=== PATIENT | female | born 1950 | race Caucasian/White ===

== ENCOUNTER → 2016-11-25 | Outpatient (CLI) | payer OTHER, MEDICAID ==
[~2016-11-25] MED LIST: ENAL2.5T PO; IBUP600T39; INSUPOW; METF-371 PO; PRAVASTATIN PO; TRAM50TA2 PO
== END | disposition home or self-care (01) ==
LOC: XY 11:07
PROVIDERS: ATTEND Internal Medicine
DX: L98.8 Other specified disorders of the skin and subcutaneous tissue (principal); M79.605 Pain in left leg; M79.604 Pain in right leg; R53.1 Weakness
CPT/HCPCS: 93923; 93925

== ENCOUNTER → 2017-01-26 | Outpatient (CLI) | payer OTHER, MEDICAID ==
[2017-01-26 09:39] LABS: Albumin 3.3 g/dL (3.4-5.0); BUN/Creatinine Ratio 22.4; Basophils # (auto) 0 uL; Basophils % (auto) 0.4 % (0.0-2.0); Bilirubin, Total 0.4 mg/dL (0.2-1.0); CONDITION Y; Calcium 8.8 mg/dL (8.5-10.1); Eosinophils # (auto) 0.1 uL; Eosinophils % (auto) 1.2 % (0.0-7.0); Hematocrit 42.7 % (36.0-46.0); Hemoglobin 14.1 g/dL (12.2-16.2); Lymphocytes # (auto) 2.9 uL; Lymphocytes % (auto) 34.6 % (10.0-50.0); Mean Corpuscular Hemoglobin 29.2 pg (28.0-32.0); Mean Corpuscular Hgb Conc. 33.1 g/dL (32.0-36.0); Mean Corpuscular Volume 88.2 fL (80.0-100.0); Mean Platelet Volume 9.9 fL (7.4-10.4); Monocytes # (auto) 0.6 uL; Monocytes % (auto) 7.4 % (0.0-12.0); Neutrophils # (auto) 4.8 uL; Neutrophils % (auto) 56.4 % (37.0-80.0); Platelet Count (auto) 232 10^3/uL (140-450); Potassium 4.2 mmol/L (3.5-5.1); Total Protein 7.4 g/dL (6.4-8.2); White Blood Cell 8.5 10^3/uL (4.4-10.8)
== END | disposition home or self-care (01) ==
LOC: LAB 09:00
PROVIDERS: ATTEND Internal Medicine
DX: I10 Essential (primary) hypertension (principal); E11.40 Type 2 diabetes mellitus with diabetic neuropathy, unspecified; I48.91 Unspecified atrial fibrillation
CPT/HCPCS: 36415; 80053; 80061; 82043; 82607; 83036; 84439; 84443; 85025; 85652

== ENCOUNTER → 2017-02-15 | Outpatient (CLI) | payer OTHER, MEDICAID ==
[2017-02-15 16:56] LABS: Urine Bilirubin Negative (Negative); Urine Blood 1+ /uL (Negative); Urine Color Yellow (Yellow); Urine Glucose 4+ mg/dL (Normal); Urine Ketone Negative (Negative); Urine Mucus MODERATE (None Seen); Urine Nitrite Negative (Negative); Urine RBC 5 /hpf (0 - 4); Urine Squamous Epithelial Cell FEW /hpf (<5); Urine Urobilinogen Normal (Negative); Urine WBC Clumps PRESENT /hpf (None Seen); Urine pH 5.5 (5.0-8.0)
== END | disposition home or self-care (01) ==
LOC: LAB 15:41
PROVIDERS: ATTEND Internal Medicine
DX: E11.40 Type 2 diabetes mellitus with diabetic neuropathy, unspecified (principal); I10 Essential (primary) hypertension
CPT/HCPCS: 81001; 82043; 82270

== ENCOUNTER 2017-02-25 09:40 | Emergency (ER) | payer OTHER, MEDICAID ==
[~2017-02-25] VITALS: Ht 154.9 cm; Wt 64.4 kg
[2017-02-25] MEDS ORDERED: PROMETHAZINE HCL 6.25 MG/5 ML ORAL SYRUP PO ONE (10:15)
[2017-02-25 10:37] LABS: Basophils # (auto) 0 uL; Basophils % (auto) 0.4 % (0.0-2.0); Eosinophils # (auto) 0.1 uL; Eosinophils % (auto) 1.5 % (0.0-7.0); Hematocrit 45.1 % (36.0-46.0); Hemoglobin 14.6 g/dL (12.2-16.2); Lymphocytes # (auto) 2.1 uL; Lymphocytes % (auto) 24.1 % (10.0-50.0); Mean Corpuscular Hemoglobin 30.1 pg (28.0-32.0); Mean Corpuscular Hgb Conc. 32.4 g/dL (32.0-36.0); Mean Corpuscular Volume 92.8 fL (80.0-100.0); Mean Platelet Volume 9.3 fL (6.9-10.8); Monocytes # (auto) 0.7 uL; Monocytes % (auto) 8.5 % (0.0-12.0); Neutrophils # (auto) 5.7 uL; Neutrophils % (auto) 65.5 % (37.0-80.0); Platelet Count (auto) 187 10^3/uL (140-450); Red Cell Distribution Width 12.8 % (11.8-14.3); White Blood Cell 8.8 10^3/uL (4.4-10.8)
[2017-02-25 10:49] LABS: INR 0.94 (0.9-1.15); Partial Thromboplastin Time 25.4 sec (22.64-33.71); Prothrombin Time 10.2 sec (9.37-12.3)
[2017-02-25 10:59] LABS: Albumin 3.4 g/dL (3.4-5.0); Alkaline Phosphatase 83 U/L (45-117); Anion Gap 6 (5-15); Aspartate Aminotransferase 10 U/L (15-37); BUN/Creatinine Ratio 18.2; Bilirubin, Total 0.3 mg/dL (0.2-1.0); Blood Urea Nitrogen 12 mg/dL (7-18); Calcium 8.7 mg/dL (8.5-10.1); Carbon Dioxide 25 mmol/L (21-32); Chloride 103 mmol/L (98-107); GFR African American 115 mL/min; GFR Non-African American 95 mL/min; Glucose 273 mg/dL (74-106); Potassium 4.2 mmol/L (3.5-5.1); Sodium 134 mmol/L (136-145); Total Protein 7.9 g/dL (6.4-8.2)
[2017-02-25] MEDS ORDERED: InsuLIN REG 1unit/0.01ml Soln (100units/ml) SC ONE (11:45)
[2017-02-25 12:33] VITALS: BP 120/70
== END 2017-02-25 12:43 | disposition home or self-care (01) ==
LOC: ER 09:40
DX: E11.65 Type 2 diabetes mellitus with hyperglycemia (principal); R05 Cough; I10 Essential (primary) hypertension; I48.91 Unspecified atrial fibrillation; M19.90 Unspecified osteoarthritis, unspecified site; E78.5 Hyperlipidemia, unspecified
CPT/HCPCS: 36415; 71010; 80053; 84484; 85025; 85610; 85730; 93005; 96372; 99285; J1815

== ENCOUNTER → 2017-06-23 | Outpatient (CLI) | payer OTHER, MEDICAID ==
[~2017-06-23] MED LIST changes: +ASPI81TA27 PO; +GABA300C10 PO; +GLIM2TAB33 PO; +INSDRIP SC; +INSUINJ48 SC; +LISI2.5T47 PO; +SIMV-8 PO
== END | disposition home or self-care (01) ==
LOC: LAB 15:26
PROVIDERS: ATTEND Internal Medicine
DX: N39.0 Urinary tract infection, site not specified (principal); R35.1 Nocturia; R30.0 Dysuria; R32 Unspecified urinary incontinence
CPT/HCPCS: 36415; 83036; 87086; 87088; 87186

== ENCOUNTER → 2017-09-06 | Day surgery (SDC) | payer OTHER, MEDICAID ==
[2017-09-02 14:08] LABS: Basophils # (auto) 0.1 uL; Basophils % (auto) 0.6 % (0.0-2.0); Eosinophils # (auto) 0.1 uL; Eosinophils % (auto) 1.5 % (0.0-7.0); Hematocrit 44.2 % (36.0-46.0); Hemoglobin 14.7 g/dL (12.2-16.2); Lymphocytes # (auto) 3.3 uL; Lymphocytes % (auto) 37.9 % (10.0-50.0); Mean Corpuscular Hemoglobin 29.1 pg (28.0-32.0); Mean Corpuscular Hgb Conc. 33.2 g/dL (32.0-36.0); Mean Corpuscular Volume 87.5 fL (80.0-100.0); Monocytes # (auto) 0.7 uL; Monocytes % (auto) 7.7 % (0.0-12.0); Neutrophils # (auto) 4.5 uL; Neutrophils % (auto) 52.3 % (37.0-80.0); Nucleated Red Blood Cells % 0.1 %; Platelet Count (auto) 206 10^3/uL (140-450); Red Blood Cells 5.05 10^6/uL (4.0-5.20); Red Cell Distribution Width 12.7 % (11.8-14.3); White Blood Cell 8.6 10^3/uL (4.4-10.8)
[2017-09-02 14:17] LABS: Urine Bacteria NONE SEEN /hpf (None Seen); Urine Blood TRACE /uL (Negative); Urine Budding Yeast MANY /hpf (None Seen); Urine Mucus FEW (None Seen); Urine Specific Gravity 1.022 (1.001-1.035); Urine WBC 285 /hpf (0 - 5); Urine WBC Clumps PRESENT /hpf (None Seen)
[2017-09-02 14:20] LABS: INR 0.93 (0.9-1.15); Partial Thromboplastin Time 23.1 sec (22.64-33.71); Prothrombin Time 10.1 sec (9.37-12.3)
[2017-09-02 14:43] LABS: Albumin 3.7 g/dL (3.4-5.0); BUN/Creatinine Ratio 22.9; Bilirubin, Total 0.3 mg/dL (0.2-1.0); Potassium 4.1 mmol/L (3.5-5.1); Total Protein 8.4 g/dL (6.4-8.2)
[~2017-09-06] VITALS: Ht 152.4 cm; Wt 63.0 kg
[~2017-09-06] MED LIST changes: +ATOR40TA52 PO; -ENAL2.5T PO; -IBUP600T39; -INSUPOW; -METF-371 PO; -PRAVASTATIN PO; -TRAM50TA2 PO
== END | disposition home or self-care (01) ==
LOC: SUR 08:47
PROVIDERS: ATTEND Urology
DX: N81.10 Cystocele, unspecified (principal); Z53.8 Procedure and treatment not carried out for other reasons; E66.9 Obesity, unspecified
CPT/HCPCS: 36415; 80053; 81001; 85025; 85610; 85730

== ENCOUNTER 2017-10-11 07:07 | Day surgery (SDC) | payer OTHER, MEDICAID ==
[2017-10-07 09:18] LABS: Basophils # (auto) 0 uL; Basophils % (auto) 0.5 % (0.0-2.0); Eosinophils # (auto) 0.2 uL; Hematocrit 42.9 % (36.0-46.0); Hemoglobin 14.6 g/dL (12.2-16.2); Lymphocytes # (auto) 2.7 uL; Lymphocytes % (auto) 35.4 % (10.0-50.0); Mean Corpuscular Hemoglobin 29.6 pg (28.0-32.0); Mean Corpuscular Hgb Conc. 34.1 g/dL (32.0-36.0); Mean Corpuscular Volume 86.7 fL (80.0-100.0); Monocytes # (auto) 0.6 uL; Neutrophils # (auto) 4.1 uL; Neutrophils % (auto) 54.1 % (37.0-80.0); Nucleated Red Blood Cells % 0.1 %; Platelet Count (auto) 182 10^3/uL (140-450); Red Blood Cells 4.94 10^6/uL (4.0-5.20); Red Cell Distribution Width 12.7 % (11.8-14.3); White Blood Cell 7.6 10^3/uL (4.4-10.8)
[2017-10-07 09:31] LABS: Urine Bacteria NONE SEEN /hpf (None Seen); Urine Blood Negative /uL (Negative); Urine Budding Yeast MODERATE /hpf (None Seen); Urine Specific Gravity 1.013 (1.001-1.035); Urine WBC 56 /hpf (0 - 5); Urine WBC Clumps PRESENT /hpf (None Seen)
[2017-10-07 09:40] LABS: Albumin 3.5 g/dL (3.4-5.0); BUN/Creatinine Ratio 21.9; Calcium 8.9 mg/dL (8.5-10.1); Potassium 4.2 mmol/L (3.5-5.1)
[2017-10-07 09:41] LABS: INR 0.95 (0.9-1.15); Partial Thromboplastin Time 23.6 sec (22.64-33.71); Prothrombin Time 10.3 sec (9.37-12.3)
[2017-10-07 09:42] LABS: Bilirubin, Total 0.4 mg/dL (0.2-1.0)
[~2017-10-11] VITALS: Ht 152.4 cm; Wt 63.0 kg
[~2017-10-11 07:07] MED LIST changes: -SIMV-8 PO
[2017-10-11] MEDS ORDERED: ceFAZolin 1GM/100ML 50 ML IV ONE (07:25)
[2017-10-11] MEDS ORDERED: fentaNYL CITRATE 100 MCG/2 ML VL ONE (08:01)
[2017-10-11] MEDS ORDERED: ROCURONIUM 10MG/ML 10ML VIAL IV ONE (08:01)
[2017-10-11] MEDS ORDERED: MIDAZOLAM HCL 1MG/1ML-2 ML VIAL ONE (08:01)
[2017-10-11] MEDS ORDERED: PROPOFOL 10 MG/ML 20 ML IV ONE (08:02)
[2017-10-11] MEDS ORDERED: ONDANSETRON HCL 4 MG/2 ML VIAL ONE (08:02)
[2017-10-11] MEDS ORDERED: GLYCOPYRROLATE 0.2 MG/ML 1ML VIAL ONE (08:06)
[2017-10-11] MEDS ORDERED: NEOSTIGMINE 1 MG/ML INJ (10mg/10ML VIAL) ONE (08:06)
[2017-10-11] MEDS ORDERED: CONJ ESTROGENS 0.625MG/GM VAG CRM 30GM PV ONE (08:52)
[2017-10-11] MEDS ORDERED: NEOMYCIN-BACITRACIN-POLYM 15GM TOP OINT TOP ONE (09:11)
[2017-10-11] MEDS ORDERED: BUPIVACAINE W/ EPINEPH 0.25% INJ 50ML MDV ONE (09:11)
[2017-10-11] MEDS ORDERED: ceFAZolin 1GM VL ONE (09:13)
[2017-10-11] MEDS ORDERED: MORPHINE SULFATE 4 MG/ML SYR/VIAL IV PRN (10:00)
[2017-10-11] MEDS ORDERED: ACCU-CHEK COMFORT CURVE STRIP VI ONE (10:00)
[2017-10-11] MEDS ORDERED: METOCLOPRAMIDE HCL 5MG/ml INJ 2ml VIAL IV ONE (10:00)
[2017-10-11 11:05] VITALS: BP 148/79
== END 2017-10-11 11:18 | disposition home or self-care (01) ==
LOC: SUR 07:07
PROVIDERS: ATTEND Urology
DX: N81.10 Cystocele, unspecified (principal); Z88.5 Allergy status to narcotic agent; E66.9 Obesity, unspecified; E11.9 Type 2 diabetes mellitus without complications; M19.90 Unspecified osteoarthritis, unspecified site; Z98.51 Tubal ligation status; E11.40 Type 2 diabetes mellitus with diabetic neuropathy, unspecified; Z79.01 Long term (current) use of anticoagulants; Z79.891 Long term (current) use of opiate analgesic; Z79.899 Other long term (current) drug therapy; I10 Essential (primary) hypertension; I25.10 Atherosclerotic heart disease of native coronary artery without angina pectoris; E11.42 Type 2 diabetes mellitus with diabetic polyneuropathy
CPT/HCPCS: 36415; 57106; 57240; 57267; 80053; 81001; 82962; 85025; 85610; 85730; 87086; 87088; 87186; C1781; J0690; J2250; J2405; J2704; J3010; 88302

== ENCOUNTER 2018-07-11 09:37 | Emergency (ER) | payer MEDICAID, OTHER ==
[~2018-07-11] VITALS: Ht 154.9 cm; Wt 64.4 kg
[2018-07-11] MEDS ORDERED: methylPREDNISolone SOD SUCC 125 MG/2 ML VL IV ONE (10:15)
[2018-07-11] MEDS ORDERED: IPRATROPIUM BROM 0.5 MG/2.5ML INH SOL HHN ONE (10:15)
[2018-07-11] MEDS ORDERED: ALBUTEROL SULF 2.5 MG/0.5ML(0.5%) NEB SOLN HHN ONE (10:15)
[2018-07-11 11:01] LABS: Basophils # (auto) 0 uL; Basophils % (auto) 0.6 % (0.0-2.0); Eosinophils # (auto) 0.1 uL; Eosinophils % (auto) 1.6 % (0.0-7.0); Hematocrit 42.3 % (36.0-46.0); Hemoglobin 14.7 g/dL (12.2-16.2); Lymphocytes # (auto) 2.6 uL; Lymphocytes % (auto) 36.4 % (10.0-50.0); Mean Corpuscular Hemoglobin 30.7 pg (28.0-32.0); Mean Corpuscular Hgb Conc. 34.8 g/dL (32.0-36.0); Mean Corpuscular Volume 88.2 fL (80.0-100.0); Monocytes # (auto) 0.6 uL; Monocytes % (auto) 8.3 % (0.0-12.0); Neutrophils # (auto) 3.7 uL; Neutrophils % (auto) 53.1 % (37.0-80.0); Nucleated Red Blood Cells % 0.1 %; Platelet Count (auto) 160 10^3/uL (140-450); Red Cell Distribution Width 12.4 % (11.8-14.3)
[2018-07-11 11:15] LABS: Chloride 102 mmol/L (98-107); Potassium 3.8 mmol/L (3.5-5.1); Sodium 134 mmol/L (136-145)
[2018-07-11 11:27] LABS: Alanine Aminotransferase 18 U/L (13-56); Albumin 3.6 g/dL (3.4-5.0); Alkaline Phosphatase 82 U/L (45-117); Anion Gap 7 (5-15); Aspartate Aminotransferase 13 U/L (15-37); Bilirubin, Total 0.4 mg/dL (0.2-1.0); Blood Urea Nitrogen 14 mg/dL (7-18); Calcium 8.8 mg/dL (8.5-10.1); Carbon Dioxide 25 mmol/L (21-32); GFR African American 107 mL/min; GFR Non-African American 88 mL/min; Glucose 240 mg/dL (74-106); Magnesium 2.4 mg/dL (1.6-2.6); Total Protein 7.8 g/dL (6.4-8.2)
[2018-07-11 11:31] VITALS: BP 161/71
== END 2018-07-11 12:06 | disposition home or self-care (01) ==
LOC: ER 09:37
DX: J20.9 Acute bronchitis, unspecified (principal); E11.9 Type 2 diabetes mellitus without complications; I10 Essential (primary) hypertension; I48.91 Unspecified atrial fibrillation; M19.90 Unspecified osteoarthritis, unspecified site; E78.5 Hyperlipidemia, unspecified; Z98.51 Tubal ligation status
CPT/HCPCS: 36415; 71046; 80053; 83735; 83880; 84484; 85025; 93005; 94640; 94761; 96374; 99284; J2930; J7611; J7644

== ENCOUNTER 2018-11-05 10:49 | Emergency (ER) | payer MEDICARE, OTHER ==
[~2018-11-05] VITALS: Ht 154.9 cm; Wt 63.5 kg
[~2018-11-05 10:49] MED LIST changes: +ASPI-404 PO; -ASPI81TA27 PO
[2018-11-05 10:54] VITALS: BP 132/58
[2018-11-05] MEDS ORDERED: KETOROLAC TROMETH 60MG/2ML VIAL IM ONE (12:15)
== END 2018-11-05 12:24 | disposition home or self-care (01) ==
LOC: ER 10:58
DX: M17.11 Unilateral primary osteoarthritis, right knee (principal); M94.0 Chondrocostal junction syndrome [Tietze]; M19.90 Unspecified osteoarthritis, unspecified site; E11.9 Type 2 diabetes mellitus without complications; E78.5 Hyperlipidemia, unspecified; Z79.4 Long term (current) use of insulin; Z88.6 Allergy status to analgesic agent; Z98.51 Tubal ligation status
CPT/HCPCS: 73562; 96372; 99283; J1885

== ENCOUNTER → 2018-11-18 | Outpatient (CLI) | payer OTHER ==
[~2018-11-18] MED LIST changes: -ASPI-404 PO; +ASPI81TA27 PO
[2018-11-18 12:55] LABS: Basophils # (auto) 0 uL; Basophils % (auto) 0.5 % (0.0-2.0); Eosinophils # (auto) 0.2 uL; Eosinophils % (auto) 2.2 % (0.0-7.0); Hematocrit 43.1 % (36.0-46.0); Hemoglobin 14.6 g/dL (12.2-16.2); Lymphocytes # (auto) 2.1 uL; Lymphocytes % (auto) 28.9 % (10.0-50.0); Mean Corpuscular Hemoglobin 30.1 pg (28.0-32.0); Mean Corpuscular Hgb Conc. 33.7 g/dL (32.0-36.0); Mean Corpuscular Volume 89.3 fL (80.0-100.0); Monocytes # (auto) 0.7 uL; Monocytes % (auto) 9.9 % (0.0-12.0); Neutrophils # (auto) 4.2 uL; Neutrophils % (auto) 58.5 % (37.0-80.0); Platelet Count (auto) 174 10^3/uL (140-450); Red Blood Cells 4.83 10^6/uL (4.0-5.20); Red Cell Distribution Width 12.1 % (11.8-14.3); White Blood Cell 7.1 10^3/uL (4.4-10.8)
[2018-11-18 13:13] LABS: Urine Bacteria MANY /hpf (None Seen); Urine Blood 2+ /uL (Negative); Urine Sperm PRESENT /hpf (None Seen); Urine WBC 602 /hpf (0 - 5); Urine WBC Clumps PRESENT /hpf (None Seen)
[2018-11-18 13:50] LABS: Free T4 (Free Thyroxine) 0.98 ng/dL (0.89-1.76)
[2018-11-18 13:53] LABS: Potassium 3.8 mmol/L (3.5-5.1)
[2018-11-18 14:12] LABS: Albumin 3.4 g/dL (3.4-5.0); BUN/Creatinine Ratio 20.2; Bilirubin, Total 0.4 mg/dL (0.2-1.0); Calcium 9.3 mg/dL (8.5-10.1); Uric Acid 5.7 mg/dL (2.6-6.0)
== END | disposition home or self-care (01) ==
LOC: LAB 11:25
PROVIDERS: ATTEND Internal Medicine
DX: E11.40 Type 2 diabetes mellitus with diabetic neuropathy, unspecified (principal); I10 Essential (primary) hypertension
CPT/HCPCS: 36415; 80053; 80061; 81001; 82043; 82607; 83036; 84439; 84443; 84550; 85025; 85652

== ENCOUNTER 2019-01-09 09:34 | Emergency (ER) | payer OTHER, MEDICAID ==
[~2019-01-09] VITALS: Ht 154.9 cm; Wt 64.4 kg
[~2019-01-09 09:34] MED LIST changes: +ASPI-404 PO; -ASPI81TA27 PO
[2019-01-09 09:51] VITALS: BP 12/67
[2019-01-09] MEDS ORDERED: cefTRIAXone SOD 1,000 MG VL IM ONE (10:00)
[2019-01-09] MEDS ORDERED: cefTRIAXone SOD 1,000 MG VL ONE (10:03)
[2019-01-09] MEDS ORDERED: LIDOCAINE 1% HCL (LOCAL ANESTH.) INJ 20ML MDV IJ ONE (10:15)
== END 2019-01-09 10:46 | disposition home or self-care (01) ==
LOC: ER 09:34
DX: L02.01 Cutaneous abscess of face (principal); E11.9 Type 2 diabetes mellitus without complications; M19.90 Unspecified osteoarthritis, unspecified site; I10 Essential (primary) hypertension; Z88.6 Allergy status to analgesic agent
CPT/HCPCS: 10060; 96372; 99283; J0696

== ENCOUNTER 2019-01-11 10:04 | Emergency (ER) | payer OTHER, MEDICAID ==
[~2019-01-11] VITALS: Ht 154.9 cm; Wt 64.4 kg
[2019-01-11 10:52] VITALS: BP 149/71
[2019-01-11] MEDS ORDERED: LIDOCAINE 1% HCL (LOCAL ANESTH.) INJ 20ML MDV IJ ONE (11:45)
[2019-01-11] MEDS ORDERED: cefTRIAXone SOD 1,000 MG VL IM ONE (11:45)
== END 2019-01-11 12:34 | disposition home or self-care (01) ==
LOC: ER 10:07
DX: L02.01 Cutaneous abscess of face (principal); M19.90 Unspecified osteoarthritis, unspecified site; E11.9 Type 2 diabetes mellitus without complications; E78.5 Hyperlipidemia, unspecified; I10 Essential (primary) hypertension; E07.9 Disorder of thyroid, unspecified; Z48.01 Encounter for change or removal of surgical wound dressing; Z98.51 Tubal ligation status; Z88.5 Allergy status to narcotic agent; Z79.4 Long term (current) use of insulin; Z79.82 Long term (current) use of aspirin; Z79.899 Other long term (current) drug therapy
CPT/HCPCS: 10060; 96372; 99283; J0696; J2001

== ENCOUNTER 2019-01-13 10:09 | Emergency (ER) | payer OTHER, MEDICAID ==
[~2019-01-13] VITALS: Ht 154.9 cm; Wt 64.4 kg
[2019-01-13 10:23] VITALS: BP 130/61
== END 2019-01-13 10:59 | disposition home or self-care (01) ==
LOC: ER 10:09
DX: L02.01 Cutaneous abscess of face (principal); M19.90 Unspecified osteoarthritis, unspecified site; E11.9 Type 2 diabetes mellitus without complications; E78.5 Hyperlipidemia, unspecified; I10 Essential (primary) hypertension; E07.9 Disorder of thyroid, unspecified; Z48.01 Encounter for change or removal of surgical wound dressing; Z98.51 Tubal ligation status; Z88.5 Allergy status to narcotic agent; Z79.4 Long term (current) use of insulin; Z79.82 Long term (current) use of aspirin; Z79.899 Other long term (current) drug therapy

== ENCOUNTER 2019-01-15 11:26 | Emergency (ER) | payer OTHER, MEDICAID ==
[~2019-01-15] VITALS: Ht 154.9 cm; Wt 64.4 kg
[2019-01-15 11:33] VITALS: BP 136/70
== END 2019-01-15 13:44 | disposition home or self-care (01) ==
LOC: ER 11:26
DX: L02.01 Cutaneous abscess of face (principal); E11.9 Type 2 diabetes mellitus without complications; E78.5 Hyperlipidemia, unspecified; I10 Essential (primary) hypertension; Z98.51 Tubal ligation status; Z79.4 Long term (current) use of insulin; Z88.6 Allergy status to analgesic agent
CPT/HCPCS: 82962

== ENCOUNTER 2019-01-18 10:59 | Emergency (ER) | payer OTHER, MEDICAID ==
[~2019-01-18] VITALS: Ht 154.9 cm; Wt 64.4 kg
[2019-01-18 13:46] VITALS: BP 144/61
== END 2019-01-18 14:18 | disposition home or self-care (01) ==
LOC: ER 11:03
DX: L02.01 Cutaneous abscess of face (principal); E11.9 Type 2 diabetes mellitus without complications; I10 Essential (primary) hypertension; E78.5 Hyperlipidemia, unspecified; M19.90 Unspecified osteoarthritis, unspecified site; Z88.6 Allergy status to analgesic agent; Z98.51 Tubal ligation status

== ENCOUNTER → 2019-01-23 | Outpatient (CLI) | payer OTHER, MEDICAID | END | disposition home or self-care (01) | LOC: LAB 12:37 | PROVIDERS: ATTEND Internal Medicine | DX: E11.9 Type 2 diabetes mellitus without complications (principal); R30.0 Dysuria | CPT/HCPCS: 87086 ==

== ENCOUNTER 2019-04-30 12:33 | Emergency (ER) | payer OTHER, MEDICAID ==
[~2019-04-30] VITALS: Ht 152.4 cm; Wt 63.5 kg
[2019-04-30 14:56] VITALS: BP 148/70
[2019-04-30] MEDS ORDERED: TETRACAINE HCL 0.5% OPTH(EYE) SOLN 4ML ONE (15:31)
[2019-04-30] MEDS ORDERED: FLUORESCEIN SOD 1 MG TEST STRIP ONE (15:31)
[2019-04-30] MEDS ORDERED: FLUORESCEIN SOD 1 MG TEST STRIP LEFTEYE ONE (15:45)
[2019-04-30] MEDS ORDERED: TETRACAINE HCL 0.5% OPTH(EYE) SOLN 4ML LEFTEYE ONE (15:45)
[2019-04-30] MEDS ORDERED: NEOMYCIN-POLYMY-DEXAMETH 0.1% OPTH(EYE) SUSP 5ML LEFTEYE ONE (16:15)
[2019-04-30] MEDS ORDERED: NEOMYCIN-POLYM-GRAM OPTH(EYE) SOL 10ML RIGHTEYE ONE (16:45)
== END 2019-04-30 16:57 | disposition home or self-care (01) ==
LOC: ER 12:33
DX: S05.02XA Injury of conjunctiva and corneal abrasion without foreign body, left eye, initial encounter (principal); H20.9 Unspecified iridocyclitis; M19.90 Unspecified osteoarthritis, unspecified site; E11.9 Type 2 diabetes mellitus without complications; E78.5 Hyperlipidemia, unspecified; I10 Essential (primary) hypertension; E07.9 Disorder of thyroid, unspecified; Z88.5 Allergy status to narcotic agent; Z79.899 Other long term (current) drug therapy; X58.XXXA Exposure to other specified factors, initial encounter; Y93.89 Activity, other specified; Y92.89 Other specified places as the place of occurrence of the external cause; Y99.8 Other external cause status

== ENCOUNTER → 2019-05-16 | Outpatient (CLI) | payer OTHER, MEDICAID | END | disposition home or self-care (01) | LOC: LAB 15:20 | PROVIDERS: ATTEND Internal Medicine | DX: N39.0 Urinary tract infection, site not specified (principal) | CPT/HCPCS: 87086; 87088; 87186 ==

== ENCOUNTER 2019-06-14 13:27 | Emergency (ER) | payer OTHER, MEDICAID ==
[~2019-06-14] VITALS: Ht 154.9 cm; Wt 63.5 kg
[2019-06-14] MEDS ORDERED: cefTRIAXone SOD 1,000 MG VL IM ONE (16:45)
[2019-06-14 17:00] VITALS: BP 120/70
== END 2019-06-14 17:16 | disposition home or self-care (01) ==
LOC: ER 13:33
DX: L02.02 Furuncle of face (principal); E11.9 Type 2 diabetes mellitus without complications; E78.5 Hyperlipidemia, unspecified; I10 Essential (primary) hypertension; Z98.51 Tubal ligation status; Z87.440 Personal history of urinary (tract) infections; Z88.6 Allergy status to analgesic agent; Z79.82 Long term (current) use of aspirin; Z79.4 Long term (current) use of insulin; Z79.899 Other long term (current) drug therapy
CPT/HCPCS: 96372; 99283; J0696

== ENCOUNTER → 2019-06-23 | Outpatient (CLI) | payer OTHER, MEDICAID ==
[2019-06-23 10:00] LABS: Albumin 3.1 g/dL (3.4-5.0); Potassium 4.5 mmol/L (3.5-5.1)
[2019-06-23 10:05] LABS: BUN/Creatinine Ratio 23.9; Bilirubin, Total 0.4 mg/dL (0.2-1.0); Total Protein 7.7 g/dL (6.4-8.2)
== END | disposition home or self-care (01) ==
LOC: LAB 09:31
PROVIDERS: ATTEND Internal Medicine
DX: E11.40 Type 2 diabetes mellitus with diabetic neuropathy, unspecified (principal)
CPT/HCPCS: 36415; 80053; 80061; 83036

== ENCOUNTER → 2019-12-20 | Outpatient (CLI) | payer OTHER, MEDICAID | END | disposition home or self-care (01) | LOC: LAB 17:13 | PROVIDERS: ATTEND Physician Assistant | DX: Z20.828 Contact with and (suspected) exposure to other viral communicable diseases (principal) | CPT/HCPCS: 87635 ==

== ENCOUNTER 2020-02-06 11:32 | Inpatient (IN) | payer OTHER, MEDICAID ==
[~2020-02-06] VITALS: Ht 154.9 cm; Wt 65.4 kg
[~2020-02-06 11:32] MED LIST changes: +ACET-1156 PO; -ASPI-404 PO; +ASPI-543 PO; +ATOR20TA50 PO; +CAR3125T PO; +GLIP10TA9 PO; +INSUINJ2 SC; +LANS30CA57 PO; +LOSA-69 PO; +SIMV-8 PO; +SUCR1SUS10 PO
[2020-02-06 13:46] LABS: Basophils # (auto) 0 10 ^3/uL (0-0.2); Basophils % (auto) 0.2 % (0.0-2.0); Eosinophils # (auto) 0.2 10 ^3/uL (0-0.8); Eosinophils % (auto) 1.1 % (0.0-7.0); Hemoglobin 10.6 g/dL (12.2-16.2); Lymphocytes % (auto) 13.1 % (10.0-50.0); Mean Corpuscular Hemoglobin 27.7 pg (28.0-32.0); Mean Corpuscular Volume 86.6 fL (80.0-100.0); Monocytes # (auto) 1.1 10 ^3/uL (0-1.3); Monocytes % (auto) 7.1 % (0.0-12.0); Neutrophils # (auto) 11.7 10 ^3/uL (1.6-8.6); Neutrophils % (auto) 78.5 % (37.0-80.0); Platelet Count (auto) 364 10^3/uL (140-450); Red Blood Cells 3.81 10^6/uL (4.0-5.20); Red Cell Distribution Width 13.4 % (11.8-14.3); White Blood Cell 14.9 10^3/uL (4.4-10.8)
[2020-02-06 14:06] LABS: Albumin 2.4 g/dL (3.4-5.0); Calcium 8.6 mg/dL (8.5-10.1); Magnesium 2.2 mg/dL (1.6-2.6); Potassium 4.6 mmol/L (3.5-5.1)
[2020-02-06 14:11] LABS: BUN/Creatinine Ratio 15.8; Bilirubin, Total 0.2 mg/dL (0.2-1.0); Total Protein 7.1 g/dL (6.4-8.2)
[2020-02-06] MEDS ORDERED: HYDROmorphone HCL 2 MG/ML VL IV PRN (16:30)
[2020-02-06] MEDS ORDERED: ONDANSETRON HCL 4 MG/2 ML VIAL ONE (16:55)
[2020-02-06] MEDS ORDERED: levoFLOXacin 500MG 100 ML IV ONE (17:00)
[2020-02-06] MEDS ORDERED: ONDANSETRON HCL 4 MG/2 ML VIAL IV PRN ×2 (17:00→17:15)
[2020-02-06] MEDS ORDERED: LORazepam 0.5 MG TAB PO PRN (17:15)
[2020-02-06] MEDS ORDERED: DEXTROSE (50%) 50ML SYRG IV PRN (17:15)
[2020-02-06] MEDS ORDERED: ACETAMINOPHEN 325 MG TAB PO PRN (17:15)
[2020-02-06] MEDS ORDERED: MORPHINE SULF INJ 2 MG/ML SYRINGE 1ML IV PRN ×2 (17:15)
[2020-02-06] MEDS ORDERED: DOCUSATE SOD 100 MG CAP PO PRN (17:15)
[2020-02-06] MEDS ORDERED: metroNIDAZOLE 500MG/100ML 100 ML IV ONE (17:15)
[2020-02-06] MEDS ORDERED: ALUM & MAG HYDROX-SIMETH LIQ(MAALOX) 30 ML PO PRN (17:15)
[2020-02-06] MEDS ORDERED: NITROGLYCERIN 0.4 MG SL TAB SL PRN (17:15)
[2020-02-06 17:47] LABS: Cholesterol 104 mg/dL (< 200); HDL Cholesterol 32 mg/dL (40-59); LDL Cholesterol 51 mg/dL (< 100); Triglycerides 218 mg/dL (< 150)
[2020-02-06] MEDS: SODIUM CHLORIDE 0.9% 1,000 ML IV SCH ×2 (18:01→22:22)
[2020-02-06] MEDS: SUCRALFATE 1 GM/10 ML ORAL SUSP PO SCH ×2 (18:08→23:34)
[2020-02-06] MEDS ORDERED: ATOR20TA50 PO (19:43)
[2020-02-06] MEDS ORDERED: ACET-1304 PO (19:43)
[2020-02-06] MEDS ORDERED: CAR3125T PO (19:43)
[2020-02-06] MEDS ORDERED: LANS-34 PO (19:44)
[2020-02-06] MEDS ORDERED: INSREG3 SC (19:46)
[2020-02-06] MEDS ORDERED: ASPI-498 PO (19:50)
--- NOTE | 2020-02-06 23:20 | NUR ---
Telemetry admit from ER GANGA SHORT admitted to Telemetry unit after SBAR received. Patient oriented to Laly Solis, primary RN, unit, room, bed, and unit policies regarding patient care and visiting hours. Patient now on continuous telemetry monitoring, tele box # [84] and telemetry reading on arrival to unit is [SR 89]. Patient placed on bedside oxygen, weighed by bedscale and encouraged to call if they need something. All questions and concerns addressed, patient verbalized understanding. Note: PATIENT' S BP LOW, 75/50, 86/45, 80/46, AND 87/40. WILL PAGE HOSPITALIST FOR FURTHER TREATMENT. CONTINUE TO MONITOR.
[2020-02-06] MEDS: CARVEDILOL 3.125 MG TAB PO SCH (23:25)
[2020-02-06 23:30] VITALS: BP 87/40
[2020-02-06] MEDS ORDERED: INFLUENZA QUAD 2020-2021 0.5 ML SYRG IM ONE (23:30)
--- NOTE | 2020-02-06 23:30 | NUR ---
HOSPITALIST Called/paged FE SNOW called re:PATIENT'S LOW BP BY CHARGE NURSE CHIP. Waiting for call back. Continue care.
[2020-02-06] MEDS: metroNIDAZOLE 500MG/100ML 100 ML IV SCH (23:34)
[2020-02-06] MEDS: GABAPENTIN 300 MG CAP PO SCH (23:35)
[2020-02-06] MEDS: ATORVASTATIN 20 MG TAB PO SCH (23:35)
[2020-02-06] MEDS: ACCU-CHEK COMFORT CURVE STRIP VI SCH (23:35)
[2020-02-06] MEDS: InsuLIN REG 1unit/0.01ml Soln (100units/ml) SC SCH (23:36)
[2020-02-06 23:45] VITALS: BP 75/50
[2020-02-07] VITALS (8 sets, daily range): BP systolic 86–138; BP diastolic 45–66
--- NOTE | 2020-02-07 00:06 | NUR ---
HOSPITALIST Called/paged AGAIN FE [facility] called re:LOW BP. Waiting for call back. Continue care.
--- NOTE | 2020-02-07 00:55 | NUR ---
HOSPITALIST FE SNOW CAME TO THE FLOOR FOR ROUNDS, UPDATED ON PATIENT'S CURRENT SITUATION AND THE REASON TO CALL, ORDER RECEIVED. CONTINUE CARE.
[2020-02-07] MEDS ORDERED: ALBUMIN 5% 250 ML IV ONE (01:00)
--- NOTE | 2020-02-07 01:19 | NUR ---
MRSA SWAB COLLECTED AND SENT. CONTINUE TO MONITOR.
--- NOTE | 2020-02-07 02:10 | NUR ---
REASSESSED PATIENT AFTER ALBUMIN, BP 111/56, HR 87. CONTINUE TO MONITOR.
[2020-02-07] MEDS ORDERED: THIAMINE 100mg/ml INJ (200mg/2ml VIAL) IM ONE (02:15)
[2020-02-07] MEDS ORDERED: SODIUM CHLORIDE 0.9% 1,000 ML IV ONE (02:15)
[2020-02-07] MEDS: SODIUM CHLORIDE 0.9% 1,000 ML IV SCH ×2 (02:58→12:37)
[2020-02-07] MEDS: metroNIDAZOLE 500MG/100ML 100 ML IV SCH (05:26)
[2020-02-07] MEDS: SUCRALFATE 1 GM/10 ML ORAL SUSP PO SCH ×4 (05:46→21:58)
[2020-02-07] MEDS: GABAPENTIN 300 MG CAP PO SCH ×3 (05:46→21:59)
[2020-02-07] MEDS ORDERED: HYDROCORTISONE SOD SUCC 100 MG/2ML INJ VIAL IV SCH (06:00)
--- NOTE | 2020-02-07 06:00 | NUR ---
REASSESSED AFTER NS BOLUS, BP 136/66, HR 108. CONTINUE TO MONITOR.
--- NOTE | 2020-02-07 06:38 | NUR ---
ACCU-CHECK, BS 198. NO COVERAGE SINCE PATIENT NPO FOR MRCP LATER TODAY. CONTINUE TO MONITOR,.
[2020-02-07] MEDS: ACCU-CHEK COMFORT CURVE STRIP VI SCH ×4 (07:00→22:06)
[2020-02-07] MEDS: InsuLIN REG 1unit/0.01ml Soln (100units/ml) SC SCH ×4 (07:00→22:08)
[2020-02-07 07:13] LABS: Basophils # (auto) 0 10 ^3/uL (0-0.2); Basophils % (auto) 0.1 % (0.0-2.0); Eosinophils # (auto) 0 10 ^3/uL (0-0.8); Eosinophils % (auto) 0.2 % (0.0-7.0); Hematocrit 27.9 % (36.0-46.0); Hemoglobin 9.1 g/dL (12.2-16.2); Lymphocytes # (auto) 1.6 10 ^3/uL (0.4-5.4); Lymphocytes % (auto) 10.6 % (10.0-50.0); Mean Corpuscular Hemoglobin 28.3 pg (28.0-32.0); Mean Corpuscular Hgb Conc. 32.8 g/dL (32.0-36.0); Mean Corpuscular Volume 86.3 fL (80.0-100.0); Monocytes # (auto) 1.5 10 ^3/uL (0-1.3); Monocytes % (auto) 10.1 % (0.0-12.0); Neutrophils # (auto) 11.7 10 ^3/uL (1.6-8.6); Platelet Count (auto) 309 10^3/uL (140-450); Red Blood Cells 3.23 10^6/uL (4.0-5.20); Red Cell Distribution Width 13.7 % (11.8-14.3); White Blood Cell 14.8 10^3/uL (4.4-10.8)
[2020-02-07 07:27] LABS: INR 1.14 (0.9-1.15)
[2020-02-07 07:34] LABS: Albumin 2.2 g/dL (3.4-5.0); BUN/Creatinine Ratio 16.2; Calcium 7.6 mg/dL (8.5-10.1); Magnesium 1.6 mg/dL (1.6-2.6); Potassium 4.5 mmol/L (3.5-5.1)
[2020-02-07 07:37] LABS: Bilirubin, Total 0.4 mg/dL (0.2-1.0); Phosphorus 2.6 mg/dL (2.5-4.90); Total Protein 6.3 g/dL (6.4-8.2)
--- NOTE | 2020-02-07 07:40 | NUR ---
ROUNDS PT RESTING IN BED AWAKE A&O. C/O 11/14 PAIN TO HER ABD. PT HAS MEAL TRAY AT BEDSIDE, AND VERBALIZES UNDERSTANDING TO NOT EAT DUE TO NPO STATUS FOR MRCP TODAY. PT STATES IF SHE SITS UP TO QUICKLY SHE FEELS IF SHE MAY THROW UP, EMESIS BAG WITH PT JUST INCASE. WILL CONTINUE TO MONITOR
--- NOTE | 2020-02-07 09:01 | NUR ---
TAKEN TO MRI VIA WHEELCHAIR
--- NOTE | 2020-02-07 09:29 | NUR ---
PT DAUGHTER CALLED TO CHECK PT STATUS PASSWORD PROVIDED AND UPDATE GIVEN
--- NOTE | 2020-02-07 09:39 | NUR ---
RETURNED FROM MRI
[2020-02-07] MEDS ORDERED: levoFLOXacin 500MG 100 ML IV SCH (10:00)
[2020-02-07] MEDS: THIAMINE 100mg/ml INJ (200mg/2ml VIAL) IV SCH (10:00)
[2020-02-07] MEDS ORDERED: CHOLECALCIFEROL (VITD3) 2,000 UNIT CAP PO SCH (10:00)
[2020-02-07] MEDS: CARVEDILOL 3.125 MG TAB PO SCH ×2 (10:00→21:58)
[2020-02-07] MEDS ORDERED: PANTOPRAZOLE 40 MG TAB PO SCH (10:00)
[2020-02-07] MEDS: LOSARTAN POTASSIUM 50 MG TAB PO SCH (10:00)
[2020-02-07] MEDS ORDERED: LISINOPRIL 5 MG TAB PO SCH (10:00)
[2020-02-07] MEDS ORDERED: PANTOPRAZOLE 40 MG/10 ML VIAL INJ IV ONE (10:15)
--- NOTE | 2020-02-07 10:42 | NUR ---
ss consult Per consult information on advanced directive. Nurse provided patient with advanced directive. Addendum: 02/07/20 at 1043 by Pina DENNY Amended: Links added.
--- NOTE | 2020-02-07 11:00 | NUR ---
DR SCHMIDT AT BEDSIDE
--- NOTE | 2020-02-07 11:41 | NUR ---
PATIENT OFF THE FLOOR FOR PROCEDURE
[2020-02-07] MEDS ORDERED: PIPERACILLIN-TAZOB 3.375GM 100 ML IV SCH (12:00)
[2020-02-07] MEDS: ASCORBIC ACID 500 MG TAB PO SCH ×2 (12:08→21:59)
[2020-02-07] MEDS: HYDROcodone-ACET 5/325MG TAB PO PRN (12:08)
--- NOTE | 2020-02-07 12:11 | NUR ---
DR EVANS AT BEDSIDE DISCUSSING PT STUDY RESULTS
[2020-02-07] MEDS: CHOLECALCIFEROL (VITD3) 1,000UNIT=25mCg TAB PO SCH (14:18)
--- NOTE | 2020-02-07 14:19 | NUR ---
MEDICATION HELD BLOOD PRESSURE MEDICATION HELD DUE TO REPEAT ISSUE WITH HYPOTENSION THROUGH THE NIGHT.
--- NOTE | 2020-02-07 14:20 | NUR ---
Nutrition Consult/assessment Note please see attached link for complete assessment [employer] needs BW 62 [id number] kcals (23-25 kcal/kgBW), Est Protein needs: 62-80 gms/day (1.0-1.3 gm/kgBW r/t wounds hypoalb). Will continue to monitor and reassess prn. Addendum: 02/07/20 at [address] Amended: Links added.
--- NOTE | 2020-02-07 16:35 | NUR ---
PT DAUGHTER CALLED TO CHECK STATUS PASSWORD VERIFIED, UPDATE GIVEN
--- NOTE | 2020-02-07 18:00 | NUR ---
URINE SENT TO LAB
[2020-02-07 18:49] LABS: Urine Bacteria MANY /hpf (None Seen); Urine Blood 1+ /uL (Negative); Urine Hyaline Cast FEW /lpf (0 - 2); Urine Mucus FEW (None Seen); Urine Specific Gravity 1.011 (1.001-1.035); Urine WBC 387 /hpf (0 - 5); Urine WBC Clumps PRESENT /hpf (None Seen)
[2020-02-07 19:11] LABS: Alcohol, Urine < 3.0 mg/dL (0-10); Amphetamine Screen, Urine NEGATIVE (NEGATIVE); Barbiturate Scree,Urine NEGATIVE (NEGATIVE); Benzodiazephine Screen, Urine NEGATIVE (NEGATIVE); Cannabinoid Screen, Urine NEGATIVE (NEGATIVE); Cocaine Screen, Urine NEGATIVE (NEGATIVE); Opiate Scree,Urine NEGATIVE (NEGATIVE); Phencyclidine Screen, Urine NEGATIVE (NEGATIVE)
--- NOTE | 2020-02-07 19:55 | NUR ---
RECEIVED PATIENT FROM DAY SHIFT RN. PATIENT RESTING IN BED. NO S/S OF DISTRESS NOTED. C/O SHAKING AND CHILL, ACCU-CHECK, BS 192, TEMP 99.3, BP 108/56, RR 19, DENIED PAIN AT THIS TIME. BROTH OFFERED, PATIENT FEELING BETTER AFTER THAT. POC INSTRUCTED AND ENCOURAGED PATIENT TO CALL FOR ELECTRIC TRAIN DRIVER IF NEEDED. BED IN LOWEST POSITION WITH SIDE RAILS UP X 2. CALL PANDYA WITHIN REACH. ALARM ON. CONTINUE TO MONITOR FOR CHANGES Q1H AND PRN.
[2020-02-07] MEDS: PIPERACILLIN-TAZOB 3.375GM 100 ML IV SCH (20:48)
--- NOTE | 2020-02-07 20:50 | NUR ---
PATIENT STARTED FEVER @ 103, MEDICATED PATIENT ORDERED. CONTINUE TO MONITOR.
--- NOTE | 2020-02-07 21:45 | NUR ---
REASSESSED TEMP 102.5. ICE PACKS AND COOLING MEASURE CONTINUED. ASSISTED PATIENT TO BATHROOM AND BACK TO BED. PATIENT C/O A LITTER DIZZINESS. BP 136/54, HR 99. WILL HOLD BLOOD PRESSURE MEDICATION DUE TO DIZZINESS AND REPEAT ISSUE WITH HYPOTENSION THROUGH LAST NIGHT. CONTINUE TO MONITOR.
[2020-02-07] MEDS: PANTOPRAZOLE 40 MG/10 ML VIAL INJ IV SCH (21:58)
[2020-02-07] MEDS: ATORVASTATIN 20 MG TAB PO SCH (21:58)
--- NOTE | 2020-02-07 22:10 | NUR ---
ACCU-CHECK, BS 200. INSULIN GIVEN ORDERED. CONTINUE TO MONITOR.
--- NOTE | 2020-02-07 22:30 | NUR ---
REASSESSED TEMP 98.5. PATIENT FEELING BETTER. ICE PACK AND COOLING MEASURE REMOVED. CONTINUE TO MONITOR.
--- NOTE | 2020-02-08 01:15 | NUR ---
PATIENT SLEEPING. NO S/S OF DISTRESS NOTED. CONTINUE CARE
[2020-02-08] MEDS: PIPERACILLIN-TAZOB 3.375GM 100 ML IV SCH ×4 (02:51→20:22)
[2020-02-08] MEDS: SODIUM CHLORIDE 0.9% 1,000 ML IV SCH ×4 (04:05→18:37)
[2020-02-08] MEDS: HYDROcodone-ACET 5/325MG TAB PO PRN ×2 (04:12→18:37)
--- NOTE | 2020-02-08 04:12 | NUR ---
PATIENT C/O PAIN @ 11/14, MEDICATED PATIENT ORDERED. CONTINUE TO MONITOR.
[2020-02-08 05:01] VITALS: BP 146/53
--- NOTE | 2020-02-08 05:50 | NUR ---
IV insertion IV access obtained, via clean sterile technique by inserting [22] gauge catheter at [LFA] after [1] attempt(s). IV secured properly. No trauma to site. Patient tolerated well. IV INFILTRATED AND REMOVED FROM RW IV DC'd with clean sterile technique, catheter fully intact. Pressure dressing applied to site. Patient tolerated well. NOTE:
[2020-02-08] MEDS: GABAPENTIN 300 MG CAP PO SCH ×3 (06:39→21:58)
[2020-02-08] MEDS: SUCRALFATE 1 GM/10 ML ORAL SUSP PO SCH ×4 (06:39→21:58)
[2020-02-08] MEDS: ACCU-CHEK COMFORT CURVE STRIP VI SCH ×4 (06:39→21:45)
[2020-02-08] MEDS: InsuLIN REG 1unit/0.01ml Soln (100units/ml) SC SCH ×4 (06:40→22:16)
--- NOTE | 2020-02-08 06:41 | NUR ---
ACCU-CHECK, BS 194, INSULIN GIVEN ORDERED. CONTINUE TO MONITOR.
--- NOTE | 2020-02-08 06:56 | NUR ---
returned call Dr. HOBBS ANSWERED call, updated on patient status and reason for call, orders received. POTASSIUM 40MEG IV AND 40 MEQ PO. ORDER READ BACK. Continue care. Addendum: 02/08/20 at 0658 by Laly Solis RN WRONG NOTES
[2020-02-08 08:00] VITALS: BP 112/54
[2020-02-08 09:00] VITALS: BP 112/54
[2020-02-08] MEDS: CARVEDILOL 3.125 MG TAB PO SCH (10:00)
[2020-02-08] MEDS: LOSARTAN POTASSIUM 50 MG TAB PO SCH (10:00)
[2020-02-08] MEDS: PANTOPRAZOLE 40 MG/10 ML VIAL INJ IV SCH ×2 (10:22→21:58)
[2020-02-08] MEDS: ASCORBIC ACID 500 MG TAB PO SCH ×2 (10:23→21:59)
[2020-02-08] MEDS: THIAMINE 100mg/ml INJ (200mg/2ml VIAL) IV SCH (10:23)
[2020-02-08] MEDS: CHOLECALCIFEROL (VITD3) 1,000UNIT=25mCg TAB PO SCH (10:23)
--- NOTE | 2020-02-08 11:10 | NUR ---
Opening Shift Note Assumed care of patient, awake and alert. No S/S of distress/SOB or pain. Instructed on POC and to call for assist PRN, will continue to monitor for changes Q1hr and PRN. Bed is locked and in lowest position. Call light within reach. Addendum: 02/08/20 at 1111 by AL ECHOLS RN RN Correct time for note is 0730 not 1111
[2020-02-08 17:00] VITALS: BP 143/66
[2020-02-08] MEDS: ATORVASTATIN 20 MG TAB PO SCH (21:58)
[2020-02-08 22:00] VITALS: BP 119/75
[2020-02-09] MEDS: PIPERACILLIN-TAZOB 3.375GM 100 ML IV SCH ×2 (01:49→08:47)
[2020-02-09] MEDS: SODIUM CHLORIDE 0.9% 1,000 ML IV SCH (04:30)
[2020-02-09 05:00] VITALS: BP 136/61
[2020-02-09 05:59] LABS: Basophils # (auto) 0 10 ^3/uL (0-0.2); Basophils % (auto) 0.3 % (0.0-2.0); Eosinophils # (auto) 0.4 10 ^3/uL (0-0.8); Eosinophils % (auto) 3.4 % (0.0-7.0); Hematocrit 28.8 % (36.0-46.0); Hemoglobin 9.4 g/dL (12.2-16.2); Lymphocytes # (auto) 2.3 10 ^3/uL (0.4-5.4); Lymphocytes % (auto) 20.2 % (10.0-50.0); Mean Corpuscular Hgb Conc. 32.7 g/dL (32.0-36.0); Mean Corpuscular Volume 85.7 fL (80.0-100.0); Monocytes # (auto) 1.2 10 ^3/uL (0-1.3); Neutrophils # (auto) 7.4 10 ^3/uL (1.6-8.6); Neutrophils % (auto) 65.1 % (37.0-80.0); Platelet Count (auto) 332 10^3/uL (140-450); Red Blood Cells 3.37 10^6/uL (4.0-5.20); White Blood Cell 11.4 10^3/uL (4.4-10.8)
[2020-02-09] MEDS: GABAPENTIN 300 MG CAP PO SCH (06:05)
[2020-02-09] MEDS: ACCU-CHEK COMFORT CURVE STRIP VI SCH ×2 (06:10→11:37)
[2020-02-09] MEDS: InsuLIN REG 1unit/0.01ml Soln (100units/ml) SC SCH ×2 (06:10→11:44)
[2020-02-09 06:16] LABS: Potassium 3.6 mmol/L (3.5-5.1)
[2020-02-09 06:25] LABS: Albumin 2.2 g/dL (3.4-5.0); BUN/Creatinine Ratio 8.8; Bilirubin, Total 0.3 mg/dL (0.2-1.0); Calcium 8.3 mg/dL (8.5-10.1); Total Protein 6.7 g/dL (6.4-8.2)
[2020-02-09] MEDS: SUCRALFATE 1 GM/10 ML ORAL SUSP PO SCH ×2 (06:28→11:24)
[2020-02-09 09:00] VITALS: BP 133/58
[2020-02-09] MEDS: PANTOPRAZOLE 40 MG/10 ML VIAL INJ IV SCH (09:46)
[2020-02-09] MEDS: THIAMINE 100mg/ml INJ (200mg/2ml VIAL) IV SCH (09:46)
[2020-02-09] MEDS: HYDROcodone-ACET 5/325MG TAB PO PRN (09:47)
[2020-02-09] MEDS: CHOLECALCIFEROL (VITD3) 1,000UNIT=25mCg TAB PO SCH (09:47)
[2020-02-09] MEDS: LOSARTAN POTASSIUM 50 MG TAB PO SCH (09:47)
[2020-02-09] MEDS: ASCORBIC ACID 500 MG TAB PO SCH (09:56)
[2020-02-09 13:00] VITALS: BP 108/55
[2020-02-09 14:30] VITALS: BP 108/55
--- NOTE | 2020-02-09 15:21 | NUR ---
assessment Patient is a 69 year old female who is alert and oriented. Patients cognitive abilities are intact. Prior to admission patient lived home with her Joce and functioned independently. Patient informed me she is able to care for her own ADLs. Per patient she will return home to her prior living arrangements post discharge and family will transport her home. Patient informed me she was at her PCP and was having diarrhea and low pulse so MD called 911. Patients PCP is Dr Cervantes. Patient feels safe returning home on discharge. I will continue to monitor and follow up as appropriate. I informed patient she has a right to speak to a sr. social media & mobile manager regarding all care. I informed patient she has a right to participate in any and all discharge planning. Patient does not have a POA and advanced directive. I have offered patient information on POA and advanced directives. I informed the patient the advantages and benefits of having an Advanced Directive. Patient verbalized understanding and agreed to discharge plan home. Addendum: 02/09/20 at 1522 by Pina DENNY Amended: Links added.
--- NOTE | 2020-02-09 16:44 | NUR ---
Discharge instructions given as ordered. Encourage to follow up with PMD Dr. Cervantes on 02/16/20 at 9:45am #[phone]. [phone] as instructed. All questions and concerns addressed. Patient verbalized understanding. Medication reconciliation form completed and copy given to patient. IV removed with catheter intact, pressure dressing applied. Telemetry unit returned to ICU. Patient taken to vehicle via wheelchair with all personal belongings, accompanied by staff and family member. No distress noted at time of departure.
--- NOTE | 2020-02-09 16:45 | NUR ---
Patient instructed to hold taking all BP medications at home until next appointment with PCP as per Dr. Padilla.
== END 2020-02-09 16:40 | disposition home or self-care (01) | DRG 391 ==
LOC: EDBD 11:32 → EDUNIT# 11:32 → ER 11:32 → TELE 11:33 → TELE-WESTW 22:30
PROVIDERS: ADMIT Hospitalist; ATTEND Internal Medicine
DX: K20.9 Esophagitis, unspecified (principal); E43 Unspecified severe protein-calorie malnutrition; E87.1 Hypo-osmolality and hyponatremia; Z90.49 Acquired absence of other specified parts of digestive tract; D64.9 Anemia, unspecified; D72.829 Elevated white blood cell count, unspecified; E11.9 Type 2 diabetes mellitus without complications; I10 Essential (primary) hypertension; E78.5 Hyperlipidemia, unspecified; Z88.5 Allergy status to narcotic agent; Z98.51 Tubal ligation status; Z68.27 Body mass index [BMI] 27.0-27.9, adult
CPT/HCPCS: 36415; 74176; 74181; 78226; 80053; 80061; 80307; 81001; 82962; 83036; 83690; 83735; 84100; 84484; 85025; 85610; 87040; 87081; 87086; 93005; C9113; G0378; J1815; J1956; J2405; J2543; J3490

== ENCOUNTER → 2020-03-19 | Outpatient (CLI) | payer OTHER, MEDICAID ==
[~2020-03-19] MED LIST changes: -ACET-1156 PO; +ACET-1304 PO; -ATOR40TA52 PO; -GLIM2TAB33 PO; -GLIP10TA9 PO; -INSDRIP SC; +INSREG3 SC; -INSUINJ2 SC; -INSUINJ48 SC; +LANS-34 PO; -LANS30CA57 PO; -LISI2.5T47 PO; -SIMV-8 PO; -SUCR1SUS10 PO
[2020-03-19 17:04] LABS: Urine Bacteria MOD /hpf (None Seen); Urine Blood 1+ /uL (Negative); Urine Specific Gravity 1.018 (1.001-1.035); Urine WBC 1965 /hpf (0 - 5); Urine WBC Clumps PRESENT /hpf (None Seen)
== END | disposition home or self-care (01) ==
LOC: LAB 16:46
PROVIDERS: ATTEND Internal Medicine
DX: E11.40 Type 2 diabetes mellitus with diabetic neuropathy, unspecified (principal); N39.0 Urinary tract infection, site not specified
CPT/HCPCS: 81001; 82043; 87086

== ENCOUNTER → 2020-12-11 | Outpatient (CLI) | payer OTHER, MEDICAID ==
[2020-12-11 10:47] LABS: Basophils # (auto) 0 10 ^3/uL (0-0.2); Basophils % (auto) 0.6 % (0.0-2.0); Eosinophils # (auto) 0.5 10 ^3/uL (0-0.8); Eosinophils % (auto) 5.4 % (0.0-7.0); Hematocrit 37.9 % (36.0-46.0); Lymphocytes % (auto) 33.1 % (10.0-50.0); Mean Corpuscular Hemoglobin 29.5 pg (28.0-32.0); Mean Corpuscular Hgb Conc. 34.2 g/dL (32.0-36.0); Mean Corpuscular Volume 86.5 fL (80.0-100.0); Monocytes # (auto) 0.7 10 ^3/uL (0-1.3); Monocytes % (auto) 8.1 % (0.0-12.0); Neutrophils # (auto) 4.8 10 ^3/uL (1.6-8.6); Neutrophils % (auto) 52.8 % (37.0-80.0); Nucleated Red Blood Cells % 0.1 %; Platelet Count (auto) 233 10^3/uL (140-450); Red Blood Cells 4.39 10^6/uL (4.0-5.20); Red Cell Distribution Width 12.5 % (11.8-14.3); White Blood Cell 9.1 10^3/uL (4.4-10.8)
[2020-12-11 11:19] LABS: Albumin 3.2 g/dL (3.4-5.0); Calcium 9.1 mg/dL (8.5-10.1); Potassium 4.5 mmol/L (3.5-5.1)
[2020-12-11 11:23] LABS: BUN/Creatinine Ratio 21.6; Bilirubin, Total 0.2 mg/dL (0.2-1.0); Total Protein 7.9 g/dL (6.4-8.2)
[2020-12-11 11:25] LABS: Free T4 (Free Thyroxine) 1.11 ng/dL (0.89-1.76)
== END | disposition home or self-care (01) ==
LOC: LAB 10:13
PROVIDERS: ATTEND Internal Medicine
DX: E11.9 Type 2 diabetes mellitus without complications (principal); I10 Essential (primary) hypertension; I25.10 Atherosclerotic heart disease of native coronary artery without angina pectoris; R49.0 Dysphonia
CPT/HCPCS: 36415; 80053; 82607; 83036; 84439; 84443; 85025; 85049; 85652

== ENCOUNTER 2021-03-03 15:57 | Emergency (ER) | payer OTHER, MEDICAID, MEDICARE ==
[~2021-03-03] VITALS: Ht 154.9 cm; Wt 63.5 kg
[2021-03-03] MEDS ORDERED: IBUPROFEN 600 MG TAB PO ONE (20:00)
[2021-03-03 21:00] VITALS: BP 124/47
== END 2021-03-04 02:39 | disposition home or self-care (01) ==
LOC: ER 15:57
DX: S62.635A Displaced fracture of distal phalanx of left ring finger, initial encounter for closed fracture (principal); I10 Essential (primary) hypertension; E11.9 Type 2 diabetes mellitus without complications; E78.5 Hyperlipidemia, unspecified; Z88.5 Allergy status to narcotic agent; Z79.4 Long term (current) use of insulin; Z79.899 Other long term (current) drug therapy; Z79.82 Long term (current) use of aspirin; Z90.49 Acquired absence of other specified parts of digestive tract; Z98.51 Tubal ligation status; Z98.890 Other specified postprocedural states; W01.0XXA Fall on same level from slipping, tripping and stumbling without subsequent striking against object, initial encounter; Y93.89 Activity, other specified; Y92.89 Other specified places as the place of occurrence of the external cause; Y99.8 Other external cause status
CPT/HCPCS: 29130; 73120

== ENCOUNTER → 2021-04-28 | Outpatient (CLI) | payer OTHER, MEDICAID, MEDICARE ==
[~2021-04-28] MED LIST changes: -LANS-34 PO; +LANS30CA58 PO
[2021-04-28 12:16] LABS: Basophils # (auto) 0.1 10 ^3/uL (0-0.2); Basophils % (auto) 0.6 % (0.0-2.0); Eosinophils # (auto) 0.1 10 ^3/uL (0-0.8); Eosinophils % (auto) 1.4 % (0.0-7.0); Hematocrit 37.7 % (36.0-46.0); Hemoglobin 12.5 g/dL (12.2-16.2); Lymphocytes # (auto) 2.1 10 ^3/uL (0.4-5.4); Lymphocytes % (auto) 23.7 % (10.0-50.0); Mean Corpuscular Hemoglobin 28.8 pg (28.0-32.0); Mean Corpuscular Hgb Conc. 33.3 g/dL (32.0-36.0); Mean Corpuscular Volume 86.7 fL (80.0-100.0); Monocytes # (auto) 0.5 10 ^3/uL (0-1.3); Neutrophils % (auto) 68.3 % (37.0-80.0); Red Blood Cells 4.35 10^6/uL (4.0-5.20); Red Cell Distribution Width 13.9 % (11.8-14.3); White Blood Cell 8.8 10^3/uL (4.4-10.8)
[2021-04-28 12:23] LABS: Urine Bacteria MANY /hpf (None Seen); Urine Blood TRACE /uL (Negative); Urine Mucus FEW (None Seen); Urine Specific Gravity 1.015 (1.001-1.035); Urine WBC 992 /hpf (0 - 5); Urine WBC Clumps PRESENT /hpf (None Seen)
[2021-04-28 12:58] LABS: Albumin 3.3 g/dL (3.4-5.0); Potassium 4.8 mmol/L (3.5-5.1)
[2021-04-28 13:02] LABS: BUN/Creatinine Ratio 29.6; Bilirubin, Total 0.4 mg/dL (0.2-1.0); Total Protein 8.2 g/dL (6.4-8.2)
[2021-04-28 13:13] LABS: Free T4 (Free Thyroxine) 0.99 ng/dL (0.89-1.76)
== END | disposition home or self-care (01) ==
LOC: LAB 11:47
PROVIDERS: ATTEND Internal Medicine
DX: E11.9 Type 2 diabetes mellitus without complications (principal)
CPT/HCPCS: 36415; 80053; 80061; 81001; 82043; 82306; 82607; 83036; 84439; 84443; 85025; 85652

== ENCOUNTER → 2021-07-31 | Outpatient (CLI) | payer OTHER, MEDICAID, MEDICARE ==
[~2021-07-31] VITALS: Ht 154.9 cm; Wt 62.6 kg
[~2021-07-31] MED LIST changes: +ADENOSINE 53 MG in GIVE UN-DILUTED 0 ML IV STA
== END | disposition home or self-care (01) ==
LOC: XY 08:12
PROVIDERS: ATTEND Internal Medicine
DX: I48.91 Unspecified atrial fibrillation (principal); E11.22 Type 2 diabetes mellitus with diabetic chronic kidney disease; I73.9 Peripheral vascular disease, unspecified; N18.31 Chronic kidney disease, stage 3a; E78.5 Hyperlipidemia, unspecified; G62.9 Polyneuropathy, unspecified; Z79.4 Long term (current) use of insulin
CPT/HCPCS: 78452; 93017; A9500; J0153

== ENCOUNTER → 2021-08-27 | Outpatient (CLI) | payer OTHER, MEDICAID, MEDICARE ==
[~2021-08-27] MED LIST changes: -ADENOSINE 53 MG in GIVE UN-DILUTED 0 ML IV STA
== END | disposition home or self-care (01) ==
LOC: LAB 10:57
PROVIDERS: ATTEND Internal Medicine
DX: Z12.11 Encounter for screening for malignant neoplasm of colon (principal); E11.9 Type 2 diabetes mellitus without complications
CPT/HCPCS: 82270

== ENCOUNTER → 2021-12-23 | Outpatient (CLI) | payer OTHER, MEDICAID ==
[2021-12-23 13:06] LABS: Basophils # (auto) 0 10 ^3/uL (0-0.2); Basophils % (auto) 0.4 % (0.0-2.0); Eosinophils # (auto) 0.2 10 ^3/uL (0-0.8); Eosinophils % (auto) 1.6 % (0.0-7.0); Hematocrit 36.9 % (36.0-46.0); Hemoglobin 11.9 g/dL (12.2-16.2); Lymphocytes # (auto) 2.8 10 ^3/uL (0.4-5.4); Mean Corpuscular Hemoglobin 28.2 pg (28.0-32.0); Mean Corpuscular Hgb Conc. 32.2 g/dL (32.0-36.0); Mean Corpuscular Volume 87.8 fL (80.0-100.0); Monocytes # (auto) 0.6 10 ^3/uL (0-1.3); Monocytes % (auto) 6.9 % (0.0-12.0); Neutrophils # (auto) 5.7 10 ^3/uL (1.6-8.6); Neutrophils % (auto) 61.1 % (37.0-80.0); Red Blood Cells 4.21 10^6/uL (4.0-5.20); Red Cell Distribution Width 12.8 % (11.8-14.3); White Blood Cell 9.3 10^3/uL (4.4-10.8)
[2021-12-23 13:17] LABS: Urine Bacteria MANY /hpf (None Seen); Urine Blood Negative /uL (Negative); Urine Specific Gravity 1.013 (1.001-1.035); Urine WBC 117 /hpf (0 - 5); Urine WBC Clumps PRESENT /hpf (None Seen)
[2021-12-23 13:58] LABS: Potassium 4.7 mmol/L (3.5-5.1)
[2021-12-23 14:09] LABS: Albumin 3.2 g/dL (3.4-5.0); BUN/Creatinine Ratio 22.8; Bilirubin, Total 0.4 mg/dL (0.2-1.0); Calcium 9.4 mg/dL (8.5-10.1); Total Protein 7.8 g/dL (6.4-8.2); Uric Acid 5.1 mg/dL (2.6-6.0)
== END | disposition home or self-care (01) ==
LOC: LAB 12:13
PROVIDERS: ATTEND Internal Medicine
DX: M25.50 Pain in unspecified joint (principal); E11.9 Type 2 diabetes mellitus without complications; I10 Essential (primary) hypertension
CPT/HCPCS: 36415; 80053; 80061; 81001; 83036; 84550; 85025; 85652; 86038; 86200; 86431

== ENCOUNTER → 2022-02-20 | Outpatient (CLI) | payer MEDICARE, MEDICAID ==
[~2022-02-20] MED LIST changes: +DAPA1TAB4 PO; +METF-370 PO; +METH500T22 PO; +PANT40TA2 PO; +RANO500T2 PO; +SITA100T7 PO; +VALS40TA2 PO
[2022-02-20 11:17] LABS: Basophils # (auto) 0 10 ^3/uL (0-0.2); Basophils % (auto) 0.4 % (0.0-2.0); Eosinophils # (auto) 0.2 10 ^3/uL (0-0.8); Eosinophils % (auto) 2.1 % (0.0-7.0); Hematocrit 36.9 % (36.0-46.0); Hemoglobin 11.8 g/dL (12.2-16.2); Lymphocytes % (auto) 25.3 % (10.0-50.0); Mean Corpuscular Hemoglobin 27.9 pg (28.0-32.0); Mean Corpuscular Hgb Conc. 31.9 g/dL (32.0-36.0); Mean Corpuscular Volume 87.5 fL (80.0-100.0); Monocytes # (auto) 0.5 10 ^3/uL (0-1.3); Monocytes % (auto) 6.8 % (0.0-12.0); Neutrophils # (auto) 5.2 10 ^3/uL (1.6-8.6); Neutrophils % (auto) 65.4 % (37.0-80.0); Red Blood Cells 4.22 10^6/uL (4.0-5.20); Red Cell Distribution Width 13.6 % (11.8-14.3)
[2022-02-20 11:37] LABS: INR 1.01 (0.9-1.15); Partial Thromboplastin Time 26.2 sec (24.6-33.4)
[2022-02-20 12:05] LABS: Potassium 4.1 mmol/L (3.5-5.1)
[2022-02-20 12:14] LABS: Albumin 3.6 g/dL (3.4-5.0); BUN/Creatinine Ratio 21.3; Bilirubin, Total 0.4 mg/dL (0.2-1.0); Calcium 9.2 mg/dL (8.5-10.1); Total Protein 8.2 g/dL (6.4-8.2)
== END | disposition home or self-care (01) ==
LOC: LAB 10:59
PROVIDERS: ATTEND Internal Medicine
DX: Z01.812 Encounter for preprocedural laboratory examination (principal); R07.9 Chest pain, unspecified; I10 Essential (primary) hypertension
CPT/HCPCS: 36415; 80053; 85025; 85610; 85730

== ENCOUNTER 2022-02-23 06:19 | Inpatient (IN) | payer OTHER, MEDICAID ==
[~2022-02-23] VITALS: Ht 154.9 cm; Wt 61.5 kg
[2022-02-23] VITALS (14 sets, daily range): BP systolic 133–172; BP diastolic 51–85
[~2022-02-23 06:19] MED LIST changes: -ACET-1304 PO; -CAR3125T PO; -INSREG3 SC; -LANS30CA58 PO; -LOSA-69 PO; -METH500T22 PO
[2022-02-23] MEDS ORDERED: ANGIOMAX 250 MG VIAL IV ONE (08:07)
[2022-02-23] MEDS ORDERED: HEPARIN SODIUM (PORCINE) 5000 UNITS/ML 1ML VIAL ONE (08:07)
[2022-02-23] MEDS ORDERED: fentaNYL CITRATE 100 MCG/2 ML VL ONE (08:08)
[2022-02-23] MEDS ORDERED: LIDOCAINE 2%HCL (LOCAL ANESTH.) INJ 20ML MDV ONE (08:08)
[2022-02-23] MEDS ORDERED: IODIXANOL 320MG/ML 100ML BTL IV ONE (08:08)
[2022-02-23] MEDS ORDERED: VERAPAMIL 2.5MG/ML INJ 2ML VIAL IV ONE (08:08)
[2022-02-23] MEDS ORDERED: MIDAZOLAM HCL 2MG/2ML 2ml VIAL (1mg/ml) ONE (08:08)
[2022-02-23] MEDS ORDERED: SODIUM CHL 0.9% 0 ML ONE (08:08)
[2022-02-23] MEDS ORDERED: DEXTROSE (50%) 50ML SYRG IV PRN (09:00)
[2022-02-23] MEDS ORDERED: NITROGLYCERIN 0.4 MG SL TAB SL PRN (09:00)
[2022-02-23] MEDS ORDERED: MORPHINE SULFATE INJ 2 MG/ml SYRG IV PRN (09:00)
[2022-02-23] MEDS: ACCU-CHEK COMFORT CURVE STRIP VI SCH ×3 (11:17→22:33)
[2022-02-23] MEDS: InsuLIN REG 1unit/0.01ml Soln (100units/ml) SC SCH ×2 (11:22→16:20)
[2022-02-23] MEDS ORDERED: ASPirin 81 mg TAB PO ONE (13:15)
[2022-02-23] MEDS: GABAPENTIN 300 MG CAP PO SCH ×2 (15:05→22:39)
[2022-02-23] MEDS ORDERED: ATORVASTATIN 20 MG TAB PO SCH (22:00)
[2022-02-23] MEDS ORDERED: InsuLIN REG 1unit/0.01ml Soln (100units/ml) SC SCH (22:00)
[2022-02-23] MEDS: ENOXAPARIN SOD 80 MG/0.8ML SYRINGE SC SCH (22:38)
[2022-02-23] MEDS: METOPROLOL TARTRATE 25 MG TAB PO SCH (22:39)
[2022-02-23 23:20] LABS: Urine Bacteria FEW /hpf (None Seen); Urine Blood Negative /uL (Negative); Urine Budding Yeast MODERATE /hpf (None Seen); Urine Mucus FEW (None Seen); Urine Specific Gravity 1.019 (1.001-1.035); Urine WBC 231 /hpf (0 - 5); Urine WBC Clumps PRESENT /hpf (None Seen)
[2022-02-24 05:00] VITALS: BP 138/70
[2022-02-24 05:12] LABS: Basophils # (auto) 0.1 10 ^3/uL (0-0.2); Eosinophils # (auto) 0.2 10 ^3/uL (0-0.8); Eosinophils % (auto) 2.8 % (0.0-7.0); Hematocrit 32.8 % (36.0-46.0); Lymphocytes # (auto) 3.1 10 ^3/uL (0.4-5.4); Lymphocytes % (auto) 39.7 % (10.0-50.0); Mean Corpuscular Hemoglobin 28.8 pg (28.0-32.0); Mean Corpuscular Hgb Conc. 33.5 g/dL (32.0-36.0); Monocytes # (auto) 0.9 10 ^3/uL (0-1.3); Monocytes % (auto) 11.4 % (0.0-12.0); Neutrophils # (auto) 3.5 10 ^3/uL (1.6-8.6); Neutrophils % (auto) 45.1 % (37.0-80.0); Red Blood Cells 3.81 10^6/uL (4.0-5.20); Red Cell Distribution Width 13.4 % (11.8-14.3); White Blood Cell 7.8 10^3/uL (4.4-10.8)
[2022-02-24 05:27] LABS: Potassium 4.4 mmol/L (3.5-5.1)
[2022-02-24 05:28] LABS: Calcium 8.3 mg/dL (8.5-10.1)
[2022-02-24 05:31] LABS: BUN/Creatinine Ratio 22.2
[2022-02-24] MEDS: GABAPENTIN 300 MG CAP PO SCH ×2 (05:58→14:38)
[2022-02-24] MEDS: InsuLIN REG 1unit/0.01ml Soln (100units/ml) SC SCH ×3 (06:08→18:39)
[2022-02-24] MEDS: ACCU-CHEK COMFORT CURVE STRIP VI SCH ×3 (06:08→18:26)
[2022-02-24 09:00] VITALS: BP 132/60
[2022-02-24] MEDS ORDERED: ASPirin 81 mg TAB PO SCH (10:00)
[2022-02-24] MEDS ORDERED: VALSARTAN 80 MG TAB PO SCH (10:00)
[2022-02-24] MEDS ORDERED: PANTOPRAZOLE 40 MG TAB PO SCH (10:00)
[2022-02-24] MEDS: METOPROLOL TARTRATE 25 MG TAB PO SCH (10:01)
[2022-02-24] MEDS: ENOXAPARIN SOD 80 MG/0.8ML SYRINGE SC SCH (10:02)
[2022-02-24 13:00] VITALS: BP 115/58
[2022-02-24 15:59] VITALS: BP 115/58
[2022-02-24 17:00] VITALS: BP 126/57
== END 2022-02-24 20:51 | disposition short-term general hospital (02) | DRG 287 ==
LOC: CATH 06:19 → TELE 08:52 → TELE-EAST 14:34
PROVIDERS: ADMIT Internal Medicine; ATTEND Internal Medicine
PROC: 4A023N7 Measurement of Cardiac Sampling and Pressure, Left Heart, Percutaneous Approach (ICD-10-PCS; principal; 2022-02-23)
PROC: B211YZZ Fluoroscopy of Multiple Coronary Arteries using Other Contrast (ICD-10-PCS; 2022-02-23)
PROC: B215YZZ Fluoroscopy of Left Heart using Other Contrast (ICD-10-PCS; 2022-02-23)
DX: I25.10 Atherosclerotic heart disease of native coronary artery without angina pectoris (principal); I12.9 Hypertensive chronic kidney disease with stage 1 through stage 4 chronic kidney disease, or unspecified chronic kidney disease; N18.30 Chronic kidney disease, stage 3 unspecified; E11.22 Type 2 diabetes mellitus with diabetic chronic kidney disease; E66.9 Obesity, unspecified; E78.5 Hyperlipidemia, unspecified; Z20.822 Contact with and (suspected) exposure to COVID-19; E11.42 Type 2 diabetes mellitus with diabetic polyneuropathy; Z68.25 Body mass index [BMI] 25.0-25.9, adult; Z88.5 Allergy status to narcotic agent
CPT/HCPCS: 36415; 80048; 80061; 81001; 82962; 84443; 85025; 93306; 99152; G0378; J1815; J2250; Q9967

== ENCOUNTER → 2022-05-05 | Outpatient (CLI) | payer OTHER, MEDICAID ==
[2022-05-05 10:15] LABS: Basophils # (auto) 0.1 10 ^3/uL (0-0.2); Basophils % (auto) 0.9 % (0.0-2.0); Eosinophils # (auto) 0.4 10 ^3/uL (0-0.8); Hematocrit 41.4 % (36.0-46.0); Hemoglobin 13.3 g/dL (12.2-16.2); Lymphocytes # (auto) 2.3 10 ^3/uL (0.4-5.4); Lymphocytes % (auto) 24.1 % (10.0-50.0); Mean Corpuscular Hemoglobin 28.6 pg (28.0-32.0); Mean Corpuscular Hgb Conc. 32.1 g/dL (32.0-36.0); Monocytes # (auto) 0.7 10 ^3/uL (0-1.3); Monocytes % (auto) 7.4 % (0.0-12.0); Neutrophils % (auto) 63.6 % (37.0-80.0); Nucleated Red Blood Cells % 1.9 %; Red Blood Cells 4.65 10^6/uL (4.0-5.20); Red Cell Distribution Width 13.5 % (11.8-14.3); White Blood Cell 9.4 10^3/uL (4.4-10.8)
[2022-05-05 11:30] LABS: % Iron Saturation 18.4 % (15-50)
[2022-05-05 11:32] LABS: Albumin 3.3 g/dL (3.4-5.0); BUN/Creatinine Ratio 21.7; Bilirubin, Total 0.5 mg/dL (0.2-1.0); Calcium 9.3 mg/dL (8.5-10.1); Potassium 4.4 mmol/L (3.5-5.1); Total Protein 7.9 g/dL (6.4-8.2)
[2022-05-05 15:19] LABS: Free T4 (Free Thyroxine) 1.07 ng/dL (0.89-1.76)
[2022-05-05 15:24] LABS: Folate (Folic Acid) 19.45 ng/mL (5.38-24)
== END | disposition home or self-care (01) ==
LOC: LAB 09:35
PROVIDERS: ATTEND Internal Medicine
DX: E11.40 Type 2 diabetes mellitus with diabetic neuropathy, unspecified (principal); D64.9 Anemia, unspecified
CPT/HCPCS: 36415; 80053; 82607; 82746; 83036; 83540; 83550; 84439; 84443; 85025

== ENCOUNTER 2022-05-25 13:42 | Inpatient (IN) | payer OTHER, MEDICAID ==
[~2022-05-25] VITALS: Ht 154.9 cm; Wt 57.1 kg
[2022-05-25] MEDS ORDERED: SODIUM CHLORIDE 0.9% 1,000 ML IV ONE ×2 (14:15→18:30)
[2022-05-25] MEDS ORDERED: cefTRIAXone 1GM/50ML D5W 50 ML IV ONE (14:30)
[2022-05-25 14:58] LABS: Basophils # (auto) 0.1 10 ^3/uL (0-0.2); Basophils % (auto) 0.6 % (0.0-2.0); Eosinophils # (auto) 0.3 10 ^3/uL (0-0.8); Hematocrit 36.1 % (36.0-46.0); Hemoglobin 11.9 g/dL (12.2-16.2); Lymphocytes % (auto) 18.2 % (10.0-50.0); Mean Corpuscular Hgb Conc. 32.9 g/dL (32.0-36.0); Mean Corpuscular Volume 88.2 fL (80.0-100.0); Monocytes # (auto) 1.3 10 ^3/uL (0-1.3); Monocytes % (auto) 11.8 % (0.0-12.0); Neutrophils # (auto) 7.2 10 ^3/uL (1.6-8.6); Neutrophils % (auto) 66.4 % (37.0-80.0); Red Blood Cells 4.09 10^6/uL (4.0-5.20); Red Cell Distribution Width 13.8 % (11.8-14.3); White Blood Cell 10.9 10^3/uL (4.4-10.8)
[2022-05-25 15:11] LABS: Albumin 2.6 g/dL (3.4-5.0); Calcium 8.2 mg/dL (8.5-10.1); Potassium 4.1 mmol/L (3.5-5.1)
[2022-05-25 15:14] LABS: BUN/Creatinine Ratio 28.2; Bilirubin, Total 0.4 mg/dL (0.2-1.0); Total Protein 6.5 g/dL (6.4-8.2)
[2022-05-25 15:41] LABS: Urine Blood 3+ /uL (Negative); Urine Specific Gravity 1.019 (1.001-1.035)
[2022-05-25] MEDS ORDERED: DEXTROSE (50%) 50ML SYRG IV PRN (18:30)
[2022-05-25 19:26] LABS: Cholesterol 96 mg/dL (< 200)
[2022-05-25 19:28] LABS: HDL Cholesterol 23 mg/dL (40-59); LDL Cholesterol 55 mg/dL (< 100); Triglycerides 231 mg/dL (< 150)
[2022-05-25] MEDS: ACCU-CHEK COMFORT CURVE STRIP VI SCH (22:00)
[2022-05-25] MEDS: GABAPENTIN 300 MG CAP PO SCH (23:35)
[2022-05-25] MEDS: ATORVASTATIN 20 MG TAB PO SCH (23:36)
[2022-05-25] MEDS: InsuLIN REG 1unit/0.01ml Soln (100units/ml) SC SCH (23:44)
[2022-05-26 02:49] VITALS: BP 124/51
[2022-05-26 05:00] VITALS: BP 169/74
[2022-05-26] MEDS ORDERED: DAPAGLIFLOZIN 5 MG TAB PO SCH (07:00)
[2022-05-26] MEDS: GABAPENTIN 300 MG CAP PO SCH ×3 (07:29→21:28)
[2022-05-26] MEDS: ACCU-CHEK COMFORT CURVE STRIP VI SCH ×4 (07:29→22:08)
[2022-05-26 07:30] LABS: Basophils # (auto) 0 10 ^3/uL (0-0.2); Basophils % (auto) 0.3 % (0.0-2.0); Eosinophils # (auto) 0.5 10 ^3/uL (0-0.8); Eosinophils % (auto) 3.9 % (0.0-7.0); Hematocrit 34.8 % (36.0-46.0); Hemoglobin 11.7 g/dL (12.2-16.2); Lymphocytes # (auto) 1.9 10 ^3/uL (0.4-5.4); Mean Corpuscular Hemoglobin 29.5 pg (28.0-32.0); Mean Corpuscular Hgb Conc. 33.6 g/dL (32.0-36.0); Mean Corpuscular Volume 87.9 fL (80.0-100.0); Monocytes # (auto) 1.4 10 ^3/uL (0-1.3); Monocytes % (auto) 12.1 % (0.0-12.0); Neutrophils # (auto) 7.9 10 ^3/uL (1.6-8.6); Neutrophils % (auto) 67.7 % (37.0-80.0); Red Blood Cells 3.96 10^6/uL (4.0-5.20); Red Cell Distribution Width 13.6 % (11.8-14.3); White Blood Cell 11.7 10^3/uL (4.4-10.8)
[2022-05-26] MEDS: InsuLIN REG 1unit/0.01ml Soln (100units/ml) SC SCH ×4 (07:33→22:15)
[2022-05-26 08:48] VITALS: BP 151/59
[2022-05-26] MEDS: SITAGLIPTIN 100 MG PO SCH (10:00)
[2022-05-26] MEDS: cefTRIAXone 1GM/50ML D5W 50 ML IV SCH (10:01)
[2022-05-26] MEDS: ASPirin-EC 81 mg tab PO SCH (10:02)
[2022-05-26] MEDS: PANTOPRAZOLE 40 MG TAB PO SCH (10:03)
[2022-05-26] MEDS ORDERED: traMADol HCL 50 MG TAB PO PRN (13:15)
[2022-05-26 13:19] VITALS: BP 161/65
[2022-05-26] MEDS: ONDANSETRON HCL 4 MG/2 ML VIAL IV PRN ×2 (14:11→22:27)
[2022-05-26] MEDS ORDERED: VALSARTAN 80 MG TAB PO ONE (15:30)
[2022-05-26] MEDS ORDERED: ACETAMINOPHEN 325 MG TAB PO PRN (16:15)
[2022-05-26] MEDS ORDERED: RANOLAZINE ER 500 MG TAB PO SCH (17:30)
[2022-05-26 20:00] VITALS: BP 152/50
[2022-05-26] MEDS: ATORVASTATIN 20 MG TAB PO SCH (21:28)
[2022-05-26 22:00] VITALS: BP 152/50
[2022-05-27 05:00] VITALS: BP 148/62
[2022-05-27 06:24] LABS: Basophils # (auto) 0.1 10 ^3/uL (0-0.2); Basophils % (auto) 0.6 % (0.0-2.0); Eosinophils # (auto) 0.5 10 ^3/uL (0-0.8); Hematocrit 33.1 % (36.0-46.0); Hemoglobin 10.7 g/dL (12.2-16.2); Lymphocytes # (auto) 2.2 10 ^3/uL (0.4-5.4); Lymphocytes % (auto) 20.3 % (10.0-50.0); Mean Corpuscular Hemoglobin 28.3 pg (28.0-32.0); Mean Corpuscular Hgb Conc. 32.3 g/dL (32.0-36.0); Mean Corpuscular Volume 87.6 fL (80.0-100.0); Monocytes # (auto) 1.1 10 ^3/uL (0-1.3); Monocytes % (auto) 10.6 % (0.0-12.0); Neutrophils # (auto) 6.8 10 ^3/uL (1.6-8.6); Neutrophils % (auto) 63.5 % (37.0-80.0); Red Blood Cells 3.78 10^6/uL (4.0-5.20); Red Cell Distribution Width 13.4 % (11.8-14.3); White Blood Cell 10.7 10^3/uL (4.4-10.8)
[2022-05-27] MEDS: GABAPENTIN 300 MG CAP PO SCH (06:30)
[2022-05-27 06:36] LABS: Calcium 8.6 mg/dL (8.5-10.1); Potassium 3.5 mmol/L (3.5-5.1)
[2022-05-27] MEDS: ACCU-CHEK COMFORT CURVE STRIP VI SCH (06:37)
[2022-05-27 06:39] LABS: BUN/Creatinine Ratio 15.7
[2022-05-27] MEDS: InsuLIN REG 1unit/0.01ml Soln (100units/ml) SC SCH (06:40)
[2022-05-27] MEDS: cefTRIAXone 1GM/50ML D5W 50 ML IV SCH (08:49)
[2022-05-27] MEDS ORDERED: CEPH-510 PO (09:16)
[2022-05-27] MEDS ORDERED: VALSARTAN 80 MG TAB PO SCH (10:00)
[2022-05-27] MEDS: SITAGLIPTIN 100 MG PO SCH (10:00)
[2022-05-27] MEDS: ASPirin-EC 81 mg tab PO SCH (11:06)
[2022-05-27] MEDS: PANTOPRAZOLE 40 MG TAB PO SCH (11:08)
== END 2022-05-27 11:40 | disposition home or self-care (01) | DRG 690 ==
LOC: ER 13:42 → OVERFLOW 18:09 → EAST 05-26 01:35
PROVIDERS: ADMIT Registered Nurse; ATTEND Internal Medicine
DX: N39.0 Urinary tract infection, site not specified (principal); E11.9 Type 2 diabetes mellitus without complications; E78.5 Hyperlipidemia, unspecified; I10 Essential (primary) hypertension; M19.90 Unspecified osteoarthritis, unspecified site; I95.9 Hypotension, unspecified; Z20.822 Contact with and (suspected) exposure to COVID-19; D72.829 Elevated white blood cell count, unspecified; Z83.3 Family history of diabetes mellitus; Z95.1 Presence of aortocoronary bypass graft; Z90.49 Acquired absence of other specified parts of digestive tract; Z98.51 Tubal ligation status; Z88.5 Allergy status to narcotic agent
CPT/HCPCS: 36415; 71045; 80048; 80053; 80061; 81001; 82962; 84443; 84484; 85025; 87086; 87426; 93005; 96360; G0378; J0696; J1815; J2405

== ENCOUNTER → 2022-06-29 | Outpatient (CLI) | payer OTHER, MEDICAID ==
[~2022-06-29] MED LIST changes: +CEPH-510 PO; -DAPA1TAB4 PO
[2022-06-29 09:25] LABS: Urine Bacteria MANY /hpf (None Seen); Urine Blood 1+ /uL (Negative); Urine Mucus FEW (None Seen); Urine Specific Gravity 1.016 (1.001-1.035); Urine WBC 1080 /hpf (0 - 5); Urine WBC Clumps PRESENT /hpf (None Seen)
== END | disposition home or self-care (01) ==
LOC: LAB 09:05
PROVIDERS: ATTEND Internal Medicine
DX: E11.9 Type 2 diabetes mellitus without complications (principal); N39.0 Urinary tract infection, site not specified
CPT/HCPCS: 81001; 87086

== ENCOUNTER → 2022-09-21 | Outpatient (CLI) | payer MEDICAID, OTHER ==
[~2022-09-21] VITALS: Ht 154.9 cm; Wt 57.2 kg
[~2022-09-21] MED LIST changes: +ADENOSINE 48 MG in GIVE UN-DILUTED 0 ML IV STA
[2022-09-21 11:03] VITALS: BP 148/83
== END | disposition home or self-care (01) ==
LOC: XYW 09:34
PROVIDERS: ATTEND Internal Medicine
DX: Z01.810 Encounter for preprocedural cardiovascular examination (principal); I11.0 Hypertensive heart disease with heart failure; I50.32 Chronic diastolic (congestive) heart failure; I25.810 Atherosclerosis of coronary artery bypass graft(s) without angina pectoris; I70.0 Atherosclerosis of aorta; R06.02 Shortness of breath; E11.3293 Type 2 diabetes mellitus with mild nonproliferative diabetic retinopathy without macular edema, bilateral; E78.5 Hyperlipidemia, unspecified; Z95.5 Presence of coronary angioplasty implant and graft; Z95.1 Presence of aortocoronary bypass graft
CPT/HCPCS: 78452; 93017; A9500; J0153

== ENCOUNTER → 2022-10-23 | Outpatient (CLI) | payer OTHER ==
[~2022-10-23] MED LIST changes: -ADENOSINE 48 MG in GIVE UN-DILUTED 0 ML IV STA
[2022-10-23 09:05] LABS: Basophils # (auto) 0 10 ^3/uL (0-0.2); Basophils % (auto) 0.5 % (0.0-2.0); Eosinophils # (auto) 0.9 10 ^3/uL (0-0.8); Eosinophils % (auto) 13.4 % (0.0-7.0); Hematocrit 37.6 % (36.0-46.0); Hemoglobin 12.5 g/dL (12.2-16.2); Lymphocytes # (auto) 1.9 10 ^3/uL (0.4-5.4); Mean Corpuscular Hgb Conc. 33.2 g/dL (32.0-36.0); Mean Corpuscular Volume 87.5 fL (80.0-100.0); Monocytes # (auto) 0.6 10 ^3/uL (0-1.3); Monocytes % (auto) 8.8 % (0.0-12.0); Neutrophils # (auto) 3.4 10 ^3/uL (1.6-8.6); Neutrophils % (auto) 49.3 % (37.0-80.0); Nucleated Red Blood Cells % 0.1 %; Red Cell Distribution Width 13.7 % (11.8-14.3); White Blood Cell 6.8 10^3/uL (4.4-10.8)
[2022-10-23 09:51] LABS: Potassium 4.7 mmol/L (3.5-5.1)
[2022-10-23 09:57] LABS: Albumin 3.4 g/dL (3.4-5.0); BUN/Creatinine Ratio 31.1 (10.0-20.0); Bilirubin, Total 0.3 mg/dL (0.2-1.0); Total Protein 7.6 g/dL (6.4-8.2)
== END | disposition home or self-care (01) ==
LOC: LAB 08:49
PROVIDERS: ATTEND Internal Medicine
DX: E11.9 Type 2 diabetes mellitus without complications (principal); I25.10 Atherosclerotic heart disease of native coronary artery without angina pectoris
CPT/HCPCS: 36415; 80053; 83036; 85025

== ENCOUNTER → 2023-02-17 | Outpatient (CLI) | payer OTHER ==
[~2023-02-17] MED LIST changes: +GABA-1250 PO; -GABA300C10 PO
[2023-02-17 12:17] LABS: Basophils # (auto) 0 10 ^3/uL (0-0.2); Basophils % (auto) 0.3 % (0.0-2.0); Eosinophils # (auto) 0.1 10 ^3/uL (0-0.8); Eosinophils % (auto) 1.8 % (0.0-7.0); Hemoglobin 11.9 g/dL (12.2-16.2); Lymphocytes # (auto) 2.1 10 ^3/uL (0.4-5.4); Lymphocytes % (auto) 24.8 % (10.0-50.0); Mean Corpuscular Hemoglobin 28.8 pg (28.0-32.0); Mean Corpuscular Hgb Conc. 32.9 g/dL (32.0-36.0); Mean Corpuscular Volume 87.6 fL (80.0-100.0); Monocytes # (auto) 0.8 10 ^3/uL (0-1.3); Monocytes % (auto) 9.5 % (0.0-12.0); Neutrophils # (auto) 5.3 10 ^3/uL (1.6-8.6); Neutrophils % (auto) 63.6 % (37.0-80.0); Red Blood Cells 4.11 10^6/uL (4.0-5.20); Red Cell Distribution Width 13.5 % (11.8-14.3); White Blood Cell 8.3 10^3/uL (4.4-10.8)
[2023-02-17 12:23] LABS: Urine Bacteria MANY /hpf (None Seen); Urine Blood 3+ /uL (Negative); Urine Budding Yeast FEW /hpf (None Seen); Urine Clarity CLOUDY (Clear); Urine Color Yellow (Yellow); Urine Mucus FEW (None Seen); Urine Protein, UAD 2+ (Negative); Urine Specific Gravity 1.018 (1.001-1.035); Urine Urobilinogen Normal (Negative); Urine WBC 2275 /hpf (0 - 5); Urine WBC Clumps PRESENT /hpf (None Seen); Urine pH 5.5 (5.0-8.0)
[2023-02-17 12:34] LABS: Triglycerides 193 mg/dL (< 150)
[2023-02-17 12:35] LABS: LDL Cholesterol 57 mg/dL (< 100)
[2023-02-17 12:36] LABS: Cholesterol 128 mg/dL (< 200); HDL Cholesterol 37 mg/dL (40-59)
[2023-02-17 12:50] LABS: Erythrocyte Sedimentation Rate 75 mm/hr (0-20)
[2023-02-17 13:04] LABS: Free T4 (Free Thyroxine) 0.87 ng/dL (0.89-1.76)
== END | disposition home or self-care (01) ==
LOC: LAB 11:45
PROVIDERS: ATTEND Internal Medicine
DX: E11.22 Type 2 diabetes mellitus with diabetic chronic kidney disease (principal); N18.30 Chronic kidney disease, stage 3 unspecified
CPT/HCPCS: 36415; 80061; 81001; 82043; 82306; 82607; 83036; 83970; 84439; 84443; 85025; 85652

== ENCOUNTER → 2023-03-29 | Outpatient (CLI) | payer OTHER ==
[2023-03-29 13:23] LABS: Urine Bacteria NONE SEEN /hpf (None Seen); Urine Blood TRACE /uL (Negative); Urine Clarity HAZY (Clear); Urine Color Yellow (Yellow); Urine Hyaline Cast FEW /lpf (0 - 2); Urine Protein, UAD 2+ (Negative); Urine Specific Gravity 1.016 (1.001-1.035); Urine WBC 15 /hpf (0 - 5); Urine pH 8.5 (5.0-8.0)
== END | disposition home or self-care (01) ==
LOC: LAB 13:03
PROVIDERS: ATTEND Internal Medicine
DX: N31.2 Flaccid neuropathic bladder, not elsewhere classified (principal); N39.0 Urinary tract infection, site not specified
CPT/HCPCS: 81001; 87086

== ENCOUNTER 2023-04-16 09:21 | Emergency (ER) | payer OTHER, MEDICAID ==
[~2023-04-16] VITALS: Ht 154.9 cm; Wt 59.0 kg
[2023-04-16 09:25] VITALS: BP 170/78; PULSE 91; RESP 18; TEMP 97.8; O2SAT 98
[2023-04-16] MEDS ORDERED: cefTRIAXone SOD 1,000 MG VL IM ONE (10:45)
[2023-04-16 11:53] LABS: Vaginal Bacteria Many; Vaginal Clue Cells Few; Vaginal Epithelial Cells Moderate; Vaginal Trichomonas Not Present
[2023-04-16 12:08] LABS: Urine Bacteria NONE SEEN /hpf (None Seen); Urine Blood 3+ /uL (Negative); Urine Clarity CLOUDY (Clear); Urine Color Yellow (Yellow); Urine Mucus FEW (None Seen); Urine Protein, UAD 1+ (Negative); Urine Specific Gravity 1.019 (1.001-1.035); Urine Urobilinogen Normal (Negative); Urine WBC 534 /hpf (0 - 5); Urine WBC Clumps PRESENT /hpf (None Seen); Urine pH 5.5 (5.0-8.0)
[2023-04-16] MEDS ORDERED: MET500T PO (12:35)
[2023-04-16] MEDS ORDERED: BACDST PO (12:35)
[2023-04-16] MEDS ORDERED: PHEN-922 PO (12:35)
== END 2023-04-16 12:48 | disposition home or self-care (01) ==
LOC: ER 09:21
DX: N39.0 Urinary tract infection, site not specified (principal); N76.0 Acute vaginitis; E11.9 Type 2 diabetes mellitus without complications; E78.5 Hyperlipidemia, unspecified; Z90.49 Acquired absence of other specified parts of digestive tract; Z98.51 Tubal ligation status; Z79.899 Other long term (current) drug therapy; Z88.6 Allergy status to analgesic agent
CPT/HCPCS: 81001; 87210; 96372; 99283; J0696

== ENCOUNTER → 2023-05-03 | Outpatient (CLI) | payer OTHER ==
[~2023-05-03] MED LIST changes: +BACDST PO; +MET500T PO; +PHEN-922 PO
[2023-05-03 16:04] LABS: Basophils # (auto) 0 10 ^3/uL (0-0.2); Basophils % (auto) 0.4 % (0.0-2.0); Eosinophils # (auto) 0.2 10 ^3/uL (0-0.8); Hematocrit 34.7 % (36.0-46.0); Hemoglobin 11.3 g/dL (12.2-16.2); Lymphocytes % (auto) 37.5 % (10.0-50.0); Mean Corpuscular Hemoglobin 29.1 pg (28.0-32.0); Mean Corpuscular Hgb Conc. 32.6 g/dL (32.0-36.0); Mean Corpuscular Volume 89.1 fL (80.0-100.0); Monocytes # (auto) 0.7 10 ^3/uL (0-1.3); Monocytes % (auto) 8.5 % (0.0-12.0); Neutrophils # (auto) 4.1 10 ^3/uL (1.6-8.6); Neutrophils % (auto) 51.6 % (37.0-80.0); Red Blood Cells 3.89 10^6/uL (4.0-5.20); Red Cell Distribution Width 13.5 % (11.8-14.3); White Blood Cell 7.9 10^3/uL (4.4-10.8)
[2023-05-03 16:47] LABS: Alanine Aminotransferase 30 U/L (7-40); Albumin 4.1 g/dL (3.2-4.8); Alkaline Phosphatase 54 U/L (46-116); Anion Gap 8 (5-15); Aspartate Aminotransferase 22 U/L (13-40); BUN/Creatinine Ratio 30.2 (10.0-20.0); Bilirubin, Total 0.4 mg/dL (0.2-1.0); Blood Urea Nitrogen 29 mg/dL (9-23); Calcium 9.4 mg/dL (8.5-10.1); Carbon Dioxide 22 mmol/L (20-30); Chloride 110 mmol/L (98-107); Glucose 99 mg/dL (74-106); Potassium 5.2 mmol/L (3.5-5.1); Sodium 140 mmol/L (136-145)
== END | disposition home or self-care (01) ==
LOC: LAB 15:48
PROVIDERS: ATTEND Internal Medicine
DX: E11.22 Type 2 diabetes mellitus with diabetic chronic kidney disease (principal); N18.30 Chronic kidney disease, stage 3 unspecified
CPT/HCPCS: 36415; 80053; 85025; 87086

== ENCOUNTER → 2023-07-16 | Outpatient (CLI) | payer OTHER ==
[2023-07-16 08:53] LABS: Basophils # (auto) 0 10 ^3/uL (0-0.2); Basophils % (auto) 0.5 % (0.0-2.0); Eosinophils # (auto) 0.2 10 ^3/uL (0-0.8); Eosinophils % (auto) 2.8 % (0.0-7.0); Hematocrit 37.5 % (36.0-46.0); Hemoglobin 12.4 g/dL (12.2-16.2); Lymphocytes # (auto) 2.5 10 ^3/uL (0.4-5.4); Lymphocytes % (auto) 33.6 % (10.0-50.0); Mean Corpuscular Hemoglobin 29.4 pg (28.0-32.0); Monocytes # (auto) 0.5 10 ^3/uL (0-1.3); Monocytes % (auto) 7.3 % (0.0-12.0); Neutrophils # (auto) 4.1 10 ^3/uL (1.6-8.6); Neutrophils % (auto) 55.8 % (37.0-80.0); Red Blood Cells 4.21 10^6/uL (4.0-5.20); Red Cell Distribution Width 13.3 % (11.8-14.3); White Blood Cell 7.4 10^3/uL (4.4-10.8)
[2023-07-16 09:56] LABS: Alanine Aminotransferase 10 U/L (7-40); Albumin 4.3 g/dL (3.2-4.8); Alkaline Phosphatase 60 U/L (46-116); Anion Gap 3 (5-15); Aspartate Aminotransferase 15 U/L (13-40); BUN/Creatinine Ratio 25.8 (10.0-20.0); Bilirubin, Total 0.5 mg/dL (0.2-1.0); Blood Urea Nitrogen 24 mg/dL (9-23); Calcium 9.7 mg/dL (8.5-10.1); Carbon Dioxide 29 mmol/L (20-30); Chloride 106 mmol/L (98-107); Glucose 189 mg/dL (74-106); Potassium 5.5 mmol/L (3.5-5.1); Sodium 138 mmol/L (136-145); Total Protein 7.3 g/dL (5.7-8.2)
== END | disposition home or self-care (01) ==
LOC: LAB 08:36
PROVIDERS: ATTEND Internal Medicine
DX: I10 Essential (primary) hypertension (principal); E11.9 Type 2 diabetes mellitus without complications
CPT/HCPCS: 36415; 80053; 83036; 85025

== ENCOUNTER → 2023-07-21 | Outpatient (CLI) | payer OTHER | END | disposition home or self-care (01) | LOC: LAB 12:25 | PROVIDERS: ATTEND Internal Medicine | DX: I10 Essential (primary) hypertension (principal) | CPT/HCPCS: 36415; 84132 ==

== ENCOUNTER → 2023-10-12 | Outpatient (CLI) | payer OTHER ==
[2023-10-12 11:58] LABS: Basophils # (auto) 0 10 ^3/uL (0-0.2); Basophils % (auto) 0.4 % (0.0-2.0); Eosinophils # (auto) 0.1 10 ^3/uL (0-0.8); Eosinophils % (auto) 1.7 % (0.0-7.0); Hematocrit 36.3 % (36.0-46.0); Hemoglobin 11.7 g/dL (12.2-16.2); Lymphocytes # (auto) 2.3 10 ^3/uL (0.4-5.4); Lymphocytes % (auto) 29.9 % (10.0-50.0); Mean Corpuscular Hemoglobin 28.6 pg (28.0-32.0); Mean Corpuscular Hgb Conc. 32.3 g/dL (32.0-36.0); Mean Corpuscular Volume 88.4 fL (80.0-100.0); Monocytes # (auto) 0.5 10 ^3/uL (0-1.3); Monocytes % (auto) 6.5 % (0.0-12.0); Neutrophils # (auto) 4.8 10 ^3/uL (1.6-8.6); Neutrophils % (auto) 61.5 % (37.0-80.0); Nucleated Red Blood Cells % 0.1 %; Red Blood Cells 4.11 10^6/uL (4.0-5.20); Red Cell Distribution Width 12.7 % (11.8-14.3); White Blood Cell 7.7 10^3/uL (4.4-10.8)
[2023-10-12 12:02] LABS: INR 1.03 (0.9-1.15); Prothrombin Time 10.9 sec (9.3-11.8)
[2023-10-12 12:15] LABS: Alanine Aminotransferase 15 U/L (7-40); Albumin 4.4 g/dL (3.2-4.8); Alkaline Phosphatase 70 U/L (46-116); Anion Gap 6 (5-15); Aspartate Aminotransferase 14 U/L (13-40); BUN/Creatinine Ratio 19.1 (10.0-20.0); Bilirubin, Total 0.4 mg/dL (0.2-1.0); Blood Urea Nitrogen 17 mg/dL (9-23); Calcium 10.1 mg/dL (8.5-10.1); Carbon Dioxide 27 mmol/L (20-30); Chloride 106 mmol/L (98-107); Glucose 138 mg/dL (74-106); Potassium 4.9 mmol/L (3.5-5.1); Sodium 139 mmol/L (136-145); Total Protein 7.5 g/dL (5.7-8.2)
[2023-10-12 12:21] LABS: Urine Bacteria FEW /hpf (None Seen); Urine Blood TRACE /uL (Negative); Urine Clarity Turbid (Clear); Urine Color Colorless (Yellow); Urine Protein, UAD 1+ (Negative); Urine Urobilinogen Normal (Negative); Urine WBC 256 /hpf (0 - 5); Urine WBC Clumps PRESENT /hpf (None Seen); Urine pH 6.5 (5.0-9.0)
== END | disposition home or self-care (01) ==
LOC: LAB 11:10
PROVIDERS: ATTEND Internal Medicine Gastroenterology
DX: R10.11 Right upper quadrant pain (principal)
CPT/HCPCS: 36415; 80053; 81001; 85025; 85610; 87086

== ENCOUNTER 2023-11-05 13:54 | Emergency (ER) | payer OTHER ==
[~2023-11-05] VITALS: Ht 154.9 cm; Wt 56.3 kg
[2023-11-05 14:47] VITALS: BP 95/68; PULSE 74; RESP 18; TEMP 97.8; O2SAT 99
[2023-11-05] MEDS: HYDROcodone-ACET 5/325MG TAB PO ONE (14:57)
[2023-11-05] MEDS ORDERED: HYDR-4902 PO (15:16)
[2023-11-05] MEDS: KETOROLAC TROMETH 60MG/2ML VIAL IM ONE (15:31)
== END 2023-11-05 15:45 | disposition home or self-care (01) ==
LOC: ER 13:56
DX: S42.301A Unspecified fracture of shaft of humerus, right arm, initial encounter for closed fracture (principal); I10 Essential (primary) hypertension; E11.9 Type 2 diabetes mellitus without complications; E78.5 Hyperlipidemia, unspecified; Z90.49 Acquired absence of other specified parts of digestive tract; Z79.82 Long term (current) use of aspirin; Z79.899 Other long term (current) drug therapy; Z88.5 Allergy status to narcotic agent; W01.0XXA Fall on same level from slipping, tripping and stumbling without subsequent striking against object, initial encounter; Y93.89 Activity, other specified; Y92.89 Other specified places as the place of occurrence of the external cause; Y99.8 Other external cause status
CPT/HCPCS: 29105; 73060; 73110

== ENCOUNTER 2023-11-26 16:55 | Emergency (ER) | payer OTHER ==
[~2023-11-26] VITALS: Ht 154.9 cm; Wt 58.1 kg
[~2023-11-26 16:55] MED LIST changes: +HYDR-4902 PO
[2023-11-26] MEDS ORDERED: HYDR-4902 PO (19:03)
[2023-11-26] MEDS: HYDROcodone-ACET 10/325MG TAB PO ONE (19:24)
[2023-11-26 19:26] VITALS: RESP 17; TEMP 97.5; O2SAT 95
[2023-11-26 19:40] VITALS: BP 150/78; PULSE 80
== END 2023-11-26 19:43 | disposition home or self-care (01) ==
LOC: ER 16:55
DX: E11.9 Type 2 diabetes mellitus without complications (principal); E78.5 Hyperlipidemia, unspecified; I10 Essential (primary) hypertension; Z44 Encounter for fitting and adjustment of external prosthetic device; Z90.49 Acquired absence of other specified parts of digestive tract; Z88.5 Allergy status to narcotic agent; Z79.82 Long term (current) use of aspirin; Z79.4 Long term (current) use of insulin; Z79.899 Other long term (current) drug therapy; Z98.51 Tubal ligation status; Z98.890 Other specified postprocedural states

== ENCOUNTER → 2024-03-07 | Outpatient (CLI) | payer OTHER | END | disposition home or self-care (01) | LOC: LAB 13:09 | PROVIDERS: ATTEND Internal Medicine | DX: Z12.11 Encounter for screening for malignant neoplasm of colon (principal) | CPT/HCPCS: 82270 ==

== ENCOUNTER 2024-03-22 09:48 | Emergency (ER) | payer OTHER ==
[~2024-03-22] VITALS: Ht 154.9 cm; Wt 58.2 kg
[2024-03-22 10:18] LABS: Basophils # (auto) 0 10 ^3/uL (0-0.2); Basophils % (auto) 0.4 % (0.0-2.0); Eosinophils # (auto) 0.3 10 ^3/uL (0-0.8); Eosinophils % (auto) 2.9 % (0.0-7.0); Hematocrit 40.6 % (36.0-46.0); Hemoglobin 13.4 g/dL (12.2-16.2); Lymphocytes # (auto) 2.4 10 ^3/uL (0.4-5.4); Lymphocytes % (auto) 20.6 % (10.0-50.0); Mean Corpuscular Hemoglobin 28.9 pg (28.0-32.0); Mean Corpuscular Volume 87.5 fL (80.0-100.0); Monocytes # (auto) 0.9 10 ^3/uL (0-1.3); Neutrophils # (auto) 7.9 10 ^3/uL (1.6-8.6); Neutrophils % (auto) 68.1 % (37.0-80.0); Platelet Count (auto) 205 10^3/uL (140-450); Red Blood Cells 4.64 10^6/uL (4.0-5.20); Red Cell Distribution Width 13.6 % (11.8-14.3); White Blood Cell 11.6 10^3/uL (4.4-10.8)
[2024-03-22 10:28] LABS: Urine Bacteria None Seen /hpf (None Seen)
[2024-03-22 10:38] LABS: Urine Blood 3+ /uL (Negative); Urine Clarity Ex.Turbid (Clear); Urine Color Light-Brown (Yellow); Urine Mucus FEW (None Seen); Urine Protein, UAD 1+ (Negative); Urine Specific Gravity 1.016 (1.001-1.035); Urine Urobilinogen Normal (Negative); Urine WBC 861 /hpf (0 - 5); Urine WBC Clumps PRESENT /hpf (None Seen)
[2024-03-22 10:41] LABS: Alanine Aminotransferase 16 U/L (7-40); Albumin 4.6 g/dL (3.2-4.8); Alkaline Phosphatase 109 U/L (46-116); Anion Gap 5 (5-15); Aspartate Aminotransferase < 8 U/L (13-40); BUN/Creatinine Ratio 20.4 (10.0-20.0); Bilirubin, Total 0.5 mg/dL (0.2-1.0); Blood Urea Nitrogen 21 mg/dL (9-23); Calcium 10.1 mg/dL (8.7-10.4); Carbon Dioxide 29 mmol/L (20-31); Chloride 106 mmol/L (98-107); Glucose 251 mg/dL (74-106); Potassium 4.3 mmol/L (3.5-5.1); Sodium 140 mmol/L (136-145); Total Protein 8.2 g/dL (5.7-8.2)
[2024-03-22] MEDS: SODIUM CHLORIDE 0.9% 500 ML IV ONE (13:24)
[2024-03-22] MEDS: cefTRIAXone 1GM/50ML D5W 50 ML IV ONE (13:24)
[2024-03-22 14:06] VITALS: PULSE 74; RESP 16; O2SAT 99
[2024-03-22] MEDS: SODIUM CHLORIDE 0.9% 1,000 ML IV ONE (15:45)
[2024-03-22 18:20] LABS: Hematocrit 37.5 % (36.0-46.0); Hemoglobin 12.4 g/dL (12.2-16.2)
[2024-03-22 18:34] VITALS: BP 143/72; PULSE 86; RESP 16; TEMP 98.4; O2SAT 97
== END 2024-03-22 19:04 | disposition home or self-care (01) ==
LOC: ER 09:48
DX: N39.0 Urinary tract infection, site not specified (principal); D25.9 Leiomyoma of uterus, unspecified; M19.90 Unspecified osteoarthritis, unspecified site; E11.9 Type 2 diabetes mellitus without complications; E78.5 Hyperlipidemia, unspecified; I10 Essential (primary) hypertension; Z79.82 Long term (current) use of aspirin; Z79.899 Other long term (current) drug therapy; Z79.84 Long term (current) use of oral hypoglycemic drugs; Z90.49 Acquired absence of other specified parts of digestive tract; Z98.51 Tubal ligation status
CPT/HCPCS: 36415; 74176; 76830; 76856; 80053; 81001; 82962; 83605; 84484; 85014; 85018; 85025; 86850; 86900; 86901; 93005; 96361; 96365; 99285; J0696; J7030

== ENCOUNTER → 2024-03-24 | Outpatient (CLI) | payer OTHER | END | disposition home or self-care (01) | LOC: LAB 09:56 | PROVIDERS: ATTEND Internal Medicine | DX: R31.29 Other microscopic hematuria (principal) | CPT/HCPCS: 87086 ==

== ENCOUNTER 2024-05-15 10:18 | Emergency (ER) | payer OTHER ==
[~2024-05-15] VITALS: Ht 154.9 cm; Wt 57.0 kg
--- NOTE | 2024-05-15 12:22 | DVH ---
Chest x-ray Technique: AP chest CLINICAL INDICATION: Shortness of breath FINDINGS: Sternotomy sutures overlie the midline. Evidence of prior coronary artery surgery Heart siz e is normal. No infiltrates or effusions. No bony thoracic abnormalities. IMPRESSION: 1. No acute cardiopulmonary pathology
[2024-05-15 13:20] VITALS: BP 100/59; PULSE 95; RESP 16; TEMP 97.6; O2SAT 96
--- NOTE | 2024-05-15 13:34 | ED.PDOC ---
SOB-HPI HPI Comments 73-year-old with a history of diabetes hypertension hyper cholesterolemia presents with a chief complaint of URI symptoms x9 days. Complains of productive cough with a green phlegm and fatigue in his able to get minimal relief with dove-kyw-chdyayc cough medicine Denies fevers chills night sweats unintentional weight loss Denies persistent chest pain, shortness of breath, leg swelling Denies history of asthma nor any breathing conditions Denies history of pneumonia Denies recent international travel Chief Complaint: Flu like Time Seen by MD: 12:27 Primary Care Provider: ZI Reviewed notes: Nurses Notes, Medications, Allergies Information Source: Patient Mode of Arrival: Ambulatory Past Medical History PAST MEDICAL HISTORY: Arthritis, DM, High Lipids, HTN, UTI'S Surgical History: BTL, Cholecystectomy, Tubal Ligation RECORDS SPECIALIST History: No Pertinent RECORDS SPECIALIST History Family History Family History: Reviewed,noncontributory to illness Social History Smoker: Non-Smoker Alcohol: Denies ETOH Use Drugs: Denies Drug Use Lives In: Home All Other Systems: Reviewed and Negative (Per HPI) Physical Exam General Appearance: No Apparent Distress, Normal HEENT: Normal ENT Inspection, Pharynx Normal, TMs Normal Neck: Full Range of Motion, Non-Tender, Normal, Normal Inspection Respiratory: Chest Non-Tender, Lungs Clear, No Accessory Muscle Use, No Respiratory Distress, Normal Breath Sounds Cardiovascular: No Edema, No JVD, No Murmur, No Gallop, Normal Peripheral Pulses, Regular Rate/Rhythm Breast Exam: Deferred Gastrointestinal: No Organomegaly, Non Tender, No Pulsatile Mass, Normal Bowel Sounds, Soft Genitalia: Deferred Pelvic: Deferred Rectal: Deferred Extremities: No calf tenderness, Normal capillary refill, Normal inspection, Normal range of motion, Non-tender, No pedal edema Musculoskeletal : Apperance: Normal Neurologic: Alert, basketball player II-XII nml as Tested, No Motor Deficits, Normal Affect, Normal Mood, No Sensory Deficits Cerebellar Function: Normal Reflexes: Normal Skin: Dry, Normal Color, Warm Lymphatic: No Adenopathy Was a procedure done? Was a procedure done?: No Differential Dx Differential Diagnosis: Bronchitis X-Ray, Labs, Meds, VS Vital Signs Date Time Temp Pulse Resp B/P (MAP) Pulse Ox O2 Delivery O2 Flow Rate FiO2 05/15/24 13:20 97.6 95 16 100/59 (73) 96 97.6 05/15/24 13:20 95 16 96 Room Air 05/15/24 10:48 97.6 95 16 100/59 (73) 96 Lab Test 05/15/24 13:30 Range/Units White Blood Count 13.5 H 4.4-10.8 10^3/uL Red Blood Count 4.12 4.0-5.20 10^6/uL Hemoglobin 11.9 L 12.2-16.2 g/dL Hematocrit 36.8 36.0-46.0 % Mean Corpuscular Volume 89.3 80.0-100.0 fL Mean Corpuscular Hemoglobin 29.0 28.0-32.0 pg Mean Corpuscular Hemoglobin Concent 32.4 32.0-36.0 g/dL Red Cell Distribution Width 13.4 11.8-14.3 % Platelet Count 211 140-450 10^3/uL Mean Platelet Volume 10.2 6.9-10.8 fL Neutrophils (%) (Auto) 69.5 37.0-80.0 % Lymphocytes (%) (Auto) 19.7 10.0-50.0 % Monocytes (%) (Auto) 8.8 0.0-12.0 % Eosinophils (%) (Auto) 1.7 0.0-7.0 % Basophils (%) (Auto) 0.3 0.0-2.0 % Neutrophils # (Auto) 9.4 H 1.6-8.6 10 ^3/uL Lymphocytes # (Auto) 2.7 0.4-5.4 10 ^3/uL Monocytes # (Auto) 1.2 0-1.3 10 ^3/uL Eosinophils # (Auto) 0.2 0-0.8 10 ^3/uL Basophils # (Auto) 0 0-0.2 10 ^3/uL Nucleated Red Blood Cells 0.1 % Sodium Level 137 136-145 mmol/L Potassium Level 4.8 3.5-5.1 mmol/L Chloride Level 104 98-107 mmol/L Carbon Dioxide Level 28 20-31 mmol/L Anion Gap 5 5-15 Blood Urea Nitrogen 13 9-23 mg/dL Creatinine 1.18 H 0.550-1.02 mg/dL Glomerular Filtration Rate Calc 48 >90 mL/min BUN/Creatinine Ratio 11.0 10.0-20.0 Serum Glucose 276 H 74-106 mg/dL Calcium Level 9.8 8.7-10.4 mg/dL Total Bilirubin 0.4 0.2-1.0 mg/dL Aspartate Amino Transferase (AST) 11 L 13-40 U/L Alanine Aminotransferase (ALT) < 9 7-40 U/L Alkaline Phosphatase 94 46-116 U/L Total Protein 7.4 5.7-8.2 g/dL Albumin 3.9 3.2-4.8 g/dL PATIENT: GANGA SHORT CACCT: [id number]: [id number] : 1950 LOC: ER ROOM / BED: / AGE / SEX: 73 / F ADM STATUS: REG ER SERVICE 1046 ORDERING PHYSICIAN: HAROON TERESA NP PROCEDURE(s): CXR1 - CHEST XRAY 1 VIEW REASON: COUGH ORDER NUMBER(s): [id number], ACCESSION NUMBER(s): [id number] Chest x-ray Technique: AP chest CLINICAL INDICATION: Shortness of breath FINDINGS: Sternotomy sutures overlie the midline. Evidence of prior coronary artery surgery Heart size is normal. No infiltrates or effusions. No bony t horacic abnormalities. IMPRESSION: 1. No acute cardiopulmonary pathology ATED BY: JAH UMANZOR MD DICTATED DATE/TIME: 05/15/241219 SIGNED BY: JAH UMANZOR MD SIGNED DATE/TIME: 05/15/24 122 CC: X-Ray, Labs, Meds, VS Comment This is a nontoxic non ill-appearing 73-year-old with a history of diabetes hypertension hyper cholesterolemia presents with a chief complaint of URI symptoms x9 days. History was gathered from independent historian After review of systems and physical examination chest x-ray was ordered to rule out serious pathology such as any consolidation of the lungs Other test considered but not ordered were CBC, CMP, UA, lactic however patient was nontoxic non ill-appearing and presented in her usual state of health Observation was considered for this patient however based on history and findings and should decision-making patient will be treated empirically and advised to return if any worsening symptoms History and physical consistent of URI Take medication as prescribed Please the course of antibiotics even if the symptoms resolve Advised aggressive fluid hydration Discussed that cough can linger up to 6 weeks after viral URI ED precautions if cough does not alleviate or if cough worsens Supportive care and return precautions discussed Counseled viral infection and explained that antibiotics would not be helpful in resolving the illness sooner. Recommended vitamin C, rest, handwashing, and symptomatic care. Expect 2-week course with possibly of cough lingering up to 6 weeks. Nonpharmacological remedies for fluids has been recommended as well Patient is stable for discharge at this time. External notes reviewed. Test results and diagnostic imaging interpreted. All diagnostic findings, discharge care, education and instructions provided Follow-up with PCP Patient verbalized understanding and agreed to treatment plan Vital signs stable, afebrile, no acute distress noted Patient ambulatory with strong steady gait Advised to return precautions for any new or worsening symptoms, return to ER immediately for re-evaluation Patient is aware that the purpose of this visit was for an acute medical emergency requiring emergent stabilization. Chronic conditions, including malignancies have not been ruled out. Patient is instructed to follow up with PCP as directed and discharge instructions for continued care and workup. If unable to arrange follow-up, patient is to return to the emergency department for reassessment. Patient (parent or legal guardian if applicable) was given verbal and written discharge instructions and acknowledges understanding. Time of 1ST Reevaluation: 14:45 Reevaluation 1ST: Improved Patient Education/Counseling: Diagnosis, Treatment Family Education/Counseling: Diagnosis, Treatment Departure 1 Departure Time of Disposition: 14:46 Impression: Primary Impression: Viral syndrome Disposition: 01 HOME / SELF CARE / HOMELESS Condition: Stable e-Prescriptions Promethazine-Dm (Promethazine Dm 6.25-15 mg/5Ml) 1 Erin Erin 5 ML PO BIDP PRN for 10 Days, #100 ML 0 Refills Prov: HAROON TERESA EXPERIMENTAL ROCKET SLED MECHANIC 05/15/24 Benzonatate (Benzonatate) 100 Mg Cap 1 CAP PO TID for 10 Days, #30 CAP 0 Refills Prov: HAROON TERESA EXPERIMENTAL ROCKET SLED MECHANIC 05/15/24 Amoxicillin & Pot Clavulanate (AUGMENTIN TABLET) 875 Mg Tb 875 MG PO BID for 7 Days, #14 TAB 0 Refills Prov: HAROON TERESA EXPERIMENTAL ROCKET SLED MECHANIC 05/15/24 Critical Care Note Critical Care Time?: No Stability Stability form required: No Heart Score Heart Score: Heart Score Response (Comments) Value History N/A 0 EKG N/A 0 Age N/A 0 Risk Factors N/A 0 Troponin N/A 0 Total 0 HAROON TERESA NP May 15, 2024 13:34
[2024-05-15 13:52] LABS: Basophils # (auto) 0 10 ^3/uL (0-0.2); Basophils % (auto) 0.3 % (0.0-2.0); Eosinophils # (auto) 0.2 10 ^3/uL (0-0.8); Eosinophils % (auto) 1.7 % (0.0-7.0); Hematocrit 36.8 % (36.0-46.0); Hemoglobin 11.9 g/dL (12.2-16.2); Lymphocytes # (auto) 2.7 10 ^3/uL (0.4-5.4); Lymphocytes % (auto) 19.7 % (10.0-50.0); Mean Corpuscular Hgb Conc. 32.4 g/dL (32.0-36.0); Mean Corpuscular Volume 89.3 fL (80.0-100.0); Monocytes # (auto) 1.2 10 ^3/uL (0-1.3); Monocytes % (auto) 8.8 % (0.0-12.0); Neutrophils # (auto) 9.4 10 ^3/uL (1.6-8.6); Neutrophils % (auto) 69.5 % (37.0-80.0); Nucleated Red Blood Cells % 0.1 %; Platelet Count (auto) 211 10^3/uL (140-450); Red Blood Cells 4.12 10^6/uL (4.0-5.20); Red Cell Distribution Width 13.4 % (11.8-14.3); White Blood Cell 13.5 10^3/uL (4.4-10.8)
[2024-05-15 14:15] LABS: Albumin 3.9 g/dL (3.2-4.8); Alkaline Phosphatase 94 U/L (46-116); Bilirubin, Total 0.4 mg/dL (0.2-1.0); Blood Urea Nitrogen 13 mg/dL (9-23); Calcium 9.8 mg/dL (8.7-10.4); Carbon Dioxide 28 mmol/L (20-31); Total Protein 7.4 g/dL (5.7-8.2)
[2024-05-15 14:16] LABS: Alanine Aminotransferase < 9 U/L (7-40); Aspartate Aminotransferase 11 U/L (13-40); Glucose 276 mg/dL (74-106)
[2024-05-15 14:29] LABS: Anion Gap 5 (5-15); Chloride 104 mmol/L (98-107); Potassium 4.8 mmol/L (3.5-5.1); Sodium 137 mmol/L (136-145)
[2024-05-15] MEDS ORDERED: PROM1SOL4 PO (14:47)
[2024-05-15] MEDS ORDERED: AUG875T PO (14:47)
[2024-05-15] MEDS ORDERED: BENZ100C97 PO (14:47)
== END 2024-05-15 14:47 | disposition home or self-care (01) ==
LOC: ER 10:18
DX: B34.9 Viral infection, unspecified (principal); I10 Essential (primary) hypertension; E11.9 Type 2 diabetes mellitus without complications; E78.00 Pure hypercholesterolemia, unspecified; M19.90 Unspecified osteoarthritis, unspecified site; Z87.440 Personal history of urinary (tract) infections; Z90.49 Acquired absence of other specified parts of digestive tract; Z98.51 Tubal ligation status; Z98.890 Other specified postprocedural states
CPT/HCPCS: 36415; 71045; 80053; 85025

== ENCOUNTER 2024-07-03 15:19 | Inpatient (IN) | payer MEDICAID, OTHER ==
[~2024-07-03] VITALS: Ht 154.9 cm; Wt 57.4 kg
[~2024-07-03 15:19] MED LIST changes: +AUG875T PO; +BENZ100C97 PO; +PROM1SOL4 PO
[2024-07-03 16:11] LABS: Urine Bacteria MANY /hpf (None Seen); Urine Blood 3+ /uL (Negative); Urine Budding Yeast MODERATE /hpf (None Seen); Urine Clarity Ex.Turbid (Clear); Urine Color Brown (Yellow); Urine Mucus FEW (None Seen); Urine Protein, UAD 2+ (Negative); Urine Specific Gravity 1.005 (1.001-1.035); Urine Squamous Epithelial Cell FEW /hpf (<5); Urine Urobilinogen Normal (Negative); Urine WBC 3137 /HPF (0-5); Urine WBC Clumps PRESENT /hpf (None Seen); Urine pH 5.5 (5.0-9.0)
--- NOTE | 2024-07-03 18:58 | ED.PDOC ---
General HPI Comments 73-year-old female presents to ER with urinary complaint x 9 days. Patient with past medical history significant for diabetes, UTI's and hypertension reports that she has been experiencing burning with urination and chills x 9 days. States that she was sent from her PCP Dr. Aubrey Roy for further evaluation of her UTI and need for IV antibiotics. Reports that she has been using [id number] Azo for her symptoms without improvement and states she was just treated for a UTI last month. Denies fever, nausea/vomiting, abdominal/pelvic pain, back/flank pain, further changes in urination or any further symptoms/complaints Chief Complaint: Urinary Time Seen by MD: 18:05 Primary Care Provider: KANDICE Reviewed notes: Nurses Notes, Medications, Allergies Allergies: Coded Allergies: Codeine (Verified Allergy, Unknown, 09/21/22) Home Meds Active Scripts Promethazine-Dm (Promethazine Dm 6.25-15 mg/5Ml) 1 Erin Erin, 5 ML PO BIDP PRN for 10 Days, #100 ML 0 Refills Prov:HAROON TERESA HOOKER UP 05/15/24 Benzonatate (Benzonatate) 100 Mg Cap, 1 CAP PO TID for 10 Days, #30 CAP 0 Refills Prov:HAROON TERESA HOOKER UP 05/15/24 Amoxicillin & Pot Clavulanate (AUGMENTIN TABLET) 875 Mg Tb, 875 MG PO BID for 7 Days, #14 TAB 0 Refills Prov:HAROON TERESA HOOKER UP 05/15/24 Hydrocodone-Acetaminophen (Hydrocodone Bitartrate/AC 5-325 mg) 1 Tab Tab, 1 TAB PO Q6HP PRN, #15 TAB Prov:KATE ESPINAL PAC 11/26/23 Hydrocodone-Acetaminophen (Hydrocodone Bitartrate/AC 5-325 mg) 1 Tab Tab, 1 TAB PO TID , #14 TAB Prov:EUNICE SOLO 11/05/23 Phenazopyridine HCl (Phenazopyridine Hydrochlo) 200 Mg Tab, 200 MG PO TID, #6 TAB Prov:EUNICE SOLO 04/16/23 Metronidazole (Metronidazole) 500 Mg Tab, 500 MG PO BID, #14 TAB Prov:EUNICE SOLO 04/16/23 Sulfamethoxazole W/Trimethopri (Bactrim Ds Tablet) 1 Tab Tb, 1 TAB PO BID, #20 TAB Prov:EUNICE SOLO 04/16/23 Cephalexin ( Keflex 500) 500 Mg Cap, 1 CAP PO TID for 5 Days, #15 CAP Prov:CLIFTON SCHMIDT MD 05/27/22 Atorvastatin Calcium (ATORVASTATIN CALCIUM) 20 Mg Tab, 20 MG PO HS for 30 Days, #30 TAB Prov:MARY MILLER Pharmacist 02/06/20 Reported Medications Sitagliptin Phosphate (Januvia) 100 Mg Tab, 1 TAB PO DAILY for DIABETES, #30 TAB 5 Refills 02/20/22 Metformin Hydrochloride (Metformin Hcl) 500 Mg Tab, 500 MG PO QAM for DIABETES for 30 Days, MG 02/20/22 Ranolazine (Ranexa) 500 Mg Tab, 500 MG PO DAILY@DINNER for ANGINA PECTORIS, TAB 02/20/22 Pantoprazole Sodium Sesquihydr (Protonix) 40 Mg Tab, 40 MG PO DAILY for GERD, #30 TAB 02/20/22 Valsartan (Diovan) 40 Mg Tab, 1 TAB PO DAILY for HTN, #90 TAB 1 Refill 02/20/22 Aspirin (Aspir-Low) 81 Mg Tab, 81 MG PO DAILY for 30 Days, MG 09/02/17 Gabapentin (Gabapentin) 300 Mg Cap, 300 MG PO TID for NEUROPATHY for 30 Days, MG 09/02/17 Information Source: Patient Mode of Arrival: Ambulatory Past Medical History PAST MEDICAL HISTORY: Arthritis, DM, High Lipids, HTN, UTI'S Past Medical History (Other): Prolapsed bladder Surgical History: BTL, Cholecystectomy, Tubal Ligation CAREER CENTER ADVISOR History: No Pertinent CAREER CENTER ADVISOR History Family History Family History: Unknown Social History Smoker: Non-Smoker Alcohol: Denies ETOH Use Drugs: Denies Drug Use Lives In: Home Constitutional: denies: chills, diaphoresis, fatigue, fever, malaise, sweats, weakness, others EENTM: denies: blurred vision, double vision, ear bleeding, ear discharge, ear drainage, ear pain, ear ringing, eye pain, eye redness, hearing loss, mouth pain, mouth swelling, nasal discharge, nose bleeding, nose congestion, nose pain, photophobia, tearing, throat pain, throat swelling, voice changes, others Respiratory: denies: cough, hemoptysis, orthopnea, SOB at rest, shortness of breath, SOB with excertion, stridor, wheezing, others Cardiovascular: denies: chest pain, dizzy spells, diaphoresis, Dyspnea on exertion, edema, irregular heart beat, left arm pain, lightheadedness, palpitations, PND, syncope, others Gastrointestinal: denies: abdomen distended, abdominal pain, blood streaked bowels, constipated, diarrhea, dysphagia, difficulty swallowing, hematemesis, melena, nausea, poor appetite, poor fluid intake, rectal bleeding, rectal pain, vomiting, others Genitourinary: reports: others (As stated in HPI) Neurological: denies: dizziness, fainting, headache, left sided numbness, left sided weakness, numbness, paresthesia, pre-existing deficit, right sided numbness, right sided weakness, seizure, speech problems, tingling, tremors, we akness, others Musculoskeletal: denies: back pain, gout, joint pain, joint swelling, muscle pain, muscle stiffness, neck pain, others Integumetry: denies: bruises, change in color, change in hair/nails, dryness, laceration, lesions, lumps, rash, wounds, others Allergic/Immunocompromised: denies: Difficulty Healing, Frequent Infections, Hives, Itching, others Hematologic/Lymphatic: denies: anemia, blood clots, easy bleeding, easy bruising, swollen glands, others Endocrine: denies: excessive hunger, excessive sweating, excessive thirst, excessive urination, flushing, intolerance to cold, intolerance to heat, unexplained weight gain, unexplained weight loss, others Psychiatric: denies: anxiety, bipolar disorder, depression, hopeless, panic disorder, schizophrenia, sleepless, suicidal, others Physical Exam General Appearance: No Apparent Distress HEENT: PERRL/EOMI Neck: Full Range of Motion, Non-Tender, Normal Respiratory: Chest Non-Tender, Lungs Clear, No Accessory Muscle Use, No Respiratory Distress, Normal Breath Sounds Cardiovascular: No Murmur, No Gallop, Regular Rate/Rhythm Breast Exam: Deferred Gastrointestinal: No Organomegaly, Non Tender, No Pulsatile Mass, Normal Bowel Sounds, Soft Genitalia: Deferred Pelvic: Deferred Rectal: Deferred Extremities: Normal capillary refill, Normal range of motion Musculoskeletal : Extremity Location: Back (TTP to right lower lumbar region noted. NO TTP to bilateral flanks/CVA tenderness noted bilaterally) Neurologic: Alert, No Motor Deficits, Normal Affect, Normal Mood, No Sensory Deficits Cerebellar Function: Normal Reflexes: Normal Skin: Dry, Normal Color, Warm Peripheral Pulses: 2+ Radial (R), 2+ Radial (L), 2+ Brachial (R), 2+ Brachial (L) Lymphatic: No Adenopathy Was a procedure done? Was a procedure done?: No Sedation Sedation?: No Differential Diagnosis Kidney stone (Female): N/A Urinary Problem (Female): Pyelonephritis, Urinary retention, Urolithiasis, Other (Urosepsis) X-Ray, Labs, Meds, VS Vital Signs Date Time Temp Pulse Resp B/P (MAP) Pulse Ox O2 Delivery O2 Flow Rate FiO2 07/03/24 20:08 95 16 97 Room Air 07/03/24 20:00 99.5 95 16 154/96 (115) 97 99.5 07/03/24 15:42 98.9 114 18 142/59 (86) 98 Lab Test 07/03/24 19:02 07/03/24 15:30 Range/Units White Blood Count 13.5 H 4.4-10.8 10^3/uL Red Blood Count 4.24 4.0-5.20 10^6/uL Hemoglobin 12.1 L 12.2-16.2 g/dL Hematocrit 37.2 36.0-46.0 % Mean Corpuscular Volume 87.7 80.0-100.0 fL Mean Corpuscular Hemoglobin 28.4 28.0-32.0 pg Mean Corpuscular Hemoglobin Concent 32.4 32.0-36.0 g/dL Red Cell Distribution Width 13.3 11.8-14.3 % Platelet Count 235 140-450 10^3/uL Mean Platelet Volume 8.8 6.9-10.8 fL Neutrophils (%) (Auto) 67.4 37.0-80.0 % Lymphocytes (%) (Auto) 22.5 10.0-50.0 % Monocytes (%) (Auto) 8.4 0.0-12.0 % Eosinophils (%) (Auto) 1.5 0.0-7.0 % Basophils (%) (Auto) 0.2 0.0-2.0 % Neutrophils # (Auto) 9.1 H 1.6-8.6 10 ^3/uL Lymphocytes # (Auto) 3.0 0.4-5.4 10 ^3/uL Monocytes # (Auto) 1.1 0-1.3 10 ^3/uL Eosinophils # (Auto) 0.2 0-0.8 10 ^3/uL Basophils # (Auto) 0 0-0.2 10 ^3/uL Nucleated Red Blood Cells 0.0 % Sodium Level 132 L 136-145 mmol/L Potassium Level 4.3 3.5-5.1 mmol/L Chloride Level 101 98-107 mmol/L Carbon Dioxide Level 24 20-31 mmol/L Anion Gap 7 5-15 Blood Urea Nitrogen 22 9-23 mg/dL Creatinine 1.17 H 0.550-1.02 mg/dL Glomerular Filtration Rate Calc 49 >90 mL/min BUN/Creatinine Ratio 18.8 10.0-20.0 Serum Glucose 168 H 74-106 mg/dL Lactic Acid Level 1.3 0.4-2.0 mmol/L Calcium Level 9.9 8.7-10.4 mg/dL Total Bilirubin 0.4 0.2-1.0 mg/dL Direct Bilirubin < 0.1 <0.3 mg/dL Aspartate Amino Transferase (AST) 12 L 13-40 U/L Alanine Aminotransferase (ALT) < 9 7-40 U/L Alkaline Phosphatase 95 46-116 U/L Total Protein 8.1 5.7-8.2 g/dL Albumin 4.7 3.2-4.8 g/dL Urine Color Brown H Yellow Urine Clarity Ex.turbid Clear Urine pH 5.5 5.0-9.0 Urine Specific [place] 1.005 1.001-1.035 Urine Protein 2+ H Negative Urine Ketones Negative Negative Urine Blood 3+ H Negative /uL Urine Nitrite Negative Negative Urine Bilirubin Negative Negative Urine Urobilinogen Normal Negative mg/dL Urine Leukocyte Esterase 3+ Negative /uL Urine RBC 25 0 - 4 /hpf Urine WBC Clumps Present None Seen /hpf Urine Microscopic WBC 3137 H 0-5 /HPF Urine Squamous Epithelial Cells Few <5 /hpf Urine Bacteria Many H None Seen /hpf Urine Mucus Few None Seen Urine Yeast (Budding) Moderate None Seen /hpf Urine Glucose 2+ H Normal mg/dL Current Medications Medications (Trade) Dose Ordered Sig/Raciel Route Start Time Stop Time Status Last Admin Ceftriaxone Sodium 50 ml @ 100 mls/hr ONCE ONCE IV 07/03/24 18:45 07/03/24 19:14 DC 07/03/24 20:07 Sodium Chloride 1,000 ml @ 1,000 mls/hr Q1H ONCE IV 07/03/24 19:00 07/03/24 19:59 DC 07/03/24 19:28 Ciprofloxacin 200 ml @ 200 mls/hr ONCE ONCE IV 07/03/24 19:30 07/03/24 20:29 DC 07/03/24 21:29 CBC reviewed-WBC 13.5 BMP reviewed-sodium 132, serum glucose 168, GFR 49, creatinine 1.17 Lactic acid reviewed- normal Urinalysis reviewed-urine leukocyte esterase 3+, urine blood 3+, urine glucose 2+ Urine culture ordered Hep-Lock IV ordered Rocephin 1 g IV ordered Cipro 400 mg IV ordered NS 1 L IV ordered Patient is diabetic, elderly, reports symptoms lasting > 7 days and was just treated for a UTI last month Patient admitted to hospitalist for complicated UTI and need for IV antibiotics Time of 1ST Reevaluation: 18:52 Reevaluation 1ST: N/A Patient Education/Counseling: Diagnosis, Treatment, Prognosis, Need For Follow Up Family Education/Counseling: No Family Present Departure 1 Departure Time of Disposition: 19:42 Impression: Primary Impression: Complicated UTI (urinary tract infection) Disposition: 09 ADMITTED INPATIENT Condition: Stable Critical Care Note Critical Care Time?: No Stability Stability form required: No Heart Score Heart Score: Heart Score Response (Comments) Value History N/A 0 EKG N/A 0 Age N/A 0 Risk Factors N/A 0 Troponin N/A 0 Total 0 KERLINE CERVANTES Jul 03, 2024 18:58
[2024-07-03 19:18] LABS: Basophils # (auto) 0 10 ^3/uL (0-0.2); Basophils % (auto) 0.2 % (0.0-2.0); Eosinophils # (auto) 0.2 10 ^3/uL (0-0.8); Eosinophils % (auto) 1.5 % (0.0-7.0); Hematocrit 37.2 % (36.0-46.0); Hemoglobin 12.1 g/dL (12.2-16.2); Lymphocytes % (auto) 22.5 % (10.0-50.0); Mean Corpuscular Hemoglobin 28.4 pg (28.0-32.0); Mean Corpuscular Hgb Conc. 32.4 g/dL (32.0-36.0); Mean Corpuscular Volume 87.7 fL (80.0-100.0); Monocytes # (auto) 1.1 10 ^3/uL (0-1.3); Monocytes % (auto) 8.4 % (0.0-12.0); Neutrophils # (auto) 9.1 10 ^3/uL (1.6-8.6); Neutrophils % (auto) 67.4 % (37.0-80.0); Platelet Count (auto) 235 10^3/uL (140-450); Red Blood Cells 4.24 10^6/uL (4.0-5.20); Red Cell Distribution Width 13.3 % (11.8-14.3); White Blood Cell 13.5 10^3/uL (4.4-10.8)
[2024-07-03] MEDS: SODIUM CHLORIDE 0.9% 1,000 ML IV ONE (19:28)
[2024-07-03 19:32] LABS: Chloride 101 mmol/L (98-107); Potassium 4.3 mmol/L (3.5-5.1)
[2024-07-03 19:33] LABS: Anion Gap 7 (5-15); Carbon Dioxide 24 mmol/L (20-31)
[2024-07-03 19:34] LABS: Calcium 9.9 mg/dL (8.7-10.4)
[2024-07-03 19:38] LABS: BUN/Creatinine Ratio 18.8 (10.0-20.0); Blood Urea Nitrogen 22 mg/dL (9-23)
[2024-07-03 19:39] LABS: Glucose 168 mg/dL (74-106); Sodium 132 mmol/L (136-145)
[2024-07-03] MEDS: cefTRIAXone 1GM/50ML D5W 50 ML IV ONE (20:07)
[2024-07-03] MEDS: CIPROFLOXACIN 400MG/200ML 200 ML IV ONE (21:29)
[2024-07-03] MEDS: SODIUM CHLORIDE 0.9% 500 ML IV ONE (22:15)
[2024-07-03 23:02] LABS: Rapid Influenza A Negative (Negative); Rapid Influenza B Negative (Negative)
[2024-07-03 23:03] LABS: COVID19 ANTIGEN SOFIA FIA NEGATIVE (NEGATIVE)
--- NOTE | 2024-07-03 23:08 | DVH ---
CHEST RADIOGRAPH Indication: cough Technique: Single frontal view of the chest was obtained COMPARISON: XY CHEST XRAY 1 VIEW on DOS: 05/15/24, CHEST PORTABLE on DOS: 05/25/22, CXRP on DOS: 05/25 FINDINGS: Sternal wires in place. Lines and Tubes: None Lungs: Clear Pleura: No effusion. No pneumothorax. Cardiomediastinal contours: Unremarkable Bones: Unremarkable IMPRESSION: 1. No acute disease.
[2024-07-03 23:26] LABS: Alkaline Phosphatase 95 U/L (46-116)
[2024-07-03 23:27] LABS: Albumin 4.7 g/dL (3.2-4.8); Bilirubin, Total 0.4 mg/dL (0.2-1.0); Total Protein 8.1 g/dL (5.7-8.2)
[2024-07-03 23:35] VITALS: PULSE 99; RESP 25; O2SAT 95
--- NOTE | 2024-07-03 23:35 | DVHHPRES ---
History of Present Illness Resident Creating Document: MARAL LERMA RESIDENT History of Present Illness Patient is a 73-year-old female with past medical history of type 2 diabetes, recurrent UTIs, coronary artery disease s/p CABG, hypertension, who came in due to urinary symptoms. According to the patient, for the past 9 days she has been experiencing urinary tract infection like symptoms including dysuria and burning. She tried taking [id number] AZO but that did not relieve her symptoms, and notes her dysuria worsened over the last 3 days. Patient attended an appointment with her PCP earlier today on 07/03/2024 where a urine sample was collected from her which according to the patient was pinkish red in color. Subsequently, patient was sent to the ER at the recommendation of her PCP. Patient is incontinent at baseline and uses diapers/pads. On review of systems, patient is complaining of fatigue, fever, chills, dry cough, shortness of breath on exertion, urinary frequency, dysuria and burning. UA showed 3+ leukocyte esterase, 3137 WBCs and many bacteria, WBC count was 13.5 and renal ultrasound showed Avascular solid heterogeneous mass is seen in the urinary bladder. Mild bilateral hydronephrosis. Consider CT urogram for further evaluation. Past Medical History type 2 diabetes, recurrent UTIs, coronary artery disease s/p CABG, hypertension Past Surgical History Cholecystectomy, CABG, tubal ligation Smoke: No ALCOHOL: none Drugs: None Lives: with Family Review of Systems Constitutional: Yes: Fever, Chills; No: Sweats, Weakness, Malaise, Other Eyes: No: Pain, Vision change, Conjunctivae inflammation, Eyelid inflammation, Other, Redness ENT: No: Ear pain, Ear discharge, Nose pain, Nose discharge, Nose congestion, Mouth pain, Mouth swelling, Throat pain, Throat swelling, Other Respiratory: Cough, Dry, SOB with excertion; No: Shortness of breath, Wheezing, Hemoptysis, Pleuritic Pain, Sputum, Wheezing, Other Cardiovascular: No: Chest Pain, Palpitations, Orthopnea, Paroxysmal Noc. Dyspnea, Edema, Lt Headedness, Other Gastrointestinal: No: Nausea, Vomiting, Abdominal Pain, Diarrhea, Constipation, Melena, Hematochezia, Other Genitourinary: Dysuria, Frequency, Incontinence, Hematuria; No Retention, No Other Musculoskeletal: No: other, neck pain, shoulder pain, arm pain, back pain, hand pain, leg pain, foot pain Skin: No: Rash, Lesions, Jaundice, Bruising, Other Neurological: No: Weakness, Numbness, Incoordination, Change in speech, Confusion, Seizures, Other Allergies: Coded Allergies: Codeine (Verified Allergy, Unknown, 09/21/22) Medications Current Medications Medications Dose Ordered Sig/Raciel Route Start Time Stop Time Status Last Admin Dose Admin Acetaminophen 650 mg Q6HP PRN PO 07/03/24 22:15 Cefepime HCl 50 ml @ 12.5 mls/hr Q12HR IV 07/04/24 10:00 Aspirin 81 mg DAILY PO 07/04/24 10:00 Atorvastatin Calcium 20 mg HS PO 07/04/24 22:00 Gabapentin 300 mg TID PO 07/03/24 22:30 Metoprolol Tartrate 25 mg BID PO 07/04/24 10:00 Famotidine 20 mg DAILY PO 07/04/24 10:00 Exam Vital Signs Vital Signs Date Time Temp Pulse Resp B/P (MAP) Pulse Ox O2 Delivery O2 Flow Rate FiO2 07/03/24 20:08 95 16 97 Room Air 07/03/24 20:00 99.5 154/96 (115) 99.5 General Appearance: Alert, Oriented X3, Cooperative, No acute distress HEENT: Atraumatic, PERRLA, EOMI, Mucous membr. moist/pink Respiratory: Clear to auscultation, Normal air movement Cardiovascular: Regular rate, Normal S1, Normal S2 Abdominal: Normal bowel sounds, Other (Suprapubic and right flank tenderness to palpation) Extremities: No edema, Normal pulses Skin: No significant lesion Neuro: Normal speech, Sensation intact Psych/Mental Status: Mental status NL, Mood NL Labs/Xrays Labs Test 07/03/24 22:43 07/03/24 22:20 07/03/24 19:02 07/03/24 15:30 Range/Units Influenza Type A Antigen Negative Negative Influenza Type B Antigen Negative Negative SARS-CoV-2 Antigen (Rapid) Negative NEGATIVE White Blood Count 13.5 H 4.4-10.8 10^3/uL Red Blood Count 4.24 4.0-5.20 10^6/uL Hemoglobin 12.1 L 12.2-16.2 g/dL Hematocrit 37.2 36.0-46.0 % Mean Corpuscular Volume 87.7 80.0-100.0 fL Mean Corpuscular Hemoglobin 28.4 28.0-32.0 pg Mean Corpuscular Hemoglobin Concent 32.4 32.0-36.0 g/dL Red Cell Distribution Width 13.3 11.8-14.3 % Platelet Count 235 140-450 10^3/uL Mean Platelet Volume 8.8 6.9-10.8 fL Neutrophils (%) (Auto) 67.4 37.0-80.0 % Lymphocytes (%) (Auto) 22.5 10.0-50.0 % Monocytes (%) (Auto) 8.4 0.0-12.0 % Eosinophils (%) (Auto) 1.5 0.0-7.0 % Basophils (%) (Auto) 0.2 0.0-2.0 % Neutrophils # (Auto) 9.1 H 1.6-8.6 10 ^3/uL Lymphocytes # (Auto) 3.0 0.4-5.4 10 ^3/uL Monocytes # (Auto) 1.1 0-1.3 10 ^3/uL Eosinophils # (Auto) 0.2 0-0.8 10 ^3/uL Basophils # (Auto) 0 0-0.2 10 ^3/uL Nucleated Red Blood Cells 0.0 % Sodium Level 132 L 136-145 mmol/L Potassium Level 4.3 3.5-5.1 mmol/L Chloride Level 101 98-107 mmol/L Carbon Dioxide Level 24 20-31 mmol/L Anion Gap 7 5-15 Blood Urea Nitrogen 22 9-23 mg/dL Creatinine 1.17 H 0.550-1.02 mg/dL Glomerular Filtration Rate Calc 49 >90 mL/min BUN/Creatinine Ratio 18.8 10.0-20.0 Serum Glucose 168 H 74-106 mg/dL Calcium Level 9.9 8.7-10.4 mg/dL Urine Color Brown H Yellow Urine Clarity Ex.turbid Clear Urine pH 5.5 5.0-9.0 Urine Specific [place] 1.005 1.001-1.035 Urine Protein 2+ H Negative Urine Ketones Negative Negative Urine Blood 3+ H Negative /uL Urine Nitrite Negative Negative Urine Bilirubin Negative Negative Urine Urobilinogen Normal Negative mg/dL Urine Leukocyte Esterase 3+ Negative /uL Urine RBC 25 0 - 4 /hpf Urine WBC Clumps Present None Seen /hpf Urine Microscopic WBC 3137 H 0-5 /HPF Urine Squamous Epithelial Cells Few <5 /hpf Urine Bacteria Many H None Seen /hpf Urine Mucus Few None Seen Urine Yeast (Budding) Moderate None Seen /hpf Urine Glucose 2+ H Normal mg/dL Assessment/Plan Assessment/Plan Acute complicated UTI Bilateral hydronephrosis Likely sepsis due to above Bladder mass? - renal USG: Avascular solid heterogeneous mass is seen in the urinary bladder. Mild bilateral hydronephrosis. Consider CT urogram for further evaluation. 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 - IV NS 500 cc bolus - monitor PUD prophylaxis: Pepcid 20 mg b.i.d. Goals of care: Full code, discussed for >16 minutes on 07/03/2024 Plan discussed with patient Plan discussed with Dr. Burnette Plan discussed with: Patient, Other (RN) My Orders Orders - MARAL LERMA RESIDENT Procedure Category Date Status Time Admit ADMIT 07/03/24 Transmitted 22:08 Code Status CODE 07/03/24 Transmitted 22:08 Vital Signs SHIRIN 07/03/24 In Process 22:08 Review Orders With SHIRIN 07/03/24 In Process Adm. 22:08 Consistent DIET 07/04/24 Transmitted Carb(Ccho)Diabetes Breakfast Acetaminophen Tablet PHA 07/03/24 In Process (Tylenol Tablet) 22:15 Notify Of Changes SHIRIN 07/03/24 In Process From Base 22:08 Advance Directive SHIRIN 07/03/24 In Process 22:08 Patient Condition ORDERS 07/03/24 Transmitted 22:08 Allergies SHIRIN 07/03/24 In Process 22:08 Notify Of Changes SHIRIN 07/03/24 In Process From Base 22:08 Hemoglobin A1c LAB 07/03/24 In Process 22:08 Blood Culture LARRY 07/03/24 Logged 22:08 Lactic Acid W/ Reflex LAB 07/03/24 In Process Order 22:08 Hepatic Panel LAB 07/03/24 In Process 22:08 Chest Portable XY 07/03/24 Resulted 22:08 Kidney US 07/03/24 Taken 22:08 Cefepime 1gm/ 50ml PHA 07/04/24 In Process (Maxipime 1gm/50ml) 10:00 Aspirin Enteric PHA 07/04/24 In Process Coated Tablet 10:00 Atorvastatin (Lipitor) PHA 07/04/24 In Process 22:00 Gabapentin Capsule PHA 07/03/24 In Process (Neurontin Capsule) 22:30 Metoprolol Tartrate PHA 07/04/24 In Process Tablet (Lopressor Ta 10:00 Famotidine Tablet PHA 07/04/24 In Process (Pepcid Tablet) 10:00 Date of Service: Jul 03, 2024 Billing Provider: RASHID BURNHAM MD Common Visit Codes: [id number] INP/OBS CARE (HIGH) MARAL LERMA RESIDENT Jul 03, 2024 23:35 RASHID BURNHAM MD Jul 04, 2024 09:40
[2024-07-03] MEDS: GABAPENTIN 300 MG CAP PO SCH (23:43)
[2024-07-03 23:48] LABS: Alanine Aminotransferase < 9 U/L (7-40); Aspartate Aminotransferase 12 U/L (13-40); Bilirubin, Direct < 0.1 mg/dL (<0.3)
--- NOTE | 2024-07-03 23:58 | DVH ---
INDICATION: recurrent UTIs TECHNIQUE: Multiple real-time sonographic images of the kidneys and bladder were obtained. COMPARISON: None FINDINGS: The right kidney measures 7.6 cm in length. The right renal echogenicity, contour and cortical thickn ess are within normal limits. Mild hydronephrosis or large masses/calculi are seen. The left kidney measures 10.1 cm in length. The left renal echogenicity, contour, and cortical thickn ess are within normal limits. Mild hydronephrosis or large masses/calculi are seen. Thickened coarse bladder wall thickening is seen which may be due to malignancy. Avascular solid heterogeneous mass is seen in the urinary bladder base. Prevoid bladder volume measures up to 157 mL. Patient did not void. IMPRESSION: Avascular solid heterogeneous mass is seen in the urinary bladder. Mild bilateral hydronephrosis Consider CT urogram for further evaluation.
[2024-07-04] MEDS: DEXTROSE (50%) 50ML SYRG IV ONE (00:38)
[2024-07-04] MEDS: InsuLIN REG 1unit/0.01ml Soln (100units/ml) SC ONE (00:43)
[2024-07-04] MEDS: ACCU-CHEK COMFORT CURVE STRIP VI ONE (00:43)
[2024-07-04] MEDS: SODIUM CHLORIDE 0.9% 1,000 ML IV SCH (04:00)
[2024-07-04] MEDS: ACETAMINOPHEN 325 MG TAB PO PRN (08:09)
[2024-07-04 09:17] VITALS: PULSE 91; RESP 16; O2SAT 96
[2024-07-04] MEDS: FAMOTIDINE 20 MG TAB PO SCH (09:42)
[2024-07-04] MEDS: ASPirin-EC 81 mg tab PO SCH (09:43)
[2024-07-04] MEDS: CEFEPIME 1GM/ 50ML 50 ML IV SCH (09:43)
[2024-07-04] MEDS ORDERED: METOPROLOL TARTRATE 25 MG TAB PO SCH (10:00)
[2024-07-04 10:57] LABS: Basophils # (auto) 0 10 ^3/uL (0-0.2); Basophils % (auto) 0.4 % (0.0-2.0); Eosinophils # (auto) 0.2 10 ^3/uL (0-0.8); Hematocrit 36.2 % (36.0-46.0); Lymphocytes % (auto) 19.8 % (10.0-50.0); Mean Corpuscular Hemoglobin 28.7 pg (28.0-32.0); Mean Corpuscular Hgb Conc. 33.3 g/dL (32.0-36.0); Mean Corpuscular Volume 86.1 fL (80.0-100.0); Monocytes # (auto) 0.9 10 ^3/uL (0-1.3); Monocytes % (auto) 8.7 % (0.0-12.0); Neutrophils % (auto) 69.1 % (37.0-80.0); Platelet Count (auto) 215 10^3/uL (140-450); Red Cell Distribution Width 13.1 % (11.8-14.3); White Blood Cell 10.1 10^3/uL (4.4-10.8)
[2024-07-04 11:24] LABS: Albumin 4.3 g/dL (3.2-4.8); Alkaline Phosphatase 89 U/L (46-116); Anion Gap 9 (5-15); BUN/Creatinine Ratio 17.7 (10.0-20.0); Bilirubin, Total 0.4 mg/dL (0.2-1.0); Blood Urea Nitrogen 17 mg/dL (9-23); Calcium 9.8 mg/dL (8.7-10.4); Carbon Dioxide 25 mmol/L (20-31); Chloride 103 mmol/L (98-107); Potassium 4.3 mmol/L (3.5-5.1); Sodium 137 mmol/L (136-145); Total Protein 7.4 g/dL (5.7-8.2)
[2024-07-04 11:30] LABS: Alanine Aminotransferase < 9 U/L (7-40); Aspartate Aminotransferase 10 U/L (13-40); Glucose 246 mg/dL (74-106)
[2024-07-04] MEDS: IOHEXOL 300 MG/ML 100ML BOTTLE IJ ONE (11:38)
--- NOTE | 2024-07-04 12:15 | DVH ---
CT ABDOMEN AND PELVIS WITH CONTRAST CLINICAL HISTORY: Possible bladder mass TECHNIQUE: Multidetector CT of the abdomen was performed from lung bases to pubic symphysis. Imaging was performed with and without IV contrast. Axial, coronal and sagittal multiplanar reformats were ob tained from the axial data set by the technologist. 100 cc of Omnipaque 300 contrast was inject ed intravenously. Portal venous and delayed phase postcontrast CT images were obtained. Radiation optimization: All CT scans at this facility use at least one of these dose optimization emerson hniques: automated exposure control mA and/or kV adjustment per patient size (includes targeted exam s where dose is matched to clinical indication) or iterative reconstruction. Radiation Dose Information: CT Dose: CTDI volume is 13 mGy. Dose-length product is 1986 mGy*cm Comparison: CT CT AB PEL WO CON-NO ORAL OR IV on DOS: 03/22/24 FINDINGS: There is irregular nodular enhancing mass along the left lateral bladder wall measuring approximately 5.3 x 1.6 cm. This likely represents primary bladder malignancy. There is bilateral hydroureteronephrosis.. There is no evidence of an obstructing ureteral calculus. There is no evidence of a radiopaque renal calculus. The gallbladder is surgically absent. The liver, pancreas, adrenal glands, and spleen appear withi n normal limits. There is no evidence of abdominal lymphadenopathy. There is no free fluid or free air. The small and large bowel loops demonstrate normal caliber and appear within normal limits.. The abdominal aorta and IVC appear within normal limits. There is a fibroid uterus with calcified leiomyomas. There is no evidence of a pelvic mass. There is a nonspecific prominent left internal iliac chain lymph node measuring 9 mm in the short axis. There is no free fluid in the pelvis. Lung bases are clear. There is no acute osseous abnormality. There are multilevel degenerative changes in the lumbar spine. IMPRESSION: 1. Irregular nodular enhancing mass along the left lateral bladder wall measuring approximately 5.3 x 1.6 cm. This likely represents primary bladder malignancy. 2. There is bilateral hydroureteronephrosis. There is no evidence of an obstructing renal or ureteral calculus. 3. Nonspecific prominent left internal iliac chain lymph node measuring 9 mm. Metastatic lymphadenop athy is not excluded. HS:Y
--- NOTE | 2024-07-04 14:40 | DVHPNRES ---
Progress Note Date Seen: Jul 04, 2024 Resident Creating Document: PALMER ARCEO RESIDENT Medical Necessity Reason Pt with a Central, PICC or Fol: No Subjective Review of Systems Patient is a 73-year-old female with past medical history of type 2 diabetes, recurrent UTIs, coronary artery disease s/p CABG, hypertension, for evaluation of present urinary symptoms. According to the patient, for the past 9 days she has been experiencing urinary tract infection like symptoms including dysuria and burning. She tried taking [id number] AZO but that did not relieve her symptoms, and notes her dysuria worsened over the last 3 days. Patient attended an appointment with her PCP earlier today on 07/03/2024 where a urine sample was collected from her which according to the patient was pinkish red in color. Subsequently, patient was sent to the ER at the recommendation of her PCP. Patient is incontinent at baseline and uses diapers/pads. patient was seen and examined on the bedside. she is alert, oriented x3. complains of dysuria and burning sensation in the urine and no other active complaints Constitutional: No: Fever, Chills, Sweats, Weakness, Malaise, Other Eyes: No: Pain, Vision change, Conjunctivae inflammation, Eyelid inflammation, Other, Redness ENT: No: Ear pain, Ear discharge, Nose pain, Nose discharge, Nose congestion, Mouth pain, Mouth swelling, Throat pain, Throat swelling, Other Respiratory: Shortness of breath, improving No: Cough, Dry,Wheezing, Hemoptysis, Pleuritic Pain, Sputum, Wheezing, Other Cardiovascular: No: Chest Pain, Palpitations, Orthopnea, Paroxysmal Noc. Dyspnea, Edema, Lt Headedness, Other Gastrointestinal: No: Nausea, Vomiting, Abdominal Pain, Diarrhea, Constipation, Melena, Hematochezia, Other Musculoskeletal: No: other, neck pain, shoulder pain, arm pain, back pain, hand pain, leg pain, foot pain Genitourinary: Dysuria, burning sensation in the urine. Neurological:; No: Weakness, Numbness, Incoordination, Change in speech, Confusion, Seizures Objective vital signs Vital Sign Date Time Temp Pulse Resp B/P (MAP) Pulse Ox O2 Delivery O2 Flow Rate FiO2 07/04/24 11:13 84 12 150/77 (101) 95 07/04/24 09:17 Room Air* 0 21 07/04/24 09:14 97.9 97.9 Total Intake and Output 07/03/24 07/03/24 07/04/24 14:59 22:59 06:59 Intake Total 1050 ml Balance 1050 ml medications Current Medications Medications Dose Ordered Sig/Raciel Route Start Time Stop Time Status Last Admin Dose Admin Acetaminophen 650 mg Q6HP PRN PO 07/03/24 22:15 07/04/24 08:09 650 MG Cefepime HCl 50 ml @ 12.5 mls/hr Q12HR IV 07/04/24 10:00 07/04/24 09:43 12.5 MLS/HR Aspirin 81 mg DAILY PO 07/04/24 10:00 07/04/24 09:43 81 MG Atorvastatin Calcium 20 mg HS PO 07/04/24 22:00 Gabapentin 300 mg TID PO 07/03/24 22:30 07/04/24 14:26 300 MG Metoprolol Tartrate 25 mg BID PO 07/04/24 10:00 Hold Famotidine 20 mg DAILY PO 07/04/24 10:00 07/04/24 09:42 20 MG Sodium Chloride 1,000 ml @ 100 mls/hr Q10H IV 07/04/24 04:00 Examination Physical examination: General Appearance: Alert, Oriented X3, Cooperative, No acute distress HEENT: Atraumatic, PERRLA, EOMI, Mucous membrane moist/pink Respiratory: Clear to auscultation, Normal air movement Cardiovascular: Regular rate, Normal S1, Normal S2, No murmurs, no chest wall tenderness Abdominal: Normal bowel sounds, Soft, No tenderness, No hepatospenomegaly, No masses Extremities: No clubbing, No cyanosis, No edema, Normal pulses, No tenderness/swelling Skin: No rashes, No breakdown, No significant lesion Neuro: Normal gait, Normal speech, Strength at 5/5 X4 ext, Normal tone, Sensation intact, grossly intact cranial nerves. Psych/Mental Status: Mental status NL, Mood NL laboratory and microbiology Laboratory Tests 07/04/24 10:38 Test 07/04/24 10:38 Range/Units Serum Glucose 246 H 74-106 mg/dL Microbiology Date/Time Source Procedure Growth Status 07/03/24 15:30 Voided Urine Urine Culture - Preliminary Resulted Labs and/or images reviewed: Labs reviewed by me, Image(s) reviewed by me Problem List/Assessment/Plan Problem List/Assessment/Plan Assessment/Plan Acute complicated UTI Possible Sepsis/SIRS due to above Possible bladder malignancy with bilateral hydrouteronephrosis - Renal USG: Avascular solid heterogeneous mass is seen in the urinary bladder. Mild bilateral hydronephrosis. - CT urogram demonstrated Irregular nodular enhancing mass along the left lateral bladder wall measuring approximately 5.3 X 1.6 cm and likely represents primary bladder malignancy, bilateral hydro ureteral nephrosis without any obstructing renal or ureteral calculus - Urology on board. - IV N/S at 100 ml/hr - IV cefepime 1 gm b.i.d - Pending urine culture, blood culture, Coronary artery disease s/p CABG Hypertensive heart disease - resumed home medication aspirin, statin - resumed home medication Lopressor, lisinopril Type 2 diabetes, insulin dependent and uncontrolled: Hb A1c 10.9 - Lantus 10 unit Q.P.M - Moderate sliding scale insulin PUD prophylaxis: Pepcid 20 mg b.i.d. Goals of care: Full code DVT prophylaxis: Lovenox Plan discussed with Dr. Burnette Plan discussed with: Patient, Other My Orders My Orders Orders - PALMER ARCEO Procedure Category Date Status Time Ct Ab Pelv W Wo CT 07/04/24 Resulted Con-Oral & Iv 10:21 * Urology Consult CONS 07/04/24 Transmitted 10:24 PALMER ARCEO Jul 04, 2024 14:40
--- NOTE | 2024-07-04 14:54 | DVHINCON2 ---
Date of service: Jul 04, 2024 Referring Physician hospitalist Reason for Consultation bladder mass History of Present Illness History Source: Patient, Spouse/Significant Other, RN Notes, MD Notes, Old Records Exam Limitations: No limitations HPI 73 yo female PMH CABG, poorly controlled DMII, c/o recurrent UTIs. pt was seen at her PCPs yesterday and reports she left a urine sample that was pure white. She is c/o dysuria. She has had multiple visits to this ER for hematuria. In March her CT showed abnormal thickening of the bladder wall. CT today shows worsening of left lateral wall bladder and bilateral mild to moderate hydronephrosis worse on the left. Creatinine is at baseline. She has long history of incontinence. Wears diapers 28/12. She is seen in ER bed 17 with at the bedside. She is comfortable. Home Meds Active Scripts Promethazine-Dm (Promethazine Dm 6.25-15 mg/5Ml) 1 Erin Erin, 5 ML PO BIDP PRN for 10 Days, #100 ML 0 Refills Prov:HAROON TERESA [place] 05/15/24 Benzonatate (Benzonatate) 100 Mg Cap, 1 CAP PO TID for 10 Days, #30 CAP 0 Refills Prov:HAROON TERESA [place] 05/15/24 Amoxicillin & Pot Clavulanate (AUGMENTIN TABLET) 875 Mg Tb, 875 MG PO BID for 7 Days, #14 TAB 0 Refills Prov:HAROON TERESA [place] 05/15/24 Hydrocodone-Acetaminophen (Hydrocodone Bitartrate/AC 5-325 mg) 1 Tab Tab, 1 TAB PO Q6HP PRN, #15 TAB Prov:KATE ESPINAL PAC 11/26/23 Hydrocodone-Acetaminophen (Hydrocodone Bitartrate/AC 5-325 mg) 1 Tab Tab, 1 TAB PO TID , #14 TAB Prov:EUNICE SOLO 11/05/23 Phenazopyridine HCl (Phenazopyridine Hydrochlo) 200 Mg Tab, 200 MG PO TID, #6 TAB Prov:EUNICE SOLO 04/16/23 Metronidazole (Metronidazole) 500 Mg Tab, 500 MG PO BID, #14 TAB Prov:EUNICE SOLO 04/16/23 Sulfamethoxazole W/Trimethopri (Bactrim Ds Tablet) 1 Tab Tb, 1 TAB PO BID, #20 TAB Prov:EUNICE SOLO 04/16/23 Cephalexin ( Keflex 500) 500 Mg Cap, 1 CAP PO TID for 5 Days, #15 CAP Prov:CLIFTON SCHMIDT MD 05/27/22 Atorvastatin Calcium (ATORVASTATIN CALCIUM) 20 Mg Tab, 20 MG PO HS for 30 Days, #30 TAB Prov:MARY MILLER Pharmacist 02/06/20 Reported Medications Sitagliptin Phosphate (Januvia) 100 Mg Tab, 1 TAB PO DAILY for DIABETES, #30 TAB 5 Refills 02/20/22 Metformin Hydrochloride (Metformin Hcl) 500 Mg Tab, 500 MG PO QAM for DIABETES for 30 Days, MG 02/20/22 Ranolazine (Ranexa) 500 Mg Tab, 500 MG PO DAILY@DINNER for ANGINA PECTORIS, TAB 02/20/22 Pantoprazole Sodium Sesquihydr (Protonix) 40 Mg Tab, 40 MG PO DAILY for GERD, #30 TAB 02/20/22 Valsartan (Diovan) 40 Mg Tab, 1 TAB PO DAILY for HTN, #90 TAB 1 Refill 02/20/22 Aspirin (Aspir-Low) 81 Mg Tab, 81 MG PO DAILY for 30 Days, MG 09/02/17 Gabapentin (Gabapentin) 300 Mg Cap, 300 MG PO TID for NEUROPATHY for 30 Days, MG 09/02/17 Past Medical History Renal/: UTI, Hematuria, Other Patient Family History: Arthritis G8 MOTHER Cerebrovascular accident (CVA) G8 FATHER Diabetes mellitus Hypertension G8 FATHER Review of Systems Genitourinary: Dysuria H&P Exam Vital Signs Vital Signs Date Time Temp Pulse Resp B/P (MAP) Pulse Ox O2 Delivery O2 Flow Rate FiO2 07/04/24 11:13 84 12 150/77 (101) 95 07/04/24 09:17 Room Air* 0 21 07/04/24 09:14 97.9 97.9 General Appeara: Well developed, Well nourished, Normal Appearance Pulmonary/Respiratory: Normal inspection, Normal breath sounds, Chest non- tender, Lungs clear Cardiovascular/Chest: Tachycardia Abdominal Exam: Normal bowel sounds, Soft, No tenderness, No hepatospenomegaly, No masses Rectal Exam: Deferred Back Exam: Normal inspection Neuro/Mental St: Alert, Oriented Appearance: Appropriate appearance, Appropriate insight Eye contact/ Speech: Cooperative, Good eye contact, Normal speech Skin Exam: Normal inspection, Normal color, Warm/dry Labs/Xrays [place] [address] Ph: [phone] DIAGNOSTIC IMAGING Diagnostic Imaging Report : [id number] Signed PATIENT: GANGA SHORT ACCT: [id number] UNIT: [id number] : 1950 LOC: OVERFLOW ROOM / BED: 1012-ER / A AGE / SEX: 73 / F ADM STATUS: ADM IN SERVICE 1021 ORDERING PHYSICIAN: PALMER ARCEO RESIDENT PROCEDURE(s): ABPELC - CT AB PELV W WO CON-ORAL & IV REASON: Possible bladder mass ORDER NUMBER(s): [id number], ACCESSION NUMBER(s): [id number] CT ABDOMEN AND PELVIS WITH CONTRAST CLINICAL HISTORY: Possible bladder mass TECHNIQUE: Multidetector CT of the abdomen was performed from lung bases to pubic symphysis. Imaging was performed with and without IV contrast. Axial, coronal and sagittal multiplanar reformats were obtained from the axial data set by the technologist. 100 cc of Omnipaque 300 contrast was injected intravenously. Portal venous and delayed phase postcontrast CT images were obtained. Radiation optimization: All CT scans at this facility use at least one of these dose optimization techniques: automated exposure control mA and/or kV adjustment per patient size (includes targeted exams where dose is matched to clinical indication) or iterative reconstruction. Radiation Dose Information: CT Dose: CTDI volume is 13 mGy. Dose-length product is 1986 mGy*cm Comparison: CT CT AB PEL WO CON-NO ORAL OR IV on DOS: 03/22/24 FINDINGS: There is irregular nodular enhancing mass along the left lateral bladder wall measuring approximately 5.3 x 1.6 cm. This likely represents primary bladder malignancy. There is bilateral hydroureteronephrosis.. There is no evidence of an ob structing ureteral calculus. There is no evidence of a radiopaque renal calculus. The gallbladder is surgically absent. The liver, pancreas, adrenal glands, and spleen appear within normal limits. There is no evidence of abdominal lymphadenopathy. There is no free fluid or free air. The small and large bowel loops demonstrate normal caliber and appear within normal limits.. The abdominal aorta and IVC appear within normal limits. There is a fibroid uterus with calcified leiomyomas. There is no evidence of a pelvic mass. There is a nonspecific prominent left internal iliac chain lymph node measuring 9 mm in the short axis. There is no free fluid in the pelvis. Lung bases are clear. There is no acute osseous abnormality. There are multilevel degenerative changes in the lumbar spine. IMPRESSION: 1. Irregular nodular enhancing mass along the left lateral bladder wall anjali suring approximately 5.3 x 1.6 cm. This likely represents primary bladder malignancy. 2. There is bilateral hydroureteronephrosis. There is no evidence of an obstructing renal or ureteral calculus. 3. Nonspecific prominent left internal iliac chain lymph node measuring 9 mm. Metastatic lymphadenopathy is not excluded. HS:Y ATED BY: KOLE RODRÍGUEZ MD DICTATED DATE/TIME: 07/04/24 121 SIGNED BY: KOLE RODRÍGUEZ MD SIGNED DATE/TIME: 07/04/24 121 CC: Labs Test 07/04/24 10:38 07/04/24 00:36 07/03/24 22:43 07/03/24 22:20 Range/Units White Blood Count 10.1 # 4.4-10.8 10^3/uL Red Blood Count 4.20 4.0-5.20 10^6/uL Hemoglobin 12.0 L 12.2-16.2 g/dL Hematocrit 36.2 36.0-46.0 % Mean Corpuscular Volume 86.1 80.0-100.0 fL Mean Corpuscular Hemoglobin 28.7 28.0-32.0 pg Mean Corpuscular Hemoglobin Concent 33.3 32.0-36.0 g/dL Red Cell Distribution Width 13.1 11.8-14.3 % Platelet Count 215 140-450 10^3/uL Mean Platelet Volume 9.1 6.9-10.8 fL Neutrophils (%) (Auto) 69.1 37.0-80.0 % Lymphocytes (%) (Auto) 19.8 10.0-50.0 % Monocytes (%) (Auto) 8.7 0.0-12.0 % Eosinophils (%) (Auto) 2.0 0.0-7.0 % Basophils (%) (Auto) 0.4 0.0-2.0 % Neutrophils # (Auto) 7.0 1.6-8.6 10 ^3/uL Lymphocytes # (Auto) 2.0 0.4-5.4 10 ^3/uL Monocytes # (Auto) 0.9 0-1.3 10 ^3/uL Eosinophils # (Auto) 0.2 0-0.8 10 ^3/uL Basophils # (Auto) 0 0-0.2 10 ^3/uL Nucleated Red Blood Cells 0.0 % Sodium Level 137 # 136-145 mmol/L Potassium Level 4.3 3.5-5.1 mmol/L Chloride Level 103 98-107 mmol/L Carbon Dioxide Level 25 20-31 mmol/L Anion Gap 9 5-15 Blood Urea Nitrogen 17 9-23 mg/dL Creatinine 0.96 0.550-1.02 mg/dL Glomerular Filtration Rate Calc 62 >90 mL/min BUN/Creatinine Ratio 17.7 10.0-20.0 Serum Glucose 246 H 74-106 mg/dL Calcium Level 9.8 8.7-10.4 mg/dL Total Bilirubin 0.4 0.2-1.0 mg/dL Aspartate Amino Transferase (AST) 10 L 13-40 U/L Alanine Aminotransferase (ALT) < 9 7-40 U/L Alkaline Phosphatase 89 46-116 U/L Total Protein 7.4 5.7-8.2 g/dL Albumin 4.3 3.2-4.8 g/dL POC Glucose 189 H 70-106 mg/dl Hemoglobin A1c 10.9 H <5.7 % A1C Lactic Acid Level 1.5 0.4-2.0 mmol/L Influenza Type A Antigen Negative Negative Influenza Type B Antigen Negative Negative SARS-CoV-2 Antigen (Rapid) Negative NEGATIVE Test 07/03/24 19:02 07/03/24 15:30 Range/Units Direct Bilirubin < 0.1 <0.3 mg/dL Urine Color Brown H Yellow Urine Clarity Ex.turbid Clear Urine pH 5.5 5.0-9.0 Urine Specific [place] 1.005 1.001-1.035 Urine Protein 2+ H Negative Urine Ketones Negative Negative Urine Blood 3+ H Negative /uL Urine Nitrite Negative Negative Urine Bilirubin Negative Negative Urine Urobilinogen Normal Negative mg/dL Urine Leukocyte Esterase 3+ Negative /uL Urine RBC 25 0 - 4 /hpf Urine WBC Clumps Present None Seen /hpf Urine Microscopic WBC 3137 H 0-5 /HPF Urine Squamous Epithelial Cells Few <5 /hpf Urine Bacteria Many H None Seen /hpf Urine Mucus Few None Seen Urine Yeast (Budding) Moderate None Seen /hpf Urine Glucose 2+ H Normal mg/dL Microbiology Date/Time Source Procedure Growth Status 07/03/24 15:30 Voided Urine Urine Culture - Preliminary Resulted Assessment/Plan Problem List: (1) Bladder mass (2) Hydronephrosis (3) Acute UTI (urinary tract infection) (4) Uterine fibroid Plan monitor renal function if creatinine rises significantly consider bilateral PNTs will need cystoscopy and TURBT arranged outpatient (tentatively scheduled for 07/13/23) needs cardiac clearance declined phillips POC d/w and patient as well as RN at the bedside. Plan discussed with: Patient MK MONTMEAYOR NP Jul 04, 2024 14:54
[2024-07-04] MEDS ORDERED: DEXTROSE (50%) 50ML SYRG IV PRN ×2 (15:00→18:00)
[2024-07-04] MEDS: LISINOPRIL 5 MG TAB PO ONE (15:11)
[2024-07-04] MEDS: ENOXAPARIN SOD 30 MG/0.3 ML SYRINGE SC ONE (15:54)
[2024-07-04] MEDS: ACCU-CHEK COMFORT CURVE STRIP VI SCH ×2 (17:23→21:57)
[2024-07-04] MEDS: InsuLIN REG 1unit/0.01ml Soln (100units/ml) SC SCH ×2 (17:27→21:57)
[2024-07-04] MEDS: INSULIN LANTUS (GLARGINE) 1 /0.01ml (100units/ml) SC SCH (18:27)
[2024-07-04 19:45] VITALS: PULSE 88; RESP 18; O2SAT 95
[2024-07-04] MEDS ORDERED: METO25TA5 PO (21:26)
[2024-07-04] MEDS ORDERED: FAMO-12 PO (21:26)
[2024-07-04] MEDS: ATORVASTATIN 20 MG TAB PO SCH (21:51)
[2024-07-04 22:27] VITALS: BP 138/109; PULSE 73; RESP 17; TEMP 99.1; O2SAT 90
[2024-07-05 01:00] VITALS: BP 121/67; PULSE 90; RESP 17; TEMP 98.4; O2SAT 96
[2024-07-05 05:00] VITALS: BP 99/56; PULSE 71; RESP 16; TEMP 97.8; O2SAT 96
[2024-07-05] MEDS: InsuLIN REG 1unit/0.01ml Soln (100units/ml) SC SCH (06:06)
[2024-07-05] MEDS ORDERED: INSULIN LANTUS (GLARGINE) 1 /0.01ml (100units/ml) SC SCH (07:00)
[2024-07-05 07:49] LABS: Basophils # (auto) 0.1 10 ^3/uL (0-0.2); Basophils % (auto) 0.6 % (0.0-2.0); Eosinophils # (auto) 0.3 10 ^3/uL (0-0.8); Eosinophils % (auto) 2.8 % (0.0-7.0); Hematocrit 35.5 % (36.0-46.0); Hemoglobin 11.7 g/dL (12.2-16.2); Lymphocytes # (auto) 2.6 10 ^3/uL (0.4-5.4); Lymphocytes % (auto) 27.4 % (10.0-50.0); Mean Corpuscular Hemoglobin 29.2 pg (28.0-32.0); Mean Corpuscular Hgb Conc. 33.1 g/dL (32.0-36.0); Mean Corpuscular Volume 88.2 fL (80.0-100.0); Monocytes % (auto) 9.9 % (0.0-12.0); Neutrophils # (auto) 5.7 10 ^3/uL (1.6-8.6); Neutrophils % (auto) 59.3 % (37.0-80.0); Platelet Count (auto) 231 10^3/uL (140-450); Red Blood Cells 4.03 10^6/uL (4.0-5.20); Red Cell Distribution Width 13.2 % (11.8-14.3); White Blood Cell 9.6 10^3/uL (4.4-10.8)
[2024-07-05 07:50] LABS: Anion Gap 9 (5-15); Carbon Dioxide 24 mmol/L (20-31); Chloride 105 mmol/L (98-107); Potassium 4.3 mmol/L (3.5-5.1); Sodium 138 mmol/L (136-145)
[2024-07-05 07:51] LABS: Calcium 9.4 mg/dL (8.7-10.4)
[2024-07-05 07:56] LABS: BUN/Creatinine Ratio 17.1 (10.0-20.0); Blood Urea Nitrogen 20 mg/dL (9-23); Glucose 149 mg/dL (74-106)
[2024-07-05 08:00] VITALS: PULSE 77
[2024-07-05 08:33] VITALS: BP 128/61; PULSE 83; RESP 16; TEMP 97.7; O2SAT 96
--- NOTE | 2024-07-05 09:38 | DVHINCON2 ---
Date Seen: Jul 05, 2024 Referring Physician MD Sudeep Reason for Consultation Cardiac risk stratification History of Present Illness This is a pleasant 73-year-old female who presented to emergency room with a chief complaint of dysuria for over one week. She has been diagnosed with a co mplicated UTI, bilateral hydronephrosis, and a bladder mass with urology team recommending a cystoscopy and TURBT arranged as an outpatient. Cardiology consulted for cardiac risk stratification. Denies chest pain, palpitations, diaphoresis, dizziness, or syncopal events. Denies dyspnea on exertion or exertional angina. States she is able to ambulate without assistance and able to go up multiple flights of stairs. She underwent a 12 lead electrocardiogram revealing a normal sinus rhythm. Chest x-ray revealed no acute disease. Significant medical history includes coronary artery disease status post triple- vessel CABG on 2021 off ASA given history of vaginal bleed, mzj-fljuybn-lscattwnr diabetes mellitus, hypertension, dyslipidemia, peripheral neuropathy, chronic kidney disease, and osteoarthritis. Past Medical History Past medical history reviewed. No other significant than mentioned above. Past Surgical History Triple-vessel CABG, 2021 Family History: Arthritis G8 MOTHER Cerebrovascular accident (CVA) G8 FATHER Diabetes mellitus Hypertension G8 FATHER Family History Family history reviewed. Social History Denies the use of illicit drugs, alcohol, or tobacco use. Allergies: Coded Allergies: Codeine (Verified Allergy, Unknown, 09/21/22) Home Meds Active Scripts Lisinopril (Lisinopril) 2.5 Mg Tab, 1 TAB PO DAILY for 30 Days, #30 TAB 5 Refills Prov:PALMER ARCEO RESIDENT 07/05/24 Nitrofurantoin (Nitrofurantoin) 100 Mg Cap, 1 CAP PO BID for 5 Days, #10 CAP Prov:PALMER ARCEO RESIDENT 07/05/24 Atorvastatin Calcium (ATORVASTATIN CALCIUM) 20 Mg Tab, 20 MG PO HS for 30 Days, #30 TAB Prov:MARY MILLER Pharmacist 02/06/20 Reported Medications Metoprolol Tartrate (Metoprolol Tartrate) 25 Mg Tab, 1 TAB PO BID, #180 TAB 1 Refill 07/04/24 Famotidine (Famotidine) 20 Mg Tab, 20 MG PO, TAB 07/04/24 Sitagliptin Phosphate (Januvia) 100 Mg Tab, 1 TAB PO DAILY for DIABETES, #30 TAB 5 Refills 02/20/22 Metformin Hydrochloride (Metformin Hcl) 500 Mg Tab, 500 MG PO QAM for DIABETES for 30 Days, MG 02/20/22 Ranolazine (Ranexa) 500 Mg Tab, 500 MG PO DAILY@DINNER for ANGINA PECTORIS, TAB 02/20/22 Pantoprazole Sodium Sesquihydr (Protonix) 40 Mg Tab, 40 MG PO DAILY for GERD, #30 TAB 02/20/22 Valsartan (Diovan) 40 Mg Tab, 1 TAB PO DAILY for HTN, #90 TAB 1 Refill 02/20/22 Aspirin (Aspir-Low) 81 Mg Tab, 81 MG PO DAILY for 30 Days, MG 09/02/17 Gabapentin (Gabapentin) 300 Mg Cap, 300 MG PO TID for NEUROPATHY for 30 Days, MG 09/02/17 Home Meds Home medications reviewed. Current Medications Current Medications Medications (Trade) Dose Ordered Sig/Raciel Route PRN Reason Start Time Stop Time Status Last Admin Cefepime HCl 50 ml @ 12.5 mls/hr Q12HR IV 07/04/24 10:00 07/04/24 21:48 Aspirin (Ecotrin Enteric Coated Tablet) 81 mg DAILY PO 07/04/24 10:00 07/04/24 09:43 Atorvastatin Calcium (Lipitor) 20 mg HS PO 07/04/24 22:00 07/04/24 21:51 Metoprolol Tartrate (Lopressor Tablet) 25 mg BID PO 07/04/24 10:00 Hold Famotidine (Pepcid Tablet) 20 mg DAILY PO 07/04/24 10:00 07/04/24 09:42 Lisinopril (Zestril Tablet) 2.5 mg DAILY PO 07/05/24 10:00 Diagnostic Test (Pha) (Accu-Chek Comfort Curve T) 1 strip ACHS 07/04/24 17:00 07/04/24 17:56 DC 07/04/24 17:23 Insulin Human Regular (InsuLIN R) ACHS SC 07/04/24 17:00 07/04/24 17:56 DC 07/04/24 17:27 Dextrose 50 ml UD PRN IV Blood Sugar LESS THAN 60 07/04/24 15:00 07/04/24 17:56 DC Insulin Glargine (Lantus) 10 units QAM SC 07/05/24 07:00 07/04/24 17:56 DC Enoxaparin Sodium (Lovenox) 30 mg DAILY SC 07/05/24 10:00 Insulin Glargine (Lantus) 10 units QPM SC 07/04/24 18:00 07/04/24 18:27 Diagnostic Test (Pha) (Accu-Chek Comfort Curve T) 1 strip ACHS 07/04/24 22:00 07/05/24 06:04 Insulin Human Regular (InsuLIN R) HS SC 07/04/24 22:00 07/04/24 21:57 Insulin Human Regular (InsuLIN R) AC SC 07/05/24 07:00 07/05/24 06:06 Dextrose 50 ml UD PRN IV Blood Sugar LESS THAN 60 07/04/24 18:00 Review of Systems Constitutional: No symptom reported Ears, Nose, & Throat: No symptom reported Eyes: No symptom reported Neurological: No symptoms reported Pulmonary/Respiratory: No symptom reported Cardiovascular: No symptom reported Gastrointestinal: No symptom reported Genitourinary: No symptom reported Musculoskeletal: No symptom reported Skin: No symptom reported Psychiatric: No symptom reported Endocrine: No symptom reported Hemotologic/Lymphatic: No symptom reported Urinary: Dysuria Vital Signs Vital Signs Date Time Temp Pulse Resp B/P (MAP) Pulse Ox O2 Delivery O2 Flow Rate FiO2 07/05/24 08:33 97.7 83 16 128/61 (83) 96 97.7 07/04/24 21:27 Room Air* 0 21 Physical Exam General Appearance: Cooperative. Well developed. Well nourished. In no acute distress Head Exam: Normal inspection Neck Exam: Normal inspection. Non-tender. Normal alignment Pulmonary/Respiratory: Chest non-tender. Clear bilateral breath sounds Cardiovascular/Chest: Regular rate and rhythm. S1, S2. NSR. No murmurs. No JVD. Peripheral Pulses: 2+ Radial (R). 2+ Radial (L). 2+ Pedal (R). 2+ Pedal (L) Abdominal Exam: Normal bowel sounds. Soft. Nontender. No hepatospenomegaly. No masses Ankle Exam: Negative ankle edema Lower extremities: Negative lower extremity edema Neuro/Mental Status: A&O x4. Coherent Thoughts/Psych: Normal thought pattern. Appropriate mood and affect. Good judgement and insight Appearance: In no acute distress Skin Exam: Normal inspection. Normal color. Warm. Dry Labs/Diagnostic Data Labs Test 07/05/24 07:06 07/05/24 05:59 07/04/24 10:38 07/03/24 22:43 Range/Units White Blood Count 9.6 4.4-10.8 10^3/uL Red Blood Count 4.03 4.0-5.20 10^6/uL Hemoglobin 11.7 L 12.2-16.2 g/dL Hematocrit 35.5 L 36.0-46.0 % Mean Corpuscular Volume 88.2 80.0-100.0 fL Mean Corpuscular Hemoglobin 29.2 28.0-32.0 pg Mean Corpuscular Hemoglobin Concent 33.1 32.0-36.0 g/dL Red Cell Distribution Width 13.2 11.8-14.3 % Platelet Count 231 140-450 10^3/uL Mean Platelet Volume 9.1 6.9-10.8 fL Neutrophils (%) (Auto) 59.3 37.0-80.0 % Lymphocytes (%) (Auto) 27.4 10.0-50.0 % Monocytes (%) (Auto) 9.9 0.0-12.0 % Eosinophils (%) (Auto) 2.8 0.0-7.0 % Basophils (%) (Auto) 0.6 0.0-2.0 % Neutrophils # (Auto) 5.7 1.6-8.6 10 ^3/uL Lymphocytes # (Auto) 2.6 0.4-5.4 10 ^3/uL Monocytes # (Auto) 1.0 0-1.3 10 ^3/uL Eosinophils # (Auto) 0.3 0-0.8 10 ^3/uL Basophils # (Auto) 0.1 0-0.2 10 ^3/uL Nucleated Red Blood Cells 0.0 % Sodium Level 138 136-145 mmol/L Potassium Level 4.3 3.5-5.1 mmol/L Chloride Level 105 98-107 mmol/L Carbon Dioxide Level 24 20-31 mmol/L Anion Gap 9 5-15 Blood Urea Nitrogen 20 9-23 mg/dL Creatinine 1.17 H 0.550-1.02 mg/dL Glomerular Filtration Rate Calc 49 >90 mL/min BUN/Creatinine Ratio 17.1 10.0-20.0 Serum Glucose 149 H 74-106 mg/dL Calcium Level 9.4 8.7-10.4 mg/dL POC Glucose 143 H 70-106 mg/dl Total Bilirubin 0.4 0.2-1.0 mg/dL Aspartate Amino Transferase (AST) 10 L 13-40 U/L Alanine Aminotransferase (ALT) < 9 7-40 U/L Alkaline Phosphatase 89 46-116 U/L Total Protein 7.4 5.7-8.2 g/dL Albumin 4.3 3.2-4.8 g/dL Hemoglobin A1c 10.9 H <5.7 % A1C Lactic Acid Level 1.5 0.4-2.0 mmol/L Test 07/03/24 22:20 07/03/24 19:02 07/03/24 15:30 Range/Units Influenza Type A Antigen Negative Negative Influenza Type B Antigen Negative Negative SARS-CoV-2 Antigen (Rapid) Negative NEGATIVE Direct Bilirubin < 0.1 <0.3 mg/dL Urine Color Brown H Yellow Urine Clarity Ex.turbid Clear Urine pH 5.5 5.0-9.0 Urine Specific [place] 1.005 1.001-1.035 Urine Protein 2+ H Negative Urine Ketones Negative Negative Urine Blood 3+ H Negative /uL Urine Nitrite Negative Negative Urine Bilirubin Negative Negative Urine Urobilinogen Normal Negative mg/dL Urine Leukocyte Esterase 3+ Negative /uL Urine RBC 25 0 - 4 /hpf Urine WBC Clumps Present None Seen /hpf Urine Microscopic WBC 3137 H 0-5 /HPF Urine Squamous Epithelial Cells Few <5 /hpf Urine Bacteria Many H None Seen /hpf Urine Mucus Few None Seen Urine Yeast (Budding) Moderate None Seen /hpf Urine Glucose 2+ H Normal mg/dL Microbiology Date/Time Source Procedure Growth Status 07/03/24 23:37 Blood Blood Culture - Preliminary NO GROWTH AFTER 24 HOURS OF INCUBATION. Resulted 07/03/24 15:30 Voided Urine Urine Culture - Preliminary Resulted Assessment Cardiac risk stratification Bladder mass/hydronephrosis Coronary artery disease status post triple-vessel CABG, 2021, off ASA 2/2 vaginal bleed Lfj-rmfeuxf-fupepeabw diabetes mellitus Hypertension Dyslipidemia Plan/Recommendation (Dr. Carbajal) Echocardiogram revealed EF 65-70%. Revised cardiac risk index (Jaden criteria): 10.1% 30-day risk of , CA or cardiac arrest. Patient has improved LVEF, history of coronary artery disease without active angina, and has a fair functional capacity. Per Cardiology standpoint, the patient is at a moderate- risk for moderate-risk surgery. There is no additional cardiac workup indicated prior to surgery. Follow-up as scheduled with Dr. Maldonado on 10/12/2024 at 1000. Thank you for allowing us to care for this patient. Please call with any questions or concerns. This medical document was created using an electronic medical record system with voice recognition software and computerized dictation system. Although this document has been carefully reviewed, there might still be some phonetic and typographical errors. Occasional wrong-word or ``sound-alike substitutions may have occurred due to the inherent limitations of voice recognition software. These areas are purely typographical due to imperfections of the software programs and do not reflect any compromise in the patient's medical care. Please read the chart carefully and recognize, using context, where these substitutions have occurred. Plan discussed with: Patient, Other NYHA Physical activity limitations: NA Date of Service: Jul 05, 2024 Billing Provider: DERRELL OROZCO Cardiology Common Codes: [id number] INP/OBS CARE (High) DERRELL OROZCO Jul 05, 2024 09:38
[2024-07-05] MEDS: FUROSEMIDE 40 MG/4 ML VIAL IV ONE (09:45)
[2024-07-05] MEDS: LISINOPRIL 5 MG TAB PO SCH (11:34)
[2024-07-05] MEDS: ENOXAPARIN SOD 30 MG/0.3 ML SYRINGE SC SCH (11:35)
[2024-07-05] MEDS: FUROSEMIDE 40 MG/4 ML VIAL ONE (12:10)
[2024-07-05 13:00] VITALS: BP 141/64; PULSE 79; RESP 18; TEMP 97.6; O2SAT 97
--- NOTE | 2024-07-05 13:43 | DVH ---
EXAM: NM NM MAG3 RENAL SCAN DATE OF SERVICE: 07/05/2024 09:53 AM ORDERING PHYSICIAN: PALMER ARCEO REASON FOR EXAM: r/o obstruction TECHNIQUE: During the injection of radiopharmaceutical, posterior flow images of the kidneys were ac quired immediately at one frame per second for one minute, immediately followed by posterior imaging at 30 seconds per frame for 30 minutes. Approximately 20 minutes after the radiopharmaceutical admini stration, the indicated dose of lasix was administered. Regions of interest were drawn around the kid neys and time activity curves were generated. Differential function was calculated. COMPARISON: None FINDINGS: Blood flow images demonstrate prompt and asymmetric flow to kidneys, left greater than right, with n o focal defects. Functional images demonstrate a cortical transit time (sonf-dh-magy) of 7.5 on the right and 8.5 on t he left (normal is < 6 minutes). There is no adequate spontaneous excretion from the kidneys. Differential function (uptake %) is 30.4 % by the right kidney and 69.6 % by the left kidney. After Lasix administration, there was adequate and prompt excretion from both collecting systems. The post-Lasix half-emptying time (diuretic T1/2) was 4.5 minutes on the right and 12.5 minutes on the l eft, which is within normal limits. IMPRESSION: 1. Unremarkable perfusion of the left kidney with no evidence of obstruction. 2. Decreased perfusion of the right kidney without obstruction. 3. Differential renal function (uptake percent) of 30.4 % by the right kidney and 69.6 % by the left.
[2024-07-05] MEDS ORDERED: LISI2.5T47 PO (14:45)
[2024-07-05] MEDS ORDERED: NITR-52 PO (14:45)
--- NOTE | 2024-07-05 14:47 | DVHDSRES ---
Discharge Summary Date of Admission Resident Creating Document: PALMER ARCEO RESIDENT Jul 03, 2024 at 22:08 Date of Discharge: Jul 05, 2024 Admitting Diagnosis Acute complicated UTI Possible Sepsis/SIRS due to above Wounds: No wound was present Labs/Diagnostic Data: Laboratory Results Test 07/05/24 11:49 07/05/24 07:06 07/04/24 10:38 07/03/24 22:43 POC Glucose 261 mg/dl (70-106) White Blood Count 9.6 10^3/uL (4.4-10.8) Red Blood Count 4.03 10^6/uL (4.0-5.20) Hemoglobin 11.7 g/dL (12.2-16.2) Hematocrit 35.5 % (36.0-46.0) Mean Corpuscular Volume 88.2 fL (80.0-100.0) Mean Corpuscular Hemoglobin 29.2 pg (28.0-32.0) Mean Corpuscular Hemoglobin Concent 33.1 g/dL (32.0-36.0) Red Cell Distribution Width 13.2 % (11.8-14.3) Platelet Count 231 10^3/uL (140-450) Mean Platelet Volume 9.1 fL (6.9-10.8) Neutrophils (%) (Auto) 59.3 % (37.0-80.0) Lymphocytes (%) (Auto) 27.4 % (10.0-50.0) Monocytes (%) (Auto) 9.9 % (0.0-12.0) Eosinophils (%) (Auto) 2.8 % (0.0-7.0) Basophils (%) (Auto) 0.6 % (0.0-2.0) Neutrophils # (Auto) 5.7 10 ^3/uL (1.6-8.6) Lymphocytes # (Auto) 2.6 10 ^3/uL (0.4-5.4) Monocytes # (Auto) 1.0 10 ^3/uL (0-1.3) Eosinophils # (Auto) 0.3 10 ^3/uL (0-0.8) Basophils # (Auto) 0.1 10 ^3/uL (0-0.2) Nucleated Red Blood Cells 0.0 % Sodium Level 138 mmol/L (136-145) Potassium Level 4.3 mmol/L (3.5-5.1) Chloride Level 105 mmol/L (98-107) Carbon Dioxide Level 24 mmol/L (20-31) Anion Gap 9 (5-15) Blood Urea Nitrogen 20 mg/dL (9-23) Creatinine 1.17 mg/dL (0.550-1.02) Glomerular Filtration Rate Calc 49 mL/min (>90) BUN/Creatinine Ratio 17.1 (10.0-20.0) Serum Glucose 149 mg/dL (74-106) Calcium Level 9.4 mg/dL (8.7-10.4) Total Bilirubin 0.4 mg/dL (0.2-1.0) Aspartate Amino Transferase (AST) 10 U/L (13-40) Alanine Aminotransferase (ALT) < 9 U/L (7-40) Alkaline Phosphatase 89 U/L (46-116) Total Protein 7.4 g/dL (5.7-8.2) Albumin 4.3 g/dL (3.2-4.8) Hemoglobin A1c 10.9 % A1C (<5.7) Lactic Acid Level 1.5 mmol/L (0.4-2.0) Test 07/03/24 22:20 07/03/24 19:02 07/03/24 15:30 Influenza Type A Antigen Negative (Negative) Influenza Type B Antigen Negative (Negative) SARS-CoV-2 Antigen (Rapid) Negative (NEGATIVE) Direct Bilirubin < 0.1 mg/dL (<0.3) Urine Color Brown (Yellow) Urine Clarity Ex.turbid (Clear) Urine pH 5.5 (5.0-9.0) Urine Specific [place] 1.005 (1.001-1.035) Urine Protein 2+ (Negative) Urine Ketones Negative (Negative) Urine Blood 3+ /uL (Negative) Urine Nitrite Negative (Negative) Urine Bilirubin Negative (Negative) Urine Urobilinogen Normal mg/dL (Negative) Urine Leukocyte Esterase 3+ /uL (Negative) Urine RBC 25 /hpf (0 - 4) Urine WBC Clumps Present /hpf (None Seen) Urine Microscopic WBC 3137 /HPF (0-5) Urine Squamous Epithelial Cells Few /hpf (<5) Urine Bacteria Many /hpf (None Seen) Urine Mucus Few (None Seen) Urine Yeast (Budding) Moderate /hpf (None Seen) Urine Glucose 2+ mg/dL (Normal) Other Laboratory Tests 07/05/24 07:06 Brief Hx & Hospital Course: Patient is a 73-year-old female with past medical history of type 2 diabetes, recurrent UTIs, coronary artery disease s/p CABG, hypertension, for evaluation of present urinary symptoms. According to the patient, for the past 9 days she has been experiencing urinary tract infection like symptoms including dysuria and burning. She tried taking xgld-ujz-dqkpcox AZO but that did not relieve her symptoms, and notes her dysuria worsened over the last 3 days. Patient attended an appointment with her PCP earlier today on 07/03/2024 where a urine sample was collected from her which according to the patient was pinkish red in color. Subsequently, patient was sent to the ER at the recommendation of her PCP. Patient is incontinent at baseline and uses diapers/pads. Hospital course: UA consistent with UTI and renal ultrasound demonstrated avascular solid renal heterogenous mass is seen in the urinary bladder with mild bilateral hydronephrosis. CT urogram revealed irregular nodular enhancing mass along the left lateral bladder wall measuring approximately 5.3 X 1.6 cm and likely represents primary bladder malignancy, bilateral hydroureteronephrosis without any obstructing renal or ureteral calculus. Urology evaluated the patient and recommended outpatient TURBT and scheduled on July 13, 2024 and required cardiac clearance for the procedure. Cardiology was consulted regarding the cardiac clearance. echo revealed ejection fraction 65-70% with normal right ventricular function. Patient was treated with IV cefepime 1 g b.i.d. and continued home medication and blood sugar was controlled with Lantus 10 units q.p.m. and moderate sliding scale of insulin. Discharge plan was discussed with the patient and all questions were answered. Patient is being discharged to home . Discharge diagnosis: Acute complicated UTI Possible Sepsis/SIRS due to above Possible bladder malignancy with bilateral hydrouteronephrosis Coronary artery disease s/p CABG Uncontrolled type 2 diabetes melitus : Hb A1c 10.9 Discharge plan: Disposition: Home Medications: Nitrofurantoin 100 mg p.o. b.i.d. for 5 days, lisinopril 2.5 mg daily for 30 days and continue home medications. Follow up: PCP in 1 week Outpatient urology to schedule for cystoscopy / TURBT on July 13 Consults/Reason for consult Urology and Cardiology were consulted Operations or Procedures CHEST RADIOGRAPH Indication: cough Technique: Single frontal view of the chest was obtained COMPARISON: XY CHEST XRAY 1 VIEW on DOS: 05/15/24, CHEST PORTABLE on DOS: 05/25/22, CXRP on DOS: 05/25/22 FINDINGS: Sternal wires in place. Lines and Tubes: None Lungs: Clear Pleura: No effusion. No pneumothorax. Cardiomediastinal contours: Unremarkable Bones: Unremarkable IMPRESSION: 1. No acute disease. INDICATION: recurrent UTIs TECHNIQUE: Multiple real-time sonographic images of the kidneys and bladder were obtained. COMPARISON: None FINDINGS: The right kidney measures 7.6 cm in length. The right renal echogenicity, contour and cortical thickness are within normal limits. Mild hydronephrosis or large masses/calculi are seen. The left kidney measures 10.1 cm in length. The left renal echogenicity, contour, and cortical thickness are within normal limits. Mild hydronephrosis or large masses/calculi are seen. Thickened coarse bladder wall thickening is seen which may be due to malignancy. Avascular solid heterogeneous mass is seen in the urinary bladder base. Prevoid bladder volume measures up to 157 mL. Patient did not void. IMPRESSION: Avascular solid heterogeneous mass is seen in the urinary bladder. Mild bilateral hydronephrosis Consider CT urogram for further evaluation. CT ABDOMEN AND PELVIS WITH CONTRAST CLINICAL HISTORY: Possible bladder mass TECHNIQUE: Multidetector CT of the abdomen was performed from lung bases to pubic symphysis. Imaging was performed with and without IV contrast. Axial, coronal and sagittal multiplanar reformats were obtained from the axial data set by the technologist. 100 cc of Omnipaque 300 contrast was injected intravenously. Portal venous and delayed phase postcontrast CT images were obtained. Radiation optimization: All CT scans at this facility use at least one of these dose optimization techniques: automated exposure control mA and/or kV adjustment per patient size (includes targeted exams where dose is matched to clinical indication) or iterative reconstruction. Radiation Dose Information: CT Dose: CTDI volume is 13 mGy. Dose-length product is 1986 mGy*cm Comparison: CT CT AB PEL WO CON-NO ORAL OR IV on DOS: 03/22/24 FINDINGS: There is irregular nodular enhancing mass along the left lateral bladder wall measuring approximately 5.3 x 1.6 cm. This likely represents primary bladder malignancy. There is bilateral hydroureteronephrosis.. There is no evidence of an obstructing ureteral calculus. There is no evidence of a radiopaque renal calculus. The gallbladder is surgically absent. The liver, pancreas, adrenal glands, and spleen appear within normal limits. There is no evidence of abdominal lymphadenopathy. There is no free fluid or free air. The small and large bowel loops demonstrate normal caliber and appear within normal limits.. The abdominal aorta and IVC appear within normal limits. There is a fibroid uterus with calcified leiomyomas. There is no evidence of a pelvic mass. There is a nonspecific prominent left internal iliac chain lymph node measuring 9 mm in the short axis. There is no free fluid in the pelvis. Lung bases are clear. There is no acute osseous abnormality. There are multilevel degenerative changes in the lumbar spine. IMPRESSION: 1. Irregular nodular enhancing mass along the left lateral bladder wall measuring approximately 5.3 x 1.6 cm. This likely represents primary bladder malignancy. 2. There is bilateral hydroureteronephrosis. There is no evidence of an obstructing renal or ureteral calculus. 3. Nonspecific prominent left internal iliac chain lymph node measuring 9 mm. Metastatic lymphadenopathy is not excluded. EXAM: SC NM MAG3 RENAL SCAN DATE OF SERVICE: 07/05/2024 09:53 AM ORDERING PHYSICIAN: PALMER ARCEO REASON FOR EXAM: r/o obstruction TECHNIQUE: During the injection of radiopharmaceutical, posterior flow images of the kidneys were acquired immediately at one frame per second for one minute, immediately followed by posterior imaging at 30 seconds per frame for 30 minutes. Approximately 20 minutes after the radiopharmaceutical administration, the indicated dose of lasix was administered. Regions of interest were drawn around the kidneys and time activity curves were generated. Differential function was calculated. COMPARISON: None FINDINGS: Blood flow images demonstrate prompt and asymmetric flow to kidneys, left greater than right, with no focal defects. Functional images demonstrate a cortical transit time (fjvo-kc-rjhm) of 7.5 on the right and 8.5 on the left (normal is < 6 minutes). There is no adequate spontaneous excretion from the kidneys. Differential function (uptake %) is 30.4 % by the right kidney and 69.6 % by the left kidney. After Lasix administration, there was adequate and prompt excretion from both collecting systems. The post-Lasix half-emptying time (diuretic T1/2) was 4.5 minutes on the right and 12.5 minutes on the left, which is within normal limits. IMPRESSION: 1. Unremarkable perfusion of the left kidney with no evidence of obstruction. 2. Decreased perfusion of the right kidney without obstruction. 3. Differential renal function (uptake percent) of 30.4 % by the right kidney and 69.6 % by the left. Condition at Discharge: Guarded Final Diagnosis/Problems List Acute complicated UTI Possible Sepsis/SIRS due to above Possible bladder malignancy with bilateral hydrouteronephrosis Coronary artery disease s/p CABG Uncontrolled type 2 diabetes melitus : Hb A1c 10.9 Discharge Disposition: Home Discharge Instruct/Medications Diet: Consistent carbohydrate, Cardiac 2g Na,low cholest Activity: No Restrictions, As Tolerated Follow Up/Referral: Follow up with PCP in 1 week Follow up with Outpatient Urology for cystoscopy/ TURBT on jul 1311/2024. Medications: As per EMR Discharge Statement: "Patient was advised to return to the ER or call 911 if any headaches, dizziness, shortness of breath, chest pain, abdominal pain, bleeding, fevers, or worsening of medical condition. Patient was counseled about treatment plan, medications, possible side effects, patientverbalized understanding. All questions were answered to the best of my ability. This discharge took greater then 30 minutes in planning, reviewing documentation, counseling the patient, and discussing with other team members." ASSESSMENT ASSESSMENT Assessment Acute complicated UTI Possible Sepsis/SIRS due to above Possible bladder malignancy with bilateral hydrouteronephrosis Coronary artery disease s/p CABG Uncontrolled type 2 diabetes melitus : Hb A1c 10.9 PALMER ARCEO RESIDENT Jul 05, 2024 14:47
--- NOTE | 2024-07-05 15:22 | DVHSR ---
APPROVED REPORT EXAM: Two-dimensional and M-mode echocardiogram with Doppler and color Doppler. Blood Pressure: 99/56 mmHg INDICATION Pre-Op Surgery/Intervention CABG: RISK FACTORS Height: 5'1", Weight: 126 DIMENSIONS LVDd4.3 (3.8-5.7cm)LA (2D)3.1 (1.9-4.0cm)Aortic Root2.9 (2.0-3.7cm) LVDs2.6 (2.5-4.0cm)LA (MM) (1.9-4.0cm)Aortic Cusp Exc1.4 (1.5-2.0cm) EF (%) 70.0 (55-70%)Rt. Atrium3.0 (1.9-4.0cm)Asc. Aorta cm IVSd1.1 (0.7-1.1cm)RV (D) (1.8-2.4cm) Mitral Valve MitralMitral Stenosis E/A ratio0.02D MVAcm2 Aortic Valve Aortic ValveAortic Stenosis V10.94m/Ania Mean GR.4mmHg V21.24m/Ania Peak GR.6mmHg LVOT Diameter2.1 (1.8-2.4cm)Doppler AVA2.62cm2 LEFT VENTRICLE The left ventricle is of normal size. Wall thickness is normal. Ejection fraction is estimated at 6 5-70%. There is no gross wall motion abnormalities. Diastolic function is indeterminate. RIGHT VENTRICLE The right ventricle is of normal size. Systolic function is normal. ATRIA Both atria are of normal size. Intra-atrial septum is not well visualized. MITRAL VALVE There is [id number] mitral annular calcification. No significant regurgitation or stenosis. PULMONIC VALVE Not visualized. TRICUSPID VALVE There is mild tricuspid regurgitation. PA systolic pressure is not adequately estimated. AORTIC VALVE Leaflets are not well visualized. No evidence of significant stenosis or regurgitation. GREAT VESSELS The aortic root and proximal ascending aorta not well visualized. PERICARDIAL EFFUSION No significant pericardial effusion. IVC isn't visualized. Other Information Quality : Technically LimitedRhythm : Technically limited study due to body habitus. Conclusion The study is technically limited. Normal left ventricular size and systolic function. Ejection fraction is estimated at 65-70%. Normal right ventricular size and systolic function. Mild to moderate mitral annular calcification. No evidence of hemodynamically significant valvular disease. PA systolic pressure is not adequately estimated.
[2024-07-05 16:43] VITALS: BP 159/89; PULSE 61; RESP 16; TEMP 98; O2SAT 95
== END 2024-07-05 17:20 | disposition home or self-care (01) | DRG 871 ==
LOC: ER 15:19 → OVERFLOW 22:08 → WEST WING 07-04 21:40
PROVIDERS: ADMIT Student in an Organized Health Care Education/Training Program; ATTEND Internal Medicine
DX: A41.9 Sepsis, unspecified organism (principal); N17.0 Acute kidney failure with tubular necrosis; N13.6 Pyonephrosis; Z20.822 Contact with and (suspected) exposure to COVID-19; D25.9 Leiomyoma of uterus, unspecified; N32.9 Bladder disorder, unspecified; C67.9 Malignant neoplasm of bladder, unspecified; I25.10 Atherosclerotic heart disease of native coronary artery without angina pectoris; E11.9 Type 2 diabetes mellitus without complications; E78.5 Hyperlipidemia, unspecified; I50.9 Heart failure, unspecified; I11.9 Hypertensive heart disease without heart failure; Z95.1 Presence of aortocoronary bypass graft; Z86.73 Personal history of transient ischemic attack (TIA), and cerebral infarction without residual deficits; Z83.3 Family history of diabetes mellitus; Z82.49 Family history of ischemic heart disease and other diseases of the circulatory system; Z82.3 Family history of stroke; Z79.84 Long term (current) use of oral hypoglycemic drugs; Z88.5 Allergy status to narcotic agent; Z90.49 Acquired absence of other specified parts of digestive tract; Z79.899 Other long term (current) drug therapy; Z79.82 Long term (current) use of aspirin
CPT/HCPCS: 36415; 71045; 74178; 76775; 78707; 80048; 80053; 80076; 81001; 82962; 83036; 83605; 85025; 87040; 87086; 87426; 87804; 93306; G0378; J1815

== ENCOUNTER 2024-07-13 09:51 | Inpatient (IN) | payer MEDICAID, OTHER ==
[2024-07-11 09:56] LABS: Urine Bacteria None Seen /hpf (None Seen)
[2024-07-11 10:42] LABS: Partial Thromboplastin Time 25.1 SEC (24.5-34.5); Prothrombin Time 10.6 sec (9.3-11.8)
[2024-07-11 10:50] LABS: Basophils # (auto) 0.1 10 ^3/uL (0-0.2); Basophils % (auto) 0.5 % (0.0-2.0); Eosinophils # (auto) 0.3 10 ^3/uL (0-0.8); Eosinophils % (auto) 2.1 % (0.0-7.0); Hematocrit 37.9 % (36.0-46.0); Hemoglobin 12.5 g/dL (12.2-16.2); Lymphocytes # (auto) 1.7 10 ^3/uL (0.4-5.4); Lymphocytes % (auto) 13.5 % (10.0-50.0); Mean Corpuscular Hemoglobin 28.9 pg (28.0-32.0); Mean Corpuscular Volume 87.4 fL (80.0-100.0); Monocytes # (auto) 0.9 10 ^3/uL (0-1.3); Neutrophils # (auto) 9.8 10 ^3/uL (1.6-8.6); Neutrophils % (auto) 76.9 % (37.0-80.0); Nucleated Red Blood Cells % 0.1 %; Platelet Count (auto) 257 10^3/uL (140-450); Red Blood Cells 4.33 10^6/uL (4.0-5.20); Red Cell Distribution Width 13.2 % (11.8-14.3); White Blood Cell 12.8 10^3/uL (4.4-10.8)
[2024-07-11 10:57] LABS: Albumin 4.3 g/dL (3.2-4.8); Alkaline Phosphatase 87 U/L (46-116); Anion Gap 9 (5-15); BUN/Creatinine Ratio 21.6 (10.0-20.0); Carbon Dioxide 25 mmol/L (20-31); Chloride 103 mmol/L (98-107); Sodium 137 mmol/L (136-145)
[2024-07-11 10:58] LABS: Bilirubin, Total 0.4 mg/dL (0.2-1.0); Total Protein 7.9 g/dL (5.7-8.2)
[2024-07-11 13:18] LABS: Urine Blood 2+ /uL (Negative); Urine Budding Yeast MANY /hpf (None Seen); Urine Clarity Ex.Turbid (Clear); Urine Protein, UAD 2+ (Negative); Urine Specific Gravity 1.012 (1.001-1.035); Urine Squamous Epithelial Cell FEW /hpf (<5); Urine Urobilinogen Normal (Negative); Urine WBC 6016 /HPF (0-5); Urine WBC Clumps PRESENT /hpf (None Seen); Urine pH 5.5 (5.0-9.0)
[2024-07-11 13:20] LABS: Urine Color LIGHT YELLOW (Yellow)
[2024-07-11 13:50] LABS: Alanine Aminotransferase 9 U/L (7-40); Aspartate Aminotransferase 8 U/L (13-40); Blood Urea Nitrogen 24 mg/dL (9-23); Calcium 10.6 mg/dL (8.7-10.4); Glucose 236 mg/dL (74-106)
[2024-07-11 13:52] LABS: Potassium 5.6 mmol/L (3.5-5.1)
[~2024-07-13] VITALS: Ht 154.9 cm; Wt 59.2 kg
[~2024-07-13 09:51] MED LIST changes: -HYDR-4902 PO
[2024-07-13] MEDS ORDERED: fentaNYL CITRATE 100 MCG/2 ML VL ONE (13:10)
[2024-07-13] MEDS ORDERED: MEPERIDINE HCL (25 MG/ML) 1ML VIAL ONE (13:10)
[2024-07-13] MEDS ORDERED: MIDAZOLAM HCL 2MG/2ML 2ml VIAL (1mg/ml) ONE (13:11)
[2024-07-13] MEDS ORDERED: MORPHINE SULFATE 4 MG/ML SYR/VIAL IV PRN (13:30)
[2024-07-13] MEDS ORDERED: ePHEDrine SULFATE 50 MG/ML AMP IV PRN (13:30)
[2024-07-13] MEDS ORDERED: HYDROmorphone HCL 2 MG/ML VL/or syr IV PRN (13:30)
[2024-07-13] MEDS ORDERED: MIDAZOLAM HCL 2MG/2ML 2ml VIAL (1mg/ml) IV PRN (13:30)
[2024-07-13] MEDS ORDERED: hydrALAZINE HCL 20 MG/ML VL IV PRN (13:30)
[2024-07-13] MEDS ORDERED: PROPOFOL 10 MG/ML 20 ML IV ONE (13:56)
[2024-07-13] MEDS ORDERED: DexAMETHasone SOD PHOS 10MG/1ML VIAL INJ ONE (13:56)
[2024-07-13] MEDS ORDERED: ONDANSETRON HCL 4 MG/2 ML VIAL ONE (13:56)
[2024-07-13 14:18] VITALS: PULSE 97; RESP 14; O2SAT 97
[2024-07-13 14:35] VITALS: PULSE 93; RESP 18; O2SAT 97
--- NOTE | 2024-07-13 14:38 | DVHOP2 ---
Operative Report - 2 Report Details Date: 07/13/24 Preop Diagnosis: Large bladder mass Postop Diagnosis: Same Surgeon: Jourdan Carpenter Anesthesiologist: Geremias Anesthesia: General Consent: The patient was informed of the risks and benefits of the procedure. These include but are not limited to complications of anesthesia, postoperative infection, incomplete relief of symptoms, recurrence of symptoms, damage to blood vessels, nerves and tendons, deep venous thrombosis, pulmonary embolism and possible need for repeat surgery in the future. Indications for Surgery: Patient requires a TURBT for large bladder mass noted on recent hospitalization. 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 She was placed in dorsal lithotomy position with the area of the genitalia prepped and draped in usual sterile manner. Twenty-six Egyptian resectoscope sheath with the obturator was introduced into the bladder. Purulent material was seen when bladder was initially catheterized. Resecting element and a bipolar instrument with saline irrigation was used for visualization and resection of the large greater than 5 cm left posterior lateral dome tumor mass. The ureteric orifices were not involved and they were clearly visualized. Tumor resection was carried out as much as possible. Complete resection is not feasible due to the aggressive appearance of this lesion likely to involve muscle layer. Resectoscope was removed in entirety after control of the bleeding. Tumor specimens are sent to pathology. Twenty [address] Coyne catheter was inserted for continuous bladder irrigation. Patient would be a candidate for Trimodal therapy including radiation and chemotherapy. Specimen: Large left posterior lateral wall tumor mass lesion Condition Fair Disposition JOURDAN CARPENTER MD Jul 13, 2024 14:38
[2024-07-13] MEDS ORDERED: MORPHINE SULFATE INJ 2 MG/ml SYRG IV PRN (14:45)
[2024-07-13] MEDS ORDERED: NITROGLYCERIN 0.4 MG SL TAB SL PRN (14:45)
[2024-07-13] MEDS ORDERED: ETOMIDATE (2MG/ML) 20ML VIAL IV ONE (15:34)
[2024-07-13] MEDS ORDERED: DEXTROSE (50%) 50ML SYRG IV PRN (15:45)
[2024-07-13] MEDS: hydrALAZINE HCL 20 MG/ML VL IV ONE (15:53)
--- NOTE | 2024-07-13 16:00 | DVHHP2 ---
History of Present Illness Reason for Visit: Large bladder mass History of Present Illness Karly Stack is a 73-year-old female with past medical history of CAD status post CABG x3 greater than 3 years ago at [facility], recurrent UTIs hypertension, diabetes, cholecystectomy, tubal ligation, and bladder mass who presents to [facility] for a TURBT for large bladder mass noted on recent hospitalization. Patient also has bilateral hydronephrosis. Patient denies any chest pain, shortness of breath, abdominal pain, nausea, vomiting, diarrhea, fever, and chills. Cardiovascular: CAD, HTN Renal/: UTI Endocrine: Diabetes Past Medical History Bladder mass Past Surgical History: Cholecystectomy, CABG, Tubal Ligation Family History: Other (Dad with MD) Smoke: No ALCOHOL: none Drugs: None Lives: with Family Domestic Violence: Neg Review of Systems Constitutional: No: Fever, Chills, Sweats, Weakness, Malaise, Other Eyes: No: Pain, Vision change, Conjunctivae inflammation, Eyelid inflammation, Other, Redness ENT: No: Ear pain, Ear discharge, Nose pain, Nose discharge, Nose congestion, Mouth pain, Mouth swelling, Throat pain, Throat swelling, Other Respiratory: No: Cough, Dry, Shortness of breath, SOB with excertion, Wheezing, Hemoptysis, Pleuritic Pain, Sputum, Wheezing, Other Cardiovascular: No: Chest Pain, Palpitations, Orthopnea, Paroxysmal Noc. Dyspn ea, Edema, Lt Headedness, Other Gastrointestinal: Other (Pelvic pressure); No: Nausea, Vomiting, Abdominal Pain, Diarrhea, Constipation, Melena, Hematochezia Genitourinary: No Dysuria, No Frequency, No Incontinence, No Hematuria, No Retention, No Other Musculoskeletal: No: other, neck pain, shoulder pain, arm pain, back pain, hand pain, leg pain, foot pain Skin: No: Rash, Lesions, Jaundice, Bruising, Other Neurological: No: Weakness, Numbness, Incoordination, Change in speech, Confusion, Seizures, Other Allergies: Coded Allergies: Codeine (Verified Allergy, Unknown, 09/21/22) Medications Current Medications Medications Dose Ordered Sig/Raciel Route Start Time Stop Time Status Last Admin Dose Admin Nitroglycerin 0.4 mg Q5MINP PRN SL 07/13/24 14:45 Morphine Sulfate 2 mg Q30M PRN IV 07/13/24 14:45 Exam Vital Signs Vital Signs Date Time Temp Pulse Resp B/P (MAP) Pulse Ox O2 Delivery O2 Flow Rate FiO2 07/13/24 11:00 97.4 93 16 119/59 (79) 97 97.4 General Appearance: Alert, Oriented X3, Cooperative, No acute distress HEENT: Atraumatic, PERRLA, EOMI, Mucous membr. moist/pink Respiratory: Clear to auscultation, Normal air movement Cardiovascular: Regular rate, Normal S1, Normal S2, No murmurs Abdominal: Soft, No tenderness, No hepatospenomegaly Extremities: No clubbing, No cyanosis, No edema, Normal pulses, No tenderness/swelling Neuro: Normal speech, Normal tone, Sensation intact Psych/Mental Status: Mental status NL, Mood NL Labs/Xrays Labs Test 07/13/24 11:34 07/11/24 12:30 07/11/24 09:50 Range/Units POC Glucose 221 H 70-106 mg/dl Urine Color Light yellow Yellow Urine Clarity Ex.turbid Clear Urine pH 5.5 5.0-9.0 Urine Specific [place] 1.012 1.001-1.035 Urine Protein 2+ H Negative Urine Ketones Negative Negative Urine Blood 2+ H Negative /uL Urine Nitrite Negative Negative Urine Bilirubin Negative Negative Urine Urobilinogen Normal Negative mg/dL Urine Leukocyte Esterase 3+ Negative /uL Urine RBC 114 0 - 4 /hpf Urine WBC Clumps Present None Seen /hpf Urine Microscopic WBC 6016 H 0-5 /HPF Urine Squamous Epithelial Cells Few <5 /hpf Urine Bacteria None seen None Seen /hpf Urine Yeast (Budding) Many None Seen /hpf Urine Glucose 1+ H Normal mg/dL White Blood Count 12.8 #H 4.4-10.8 10^3/uL Red Blood Count 4.33 4.0-5.20 10^6/uL Hemoglobin 12.5 12.2-16.2 g/dL Hematocrit 37.9 36.0-46.0 % Mean Corpuscular Volume 87.4 80.0-100.0 fL Mean Corpuscular Hemoglobin 28.9 28.0-32.0 pg Mean Corpuscular Hemoglobin Concent 33.0 32.0-36.0 g/dL Red Cell Distribution Width 13.2 11.8-14.3 % Platelet Count 257 140-450 10^3/uL Mean Platelet Volume 10.0 6.9-10.8 fL Neutrophils (%) (Auto) 76.9 37.0-80.0 % Lymphocytes (%) (Auto) 13.5 10.0-50.0 % Monocytes (%) (Auto) 7.0 0.0-12.0 % Eosinophils (%) (Auto) 2.1 0.0-7.0 % Basophils (%) (Auto) 0.5 0.0-2.0 % Neutrophils # (Auto) 9.8 H 1.6-8.6 10 ^3/uL Lymphocytes # (Auto) 1.7 0.4-5.4 10 ^3/uL Monocytes # (Auto) 0.9 0-1.3 10 ^3/uL Eosinophils # (Auto) 0.3 0-0.8 10 ^3/uL Basophils # (Auto) 0.1 0-0.2 10 ^3/uL Nucleated Red Blood Cells 0.1 % Prothrombin Time 10.6 9.3-11.8 sec Prothrombin Time INR 1.00 0.9-1.15 Activated Partial Thromboplast Time 25.1 24.5-34.5 SEC Sodium Level 137 136-145 mmol/L Potassium Level 5.6 *H 3.5-5.1 mmol/L Chloride Level 103 98-107 mmol/L Carbon Dioxide Level 25 20-31 mmol/L Anion Gap 9 5-15 Blood Urea Nitrogen 24 H 9-23 mg/dL Creatinine 1.11 H 0.550-1.02 mg/dL Glomerular Filtration Rate Calc 52 >90 mL/min BUN/Creatinine Ratio 21.6 H 10.0-20.0 Serum Glucose 236 H 74-106 mg/dL Calcium Level 10.6 H 8.7-10.4 mg/dL Total Bilirubin 0.4 0.2-1.0 mg/dL Aspartate Amino Transferase (AST) 8 L 13-40 U/L Alanine Aminotransferase (ALT) 9 7-40 U/L Alkaline Phosphatase 87 46-116 U/L Total Protein 7.9 5.7-8.2 g/dL Albumin 4.3 3.2-4.8 g/dL Microbiology Date/Time Source Procedure Growth Status 07/11/24 12:30 Voided Urine Urine Culture - Preliminary Resulted Assessment/Plan Assessment/Plan Assessment/Plan: Large bladder mass TURBT Cystoscopy Leukocytosis likely due to UTI Glucosuria MARITZA Labs IV antibiotics-ceftriaxone Antiemetics Pain management A.m. labs UA noted Continuous bladder irrigation Hyperkalemia [facility] Diabetes type 2 uncontrolled Hemoglobin A1c ISS and Accu-Cheks History of CAD status post CABG x3 greater than 3 years ago at [facility] Follow up outpatient with PCP Hold aspirin per Urology History of hypertension Continue home medications FEN/PPX Diet IV fluids DVT prophylaxis not indicated patient ambulating PUD prophylaxis not indicated no history of GERD or GI bleed Admit to med surg Home medications reconciled Discussed plan of care with patient and nurse Plan discussed with: Patient Date of Service: Jul 13, 2024 Billing Provider: JULIAN PORTER Common Visit Codes: [id number] INP/OBS CARE (HIGH) JULIAN PORTER Jul 13, 2024 16:00
[2024-07-13] MEDS: cefTRIAXone 1GM/50ML D5W 50 ML IV ONE (17:00)
[2024-07-13] MEDS: SODIUM ZIRCONIUM CYCL 10 GM PAK PO ONE (17:02)
[2024-07-13] MEDS: SODIUM CHLORIDE 0.9% 1,000 ML IV SCH (17:02)
[2024-07-13] MEDS: ACCU-CHEK COMFORT CURVE STRIP VI SCH (17:16)
[2024-07-13] MEDS: InsuLIN REG 1unit/0.01ml Soln (100units/ml) SC SCH (17:18)
[2024-07-13 18:08] VITALS: BP 111/36; PULSE 95; RESP 22; TEMP 97.7; O2SAT 96
[2024-07-13] MEDS: ONDANSETRON HCL 4 MG/2 ML VIAL IV ONE (18:20)
[2024-07-13 18:52] VITALS: BP 111/36; PULSE 95; RESP 22; TEMP 97.7; O2SAT 95
[2024-07-13 20:00] VITALS: PULSE 88; RESP 18; O2SAT 95
[2024-07-13 21:00] VITALS: BP 117/55; PULSE 88; RESP 18; TEMP 99.1; O2SAT 95
[2024-07-13] MEDS: ATORVASTATIN 20 MG TAB PO SCH (21:12)
[2024-07-13] MEDS: HYDROcodone-ACET 5/325MG TAB PO PRN (21:12)
[2024-07-13] MEDS: GABAPENTIN 300 MG CAP PO SCH (21:12)
[2024-07-13] MEDS: METOPROLOL TARTRATE 25 MG TAB PO SCH (21:13)
[2024-07-14 01:00] VITALS: BP 107/37; PULSE 72; RESP 18; TEMP 98; O2SAT 95
[2024-07-14 05:00] VITALS: BP 142/64; PULSE 78; RESP 18; TEMP 97.6; O2SAT 95
[2024-07-14] MEDS: cefTRIAXone 1GM/50ML D5W 50 ML IV SCH (08:42)
[2024-07-14] MEDS: VALSARTAN 80 MG TAB PO SCH (08:56)
[2024-07-14] MEDS: PANTOPRAZOLE 40 MG TAB PO SCH (08:58)
[2024-07-14] MEDS: FAMOTIDINE 20 MG TAB PO SCH (08:58)
[2024-07-14 09:00] VITALS: BP 134/70; PULSE 89; RESP 18; TEMP 97.8; O2SAT 96
[2024-07-14] MEDS: LISINOPRIL 5 MG TAB PO SCH (09:01)
--- NOTE | 2024-07-14 09:30 | DVHPN2 ---
Progress Note - Dictate Date Seen: Jul 14, 2024 Medical Necessity Reason Pt with a Central, PICC or Fol: Yes The following are medically ne: Phillips Catheter Medical Necessity Reason CBI Subjective comfortable. wants her phillips out vital signs Vital Sign Date Time Temp Pulse Resp B/P (MAP) Pulse Ox O2 Delivery O2 Flow Rate FiO2 07/14/24 09:01 101/36 07/14/24 08:57 77 07/14/24 07:36 Nasal Cannula* 2 28 07/14/24 05:00 97.6 18 95 97.6 Total Intake and Output 07/13/24 07/13/24 07/14/24 15:00 23:00 07:00 Intake Total 100 ml Balance 100 ml medications Current Medications Medications Dose Ordered Sig/Raciel Route Start Time Stop Time Status Last Admin Dose Admin Nitroglycerin 0.4 mg Q5MINP PRN SL 07/13/24 14:45 Morphine Sulfate 2 mg Q30M PRN IV 07/13/24 14:45 Atorvastatin Calcium 20 mg HS PO 07/13/24 22:00 07/13/24 21:12 20 MG Famotidine 20 mg DAILY PO 07/14/24 10:00 07/14/24 08:58 20 MG Gabapentin 300 mg TID PO 07/13/24 22:00 07/14/24 06:03 300 MG Metoprolol Tartrate 25 mg BID PO 07/13/24 22:00 07/13/24 21:13 25 MG Pantoprazole Sodium 40 mg DAILY PO 07/14/24 10:00 07/14/24 08:58 40 MG Patient Own Medication 1 tab DAILY PO 07/14/24 10:00 UNV Patient Own Medication 1 tab DAILY PO 07/14/24 10:00 UNV Diagnostic Test (Pha) 1 strip ACHS 07/13/24 17:00 07/14/24 06:06 1 STRIP Insulin Human Regular ACHS SC 07/13/24 17:00 07/14/24 06:07 6 UNITS Dextrose 50 ml UD PRN IV 07/13/24 15:45 Sodium Chloride 1,000 ml @ 75 mls/hr [id number] IV 07/13/24 15:45 07/13/24 17:02 75 MLS/HR Ceftriaxone Sodium 50 ml @ 100 mls/hr DAILY@09 IV 07/14/24 09:00 07/14/24 08:42 100 MLS/HR Lisinopril 2.5 mg DAILY PO 07/14/24 10:00 Valsartan 40 mg DAILY PO 07/14/24 10:00 Acetaminophen/ Hydrocodone Bitart 1 tab Q6HPRN PRN PO 07/13/24 19:45 07/14/24 06:28 1 TAB objective NAD. urine is clear. CBI off laboratory and microbiology Laboratory Tests 07/11/24 09:50 Test 07/11/24 09:50 Range/Units Serum Glucose 236 H 74-106 mg/dL Assessment/Plan d/c phillips follow up 2 weeks Problems(with codes): (1) Bladder mass Prognosis fair Plan discussed with: Patient, Other Total Time (mins): MK MONTEMAYOR NP Jul 14, 2024 09:30
[2024-07-14] MEDS ORDERED: PATIENTS OWN MEDICATION (Valsartan (Diovan) 1 TAB) PO SCH (10:00)
[2024-07-14] MEDS ORDERED: PATIENTS OWN MEDICATION (Lisinopril 1 TAB) PO SCH (10:00)
[2024-07-14 11:54] LABS: Chloride 103 mmol/L (98-107); Potassium 4.6 mmol/L (3.5-5.1); Sodium 136 mmol/L (136-145)
[2024-07-14 11:55] LABS: Anion Gap 8 (5-15); Calcium 9.2 mg/dL (8.7-10.4); Carbon Dioxide 25 mmol/L (20-31)
[2024-07-14 11:59] LABS: Basophils # (auto) 0.1 10 ^3/uL (0-0.2); Basophils % (auto) 0.3 % (0.0-2.0); Eosinophils # (auto) 0 10 ^3/uL (0-0.8); Eosinophils % (auto) 0.1 % (0.0-7.0); Hematocrit 32.1 % (36.0-46.0); Hemoglobin 10.6 g/dL (12.2-16.2); Lymphocytes # (auto) 1.6 10 ^3/uL (0.4-5.4); Lymphocytes % (auto) 7.8 % (10.0-50.0); Mean Corpuscular Hemoglobin 28.6 pg (28.0-32.0); Mean Corpuscular Hgb Conc. 33.1 g/dL (32.0-36.0); Mean Corpuscular Volume 86.5 fL (80.0-100.0); Monocytes # (auto) 1.8 10 ^3/uL (0-1.3); Monocytes % (auto) 8.7 % (0.0-12.0); Neutrophils # (auto) 17.6 10 ^3/uL (1.6-8.6); Neutrophils % (auto) 83.1 % (37.0-80.0); Platelet Count (auto) 210 10^3/uL (140-450); Red Blood Cells 3.71 10^6/uL (4.0-5.20); Red Cell Distribution Width 13.3 % (11.8-14.3); White Blood Cell 21.2 10^3/uL (4.4-10.8)
[2024-07-14 12:00] LABS: BUN/Creatinine Ratio 30.1 (10.0-20.0)
[2024-07-14 12:09] LABS: Blood Urea Nitrogen 31 mg/dL (9-23); Glucose 290 mg/dL (74-106)
[2024-07-14 13:00] VITALS: BP 105/94; PULSE 86; RESP 19; TEMP 98.6; O2SAT 93
[2024-07-14] MEDS ORDERED: HYDR-4902 PO (15:34)
[2024-07-14 16:53] VITALS: BP 101/36; PULSE 77; TEMP 37
== END 2024-07-14 18:30 | disposition home or self-care (01) | DRG 669 ==
LOC: SUR 09:51 → OVERFLOW 14:31 → WEST WING 18:01
PROVIDERS: ADMIT Urology; ATTEND Student in an Organized Health Care Education/Training Program
PROC: 0TBB8ZZ Excision of Bladder, Via Natural or Artificial Opening Endoscopic (ICD-10-PCS; principal; 2024-07-13 13:11)
DX: C67.9 Malignant neoplasm of bladder, unspecified (principal); N13.6 Pyonephrosis; N17.9 Acute kidney failure, unspecified; D49.4 Neoplasm of unspecified behavior of bladder; E11.9 Type 2 diabetes mellitus without complications; I10 Essential (primary) hypertension; I25.10 Atherosclerotic heart disease of native coronary artery without angina pectoris; E87.5 Hyperkalemia; Z95.1 Presence of aortocoronary bypass graft; Z90.49 Acquired absence of other specified parts of digestive tract; Z87.440 Personal history of urinary (tract) infections; Z88.5 Allergy status to narcotic agent
CPT/HCPCS: 36415; 80048; 80053; 81001; 82962; 85025; 85610; 85730; 87086; G0378; J1100; J1815; J2250; J2405; J2704

== ENCOUNTER → 2024-07-13 | Outpatient (CLI) | payer MEDICAID ==
[~2024-07-13] MED LIST changes: -AUG875T PO; -BACDST PO; -BENZ100C97 PO; -CEPH-510 PO; +FAMO-12 PO; +LISI2.5T47 PO; -MET500T PO; +METO25TA5 PO; +NITR-52 PO; -PHEN-922 PO; -PROM1SOL4 PO; -RANO500T2 PO; -SITA100T7 PO
== END | disposition home or self-care (01) ==
LOC: LAB 08:06
PROVIDERS: ATTEND Urology
DX: N32.89 Other specified disorders of bladder (principal)
CPT/HCPCS: 36415; 84132

== ENCOUNTER → 2024-10-05 | Outpatient (CLI) | payer MEDICAID ==
[~2024-10-05] MED LIST changes: +HYDR-4902 PO
[2024-10-05 09:10] LABS: Basophils # (auto) 0.1 10 ^3/uL (0-0.2); Basophils % (auto) 0.5 % (0.0-2.0); Eosinophils # (auto) 0.3 10 ^3/uL (0-0.8); Eosinophils % (auto) 2.3 % (0.0-7.0); Hematocrit 33.1 % (36.0-46.0); Lymphocytes # (auto) 1.9 10 ^3/uL (0.4-5.4); Lymphocytes % (auto) 16.6 % (10.0-50.0); Mean Corpuscular Hemoglobin 28.9 pg (28.0-32.0); Mean Corpuscular Hgb Conc. 33.1 g/dL (32.0-36.0); Mean Corpuscular Volume 87.1 fL (80.0-100.0); Monocytes # (auto) 0.8 10 ^3/uL (0-1.3); Monocytes % (auto) 6.9 % (0.0-12.0); Neutrophils # (auto) 8.4 10 ^3/uL (1.6-8.6); Neutrophils % (auto) 73.7 % (37.0-80.0); Platelet Count (auto) 255 10^3/uL (140-450); Red Cell Distribution Width 14.7 % (11.8-14.3); White Blood Cell 11.4 10^3/uL (4.4-10.8)
[2024-10-05 09:32] LABS: Alkaline Phosphatase 76 U/L (46-116)
[2024-10-05 09:33] LABS: Albumin 4.3 g/dL (3.2-4.8); Anion Gap 7 (5-15); BUN/Creatinine Ratio 18.8 (10.0-20.0); Bilirubin, Total 0.3 mg/dL (0.2-1.0); Blood Urea Nitrogen 15 mg/dL (9-23); Calcium 9.8 mg/dL (8.7-10.4); Carbon Dioxide 28 mmol/L (20-31); Chloride 107 mmol/L (98-107); Cholesterol 122 mg/dL (< 200); LDL Cholesterol 54 mg/dL (< 100); Potassium 4.3 mmol/L (3.5-5.1); Sodium 142 mmol/L (136-145); Total Protein 7.6 g/dL (5.7-8.2)
[2024-10-05 09:37] LABS: Alanine Aminotransferase < 9 U/L (7-40); Aspartate Aminotransferase < 8 U/L (13-40); Glucose 177 mg/dL (74-106); HDL Cholesterol 30 mg/dL (40-59); Triglycerides 211 mg/dL (< 150)
[2024-10-05 09:43] LABS: Urine Bacteria FEW /hpf (None Seen); Urine Blood 2+ /uL (Negative); Urine Clarity Ex.Turbid (Clear); Urine Color Light-Brown (Yellow); Urine Protein, UAD 1+ (Negative); Urine Specific Gravity 1.012 (1.001-1.035); Urine Squamous Epithelial Cell FEW /hpf (<5); Urine Urobilinogen Normal (Negative); Urine WBC 453 /HPF (0-5); Urine WBC Clumps PRESENT /hpf (None Seen); Urine pH 7.5 (5.0-9.0)
[2024-10-05 09:47] LABS: Erythrocyte Sedimentation Rate 64 mm/hr (0-20)
== END | disposition home or self-care (01) ==
LOC: LAB 08:49
PROVIDERS: ATTEND Internal Medicine
DX: I10 Essential (primary) hypertension (principal); I25.10 Atherosclerotic heart disease of native coronary artery without angina pectoris
CPT/HCPCS: 36415; 80053; 80061; 81001; 84439; 84443; 85025; 85652

== ENCOUNTER → 2024-10-23 | Outpatient (CLI) | payer MEDICAID ==
[~2024-10-23] VITALS: Ht 154.9 cm; Wt 51.7 kg
[2024-10-23] MEDS: REGADENOSON 0.4 MG/5 ML SYRG IV ONE ×2 (11:50)
--- NOTE | 2024-10-24 12:46 | DVHSR ---
APPROVED REPORT Exam: Nuclear Stress Test Indication: Pre-Operative CV evaluation Stress Tech: Kylie Cui Ht: 5 ft 1 in Wt: 114 lbs BSA: 1.49 m2 BMI: 21.53 Medical History Medical History: CAD s/p CABG, Diabetes, HTN, MALIGNANT NEOPLASM OF BLADDER Allergies: CODEINE Stress Test Details Stress Test: Pharmacologic stress testing performed using 0.4 mg of regadenoson per 5 mL given IV ov er 10 seconds. Reason for pharmacologic stress test: CARDIAC CLEARANCE. HR Resting HR: 85 bpmMax Heart Rate (APMHR): 146.899469 bpm Max HR Achieved: 103 bpmTarget HR (85% APMHR): 124.459442 bpm % of APMHR: 70.55 Recovery HR: 98 bpm BP Resting BP: 117/60 mmHg Recovery BP: 116/54 mmHg ECG Resting ECG: Sinus Rhythm Clinical Reason for Termination: Completed protocol Nurse Comments Received patient from Nuclear Medicine. Patient is A&O x4 and on RA. FOR VS please refer back to st ress test assessment documentation. Patient is connected to lunchroom monitor. See cardio-neuro proce dural notes for addtional details. PIV flushes well. Reviewed POC and patient verbalizes understand ing and consents to test. Lexiscan stress test performed per protocol. pathology lab technician administered the Cardiolite. Pat ient tolerated well and vitals returned to baseline. Transferred to Nuclear Medicine via wheelchair with tech in stable condition. 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 Time of rest injection: 10:30 Date: 10/23/2024 Time of rest imagin:30 Date: 10/23/2024 Administration Route: IV Administration Site: Right AC Pharmacologic Stress Pharmacologic stress test was performed by injecting Regadenoson 0.4 mg IV push followed by the intra venous injection of 31.2 mCi of Tc-99m Sestamibi. Time of stress injection: 11:45 Date: 10/23/2024 Time of stress imagin:45 Date: 10/23/2024 Administration Route: IV Administration Site: Right AC Gated Stress SPECT was performed 60 minutes after stress injection. The images were gated to evaluate regional wall motion and calculate left ventricular ejection fracti on. Stress only was performed in the Supine position. Comments PATIENT RESCANNED 120 MINS AFTER STRESS INJECTION TO IMPROVE IMAGE QUALITY. 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
== END | disposition home or self-care (01) ==
LOC: XYW 09:36
PROVIDERS: ATTEND Internal Medicine
DX: Z01.810 Encounter for preprocedural cardiovascular examination (principal); C67.4 Malignant neoplasm of posterior wall of bladder; I25.10 Atherosclerotic heart disease of native coronary artery without angina pectoris; I10 Essential (primary) hypertension; E11.9 Type 2 diabetes mellitus without complications; Z95.1 Presence of aortocoronary bypass graft; Z88.5 Allergy status to narcotic agent
CPT/HCPCS: 78452; 93017; A9500; J2785

== ENCOUNTER 2024-11-10 09:52 | Inpatient (IN) | payer MEDICAID, OTHER ==
[~2024-11-10] VITALS: Ht 170.2 cm; Wt 58.3 kg
--- NOTE | 2024-11-10 10:14 | ED.PDOC ---
Altered Mental Status HPI Comments This is a 74 year old female [facility] presenting to the ED with chief complaint of ALOC. EMS reports that family had noticed the patient was more altered and fatigued than usual this morning, noting that she was having difficulty taking her medication. EMS relays that the patient was A/O x 3, not knowing what year it was. EMS states patient's O2 saturation was in the high 80s-low 90s, but when on 2L of O2, it went up to 96%. EMS notes a BP of 70/40. Patient reports that she currently has bilateral leg pain and is unable to walk now. Patient was recently diagnosed with bladder cancer. Patient denies any N/V/D, chest pain, SOB, abdominal pain, dizziness, headache, or numbness/weakness/tingling of extremities. Chief Complaint: ALOC Time Seen by MD: 10:11 Primary Care Provider: KANDICE Reviewed Notes: Nurses Notes, Venetian Blind Maker Notes, Medications, Allergies Allergies: Coded Allergies: Codeine (Verified Allergy, Unknown, 09/21/22) Home Meds Active Scripts Hydrocodone-Acetaminophen (Hydrocodone Bitartrate/AC 5-325 mg) 1 Tab Tab, 1 TAB PO Q8HP PRN for 3 Days, #9 TAB Prov:CHAO ARAUJO MD 07/14/24 Lisinopril (Lisinopril) 2.5 Mg Tab, 1 TAB PO DAILY for 30 Days, #30 TAB 5 Re fills Prov:PALMER ARCEO RESIDENT 07/05/24 Nitrofurantoin (Nitrofurantoin) 100 Mg Cap, 1 CAP PO BID for 5 Days, #10 CAP Prov:PALMER ARCEO RESIDENT 07/05/24 Atorvastatin Calcium (ATORVASTATIN CALCIUM) 20 Mg Tab, 20 MG PO HS for 30 Days, #30 TAB Prov:MARY MILLER Pharmacist 02/06/20 Reported Medications Metoprolol Tartrate (Metoprolol Tartrate) 25 Mg Tab, 1 TAB PO BID, #180 TAB 1 Refill 07/04/24 Famotidine (Famotidine) 20 Mg Tab, 20 MG PO, TAB 07/04/24 Metformin Hydrochloride (Metformin Hcl) 500 Mg Tab, 500 MG PO QAM for DIABETES for 30 Days, MG 02/20/22 Pantoprazole Sodium Sesquihydr (Protonix) 40 Mg Tab, 40 MG PO DAILY for GERD, #30 TAB 02/20/22 Valsartan (Diovan) 40 Mg Tab, 1 TAB PO DAILY for HTN, #90 TAB 1 Refill 02/20/22 Aspirin (Aspir-Low) 81 Mg Tab, 81 MG PO DAILY for 30 Days, MG 09/02/17 Gabapentin (Gabapentin) 300 Mg Cap, 300 MG PO TID for NEUROPATHY for 30 Days, MG 09/02/17 Information Source: Patient, Emergency Med Personnel Mode of Arrival: EMS Severity: Moderate Timing: Hours Duration: Since onset Prehospital treatment: None Quality: Decreased Alertness, Change in Behavior, Confusion Recent: None History of: Diabetes Past Medical History PAST MEDICAL HISTORY: Arthritis, Cancer, DM, High Lipids, HTN, UTI'S Surgical History: BTL, CABG, Cholecystectomy, Tubal Ligation SEQUINS SLINGER History: No Pertinent SEQUINS SLINGER History Family History Family History: Unknown Social History Smoker: Non-Smoker Alcohol: Denies ETOH Use Drugs: Denies Drug Use Lives In: Home Constitutional: reports: fatigue; denies: chills, diaphoresis, fever, malaise, sweats, weakness, others EENTM: denies: blurred vision, double vision, ear bleeding, ear discharge, ear drainage, ear pain, ear ringing, eye pain, eye redness, hearing loss, mouth pain, mouth swelling, nasal discharge, nose bleeding, nose congestion, nose pain, photophobia, tearing, throat pain, throat swelling, voice changes, others Respiratory: denies: cough, hemoptysis, orthopnea, SOB at rest, shortness of breath, SOB with excertion, stridor, wheezing, others Cardiovascular: denies: chest pain, dizzy spells, diaphoresis, Dyspnea on exertion, edema, irregular heart beat, left arm pain, lightheadedness, palpitations, PND, syncope, others Gastrointestinal: denies: abdomen distended, abdominal pain, blood streaked bowels, constipated, diarrhea, dysphagia, difficulty swallowing, hematemesis, melena, nausea, poor appetite, poor fluid intake, rectal bleeding, rectal pain, vomiting, others Genitourinary: denies: abnormal vagina bleeding, burning, dyspareunia, dysuria, flank pain, frequency, hematuria, incontinence, pain, , vagina discharge, urgency, others Neurological: denies: dizziness, fainting, headache, left sided numbness, left sided weakness, numbness, paresthesia, pre-existing deficit, right sided numbness, right sided weakness, seizure, speech problems, tingling, tremors, weakness, others Musculoskeletal: reports: others (Leg pin); denies: back pain, gout, joint pain, joint swelling, muscle pain, muscle stiffness, neck pain Integumetry: denies: bruises, change in color, change in hair/nails, dryness, laceration, lesions, lumps, rash, wounds, others Allergic/Immunocompromised: denies: Difficulty Healing, Frequent Infections, Hives, Itching, others Hematologic/Lymphatic: denies: anemia, blood clots, easy bleeding, easy bruising, swollen glands, others Endocrine: denies: excessive hunger, excessive sweating, excessive thirst, excessive urination, flushing, intolerance to cold, intolerance to heat, unexplained weight gain, unexplained weight loss, others Psychiatric: denies: anxiety, bipolar disorder, depression, hopeless, panic disorder, schizophrenia, sleepless, suicidal, others All Other Systems: Reviewed and Negative Physical Exam General Appearance: Moderate Distress HEENT: Normal ENT Inspection, Pharynx Normal, TMs Normal Neck: Full Range of Motion, Non-Tender, Normal, Normal Inspection Respiratory: Chest Non-Tender, Lungs Clear, No Accessory Muscle Use, No Respiratory Distress, Normal Breath Sounds Cardiovascular: No Edema, No JVD, No Murmur, No Gallop, Normal Peripheral Pulses, Regular Rate/Rhythm Breast Exam: Deferred Gastrointestinal: No Organomegaly, Non Tender, No Pulsatile Mass, Normal Bowel Sounds, Soft Genitalia: Deferred Pelvic: Deferred Rectal: Deferred Extremities: No calf tenderness, Normal capillary refill, No pedal edema Musculoskeletal : Apperance: Normal Neurologic: coin purse assembler II-XII nml as Tested, Motor Weakness, Normal Affect, No Sensory Deficits, Other (Altered mental status) Cerebellar Function: Unable to Test Reflexes: Normal Skin: Dry, Pallor, Warm Lymphatic: No Adenopathy EKG EKG : Pulse Rate (adult): 74 [place]: Normal Cardiac Rhythm: NSR ST: Nonsp Was a procedure done? Was a procedure done?: No Differential Diagnosis (ALOC) Differential Diagnosis: Dehydration, DKA, Hypoxemia, Seizure, CVA X-Ray, Labs, Meds, VS Vital Signs Date Time Temp Pulse Resp B/P (MAP) Pulse Ox O2 Delivery O2 Flow Rate FiO2 11/10/24 15:00 77 17 128/44 (72) 100 11/10/24 12:38 98.1 73 16 108/33 (58) 98 98.1 11/10/24 10:49 76 25 95 Nasal Cannula* 2 28 11/10/24 10:09 78 25 112/37 (62) 95 11/10/24 10:03 98.6 86 16 78/45 (56) 96 98.6 11/10/24 09:56 74 Lab Test 11/10/24 13:10 11/10/24 12:07 11/10/24 11:05 Range/Units Troponin I High Sensitivity 3 L < 3 L </=34 ng/L Urine Color Dark-brown Yellow Urine Clarity Ex.turbid Clear Urine pH 6.5 5.0-9.0 Urine Specific [place] 1.010 1.001-1.035 Urine Protein 3+ H Negative Urine Ketones Trace Negative Urine Blood 2+ H Negative /uL Urine Nitrite Negative Negative Urine Bilirubin Negative Negative Urine Urobilinogen 2 H Negative mg/dL Urine Leukocyte Esterase 3+ Negative /uL Urine RBC 39 0 - 4 /hpf Urine WBC Clumps Present None Seen /hpf Urine Microscopic WBC 952 H 0-5 /HPF Urine Squamous Epithelial Cells None seen <5 /hpf Urine Bacteria Mod H None Seen /hpf Urine Mucus Moderate None Seen Urine Glucose Normal Normal mg/dL White Blood Count 21.8 H 4.4-10.8 10^3/uL Red Blood Count 3.39 L 4.0-5.20 10^6/uL Hemoglobin 9.7 L 12.2-16.2 g/dL Hematocrit 30.1 L 36.0-46.0 % Mean Corpuscular Volume 88.8 80.0-100.0 fL Mean Corpuscular Hemoglobin 28.6 28.0-32.0 pg Mean Corpuscular Hemoglobin Concent 32.2 32.0-36.0 g/dL Red Cell Distribution Width 13.6 11.8-14.3 % Platelet Count 268 140-450 10^3/uL Mean Platelet Volume 8.9 6.9-10.8 fL Neutrophils (%) (Auto) 81.8 H 37.0-80.0 % Lymphocytes (%) (Auto) 7.5 L 10.0-50.0 % Monocytes (%) (Auto) 9.9 0.0-12.0 % Eosinophils (%) (Auto) 0.1 0.0-7.0 % Basophils (%) (Auto) 0.7 0.0-2.0 % Neutrophils # (Auto) 17.8 H 1.6-8.6 10 ^3/uL Lymphocytes # (Auto) 1.6 0.4-5.4 10 ^3/uL Monocytes # (Auto) 2.2 H 0-1.3 10 ^3/uL Eosinophils # (Auto) 0 0-0.8 10 ^3/uL Basophils # (Auto) 0.2 0-0.2 10 ^3/uL Nucleated Red Blood Cells 0.0 % Sodium Level 138 136-145 mmol/L Potassium Level 5.2 H 3.5-5.1 mmol/L Chloride Level 111 H 98-107 mmol/L Carbon Dioxide Level 19 L 20-31 mmol/L Anion Gap 8 5-15 Blood Urea Nitrogen 39 H 9-23 mg/dL Creatinine 1.67 H 0.550-1.02 mg/dL Glomerular Filtration Rate Calc 32 >90 mL/min BUN/Creatinine Ratio 23.4 H 10.0-20.0 Serum Glucose 260 H 74-106 mg/dL Hemoglobin A1c 7.3 H <5.7 % A1C Lactic Acid Level 1.5 0.4-2.0 mmol/L Calcium Level 9.6 8.7-10.4 mg/dL Current Medications Medications (Trade) Dose Ordered Sig/Raciel Route Start Time Stop Time Status Last Admin Sodium Chloride 1,000 ml @ 150 mls/hr Q6H40M ONCE IV 11/10/24 10:15 11/10/24 11:40 DC 11/10/24 10:37 Vancomycin HCl 200 ml @ 200 mls/hr ONCE ONCE IV 11/10/24 11:30 11/10/24 12:29 DC 11/10/24 12:38 Ceftriaxone Sodium 50 ml @ 100 mls/hr ONCE ONCE IV 11/10/24 11:30 11/10/24 11:59 DC 11/10/24 11:44 Sodium Chloride 1,850 ml @ 1,850 mls/hr ONCE ONCE IV 11/10/24 11:45 11/10/24 12:44 DC 11/10/24 11:46 Zirconium Oxide (Lokelma) 10 gm ONCE ONCE PO 11/10/24 12:45 11/10/24 12:48 DC 11/10/24 12:55 CT Head indicates: 1. No acute intracranial process. 2. Chronic ischemic changes as described above. Chest XR indicates: 1. No acute cardiopulmonary disease. The CBC shows an elevated white blood cell count of 21.8 The patient is also anemic with a hemoglobin of 9.7 and hematocrit of 30.1 The patient was given normal saline per sepsis protocol The patient was then started on vancomycin and ceftriaxone IV piggyback The patient's white blood cell count is elevated at 21.8 The patient is anemic with a hemoglobin of 9.7 and hematocrit of 30.1 The chemistry panel shows a potassium of 5.1 The BUN and the creatinine are also elevated The lactic acid level is within normal range The urine test is positive for significant infection We feel that this is a UTI induced sepsis Images Reviewed?: Images reviewed and evaluated by me Time of 1ST Reevaluation: 11:31 Reevaluation 1ST: Unchanged Patient Education/Counseling: Diagnosis, Treatment, Prognosis Family Education/Counseling: No Family Present Additional Information Reviewed patient's previous visit(s): 07/13/24 for gross hematuria and bladder cancer The following tests were ordered, and results were reviewed by me: CT Head, Chest XR, EKG, CBC, BMP, UA, Lactic Acid, Blood Culture, Troponin Additional information was gathered from interviewing the following independent historian: EMS I reviewed and agreed with the following test results read by other provider: CT Head, Chest XR I discussed treatments and results with medical personnel and: Patient Comprehensive systems review obtained and negative except for what is stated in the HPI. Sepsis Sepsis Reasesment Focused Exam Orders: Laboratory Tests 11/10/24 11:05: Lactic Acid Level 1.5 Departure 1 Departure Time of Disposition: 11:31 Impression: Primary Impression: Sepsis secondary to UTI Additional Impressions: Generalized weakness Hyperkalemia Disposition: ADMITTED INPATIENT Admit to: Tele Condition: Fair Critical Care Note Critical Care Time?: Yes (45 min-critical care time only) Stability Stability form required: Yes Unstable for transfer: Telemetry monitoring (Telemetry monitoring required), ED Physician Assesment (Clinical assesment) Heart Score Heart Score: Heart Score Response (Comments) Value History N/A 0 EKG N/A 0 Age N/A 0 Risk Factors N/A 0 Troponin N/A 0 Total 0 I personally scribed for PREETI HAGEN MD ([email or web address]) on 11/10/24 at 10:14. Electronically submitted by Omar Rosas ([email or web address]). I personally scribed for PREETI HAGEN MD ([email or web address]) on 11/10/24 at 10:19. Electronically submitted by Omar Rosas ([email or web address]). I personally scribed for PREETI HAGEN MD ([email or web address]) on 11/10/24 at 11:23. Electronically submitted by Omar Rosas ([email or web address]). PREETI HAGEN MD Nov 10, 2024 10:14
[2024-11-10] MEDS: SODIUM CHLORIDE 0.9% 1,000 ML IV ONE (10:37)
--- NOTE | 2024-11-10 10:45 | DVH ---
CHEST RADIOGRAPH Indication: aloc Technique: Single frontal view of the chest was obtained Comparison: XY CHEST PORTABLE on DOS: 07/03/24 FINDINGS: Lines and Tubes: None Lungs: No focal consolidation. Pleura: No effusion. No pneumothorax. Cardiomediastinal contours: Unremarkable Bones: No acute osseous abnormality. Status post CABG IMPRESSION: 1. No acute cardiopulmonary disease.
[2024-11-10 10:49] VITALS: PULSE 76; RESP 25; O2SAT 95
--- NOTE | 2024-11-10 10:54 | DVH ---
EXAM: CT HEAD WITHOUT CONTRAST HISTORY: aloc COMPARISON: None TECHNIQUE: Axial images of the head were obtained and reformatted in coronal and sagittal planes. All CT scans at this medical facility are performed using dose modulation techniques as appropriate t o a performed exam including the following: Automated exposure control was utilized; adjustment of th e MA and/or KV according to patient size; and use of iterative reconstruction technique. CT Dose: CTDI volume is 53 mGy. Dose-length product is 966 mGy*cm FINDINGS: There is no evidence of acute intracranial hemorrhage, mass, mass effect midline shift. There is no h ydrocephalus or extra-axial fluid collection. 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 There is a small chronic infarct in the posterior medial left occip ital lobe. The visualized paranasal sinuses and mastoid air cells are clear. The calvarium is intact. IMPRESSION: 1. No acute intracranial process. 2. Chronic ischemic changes as described above. HS:Y
[2024-11-10 11:22] LABS: Basophils # (auto) 0.2 10 ^3/uL (0-0.2); Basophils % (auto) 0.7 % (0.0-2.0); Eosinophils # (auto) 0 10 ^3/uL (0-0.8); Eosinophils % (auto) 0.1 % (0.0-7.0); Hematocrit 30.1 % (36.0-46.0); Hemoglobin 9.7 g/dL (12.2-16.2); Lymphocytes # (auto) 1.6 10 ^3/uL (0.4-5.4); Lymphocytes % (auto) 7.5 % (10.0-50.0); Mean Corpuscular Hemoglobin 28.6 pg (28.0-32.0); Mean Corpuscular Hgb Conc. 32.2 g/dL (32.0-36.0); Mean Corpuscular Volume 88.8 fL (80.0-100.0); Monocytes # (auto) 2.2 10 ^3/uL (0-1.3); Monocytes % (auto) 9.9 % (0.0-12.0); Neutrophils # (auto) 17.8 10 ^3/uL (1.6-8.6); Neutrophils % (auto) 81.8 % (37.0-80.0); Platelet Count (auto) 268 10^3/uL (140-450); Red Blood Cells 3.39 10^6/uL (4.0-5.20); Red Cell Distribution Width 13.6 % (11.8-14.3); White Blood Cell 21.8 10^3/uL (4.4-10.8)
[2024-11-10 11:31] LABS: Sodium 138 mmol/L (136-145)
[2024-11-10 11:32] LABS: Anion Gap 8 (5-15)
[2024-11-10 11:33] LABS: Calcium 9.6 mg/dL (8.7-10.4)
[2024-11-10 11:37] LABS: BUN/Creatinine Ratio 23.4 (10.0-20.0)
[2024-11-10 11:38] LABS: Blood Urea Nitrogen 39 mg/dL (9-23); Carbon Dioxide 19 mmol/L (20-31); Chloride 111 mmol/L (98-107); Glucose 260 mg/dL (74-106); Potassium 5.2 mmol/L (3.5-5.1)
[2024-11-10] MEDS: cefTRIAXone 1GM/50ML D5W 50 ML IV ONE (11:44)
[2024-11-10] MEDS: SODIUM CHLORIDE 0.9% 1,850 ML IV ONE (11:46)
[2024-11-10 12:29] LABS: Urine Bacteria MOD /hpf (None Seen); Urine Blood 2+ /uL (Negative); Urine Clarity Ex.Turbid (Clear); Urine Color Dark-Brown (Yellow); Urine Mucus MODERATE (None Seen); Urine Protein, UAD 3+ (Negative); Urine Squamous Epithelial Cell None Seen /hpf (<5); Urine Urobilinogen 2 mg/dL (Negative); Urine WBC 952 /HPF (0-5); Urine WBC Clumps PRESENT /hpf (None Seen); Urine pH 6.5 (5.0-9.0)
[2024-11-10] MEDS: VANCOMYCIN 1GM/200ML PM 200 ML IV ONE (12:38)
[2024-11-10] MEDS: SODIUM ZIRCONIUM CYCL 10 GM PAK PO ONE (12:55)
[2024-11-10] MEDS ORDERED: DEXTROSE (50%) 50ML SYRG IV PRN (16:00)
[2024-11-10] MEDS ORDERED: NITROGLYCERIN 0.4 MG SL TAB SL PRN (16:00)
[2024-11-10] MEDS ORDERED: VANCOMYCIN PER PHARMACY 0 MG IV SCH (16:00)
--- NOTE | 2024-11-10 16:00 | DVHHP2 ---
History of Present Illness Reason for Visit: ALOC History of Present Illness Karly Stack is a 74-year-old female with past medical history of CAD, hypertension, hyperlipidemia, diabetes, UTIs, bladder tumor mass, CABG x3 at [facility], cholecystectomy, tubal ligation, and cystoscopy with TURP who presents to the ED with ALOC x1 day. Patient reports that she does not use oxygen at home however upon examination she is on 2 L of oxygen via nasal cannula. Patient states that she was feeling fatigued and confused EMS noted her blood pressure to be 70/40. Patient also states that she was not walking today just became very weak. She states that she typically does walk with a front wheel walker. Patient denies any chest pain, shortness of breath, fever, chills, lightheadedness, dizziness, abdominal pain, nausea, vomiting, diarrhea, recent trauma or injury, recent sick contacts, recent travels, recent ingestion of spoiled food. Patient reports that she lives at home with family. Cardiovascular: CAD, HTN, hyperipidemia Renal/: UTI Endocrine: Diabetes Past Medical History Bladder tumor mass Past Surgical History: Cholecystectomy, Other (CABG x3 at [facility] and cystoscopy with TURP), Tubal Ligation Family History: Other (Dad with [place] now ) Smoke: No ALCOHOL: none Drugs: None Lives: with Family Domestic Violence: Neg Review of Systems Constitutional: Yes: Other (ALOC) Allergies: Coded Allergies: Codeine (Verified Allergy, Unknown, 09/21/22) Medications Current Medications Medications Dose Ordered Sig/Raciel Route Start Time Stop Time Status Last Admin Dose Admin Diagnostic Test (Pha) 1 strip ACHS 11/10/24 17:00 UNV Insulin Human Regular ACHS SC 11/10/24 17:00 UNV Dextrose 50 ml UD PRN IV 11/10/24 16:00 UNV Ondansetron HCl 4 mg Q4HP PRN IV 11/10/24 16:00 UNV Acetaminophen 650 mg Q6HP PRN PO 11/10/24 16:00 UNV Nitroglycerin 0.4 mg Q5MINP PRN SL 11/10/24 16:00 UNV Enoxaparin Sodium 30 mg DAILY SC 11/11/24 10:00 UNV Aspirin 81 mg DAILY PO 11/11/24 10:00 UNV Atorvastatin Calcium 20 mg HS PO 11/10/24 22:00 UNV Famotidine 20 mg DAILY PO 11/11/24 10:00 UNV Gabapentin 300 mg TID PO 11/10/24 22:00 UNV Metoprolol Tartrate 25 mg BID PO 11/10/24 22:00 UNV Pantoprazole Sodium 40 mg DAILY PO 11/11/24 10:00 UNV Patient Own Medication 1 tab DAILY PO 11/11/24 10:00 UNV Patient Own Medication 1 tab DAILY PO 11/11/24 10:00 UNV Exam Vital Signs Vital Signs Date Time Temp Pulse Resp B/P (MAP) Pulse Ox O2 Delivery O2 Flow Rate FiO2 11/10/24 15:00 77 17 128/44 (72) 100 11/10/24 12:38 98.1 98.1 11/10/24 10:49 Nasal Cannula* 2 28 General Appearance: Alert, Oriented X3, Cooperative, No acute distress HEENT: Atraumatic, PERRLA, EOMI, Mucous membr. moist/pink Respiratory: Normal air movement Cardiovascular: Normal S1, Normal S2 Abdominal: Normal bowel sounds, Soft Extremities: Normal pulses Neuro: Normal speech, Normal tone, Sensation intact Psych/Mental Status: Mental status NL, Mood NL Labs/Xrays Labs Test 11/10/24 13:10 11/10/24 12:07 11/10/24 11:05 Range/Units Troponin I High Sensitivity 3 L </=34 ng/L Urine Color Dark-brown Yellow Urine Clarity Ex.turbid Clear Urine pH 6.5 5.0-9.0 Urine Specific [place] 1.010 1.001-1.035 Urine Protein 3+ H Negative Urine Ketones Trace Negative Urine Blood 2+ H Negative /uL Urine Nitrite Negative Negative Urine Bilirubin Negative Negative Urine Urobilinogen 2 H Negative mg/dL Urine Leukocyte Esterase 3+ Negative /uL Urine RBC 39 0 - 4 /hpf Urine WBC Clumps Present None Seen /hpf Urine Microscopic WBC 952 H 0-5 /HPF Urine Squamous Epithelial Cells None seen <5 /hpf Urine Bacteria Mod H None Seen /hpf Urine Mucus Moderate None Seen Urine Glucose Normal Normal mg/dL White Blood Count 21.8 H 4.4-10.8 10^3/uL Red Blood Count 3.39 L 4.0-5.20 10^6/uL Hemoglobin 9.7 L 12.2-16.2 g/dL Hematocrit 30.1 L 36.0-46.0 % Mean Corpuscular Volume 88.8 80.0-100.0 fL Mean Corpuscular Hemoglobin 28.6 28.0-32.0 pg Mean Corpuscular Hemoglobin Concent 32.2 32.0-36.0 g/dL Red Cell Distribution Width 13.6 11.8-14.3 % Platelet Count 268 140-450 10^3/uL Mean Platelet Volume 8.9 6.9-10.8 fL Neutrophils (%) (Auto) 81.8 H 37.0-80.0 % Lymphocytes (%) (Auto) 7.5 L 10.0-50.0 % Monocytes (%) (Auto) 9.9 0.0-12.0 % Eosinophils (%) (Auto) 0.1 0.0-7.0 % Basophils (%) (Auto) 0.7 0.0-2.0 % Neutrophils # (Auto) 17.8 H 1.6-8.6 10 ^3/uL Lymphocytes # (Auto) 1.6 0.4-5.4 10 ^3/uL Monocytes # (Auto) 2.2 H 0-1.3 10 ^3/uL Eosinophils # (Auto) 0 0-0.8 10 ^3/uL Basophils # (Auto) 0.2 0-0.2 10 ^3/uL Nucleated Red Blood Cells 0.0 % Sodium Level 138 136-145 mmol/L Potassium Level 5.2 H 3.5-5.1 mmol/L Chloride Level 111 H 98-107 mmol/L Carbon Dioxide Level 19 L 20-31 mmol/L Anion Gap 8 5-15 Blood Urea Nitrogen 39 H 9-23 mg/dL Creatinine 1.67 H 0.550-1.02 mg/dL Glomerular Filtration Rate Calc 32 >90 mL/min BUN/Creatinine Ratio 23.4 H 10.0-20.0 Serum Glucose 260 H 74-106 mg/dL Lactic Acid Level 1.5 0.4-2.0 mmol/L Calcium Level 9.6 8.7-10.4 mg/dL EXAM: CT HEAD WITHOUT CONTRAST HISTORY: aloc COMPARISON: None TECHNIQUE: Axial images of the head were obtained and reformatted in coronal and sagittal planes. All CT scans at this medical facility are performed using dose modulation techniques as appropriate to a performed exam including the following: Automated exposure control was utilized; adjustment of the MA and/or KV according to patient size; and use of iterative reconstruction technique. CT Dose: CTDI volume is 53 mGy. Dose-length product is 966 mGy*cm FINDINGS: There is no evidence of acute intracranial hemorrhage, mass, mass effect midline shift. There is no hydrocephalus or extra-axial fluid collection. 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 There is a small chronic infarct in the posterior medial left occipital lobe. The visualized paranasal sinuses and mastoid air cells are clear. The calvarium is intact. IMPRESSION: 1. No acute intracranial process. 2. Chronic ischemic changes as described above. CHEST RADIOGRAPH Indication: aloc Technique: Single frontal view of the chest was obtained Comparison: XY CHEST PORTABLE on DOS: 07/03/24 FINDINGS: Lines and Tubes: None Lungs: No focal consolidation. Pleura: No effusion. No pneumothorax. Cardiomediastinal contours: Unremarkable Bones: No acute osseous abnormality. Status post CABG IMPRESSION: 1. No acute cardiopulmonary disease. Assessment/Plan Assessment/Plan Assessment Acute hypoxic respiratory failure Acute encephalopathy likely due to acute cystitis Leukocytosis likely due to acute cystitis Anemia Hyperkalemia MARITZA Diabetes type 2 History of CAD History of hypertension History of hyperlipidemia History of UTIs History of bladder tumor mass History of CABG x3 at [facility] History of cholecystectomy History of tubal ligation History of cystoscopy with TURP Plan Admit to tele UA NS 2.85 L given ED IV antibiotics-ceftriaxone + vancomycin Troponin noted EKG Blood cultures Lactic CT head Chest x-ray Lokelma Hemoglobin A1c ISS and Accu-Cheks Urine culture Diet DVT prophylaxis-Lovenox PUD prophylaxis-PPIs Discussed plan of care with patient and nurse Plan discussed with: Patient 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 Procedure Category Date Status Time Hemoglobin A1c LAB 11/10/24 Logged 15:55 Glucose Blood PHA 11/10/24 Logged (Accu-Chek Comfort 17:00 Insulin R (Human) PHA 11/10/24 Logged (Insulin R) 17:00 Dextrose 50% Syringe PHA 11/10/24 Logged 16:00 Admit ADMIT 11/10/24 Transmitted 15:55 Allergies SHIRIN 11/10/24 In Process 15:55 Ondansetron Hcl PHA 11/10/24 Logged (Zofran) 16:00 Complete Blood Count LAB 11/11/24 Verified 04:00 Comprehensive LAB 11/11/24 Verified Metabolic Panel 04:00 Cardiac DIET 11/10/24 Transmitted Diet-2gna,Lofat,Lochol Dinner Acetaminophen Tablet PHA 11/10/24 Logged (Tylenol Tablet) 16:00 Nitroglycerin PHA 11/10/24 Logged Sublingual (Ntrostat 16:00 Stat Ekg For Chest SHIRIN 11/10/24 In Process Pain 15:55 Notify Md Of Changes [facility] 11/10/24 In Process From Base 15:55 Resident Care Provider For [facility] 11/10/24 In Process 24 Hours 15:55 Emergency Dysrhythmia [facility] 11/10/24 In Process Protocol 15:55 Rhythm Strips Once [facility] 11/10/24 In Process Every Shift 15:55 Oxygen By Nasal RT 11/10/24 Transmitted Cannula 15:55 Enoxaparin Sodium PHA 11/11/24 Logged (Lovenox) 10:00 Urine Bacterial LARRY 11/10/24 Logged Culture 15:55 Aspirin Enteric PHA 11/11/24 Logged Coated Tablet 10:00 Atorvastatin (Lipitor) PHA 11/10/24 Logged 22:00 Famotidine Tablet PHA 11/11/24 Logged (Pepcid Tablet) 10:00 Gabapentin Capsule PHA 11/10/24 Logged (Neurontin Capsule) 22:00 Metoprolol Tartrate PHA 11/10/24 Transmitted Tablet (Lopressor Ta 22:00 Pantoprazole Tablet PHA 11/11/24 Logged (Protonix Tablet) 10:00 (Nf) Lisinopril PHA 11/11/24 Logged 10:00 (Nf) Valsartan PHA 11/11/24 Logged (Diovan) 10:00 Date of Service: Nov 10, 2024 Billing Provider: JULIAN PORTER Common Visit Codes: [id number] INP/OBS CARE (HIGH) JULIAN PORTER Nov 10, 2024 16:00
[2024-11-10] MEDS: ACCU-CHEK COMFORT CURVE STRIP VI SCH (17:13)
[2024-11-10] MEDS: InsuLIN REG 1unit/0.01ml Soln (100units/ml) SC SCH (17:25)
[2024-11-10] MEDS: GABAPENTIN 300 MG CAP PO SCH (19:49)
[2024-11-10] MEDS: ACETAMINOPHEN 325 MG TAB PO PRN (19:49)
[2024-11-10 19:50] VITALS: PULSE 85; RESP 20; O2SAT 96
[2024-11-10] MEDS: SODIUM CHLORIDE 0.9% 500 ML IV ONE ×2 (21:47→23:17)
[2024-11-10] MEDS: METOPROLOL TARTRATE 25 MG TAB PO SCH (22:00)
[2024-11-10] MEDS: ATORVASTATIN 20 MG TAB PO SCH (22:00)
[2024-11-10] MEDS: MIDODRINE HCL 10 MG TAB PO ONE (23:58)
[2024-11-11] VITALS (7 sets, daily range): BP systolic 117–133; BP diastolic 39–62; PULSE 72–87; RESP 18–20; TEMP 97.5–97.8; O2SAT 93–98
[2024-11-11] MEDS: MIDODRINE HCL 10 MG TAB PO SCH (06:17)
[2024-11-11 06:19] LABS: Basophils # (auto) 0.1 10 ^3/uL (0-0.2); Basophils % (auto) 0.3 % (0.0-2.0); Eosinophils # (auto) 0 10 ^3/uL (0-0.8); Eosinophils % (auto) 0.1 % (0.0-7.0); Hemoglobin 8.1 g/dL (12.2-16.2); Lymphocytes # (auto) 0.8 10 ^3/uL (0.4-5.4); Mean Corpuscular Hemoglobin 28.7 pg (28.0-32.0); Mean Corpuscular Hgb Conc. 32.4 g/dL (32.0-36.0); Mean Corpuscular Volume 88.6 fL (80.0-100.0); Monocytes % (auto) 9.8 % (0.0-12.0); Neutrophils # (auto) 17.3 10 ^3/uL (1.6-8.6); Neutrophils % (auto) 85.8 % (37.0-80.0); Platelet Count (auto) 210 10^3/uL (140-450); Red Blood Cells 2.82 10^6/uL (4.0-5.20); Red Cell Distribution Width 13.4 % (11.8-14.3); White Blood Cell 20.1 10^3/uL (4.4-10.8)
[2024-11-11 06:35] LABS: Albumin 3.3 g/dL (3.2-4.8); Alkaline Phosphatase 65 U/L (46-116); Anion Gap 9 (5-15); Calcium 8.7 mg/dL (8.7-10.4); Potassium 4.3 mmol/L (3.5-5.1); Sodium 140 mmol/L (136-145)
[2024-11-11 06:36] LABS: Alanine Aminotransferase < 9 U/L (7-40); Aspartate Aminotransferase < 8 U/L (13-40); Bilirubin, Total 0.4 mg/dL (0.2-1.0); Blood Urea Nitrogen 31 mg/dL (9-23); Carbon Dioxide 16 mmol/L (20-31); Chloride 115 mmol/L (98-107); Glucose 295 mg/dL (74-106)
[2024-11-11] MEDS: LOSARTAN POTASSIUM 25 MG TAB PO SCH (09:44)
[2024-11-11] MEDS: ASPirin-EC 81 mg tab PO SCH (09:45)
[2024-11-11] MEDS: PANTOPRAZOLE 40 MG TAB PO SCH (09:47)
[2024-11-11] MEDS: ENOXAPARIN SOD 30 MG/0.3 ML SYRINGE SC SCH (09:49)
[2024-11-11] MEDS: cefTRIAXone 1GM/50ML D5W 50 ML IV SCH (09:56)
[2024-11-11] MEDS: FAMOTIDINE 20 MG TAB PO SCH (10:00)
[2024-11-11] MEDS ORDERED: PATIENTS OWN MEDICATION (Lisinopril 1 TAB) PO SCH (10:00)
[2024-11-11] MEDS: VANCOMYCIN 1GM/200ML PM 200 ML IV SCH (16:24)
--- NOTE | 2024-11-11 17:02 | DVHPN2 ---
Subjective In bed confused oriented x1 Reviewed: H&P, Labs Changes from previous H/P or p: No Changes Objective Vitals Vital Signs Date Time Temp Pulse Resp B/P (MAP) Pulse Ox O2 Delivery O2 Flow Rate FiO2 11/11/24 14:47 Nasal Cannula* 2 28 11/11/24 13:00 97.8 86 18 131/39 (69) 98 97.8 Intake/Output Intake and Output 11/11/24 07:00 Intake Total 2300 ml Balance 2300 ml Intake IV Total 2300 ml General Appearance: Alert HEENT: Atraumatic Lungs: Clear to auscultation Cardiovascular: Regular rate, Normal S1, Normal S2 Abdomen: Normal bowel sounds Medications Current Medications Medications Dose Ordered Sig/Raciel Route Start Time Stop Time Status Last Admin Dose Admin Diagnostic Test (Pha) 1 strip ACHS 11/10/24 17:00 11/11/24 13:23 1 STRIP Insulin Human Regular ACHS SC 11/10/24 17:00 11/11/24 13:24 4 UNITS Dextrose 50 ml UD PRN IV 11/10/24 16:00 Ondansetron HCl 4 mg Q4HP PRN IV 11/10/24 16:00 Acetaminophen 650 mg Q6HP PRN PO 11/10/24 16:00 11/11/24 16:16 650 MG Nitroglycerin 0.4 mg Q5MINP PRN SL 11/10/24 16:00 Enoxaparin Sodium 30 mg DAILY SC 11/11/24 10:00 11/11/24 09:49 30 MG Aspirin 81 mg DAILY PO 11/11/24 10:00 11/11/24 09:45 81 MG Atorvastatin Calcium 20 mg HS PO 11/10/24 22:00 11/10/24 22:00 20 MG Famotidine 20 mg DAILY PO 11/11/24 10:00 Gabapentin 300 mg TID PO 11/10/24 22:00 11/11/24 13:29 300 MG Metoprolol Tartrate 25 mg BID PO 11/10/24 22:00 11/11/24 09:47 25 MG Pantoprazole Sodium 40 mg DAILY PO 11/11/24 10:00 11/11/24 09:47 40 MG Losartan Potassium 25 mg DAILY PO 11/11/24 10:00 11/11/24 09:44 25 MG Vancomycin HCl 0 ml @ 0 mls/hr UD IV 11/10/24 16:00 Ceftriaxone Sodium 50 ml @ 100 mls/hr DAILY@09 IV 11/11/24 09:00 11/11/24 09:56 100 MLS/HR Midodrine 10 mg TID@0600,1200,1800 PO 11/11/24 06:00 11/11/24 06:17 10 MG Vancomycin HCl 200 ml @ 160 mls/hr Q24H IV 11/11/24 15:00 11/11/24 16:24 160 MLS/HR Laboratory Results Laboratory Tests 11/11/24 05:15 Chemistry Test 11/11/24 05:15 Albumin 3.3 g/dL (3.2-4.8) Calcium Level 8.7 mg/dL (8.7-10.4) Total Protein 6.0 g/dL (5.7-8.2) LFT Test 11/11/24 05:15 Alanine Aminotransferase (ALT) < 9 U/L (7-40) Alkaline Phosphatase 65 U/L (46-116) Aspartate Amino Transferase (AST) < 8 U/L (13-40) L Total Bilirubin 0.4 mg/dL (0.2-1.0) Urinalysis Test 11/10/24 12:07 Urine Color Dark-brown (Yellow) Urine Clarity Ex.turbid (Clear) Urine pH 6.5 (5.0-9.0) Urine Specific [place] 1.010 (1.001-1.035) Urine Protein 3+ (Negative) H Urine Ketones Trace (Negative) Urine Blood 2+ /uL (Negative) H Urine Nitrite Negative (Negative) Urine Bilirubin Negative (Negative) Urine Urobilinogen 2 mg/dL (Negative) H Urine Leukocyte Esterase 3+ /uL (Negative) Urine RBC 39 /hpf (0 - 4) Urine WBC Clumps Present /hpf (None Seen) Urine Microscopic WBC 952 /HPF (0-5) H Urine Squamous Epithelial Cells None seen /hpf (<5) Urine Bacteria Mod /hpf (None Seen) H Urine Mucus Moderate (None Seen) Urine Glucose Normal mg/dL (Normal) Microbiology Microbiology Date/Time Source Procedure Growth Status 11/10/24 12:07 Urine - [place] Urine Culture - Preliminary Resulted 11/10/24 11:05 Blood Blood Culture - Preliminary Resulted Assessment/Plan Assessment/Plan Assessment Acute hypoxic respiratory failure Acute encephalopathy likely due to acute cystitis Sepsis due to UTI Leukocytosis likely due to acute cystitis Anemia Hyperkalemia MARITZA due to ATN from sepsis Diabetes type 2 History of CAD History of hypertension History of hyperlipidemia History of UTIs History of bladder tumor mass History of CABG x3 at [facility] History of cholecystectomy History of tubal ligation History of cystoscopy with TURP Continue IV abx Blood cx and urine cx IVF Monitor bmp daily Plan discussed with: Patient My Orders Orders - FANNY VAZQUEZ MD Procedure Category Date Status Time Pt Request For Service PT 11/11/24 Logged 13:40 Date of Service: Nov 11, 2024 Billing Provider: FANNY VAZQUEZ MD Common Visit Codes: [id number] INP/OBS CARE(HIGH) FANNY VAZQUEZ MD Nov 11, 2024 17:01
[2024-11-12] VITALS (8 sets, daily range): BP systolic 111–170; BP diastolic 58–76; PULSE 69–93; RESP 15–19; TEMP 97.3–98.1; O2SAT 95–98
[2024-11-12] MEDS: HYDROcodone-ACET 5/325MG TAB PO PRN (02:23)
[2024-11-12 05:39] LABS: Basophils # (auto) 0.1 10 ^3/uL (0-0.2); Basophils % (auto) 0.5 % (0.0-2.0); Eosinophils # (auto) 0.2 10 ^3/uL (0-0.8); Eosinophils % (auto) 1.9 % (0.0-7.0); Hematocrit 24.7 % (36.0-46.0); Lymphocytes # (auto) 1.5 10 ^3/uL (0.4-5.4); Lymphocytes % (auto) 11.2 % (10.0-50.0); Mean Corpuscular Hemoglobin 28.7 pg (28.0-32.0); Mean Corpuscular Hgb Conc. 32.2 g/dL (32.0-36.0); Mean Corpuscular Volume 89.1 fL (80.0-100.0); Monocytes # (auto) 1.2 10 ^3/uL (0-1.3); Neutrophils # (auto) 10.1 10 ^3/uL (1.6-8.6); Neutrophils % (auto) 77.4 % (37.0-80.0); Platelet Count (auto) 192 10^3/uL (140-450); Red Blood Cells 2.77 10^6/uL (4.0-5.20); Red Cell Distribution Width 13.7 % (11.8-14.3)
--- NOTE | 2024-11-12 16:15 | MEDREC ---
[facility] Intervention Section I [facility] Intervention: Deescalate AB based on CS (PLEASE CONSIDER DE-ESCALATION ACCORDING TO CULTURE RESULTS) HUNTER MIRANDA PHARMACIST Nov 12, 2024 16:15
--- NOTE | 2024-11-12 18:49 | DVHPN2 ---
Subjective In bed confused oriented x1 Reviewed: H&P, Labs Changes from previous H/P or p: No Changes Objective Vitals Vital Signs Date Time Temp Pulse Resp B/P (MAP) Pulse Ox O2 Delivery O2 Flow Rate FiO2 11/12/24 16:44 98.0 81 19 170/73 (105) 97 98.0 11/12/24 08:00 Nasal Cannula* 2 28 Intake/Output Intake and Output 11/12/24 06:59 Intake Total 1025 ml Output Total 1950 ml Balance -925 ml Intake Oral 825 ml IV Total 200 ml Output Urine Total 1950 ml General Appearance: Alert HEENT: Atraumatic Lungs: Clear to auscultation Cardiovascular: Regular rate, Normal S1, Normal S2 Abdomen: Normal bowel sounds Medications Current Medications Medications Dose Ordered Sig/Raciel Route Start Time Stop Time Status Last Admin Dose Admin Diagnostic Test (Pha) 1 strip ACHS 11/10/24 17:00 11/12/24 17:00 1 STRIP Insulin Human Regular ACHS SC 11/10/24 17:00 11/12/24 17:00 3 UNITS Dextrose 50 ml UD PRN IV 11/10/24 16:00 Ondansetron HCl 4 mg Q4HP PRN IV 11/10/24 16:00 Acetaminophen 650 mg Q6HP PRN PO 11/10/24 16:00 11/12/24 00:08 650 MG Nitroglycerin 0.4 mg Q5MINP PRN SL 11/10/24 16:00 Enoxaparin Sodium 30 mg DAILY SC 11/11/24 10:00 11/12/24 08:26 30 MG Aspirin 81 mg DAILY PO 11/11/24 10:00 11/12/24 08:25 81 MG Atorvastatin Calcium 20 mg HS PO 11/10/24 22:00 11/11/24 21:56 20 MG Famotidine 20 mg DAILY PO 11/11/24 10:00 11/12/24 08:25 20 MG Gabapentin 300 mg TID PO 11/10/24 22:00 11/12/24 14:25 300 MG Metoprolol Tartrate 25 mg BID PO 11/10/24 22:00 11/12/24 08:25 25 MG Pantoprazole Sodium 40 mg DAILY PO 11/11/24 10:00 11/12/24 08:25 40 MG Losartan Potassium 25 mg DAILY PO 11/11/24 10:00 11/12/24 08:24 25 MG Vancomycin HCl 0 ml @ 0 mls/hr UD IV 11/10/24 16:00 Ceftriaxone Sodium 50 ml @ 100 mls/hr DAILY@09 IV 11/11/24 09:00 11/12/24 08:23 100 MLS/HR Midodrine 10 mg TID@0600,1200,1800 PO 11/11/24 06:00 11/12/24 05:52 10 MG Vancomycin HCl 200 ml @ 160 mls/hr Q24H IV 11/11/24 15:00 11/12/24 14:26 160 MLS/HR Acetaminophen/ Hydrocodone Bitart 1 tab Q6HPRN PRN PO 11/12/24 02:15 11/12/24 08:36 1 TAB Laboratory Results Laboratory Tests 11/11/24 05:15 11/12/24 04:56 Urinalysis Test 11/10/24 12:07 Urine Color Dark-brown (Yellow) Urine Clarity Ex.turbid (Clear) Urine pH 6.5 (5.0-9.0) Urine Specific [place] 1.010 (1.001-1.035) Urine Protein 3+ (Negative) H Urine Ketones Trace (Negative) Urine Blood 2+ /uL (Negative) H Urine Nitrite Negative (Negative) Urine Bilirubin Negative (Negative) Urine Urobilinogen 2 mg/dL (Negative) H Urine Leukocyte Esterase 3+ /uL (Negative) Urine RBC 39 /hpf (0 - 4) Urine WBC Clumps Present /hpf (None Seen) Urine Microscopic WBC 952 /HPF (0-5) H Urine Squamous Epithelial Cells None seen /hpf (<5) Urine Bacteria Mod /hpf (None Seen) H Urine Mucus Moderate (None Seen) Urine Glucose Normal mg/dL (Normal) Microbiology Microbiology Date/Time Source Procedure Growth Status 11/10/24 12:07 Urine - [place] Urine Culture - Final Escherichia coli - ESBL Complete 11/10/24 11:05 Blood Blood Culture - Final Escherichia coli Complete Assessment/Plan Assessment/Plan Assessment Acute hypoxic respiratory failure Acute encephalopathy likely due to acute cystitis Sepsis due to UTI Leukocytosis likely due to acute cystitis Anemia Hyperkalemia MARITZA due to ATN from sepsis Diabetes type 2 History of CAD History of hypertension History of hyperlipidemia History of UTIs History of bladder tumor mass History of CABG x3 at [facility] History of cholecystectomy History of tubal ligation History of cystoscopy with TURP E coli bacteremia ESBL UTI Will repeat Blood cx in 2 days Continue IV abx and change to meropenem today IVF Monitor bmp daily Plan discussed with: Patient Date of Service: Nov 12, 2024 Billing Provider: FANNY VAZQUEZ MD Common Visit Codes: [id number] INP/OBS CARE(HIGH) FANNY VAZQUEZ MD Nov 12, 2024 18:49
[2024-11-12] MEDS: MEROPENEM 1GM IVPB 50 ML IV SCH (21:46)
[2024-11-13] VITALS (8 sets, daily range): BP systolic 108–159; BP diastolic 56–102; PULSE 68–100; RESP 15–20; TEMP 97.2–98.4; O2SAT 94–99
[2024-11-13 11:37] LABS: Basophils # (auto) 0 10 ^3/uL (0-0.2); Basophils % (auto) 0.5 % (0.0-2.0); Eosinophils # (auto) 0.2 10 ^3/uL (0-0.8); Eosinophils % (auto) 2.4 % (0.0-7.0); Hematocrit 26.8 % (36.0-46.0); Hemoglobin 8.7 g/dL (12.2-16.2); Lymphocytes # (auto) 1.6 10 ^3/uL (0.4-5.4); Lymphocytes % (auto) 16.7 % (10.0-50.0); Mean Corpuscular Hgb Conc. 32.6 g/dL (32.0-36.0); Mean Corpuscular Volume 88.7 fL (80.0-100.0); Monocytes # (auto) 1.2 10 ^3/uL (0-1.3); Monocytes % (auto) 13.1 % (0.0-12.0); Neutrophils # (auto) 6.4 10 ^3/uL (1.6-8.6); Neutrophils % (auto) 67.3 % (37.0-80.0); Nucleated Red Blood Cells % 0.1 %; Platelet Count (auto) 189 10^3/uL (140-450); Red Blood Cells 3.02 10^6/uL (4.0-5.20); Red Cell Distribution Width 13.5 % (11.8-14.3); White Blood Cell 9.5 10^3/uL (4.4-10.8)
--- NOTE | 2024-11-13 12:13 | ECG ---
[facility] Test Date: 2024-11-10 Test Time: 09:56:39 Pat Name: GANGA SHORT Department: ED Room: 0208T A Gender: F [employer]: STEPHEN : 1950 Requested By: PREETI HAGEN Order Number: [id number] Reading MD: Chito Maldonado Measurements Intervals [place] Rate: 74 P: 42 OH: 153 QRS: -8 QRSD: 101 T: -2 QT: 357 QTc: 396 Interpretive Statements Sinus rhythm Anterior infarct, old Electronically Signed On 11-15-2024 20:29:20 PDT by Chito Maldonado Please click the below link to view image of tracing.
--- NOTE | 2024-11-13 17:32 | DVHPN2 ---
Subjective In bed doing well not confused anymore Reviewed: H&P, Labs Changes from previous H/P or p: No Changes Objective Vitals Vital Signs Date Time Temp Pulse Resp B/P (MAP) Pulse Ox O2 Delivery O2 Flow Rate FiO2 11/13/24 13:00 97.7 72 16 113/60 (77) 95 97.7 11/13/24 08:00 Room Air* 0 21 Intake/Output Intake and Output 11/13/24 07:00 Intake Total 1455 ml Output Total 2350 ml Balance -895 ml Intake Oral 1155 ml IV Total 300 ml Output Urine Total 2350 ml General Appearance: Alert HEENT: Atraumatic Lungs: Clear to auscultation Cardiovascular: Regular rate, Normal S1, Normal S2 Abdomen: Normal bowel sounds Medications Current Medications Medications Dose Ordered Sig/Raciel Route Start Time Stop Time Status Last Admin Dose Admin Diagnostic Test (Pha) 1 strip ACHS 11/10/24 17:00 11/13/24 17:06 1 STRIP Insulin Human Regular ACHS SC 11/10/24 17:00 11/13/24 17:06 6 UNITS Dextrose 50 ml UD PRN IV 11/10/24 16:00 Ondansetron HCl 4 mg Q4HP PRN IV 11/10/24 16:00 Acetaminophen 650 mg Q6HP PRN PO 11/10/24 16:00 11/13/24 10:41 650 MG Nitroglycerin 0.4 mg Q5MINP PRN SL 11/10/24 16:00 Enoxaparin Sodium 30 mg DAILY SC 11/11/24 10:00 11/13/24 08:48 30 MG Aspirin 81 mg DAILY PO 11/11/24 10:00 11/13/24 08:49 81 MG Atorvastatin Calcium 20 mg HS PO 11/10/24 22:00 11/12/24 21:46 20 MG Famotidine 20 mg DAILY PO 11/11/24 10:00 11/13/24 08:49 20 MG Gabapentin 300 mg TID PO 11/10/24 22:00 11/13/24 13:59 300 MG Metoprolol Tartrate 25 mg BID PO 11/10/24 22:00 11/13/24 08:49 25 MG Pantoprazole Sodium 40 mg DAILY PO 11/11/24 10:00 11/13/24 08:48 40 MG Losartan Potassium 25 mg DAILY PO 11/11/24 10:00 11/13/24 08:49 25 MG Midodrine 10 mg TID@0600,1200,1800 PO 11/11/24 06:00 11/12/24 05:52 10 MG Acetaminophen/ Hydrocodone Bitart 1 tab Q6HPRN PRN PO 11/12/24 02:15 11/13/24 13:59 1 TAB Meropenem 50 ml @ 17 mls/hr Q8HR IV 11/12/24 22:00 11/13/24 13:59 17 MLS/HR Laboratory Results Laboratory Tests 11/11/24 05:15 11/13/24 04:53 11/13/24 11:00 Urinalysis Test 11/10/24 12:07 Urine Color Dark-brown (Yellow) Urine Clarity Ex.turbid (Clear) Urine pH 6.5 (5.0-9.0) Urine Specific [place] 1.010 (1.001-1.035) Urine Protein 3+ (Negative) H Urine Ketones Trace (Negative) Urine Blood 2+ /uL (Negative) H Urine Nitrite Negative (Negative) Urine Bilirubin Negative (Negative) Urine Urobilinogen 2 mg/dL (Negative) H Urine Leukocyte Esterase 3+ /uL (Negative) Urine RBC 39 /hpf (0 - 4) Urine WBC Clumps Present /hpf (None Seen) Urine Microscopic WBC 952 /HPF (0-5) H Urine Squamous Epithelial Cells None seen /hpf (<5) Urine Bacteria Mod /hpf (None Seen) H Urine Mucus Moderate (None Seen) Urine Glucose Normal mg/dL (Normal) Microbiology Microbiology Date/Time Source Procedure Growth Status 11/10/24 12:07 Urine - [place] Urine Culture - Final Escherichia coli - ESBL Complete 11/10/24 11:05 Blood Blood Culture - Final Escherichia coli Complete Assessment/Plan Assessment/Plan Assessment Acute hypoxic respiratory failure Acute encephalopathy likely due to acute cystitis Sepsis due to UTI Leukocytosis likely due to acute cystitis Anemia Hyperkalemia MARITZA due to ATN from sepsis Diabetes type 2 History of CAD History of hypertension History of hyperlipidemia History of UTIs History of bladder tumor mass History of CABG x3 at [facility] History of cholecystectomy History of tubal ligation History of cystoscopy with TURP E coli bacteremia ESBL UTI Will repeat Blood cx in 2 days Continue IV abx and change to meropenem today IVF Monitor bmp daily Plan discussed with: Patient My Orders Orders - FANNY VAZQUEZ MD Procedure Category Date Status Time Meropenem 1gm Ivpb PHA 11/12/24 In Process (Merrem 1gm/ Ns) 22:00 Date of Service: Nov 13, 2024 Billing Provider: FANNY VAZQUEZ MD Common Visit Codes: [id number] INP/OBS CARE(HIGH) FANNY VAZQUEZ MD Nov 13, 2024 17:32
[2024-11-14] VITALS (7 sets, daily range): BP systolic 114–202; BP diastolic 56–103; PULSE 63–94; RESP 14–17; TEMP 97.2–97.9; O2SAT 92–96
[2024-11-14] MEDS: DOCUSATE SOD 100 MG CAP PO ONE (14:23)
[2024-11-14] MEDS: HYDROcodone-ACET 5/325MG TAB PO PRN (14:24)
--- NOTE | 2024-11-14 16:36 | DVHPN2 ---
Subjective In bed doing well not confused anymore Reviewed: H&P, Labs Changes from previous H/P or p: No Changes Objective Vitals Vital Signs Date Time Temp Pulse Resp B/P (MAP) Pulse Ox O2 Delivery O2 Flow Rate FiO2 11/14/24 09:51 75 111/64 11/14/24 08:30 97.4 16 93 97.4 11/14/24 07:30 Nasal Cannula* 2 28 Intake/Output Intake and Output 11/14/24 07:00 Intake Total 1480 ml Output Total 2050 ml Balance -570 ml Intake Oral 1330 ml IV Total 150 ml Output Urine Total 2050 ml General Appearance: Alert HEENT: Atraumatic Lungs: Clear to auscultation Cardiovascular: Regular rate, Normal S1, Normal S2 Abdomen: Normal bowel sounds Medications Current Medications Medications Dose Ordered Sig/Raciel Route Start Time Stop Time Status Last Admin Dose Admin Diagnostic Test (Pha) 1 strip ACHS 11/10/24 17:00 11/14/24 11:34 1 STRIP Insulin Human Regular ACHS SC 11/10/24 17:00 11/14/24 11:34 3 UNITS Dextrose 50 ml UD PRN IV 11/10/24 16:00 Ondansetron HCl 4 mg Q4HP PRN IV 11/10/24 16:00 Acetaminophen 650 mg Q6HP PRN PO 11/10/24 16:00 11/14/24 06:20 650 MG Nitroglycerin 0.4 mg Q5MINP PRN SL 11/10/24 16:00 Enoxaparin Sodium 30 mg DAILY SC 11/11/24 10:00 11/14/24 08:52 30 MG Aspirin 81 mg DAILY PO 11/11/24 10:00 11/14/24 08:49 81 MG Atorvastatin Calcium 20 mg HS PO 11/10/24 22:00 11/13/24 21:40 20 MG Famotidine 20 mg DAILY PO 11/11/24 10:00 11/14/24 08:49 20 MG Gabapentin 300 mg TID PO 11/10/24 22:00 11/14/24 14:23 300 MG Metoprolol Tartrate 25 mg BID PO 11/10/24 22:00 11/14/24 08:51 25 MG Pantoprazole Sodium 40 mg DAILY PO 11/11/24 10:00 11/14/24 08:49 40 MG Losartan Potassium 25 mg DAILY PO 11/11/24 10:00 11/14/24 08:51 25 MG Midodrine 10 mg TID@0600,1200,1800 PO 11/11/24 06:00 11/14/24 11:33 10 MG Meropenem 50 ml @ 17 mls/hr Q8HR IV 11/12/24 22:00 11/14/24 14:24 17 MLS/HR Acetaminophen/ Hydrocodone Bitart 1 tab Q4HPRN PRN PO 11/14/24 13:30 11/14/24 14:24 1 TAB Docusate Sodium 100 mg BID PO 11/14/24 22:00 Laboratory Results Laboratory Tests 11/11/24 05:15 11/13/24 04:53 11/13/24 11:00 Urinalysis Test 11/10/24 12:07 Urine Color Dark-brown (Yellow) Urine Clarity Ex.turbid (Clear) Urine pH 6.5 (5.0-9.0) Urine Specific [place] 1.010 (1.001-1.035) Urine Protein 3+ (Negative) H Urine Ketones Trace (Negative) Urine Blood 2+ /uL (Negative) H Urine Nitrite Negative (Negative) Urine Bilirubin Negative (Negative) Urine Urobilinogen 2 mg/dL (Negative) H Urine Leukocyte Esterase 3+ /uL (Negative) Urine RBC 39 /hpf (0 - 4) Urine WBC Clumps Present /hpf (None Seen) Urine Microscopic WBC 952 /HPF (0-5) H Urine Squamous Epithelial Cells None seen /hpf (<5) Urine Bacteria Mod /hpf (None Seen) H Urine Mucus Moderate (None Seen) Urine Glucose Normal mg/dL (Normal) Microbiology Microbiology Date/Time Source Procedure Growth Status 11/10/24 12:07 Urine - [place] Urine Culture - Final Escherichia coli - ESBL Complete 11/10/24 11:05 Blood Blood Culture - Final Escherichia coli Complete Assessment/Plan Assessment/Plan Assessment Acute hypoxic respiratory failure Acute encephalopathy likely due to acute cystitis Sepsis due to UTI Leukocytosis likely due to acute cystitis Anemia Hyperkalemia MARITZA due to ATN from sepsis Diabetes type 2 History of CAD History of hypertension History of hyperlipidemia History of UTIs History of bladder tumor mass History of CABG x3 at [facility] History of cholecystectomy History of tubal ligation History of cystoscopy with TURP E coli bacteremia ESBL UTI Will repeat Blood cx tomorrow Continue IV meropenem IVF Monitor bmp daily Plan discussed with: Patient My Orders Orders - FANNY VAZQUEZ MD Procedure Category Date Status Time Hydrocodone-Acet PHA 11/14/24 In Process 5/325mg Tab ([place] 13:30 Docusate Sodium PHA 11/14/24 In Process Capsule ([place] 22:00 Date of Service: Nov 14, 2024 Billing Provider: FANNY VAZQUEZ MD Common Visit Codes: [id number] INP/OBS CARE(HIGH) FANNY VAZQUEZ MD Nov 14, 2024 16:36
[2024-11-14] MEDS ORDERED: hydrALAZINE HCL 20 MG/ML VL IV PRN (16:45)
[2024-11-14] MEDS: hydrALAZINE HCL 20 MG/ML VL IV ONE (17:17)
[2024-11-14] MEDS: DOCUSATE SOD 100 MG CAP PO SCH (22:09)
[2024-11-14] MEDS: ONDANSETRON HCL 4 MG/2 ML VIAL IV PRN (22:17)
[2024-11-15] VITALS (8 sets, daily range): BP systolic 102–141; BP diastolic 52–78; PULSE 64–83; RESP 15–18; TEMP 85.2–98.4; O2SAT 91–96
--- NOTE | 2024-11-15 12:32 | DVHPN2 ---
Subjective In bed doing well not confused anymore Reviewed: H&P, Labs Changes from previous H/P or p: No Changes Objective Vitals Vital Signs Date Time Temp Pulse Resp B/P (MAP) Pulse Ox O2 Delivery O2 Flow Rate FiO2 11/15/24 09:15 97.6 74 16 141/71 (94) 96 97.6 11/15/24 07:30 Nasal Cannula* 2 28 Intake/Output Intake and Output 11/15/24 07:00 Intake Total 690 ml Output Total 1800 ml Balance -1110 ml Intake Oral 540 ml IV Total 150 ml Output Urine Total 1800 ml General Appearance: Alert HEENT: Atraumatic Lungs: Clear to auscultation Cardiovascular: Regular rate, Normal S1, Normal S2 Abdomen: Normal bowel sounds Medications Current Medications Medications Dose Ordered Sig/Raciel Route Start Time Stop Time Status Last Admin Dose Admin Diagnostic Test (Pha) 1 strip ACHS 11/10/24 17:00 11/15/24 11:22 1 STRIP Insulin Human Regular ACHS SC 11/10/24 17:00 11/15/24 11:22 3 UNITS Dextrose 50 ml UD PRN IV 11/10/24 16:00 Ondansetron HCl 4 mg Q4HP PRN IV 11/10/24 16:00 11/14/24 22:17 4 MG Acetaminophen 650 mg Q6HP PRN PO 11/10/24 16:00 11/14/24 06:20 650 MG Nitroglycerin 0.4 mg Q5MINP PRN SL 11/10/24 16:00 Enoxaparin Sodium 30 mg DAILY SC 11/11/24 10:00 11/15/24 08:53 30 MG Aspirin 81 mg DAILY PO 11/11/24 10:00 11/15/24 08:53 81 MG Atorvastatin Calcium 20 mg HS PO 11/10/24 22:00 11/14/24 22:09 20 MG Famotidine 20 mg DAILY PO 11/11/24 10:00 11/15/24 08:51 20 MG Gabapentin 300 mg TID PO 11/10/24 22:00 11/15/24 06:12 300 MG Metoprolol Tartrate 25 mg BID PO 11/10/24 22:00 11/15/24 08:51 25 MG Pantoprazole Sodium 40 mg DAILY PO 11/11/24 10:00 11/15/24 08:53 40 MG Losartan Potassium 25 mg DAILY PO 11/11/24 10:00 11/15/24 08:52 25 MG Meropenem 50 ml @ 17 mls/hr Q8HR IV 11/12/24 22:00 11/15/24 06:16 17 MLS/HR Acetaminophen/ Hydrocodone Bitart 1 tab Q4HPRN PRN PO 11/14/24 13:30 11/15/24 08:53 1 TAB Docusate Sodium 100 mg BID PO 11/14/24 22:00 11/15/24 08:52 100 MG Hydralazine HCl 10 mg Q6HP PRN IV 11/14/24 16:45 Laboratory Results Laboratory Tests 11/11/24 05:15 11/13/24 04:53 11/13/24 11:00 Urinalysis Test 11/10/24 12:07 Urine Color Dark-brown (Yellow) Urine Clarity Ex.turbid (Clear) Urine pH 6.5 (5.0-9.0) Urine Specific [place] 1.010 (1.001-1.035) Urine Protein 3+ (Negative) H Urine Ketones Trace (Negative) Urine Blood 2+ /uL (Negative) H Urine Nitrite Negative (Negative) Urine Bilirubin Negative (Negative) Urine Urobilinogen 2 mg/dL (Negative) H Urine Leukocyte Esterase 3+ /uL (Negative) Urine RBC 39 /hpf (0 - 4) Urine WBC Clumps Present /hpf (None Seen) Urine Microscopic WBC 952 /HPF (0-5) H Urine Squamous Epithelial Cells None seen /hpf (<5) Urine Bacteria Mod /hpf (None Seen) H Urine Mucus Moderate (None Seen) Urine Glucose Normal mg/dL (Normal) Microbiology Microbiology Date/Time Source Procedure Growth Status 11/10/24 12:07 Urine - [place] Urine Culture - Final Escherichia coli - ESBL Complete 11/10/24 11:05 Blood Blood Culture - Final Escherichia coli Complete Assessment/Plan Assessment/Plan Assessment Acute hypoxic respiratory failure Acute encephalopathy likely due to acute cystitis Sepsis due to UTI Leukocytosis likely due to acute cystitis Anemia Hyperkalemia MARITZA due to ATN from sepsis Diabetes type 2 History of CAD History of hypertension History of hyperlipidemia History of UTIs History of bladder tumor mass History of CABG x3 at [facility] History of cholecystectomy History of tubal ligation History of cystoscopy with TURP E coli bacteremia ESBL UTI Will repeat Blood cx today Continue IV meropenem IVF Monitor bmp daily Plan discussed with: Patient My Orders Orders - FANNY VAZQUEZ MD Procedure Category Date Status Time Hydrocodone-Acet PHA 11/14/24 In Process 5/325mg Tab ([place] 13:30 Docusate Sodium PHA 11/14/24 In Process Capsule (Colace 22:00 Hydralazine Injection PHA 11/14/24 In Process (Apresoline Inject 16:45 Date of Service: Nov 15, 2024 Billing Provider: FANNY VAZQUEZ MD Common Visit Codes: [id number] INP/OBS CARE(HIGH) FANNY VAZQUEZ MD Nov 15, 2024 12:32
[2024-11-16] VITALS (8 sets, daily range): BP systolic 113–149; BP diastolic 55–71; PULSE 77–86; RESP 15–18; TEMP 97.5–98.7; O2SAT 90–96
[2024-11-16 11:46] LABS: Chloride 103 mmol/L (98-107); Potassium 4.7 mmol/L (3.5-5.1); Sodium 137 mmol/L (136-145)
[2024-11-16 11:47] LABS: Anion Gap 8 (5-15); Carbon Dioxide 26 mmol/L (20-31)
[2024-11-16 11:48] LABS: Calcium 8.8 mg/dL (8.7-10.4)
[2024-11-16 11:52] LABS: BUN/Creatinine Ratio 18.3 (10.0-20.0); Blood Urea Nitrogen 23 mg/dL (9-23)
[2024-11-16 11:53] LABS: Glucose 196 mg/dL (74-106)
--- NOTE | 2024-11-16 17:53 | DVHPN2 ---
Subjective In bed doing well not confused anymore Reviewed: H&P, Labs Changes from previous H/P or p: No Changes Objective Vitals Vital Signs Date Time Temp Pulse Resp B/P (MAP) Pulse Ox O2 Delivery O2 Flow Rate FiO2 11/16/24 17:00 98.6 77 16 116/55 (75) 95 98.6 11/16/24 08:00 Nasal Cannula* 2 28 Intake/Output Intake and Output 11/16/24 07:00 Intake Total 1490 ml Output Total 1450 ml Balance 40 ml Intake Oral 1340 ml IV Total 150 ml Output Urine Total 1450 ml General Appearance: Alert HEENT: Atraumatic Lungs: Clear to auscultation Cardiovascular: Regular rate, Normal S1, Normal S2 Abdomen: Normal bowel sounds Medications Current Medications Medications Dose Ordered Sig/Raciel Route Start Time Stop Time Status Last Admin Dose Admin Diagnostic Test (Pha) 1 strip ACHS 11/10/24 17:00 11/16/24 16:49 1 STRIP Insulin Human Regular ACHS SC 11/10/24 17:00 11/16/24 16:48 2 UNITS Dextrose 50 ml UD PRN IV 11/10/24 16:00 Ondansetron HCl 4 mg Q4HP PRN IV 11/10/24 16:00 11/14/24 22:17 4 MG Acetaminophen 650 mg Q6HP PRN PO 11/10/24 16:00 11/16/24 07:06 650 MG Nitroglycerin 0.4 mg Q5MINP PRN SL 11/10/24 16:00 Enoxaparin Sodium 30 mg DAILY SC 11/11/24 10:00 11/16/24 10:33 30 MG Aspirin 81 mg DAILY PO 11/11/24 10:00 11/16/24 10:33 81 MG Atorvastatin Calcium 20 mg HS PO 11/10/24 22:00 11/15/24 21:13 20 MG Famotidine 20 mg DAILY PO 11/11/24 10:00 11/16/24 10:33 20 MG Gabapentin 300 mg TID PO 11/10/24 22:00 11/16/24 13:19 300 MG Metoprolol Tartrate 25 mg BID PO 11/10/24 22:00 11/16/24 10:40 25 MG Pantoprazole Sodium 40 mg DAILY PO 11/11/24 10:00 11/16/24 10:33 40 MG Losartan Potassium 25 mg DAILY PO 11/11/24 10:00 11/15/24 08:52 25 MG Acetaminophen/ Hydrocodone Bitart 1 tab Q4HPRN PRN PO 11/14/24 13:30 11/16/24 03:17 1 TAB Docusate Sodium 100 mg BID PO 11/14/24 22:00 11/16/24 10:33 100 MG Hydralazine HCl 10 mg Q6HP PRN IV 11/14/24 16:45 Meropenem 50 ml @ 17 mls/hr Q12H IV 11/17/24 02:00 Laboratory Results Laboratory Tests 11/13/24 11:00 11/16/24 11:20 Chemistry Test 11/16/24 11:20 Calcium Level 8.8 mg/dL (8.7-10.4) Urinalysis Test 11/10/24 12:07 Urine Color Dark-brown (Yellow) Urine Clarity Ex.turbid (Clear) Urine pH 6.5 (5.0-9.0) Urine Specific [place] 1.010 (1.001-1.035) Urine Protein 3+ (Negative) H Urine Ketones Trace (Negative) Urine Blood 2+ /uL (Negative) H Urine Nitrite Negative (Negative) Urine Bilirubin Negative (Negative) Urine Urobilinogen 2 mg/dL (Negative) H Urine Leukocyte Esterase 3+ /uL (Negative) Urine RBC 39 /hpf (0 - 4) Urine WBC Clumps Present /hpf (None Seen) Urine Microscopic WBC 952 /HPF (0-5) H Urine Squamous Epithelial Cells None seen /hpf (<5) Urine Bacteria Mod /hpf (None Seen) H Urine Mucus Moderate (None Seen) Urine Glucose Normal mg/dL (Normal) Microbiology Microbiology Date/Time Source Procedure Growth Status 11/15/24 14:25 Blood Blood Culture - Preliminary NO GROWTH AFTER 24 HOURS OF INCUBATION. Resulted 11/10/24 12:07 Urine - [place] Urine Culture - Final Escherichia coli - ESBL Complete Assessment/Plan Assessment/Plan Assessment Acute hypoxic respiratory failure Acute encephalopathy likely due to acute cystitis Sepsis due to UTI Leukocytosis likely due to acute cystitis Anemia Hyperkalemia MARITZA due to ATN from sepsis Diabetes type 2 History of CAD History of hypertension History of hyperlipidemia History of UTIs History of bladder tumor mass History of CABG x3 at [facility] History of cholecystectomy History of tubal ligation History of cystoscopy with TURP E coli bacteremia ESBL UTI follow up blood cx Continue IV meropenem IVF Monitor bmp daily Plan discussed with: Patient My Orders Orders - FANNY VAZQUEZ MD Procedure Category Date Status Time Basic Metabolic Panel LAB 11/17/24 Verified 05:00 Basic Metabolic Panel LAB 11/18/24 Verified 05:00 Basic Metabolic Panel LAB 11/19/24 Verified 05:00 Basic Metabolic Panel LAB 11/20/24 Verified 05:00 Basic Metabolic Panel LAB 11/21/24 Verified 05:00 Basic Metabolic Panel LAB 11/22/24 Verified 05:00 Basic Metabolic Panel LAB 11/23/24 Verified 05:00 Meropenem 1gm Ivpb PHA 11/17/24 In Process (Merrem 1gm/ Ns) 02:00 Date of Service: Nov 16, 2024 Billing Provider: FANNY VAZQUEZ MD Common Visit Codes: [id number] INP/OBS CARE(HIGH) FANNY VAZQUEZ MD Nov 16, 2024 17:53
[2024-11-17 01:00] VITALS: BP 145/75; PULSE 80; RESP 18; TEMP 98; O2SAT 94
[2024-11-17] MEDS: MEROPENEM 1GM IVPB 50 ML IV SCH (01:38)
[2024-11-17 05:00] VITALS: BP 151/81; PULSE 81; RESP 17; TEMP 97.8; O2SAT 94
[2024-11-17 07:11] LABS: Calcium 8.7 mg/dL (8.7-10.4); Chloride 103 mmol/L (98-107); Potassium 4.8 mmol/L (3.5-5.1); Sodium 139 mmol/L (136-145)
[2024-11-17 07:12] LABS: Anion Gap 9 (5-15); Carbon Dioxide 27 mmol/L (20-31)
[2024-11-17 07:17] LABS: BUN/Creatinine Ratio 19.4 (10.0-20.0)
[2024-11-17 07:26] LABS: Blood Urea Nitrogen 24 mg/dL (9-23); Glucose 162 mg/dL (74-106)
[2024-11-17 08:00] VITALS: PULSE 16
[2024-11-17 08:30] VITALS: BP 122/70; PULSE 74; RESP 17; TEMP 97; O2SAT 95
[2024-11-17 12:40] VITALS: BP 132/73; PULSE 87; RESP 19; TEMP 97.1; O2SAT 95
[2024-11-17] MEDS ORDERED: CIPR500T4 PO (15:19)
[2024-11-17 16:45] VITALS: BP 114/65; PULSE 65; RESP 17; TEMP 97.1; O2SAT 97
--- NOTE | 2024-11-22 05:54 | DVHDS2 ---
Discharge Summary Date of Admission Nov 10, 2024 at 15:55 Date of Discharge: Nov 17, 2024 Labs/Diagnostic Data: Laboratory Results Test 11/17/24 16:23 11/17/24 06:25 11/13/24 11:00 11/11/24 05:15 POC Glucose 192 mg/dl (70-106) Sodium Level 139 mmol/L (136-145) Potassium Level 4.8 mmol/L (3.5-5.1) Chloride Level 103 mmol/L (98-107) Carbon Dioxide Level 27 mmol/L (20-31) Anion Gap 9 (5-15) Blood Urea Nitrogen 24 mg/dL (9-23) Creatinine 1.24 mg/dL (0.550-1.02) Glomerular Filtration Rate Calc 45 mL/min (>90) BUN/Creatinine Ratio 19.4 (10.0-20.0) Serum Glucose 162 mg/dL (74-106) Calcium Level 8.7 mg/dL (8.7-10.4) White Blood Count 9.5 10^3/uL (4.4-10.8) Red Blood Count 3.02 10^6/uL (4.0-5.20) Hemoglobin 8.7 g/dL (12.2-16.2) Hematocrit 26.8 % (36.0-46.0) Mean Corpuscular Volume 88.7 fL (80.0-100.0) Mean Corpuscular Hemoglobin 29.0 pg (28.0-32.0) Mean Corpuscular Hemoglobin Concent 32.6 g/dL (32.0-36.0) Red Cell Distribution Width 13.5 % (11.8-14.3) Platelet Count 189 10^3/uL (140-450) Mean Platelet Volume 9.1 fL (6.9-10.8) Neutrophils (%) (Auto) 67.3 % (37.0-80.0) Lymphocytes (%) (Auto) 16.7 % (10.0-50.0) Monocytes (%) (Auto) 13.1 % (0.0-12.0) Eosinophils (%) (Auto) 2.4 % (0.0-7.0) Basophils (%) (Auto) 0.5 % (0.0-2.0) Neutrophils # (Auto) 6.4 10 ^3/uL (1.6-8.6) Lymphocytes # (Auto) 1.6 10 ^3/uL (0.4-5.4) Monocytes # (Auto) 1.2 10 ^3/uL (0-1.3) Eosinophils # (Auto) 0.2 10 ^3/uL (0-0.8) Basophils # (Auto) 0 10 ^3/uL (0-0.2) Nucleated Red Blood Cells 0.1 % Total Bilirubin 0.4 mg/dL (0.2-1.0) Aspartate Amino Transferase (AST) < 8 U/L (13-40) Alanine Aminotransferase (ALT) < 9 U/L (7-40) Alkaline Phosphatase 65 U/L (46-116) Total Protein 6.0 g/dL (5.7-8.2) Albumin 3.3 g/dL (3.2-4.8) Random Vancomycin Level 9.3 ug/mL (5-10) Test 11/10/24 13:10 11/10/24 12:07 11/10/24 11:05 Troponin I High Sensitivity 3 ng/L (</=34) Urine Color Dark-brown (Yellow) Urine Clarity Ex.turbid (Clear) Urine pH 6.5 (5.0-9.0) Urine Specific [place] 1.010 (1.001-1.035) Urine Protein 3+ (Negative) Urine Ketones Trace (Negative) Urine Blood 2+ /uL (Negative) Urine Nitrite Negative (Negative) Urine Bilirubin Negative (Negative) Urine Urobilinogen 2 mg/dL (Negative) Urine Leukocyte Esterase 3+ /uL (Negative) Urine RBC 39 /hpf (0 - 4) Urine WBC Clumps Present /hpf (None Seen) Urine Microscopic WBC 952 /HPF (0-5) Urine Squamous Epithelial Cells None seen /hpf (<5) Urine Bacteria Mod /hpf (None Seen) Urine Mucus Moderate (None Seen) Urine Glucose Normal mg/dL (Normal) Hemoglobin A1c 7.3 % A1C (<5.7) Lactic Acid Level 1.5 mmol/L (0.4-2.0) Other Laboratory Tests 11/17/24 06:25 11/13/24 11:00 Brief Hx & Hospital Course: 74-year-old female with past medical history of CAD, hypertension, hyperlipidemia, diabetes, UTIs, bladder tumor mass, CABG x3 at [facility], cholecystectomy, tubal ligation, and cystoscopy with TURP who presents to the ED with ALOC x1 day. Patient reports that she does not use oxygen at home however upon examination she is on 2 L of oxygen via nasal cannula. Patient states that she was feeling fatigued and confused EMS noted her blood pressure to be 70/40. Patient also states that she was not walking today just became very weak. She states that she typically does walk with a front wheel walker. She had bacteremia with ecoli and also UTI with e coli ESBL, she was on IV meropenem for 5 days e coli in blood was sensitive to ciprofloxacin and sent home on oral for 10 days Condition at Discharge: Good Final Diagnosis/Problems List e coli bacteremia ESBL UTI sepsis due to UTI acute metabolic encephalopathy due to sepsis and bacteremia Discharge Disposition: Home Discharge Instruct/Medications Diet: Regular Activity: No Restrictions, As Tolerated Follow Up/Referral: PCP in 7 days Medications: ciprofloxacin Discharge Statement: "Patient was advised to return to the ER or call 911 if any headaches, dizziness, shortness of breath, chest pain, abdominal pain, bleeding, fevers, or worsening of medical condition. Patient was counseled about treatment plan, medications, possible side effects, patientverbalized understanding. All questions were answered to the best of my ability. This discharge took greater then 30 minutes in planning, reviewing documentation, counseling the patient, and discussing with other team members." ASSESSMENT ASSESSMENT Assessment e coli bacteremia ESBL UTI sepsis due to UTI Date of Service: Nov 17, 2024 Billing Provider: FANNY VAZQUEZ MD Common Visit Codes: [id number]/OBS DISCH DAY >30min FANNY VAZQUEZ MD Nov 22, 2024 05:54
== END 2024-11-17 17:11 | disposition home or self-care (01) | DRG 871 ==
LOC: EDBD 09:52 → ER 09:52 → EDUNIT# 09:52 → OVERFLOW 15:55 → TELE-CENTR 11-11 14:55
PROVIDERS: ADMIT Hospitalist; ATTEND Hospitalist
DX: A41.89 Other specified sepsis (principal); J96.01 Acute respiratory failure with hypoxia; N17.0 Acute kidney failure with tubular necrosis; N30.00 Acute cystitis without hematuria; G93.40 Encephalopathy, unspecified; Z16.12 Extended spectrum beta lactamase (ESBL) resistance; Z16.29 Resistance to other single specified antibiotic; B96.20 Unspecified Escherichia coli [E. coli] as the cause of diseases classified elsewhere; D64.9 Anemia, unspecified; E11.9 Type 2 diabetes mellitus without complications; E87.5 Hyperkalemia; I25.10 Atherosclerotic heart disease of native coronary artery without angina pectoris; E78.5 Hyperlipidemia, unspecified; I10 Essential (primary) hypertension; R65.20 Severe sepsis without septic shock; Z88.6 Allergy status to analgesic agent; Z79.84 Long term (current) use of oral hypoglycemic drugs; Z79.82 Long term (current) use of aspirin; Z79.899 Other long term (current) drug therapy; Z90.49 Acquired absence of other specified parts of digestive tract; Z98.51 Tubal ligation status; Z95.1 Presence of aortocoronary bypass graft; Z88.5 Allergy status to narcotic agent; Z87.440 Personal history of urinary (tract) infections
CPT/HCPCS: 36415; 70450; 71045; 80048; 80053; 80202; 81001; 82565; 82962; 83036; 83605; 84484; 85025; 87040; 87077; 87086; 87088; 87186; 93005; 96365; 97116; 97163; 97530; 99291; G0378; J1815; J2185; J2405

== ENCOUNTER → 2024-12-04 | Outpatient (CLI) | payer MEDICAID, OTHER ==
[~2024-12-04] MED LIST changes: +CIPR500T4 PO
[2024-12-04 09:48] LABS: Basophils # (auto) 0.1 10 ^3/uL (0-0.2); Basophils % (auto) 0.5 % (0.0-2.0); Eosinophils # (auto) 0.3 10 ^3/uL (0-0.8); Eosinophils % (auto) 2.6 % (0.0-7.0); Hematocrit 27.9 % (36.0-46.0); Hemoglobin 8.9 g/dL (12.2-16.2); Lymphocytes # (auto) 1.9 10 ^3/uL (0.4-5.4); Lymphocytes % (auto) 15.4 % (10.0-50.0); Mean Corpuscular Hemoglobin 27.9 pg (28.0-32.0); Mean Corpuscular Hgb Conc. 31.9 g/dL (32.0-36.0); Mean Corpuscular Volume 87.7 fL (80.0-100.0); Monocytes # (auto) 0.9 10 ^3/uL (0-1.3); Monocytes % (auto) 7.5 % (0.0-12.0); Neutrophils # (auto) 8.9 10 ^3/uL (1.6-8.6); Platelet Count (auto) 313 10^3/uL (140-450); Red Blood Cells 3.18 10^6/uL (4.0-5.20); Red Cell Distribution Width 13.6 % (11.8-14.3); White Blood Cell 12.1 10^3/uL (4.4-10.8)
[2024-12-04 10:00] LABS: INR 1.03 (0.9-1.15); Partial Thromboplastin Time 28.2 SEC (24.5-34.5); Prothrombin Time 10.9 sec (9.3-11.8)
[2024-12-04 10:17] LABS: % Iron Saturation 12.3 % (15-50)
[2024-12-04 10:33] LABS: Ferritin 229.6 ng/mL (10-291)
== END | disposition home or self-care (01) ==
LOC: LAB 09:11
PROVIDERS: ATTEND Student in an Organized Health Care Education/Training Program
DX: C67.2 Malignant neoplasm of lateral wall of bladder (principal); D63.1 Anemia in chronic kidney disease; Z51.81 Encounter for therapeutic drug level monitoring
CPT/HCPCS: 36415; 82607; 82728; 83540; 83550; 85025; 85610; 85730

== ENCOUNTER → 2024-12-07 | Outpatient (CLI) | payer MEDICAID, OTHER ==
[2024-12-07 12:30] LABS: Hematocrit 29.0 % (36.0-46.0); Hemoglobin 9.3 g/dL (12.2-16.2); Mean Corpuscular Hemoglobin 28.4 pg (28.0-32.0); Mean Corpuscular Volume 89.1 fL (80.0-100.0); Nucleated Red Blood Cells % 0.0 %
[2024-12-07 12:40] LABS: Potassium 5.1 mmol/L (3.5-5.1); Sodium 140 mmol/L (136-145)
[2024-12-07 12:41] LABS: Anion Gap 12 (5-15)
[2024-12-07 12:42] LABS: Calcium 9.7 mg/dL (8.7-10.4)
[2024-12-07 12:47] LABS: BUN/Creatinine Ratio 24.5 (10.0-20.0)
[2024-12-07 12:48] LABS: Blood Urea Nitrogen 46 mg/dL (9-23); Carbon Dioxide 17 mmol/L (20-31); Chloride 111 mmol/L (98-107); Glucose 122 mg/dL (74-106)
== END | disposition home or self-care (01) ==
LOC: LAB 12:03
PROVIDERS: ATTEND Internal Medicine
DX: C67.4 Malignant neoplasm of posterior wall of bladder (principal); N39.0 Urinary tract infection, site not specified
CPT/HCPCS: 36415; 80048; 85025; 87086

== ENCOUNTER 2024-12-13 07:07 | Outpatient (CLI) | payer MEDICAID, OTHER ==
[~2024-12-13] VITALS: Ht 154.9 cm; Wt 47.6 kg
[~2024-12-13 07:07] MED LIST changes: -ASPI-543 PO; +ATOR20TA PO; -ATOR20TA50 PO; -GABA-1250 PO; +GABA300T4 PO; -HYDR-4902 PO; +INSU1INJ19 SC; -METO25TA5 PO; -NITR-52 PO; -PANT40TA2 PO; -VALS40TA2 PO
[2024-12-13] MEDS ORDERED: fentaNYL CITRATE 100 MCG/2 ML VL ONE (12:24)
[2024-12-13] MEDS ORDERED: HEPARIN SODIUM (PORCINE) 5000 UNITS/ML 1ML VIAL ONE (12:24)
[2024-12-13] MEDS ORDERED: MIDAZOLAM HCL 2MG/2ML 2ml VIAL (1mg/ml) ONE (12:24)
[2024-12-13] MEDS ORDERED: LIDOCAINE 2%HCL (LOCAL ANESTH.) INJ 20ML MDV ONE (12:24)
[2024-12-13] MEDS ORDERED: ceFAZolin 1GM/50ML 50 ML IV ONE (12:45)
[2024-12-13 13:38] VITALS: BP 150/66; PULSE 90; RESP 15; TEMP 97.9; O2SAT 99
[2024-12-13 13:52] VITALS: BP 133/62; PULSE 79; RESP 16; O2SAT 100
[2024-12-13 14:05] VITALS: BP 118/70; PULSE 74; RESP 15; O2SAT 97
--- NOTE | 2024-12-13 14:07 | DVH ---
XY Insertion of Venous Cath, HISTORY: PORT A CATH INSERTION PROCEDURE: Informed consent was obtained. The patient was placed supine on the interventional table. 1 gram of Ancef was given IV. A limited localization ultrasound of the right neck base was obtained. The right upper chest and neck base were prepped with chlorhexidine which was allowed to dry and leesa ped in the usual sterile fashion. Time out was performed. With real-time ultrasound guidance, the int ernal jugular vein was accessed with a micropuncture kit, and an image documenting patency sent to [facility]. The planned skin tract and the port placement site were were infiltrated with lidocaine with epinephr ine. The subcutaneous pocket was created with sharp and blunt dissection. The catheter was tunneled t hrough the skin tract to the neck site. The [address] [place] [address] port was attached to the tubing flushed. The catheter was trimmed to desired length of 19 cm. The internal jugular vein entrance site was seriall y dilated and the catheter was placed through a peel-a-way sheath. The port was flushed with heparini zed saline and demonstrated satisfactory flow. The skin openings were sutured closed in 1 layers with Vicryl, as well as Dermabond and steristrips and then sterile dressings applied. A post procedure image was obtained. No immediate complication was identified. DAP 16.08 FLUOROSCOPY TIME: 0.8 minutes. SEDATION: Dr. Jesus Lizama was personally responsible for the administration of moderate sedation during the procedure performed, including the use of an independent trained observer who had no other duties during the procedure. The drugs utilized were IV fentanyl and versed (see nursing log for details). The total time of supervision by the attending physician was approximately 45 minutes. FINDINGS: Widely patent right internal jugular vein. Post procedure image demonstrates [id number] in the right upper chest with the tip right atrium. IMPRESSION: Successful placement of 8 macanese right chest [id number].
[2024-12-13 14:23] VITALS: BP 101/52; PULSE 89; RESP 17; O2SAT 98
[2024-12-13 14:51] VITALS: BP 131/65; PULSE 87; RESP 16; O2SAT 96
== END 2024-12-13 15:20 | disposition home or self-care (01) ==
LOC: CATH 07:07
PROVIDERS: ATTEND Student in an Organized Health Care Education/Training Program
DX: C67.2 Malignant neoplasm of lateral wall of bladder (principal); I25.10 Atherosclerotic heart disease of native coronary artery without angina pectoris; I12.9 Hypertensive chronic kidney disease with stage 1 through stage 4 chronic kidney disease, or unspecified chronic kidney disease; E11.22 Type 2 diabetes mellitus with diabetic chronic kidney disease; N18.9 Chronic kidney disease, unspecified; G89.29 Other chronic pain; Z87.440 Personal history of urinary (tract) infections; Z79.84 Long term (current) use of oral hypoglycemic drugs; Z88.5 Allergy status to narcotic agent; Z98.51 Tubal ligation status; Z83.3 Family history of diabetes mellitus; Z82.49 Family history of ischemic heart disease and other diseases of the circulatory system; Z95.1 Presence of aortocoronary bypass graft; Z79.4 Long term (current) use of insulin
CPT/HCPCS: 36561; 77001; C1769; C1788; J0690; J1644; J2250; J3010; J7040; 99152; 99153

== ENCOUNTER 2025-01-17 15:16 | Outpatient (CLI) | payer MEDICAID, OTHER ==
[2025-01-17 15:45] LABS: Nucleated Red Blood Cells % 0.0 %
[2025-01-17 15:47] LABS: Hematocrit 22.5 % (36.0-46.0); Hemoglobin 7.2 g/dL (12.2-16.2); Mean Corpuscular Hemoglobin 28.6 pg (28.0-32.0); Mean Corpuscular Volume 90.1 fL (80.0-100.0)
[2025-01-17 16:17] LABS: Albumin 3.5 g/dL (3.2-4.8); Alkaline Phosphatase 49 U/L (46-116); Anion Gap 10 (5-15); BUN/Creatinine Ratio 20.9 (10.0-20.0); Potassium 4.8 mmol/L (3.5-5.1); Sodium 140 mmol/L (136-145); Total Protein 6.6 g/dL (5.7-8.2)
[2025-01-17 16:22] LABS: Alanine Aminotransferase < 9 U/L (7-40); Bilirubin, Total < 0.2 mg/dL (0.2-1.0); Blood Urea Nitrogen 45 mg/dL (9-23); Calcium 8.5 mg/dL (8.7-10.4); Carbon Dioxide 17 mmol/L (20-31); Chloride 113 mmol/L (98-107); Glucose 249 mg/dL (74-106)
[2025-01-17 21:39] LABS: Urine Protein, UAD 2+ (Negative); Urine WBC Clumps PRESENT /hpf (None Seen)
== END 2025-01-17 17:00 | disposition home or self-care (01) ==
LOC: LAB 15:16
PROVIDERS: ATTEND Internal Medicine
DX: C67.2 Malignant neoplasm of lateral wall of bladder (principal); R31.9 Hematuria, unspecified
CPT/HCPCS: 36415; 80053; 81001; 85025; 87086

== ENCOUNTER 2025-02-02 15:03 | Inpatient (IN) | payer MEDICAID, OTHER ==
[~2025-02-02] VITALS: Ht 170.2 cm; Wt 60.0 kg
--- NOTE | 2025-02-02 15:16 | ED.PDOC ---
Altered Mental Status HPI Comments HPI: Past Medical history: Arthritis, bladder Cancer, DM, High Lipids, HTN, UTI'S Past Surgical history: BTL, CABG, Cholecystectomy, Tubal Ligation Medications: Social History: Denies smoking, ETOH, and drug use. Allergies: HPI: Poor Historian. Last seen normal yesterday. 74-year-old female brought in by ambulance from home for evaluation of altered level of consciousness. Patient has history of bladder cancer with metastasis. Has missed her most recent chemotherapy session yesterday. Patient takes [place] for pain control at home. Patient tried THC not prescribed according to EMS for pain control for the 1st time and then these symptoms developed. Pre-hospital course vital signs were tachycardia stable blood pressure stable pulse ox afebrile blood sugar was in the 300s. No family present on initial evaluation. REVIEW OF SYSTEMS: CONSTITUTIONAL: Denies acute: fever, diaphoresis, chills, HEAD: Denies acute: headache, photophobia Eyes: Denies acute: Double vision, vision loss, eye pain, eye discharge. EARS: Denies acute: tinnitus, hearing loss, ear discharge, ear pain, THROAT: Denies acute: sore throat, swelling, difficulty swallowing , pain with swallowing, change in voice. NECK: Denies acute: neck pain, neck swelling, stiff neck. HEART: Denies acute : chest pain, palpitations, LUNGS: Denies acute: SOB, wheezing, cough, hemoptysis ABDOMEN: Denies acute: abdominal pain, Nausea, Vomiting, diarrhea, melena , hematemesis, hematochezia SKIN: Denies acute: rash, redness, lesions, itchiness. EXTREMITIES: Denies acute: calf pain, numbness, tingling, weakness, denies pain in extremity. Denies acute: Low back pain. Neuro: Denies acute: focal neurological deficit, motor or sensory focal neurological deficit, tremors, seizure like activity, , loss of bowel or bladder function, cauda equina like symptoms. : Denies acute: dysuria, hematuria, flank pain, increase in urinary frequency. PSYCH: Denies acute: hallucination, suicidal ideation, homicidal ideation. FEMALE: Denies acute: abnormal vaginal bleeding, foul odor, unusual discharge. PHYSICAL EXAM: General: -----no---acute distress, awake and alert. Head: normocephalic, atraumatic. Neck: supple, trachea is midline, no swelling. Eyes:, no erythema, no purulent discharge, no proptosis, no icterus. Heart: regular tachycardia, no significant murmur appreciated. Lungs: no apparent respiratory distress, No wheezing, no rhonchi, no crackles. No stridors Clear to auscultation bilaterally. Abdomen: non tender to palpation, non distended, soft, no guarding, no rebound, + bowel sounds. Wearing a diaper Neuro: Awake, obtunded Skin: no petechia, no purpura, no cyanosis, non-pale, not jaundice. Lower extremities: --no - Pitting edema no deformity, no focal swelling, no calf TTP. Makes occasional eye contact. Able to reach with the right arm and grabbed my hand when I do a sternal rub. Face: no apparent facial droop. Pupils are nondilated. Non pinpoint. Reactive to light. Makes eye contact occasionally. No nuchal rigidity, Kernig's sign, Brudzinski's sign, no meningeal signs. ED COURSE: DISCLAIMER: This medical document was created using an electronic medical record system with voice recognition software and computerized dictation system. Although this document has been carefully reviewed, there might still be some phonetic and typographical errors. Occasional wrong-word or "sound-alike" substitutions may have occurred due to the inherent limitations of voice recognition software. These areas are purely typographical due to imperfections of the software programs and do not reflect any compromise in the patient's medical care. Please read the chart carefully and recognize, using context, where these substitutions have occurred. Chief Complaint: ALOC Time Seen by MD: 15:15 Primary Care Provider: KANDICE Reviewed Notes: Nurses Notes, Medications, Allergies Allergies: Coded Allergies: Codeine (Verified Allergy, Intermediate, HALLUCINATIONS, 12/11/24) Home Meds Reported Medications Insulin Glargine (Basaglar Kwikpen) 100 Unit/Ml Inj, 8 UNIT SC HS for DIABETES 12/11/24 Metformin Hydrochloride (Metformin Hcl) 500 Mg Tab, 1 TAB PO QAM for DIABETES 12/11/24 Lisinopril (Lisinopril) 2.5 Mg Tab, 1 MG PO DAILY for HYPERTENSION 12/11/24 Gabapentin (Once-Daily) (Gabapentin) 300 Mg Tab, 2 TAB PO BID for NERVE PAIN 12/11/24 Famotidine (Famotidine) 20 Mg Tab, 1 TAB PO QAM for GERD 12/11/24 Ciprofloxacin Hcl (Ciprofloxacin Hcl) 500 Mg Tab, 1 TAB PO Q12HR for UTI for 10 Days 12/11/24 Atorvastatin Calcium (Lipitor) 20 Mg Tab, 1 TAB PO QPM for HIGH CHOLESTEROL 12/11/24 Information Source: Emergency Med Personnel Past Medical History PAST MEDICAL HISTORY: Arthritis, Cancer, DM, High Lipids, HTN, UTI'S Surgical History: BTL, CABG, Cholecystectomy, Tubal Ligation CREDIT RISK MANAGER History: No Pertinent CREDIT RISK MANAGER History Family History Family History: Reviewed,noncontributory to illness, Unknown Social History Smoker: Non-Smoker Alcohol: Denies ETOH Use Drugs: Denies Drug Use Lives In: Home Was a procedure done? Was a procedure done?: No Differential Diagnosis (ALOC) Differential Diagnosis: Other (DDX include CVA, TGA, cerebellar ischemia/infarct, carotid stenosis, Intracranial mass/infection/bleed, encephalopathy, electrolyte abnormality, thyroid disease, hydrocephalus, hypoglycemia, drug toxicity, cardiac arrhythmia, seizure, infection in the elderly, Hyperammonemia., kidney failure., sepsis.) Other Differential Diagnosis Includes but not limited to thyroid disease, encephalopathy, electrolyte abnormality, sepsis, infection, intracranial pathology, drug adverse effects, arrhythmia, kidney insufficiency, ACS, CVA, malignancy, anemia X-Ray, Labs, Meds, VS Vital Signs Date Time Temp Pulse Resp B/P (MAP) Pulse Ox O2 Delivery O2 Flow Rate FiO2 02/02/25 18:00 127 14 148/62 (90) 99 02/02/25 16:35 Nasal Cannula* 2 28 02/02/25 16:00 126 02/02/25 15:45 97.3 120 14 106/55 (72) 98 97.3 02/02/25 15:06 98.6 103 18 118/52 94 98.6 02/02/25 15:03 113 Lab Test 02/02/25 16:58 02/02/25 16:00 02/02/25 03:48 Range/Units Troponin I High Sensitivity 7 8 </=34 ng/L White Blood Count 24.3 H 4.4-10.8 10^3/uL Red Blood Count 2.91 L 4.0-5.20 10^6/uL Hemoglobin 8.4 L 12.2-16.2 g/dL Hematocrit 26.9 L 36.0-46.0 % Mean Corpuscular Volume 92.5 80.0-100.0 fL Mean Corpuscular Hemoglobin 28.7 28.0-32.0 pg Mean Corpuscular Hemoglobin Concent 31.1 L 32.0-36.0 g/dL Red Cell Distribution Width 18.0 H 11.8-14.3 % Platelet Count 468 H 140-450 10^3/uL Mean Platelet Volume 8.6 6.9-10.8 fL Neutrophils (%) (Auto) 82.7 H 37.0-80.0 % Lymphocytes (%) (Auto) 9.3 L 10.0-50.0 % Monocytes (%) (Auto) 7.5 0.0-12.0 % Eosinophils (%) (Auto) 0.2 0.0-7.0 % Basophils (%) (Auto) 0.3 0.0-2.0 % Neutrophils # (Auto) 20.1 H 1.6-8.6 10 ^3/uL Lymphocytes # (Auto) 2.3 0.4-5.4 10 ^3/uL Monocytes # (Auto) 1.8 H 0-1.3 10 ^3/uL Eosinophils # (Auto) 0 0-0.8 10 ^3/uL Basophils # (Auto) 0.1 0-0.2 10 ^3/uL Nucleated Red Blood Cells 0.0 % Prothrombin Time 12.5 H 9.3-11.8 sec Prothrombin Time INR 1.20 H 0.9-1.15 Activated Partial Thromboplast Time 27.1 24.5-34.5 SEC Sodium Level 138 136-145 mmol/L Potassium Level 5.2 H 3.5-5.1 mmol/L Chloride Level 109 H 98-107 mmol/L Carbon Dioxide Level 15 L 20-31 mmol/L Anion Gap 14 5-15 Blood Urea Nitrogen 70 H 9-23 mg/dL Creatinine 2.86 H 0.550-1.02 mg/dL Glomerular Filtration Rate Calc 17 >90 mL/min BUN/Creatinine Ratio 24.5 H 10.0-20.0 Serum Glucose 265 H 74-106 mg/dL Lactic Acid Level 2.1 *H 0.4-2.0 mmol/L Calcium Level 9.5 8.7-10.4 mg/dL Magnesium Level 2.1 1.6-2.6 mg/dL Total Bilirubin 0.3 0.2-1.0 mg/dL Aspartate Amino Transferase (AST) 17 13-40 U/L Alanine Aminotransferase (ALT) < 9 7-40 U/L Alkaline Phosphatase 63 46-116 U/L B-Type Natriuretic Peptide 69.63 0-100 pg/mL Total Protein 7.5 5.7-8.2 g/dL Albumin 3.6 3.2-4.8 g/dL Plasma/Serum Blood Alcohol < 3.0 <10 mg/dL Urine Color Brown H Yellow Urine Clarity Ex.turbid Clear Urine pH 5.0 5.0-9.0 Urine Specific [place] 1.011 1.001-1.035 Urine Protein 2+ H Negative Urine Ketones Negative Negative Urine Blood 3+ H Negative /uL Urine Nitrite Negative Negative Urine Bilirubin Negative Negative Urine Urobilinogen Normal Negative mg/dL Urine Leukocyte Esterase 3+ Negative /uL Urine RBC 38 0 - 4 /hpf Urine WBC Clumps Present None Seen /hpf Urine Microscopic WBC 1263 H 0-5 /HPF Urine Squamous Epithelial Cells None seen <5 /hpf Urine Bacteria Many H None Seen /hpf Urine Glucose 1+ H Normal mg/dL Urine Opiates Screen Neg NEGATIVE Urine Fentanyl Screen Neg NEGATIVE Urine Barbiturates Screen Neg NEGATIVE Urine Phencyclidine Screen Neg NEGATIVE Urine Amphetamines Screen Neg NEGATIVE Urine Benzodiazepines Screen Neg NEGATIVE Urine Cocaine Screen Neg NEGATIVE Urine Cannabinoids Screen Pos NEGATIVE [place] [address] Ph: [phone] DIAGNOSTIC IMAGING Diagnostic Imaging Report : [id number] Signed PATIENT: GANGA SHORT ACCT: [id number] UNIT: [id number] : 1950 LOC: ER ROOM / BED: / AGE / SEX: 74 / F ADM STATUS: REG ER SERVICE 1511 ORDERING PHYSICIAN: JOSHUA CARDENAS DO PROCEDURE(s): HWOCT - HEAD WITHOUT CONTRAST REASON: ALOC ORDER NUMBER(s): [id number], ACCESSION NUMBER(s): [id number] EXAM: CT HEAD WITHOUT CONTRAST HISTORY: ALOC COMPARISON: CT HEAD WITHOUT CONTRAST on DOS: 11/10/24 TECHNIQUE: Noncontrast axial CT images of the head were performed. Sagittal and coronal reformatted images were obtained. This CT exam was performed using 1 or more of the following dose reduction techniques: Automated exposure control, adjustment of the mA and/or kv according to patient size, or the use of iterative reconstruction techniques. Radiation Dose: CTDI volume is 52.19 mGy. Dose-length product is 961.71 mGy*cm FINDINGS: There is edema within the right frontal, temporal, and parietal lobes, with decreased attenuation and partial sulcal effacement. There is an old infarct of the right posterior parietal lobe. There is an old infarct of the left occipital lobe. There is an old lacunar infarct of the right cerebellum. There are old lacunar infarcts and/or prominent perivascular spaces along the caudal margins of the bilateral basal ganglia. Positive right dense MCA sign (image 29, series 2). No intracranial hemorrhage, mass, midline shift, or hydrocephalus. The sella is likely partially empty. There is mild mucosal thickening of the right maxillary sinus. The bilateral mastoid air cells and middle ear spaces are clear. No cranial fracture or scalp edema. 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 IMPRESSION: 1. Acute to subacute appearing large right MCA distribution infarct. 2. Old infarcts of the right posterior parietal lobe, left occipital lobe, and right cerebellum. There are also old lacunar infarcts and/or prominent per ivascular spaces along the caudal margins of the bilateral basal ganglia. Critical findings Critical Result: Stroke Alert - acute to subacute right MCA distribution infarct. Findings called to nurse Zohaib Stanley at 02/02/2025 05:42 PM CDT, and acknowledged receipt and understanding of the findings. ATED BY: ABIODUN HUITRON MD DICTATED DATE/TIME: 02/02/25 155 SIGNED BY: ABIODUN HUITRON MD SIGNED DATE/TIME: 02/02/25 155 [place] [address] Ph: [phone] DIAGNOSTIC IMAGING Diagnostic Imaging Report : [id number] Signed PATIENT: GANGA SHORT ACCT: [id number] UNIT: [id number] : 1950 LOC: ER ROOM / BED: / AGE / SEX: 74 / F ADM STATUS: REG ER SERVICE 1511 ORDERING PHYSICIAN: JOSHUA CARDENAS DO PROCEDURE(s): CXRP - CHEST PORTABLE REASON: ALOC ORDER NUMBER(s): [id number], ACCESSION NUMBER(s): [id number] EXAM: XY CHEST PORTABLE HISTORY: ALOC TECHNIQUE: 1 view of the chest COMPARISON: XY CHEST PORTABLE on DOS: 11/10/24 FINDINGS/IMPRESSION: LUNGS: No pleural effusion, consolidation, or pneumothorax. Along MEDIASTINUM: Unremarkable BONES: No acute osseous abnormality OTHER: Right anterior chest Port-A-Cath ATED BY: VIRY GONZALEZ MD DICTATED DATE/TIME: 02/02/251617 SIGNED BY: VIRY GONZALEZ MD SIGNED DATE/TIME: 02/02/251617 Time of 1ST Reevaluation: 15:45 Reevaluation 1ST: Unchanged Time of 2ND Reevaluation: 16:23 (DISCUSSED WITH OUR NEUROLOGIST IN HOUSE DR. MARTINI. NO RECOMMENDATIONS AT THIS TIME. PATIENT IS OUTSIDE THE WINDOW. WE WILL FOLLOW IN CONSULT.I ALSO SPOKE WITH TELE NEURO ON THE PHONE. THEY RECOMMEND CTA ANGIO HEAD AND NECK AND THEY WILL PLACE A CONSULT. However patient's creatinine is greater than 2.) Time of 3RD Reevaluation: 17:13 (Family is at bedside at this time. They said that the patient has been septic in November and said she left the hospital in November she has been nonambulatory. She is awaiting to get a procedure done in her kidney because she is not passing urine through her bladder because of the tumor. She is not on blood thinners. Last seen normal is confirmed to be yesterday. We placed a [place] catheter here which looks to have some thick white secretions. I updated the tele neuro doctor and they are okay with not obtaining the CT angio head and neck ) Patient Education/Counseling: Other Family Education/Counseling: Other Comments MDM: patient presented with the above HPI.--altered mental status----workup was initiated. patient was found with the above mentioned diagnosis. the following medications were ordered: please refer to order lists of meds and tests obtained by myself Dr. Cardenas. Patient ED course and VS have been stabilized. Patient has been reassessed in the ED and remained in a stable condition. Pertinent incidental findings were discussed with the patient and/or family. Patient/family voices understanding and is agreeable with plan. Patient has been observed in the ED adequate length of time to insure improvement/stability. Escalation of care considered: Consideration of escalation to observation or admission Neurology was consulted. Patient is outside the window for any anticoagulation. Antibiotics initiated by the medicine team. Patient was ADMITTED to the medicine team for further evaluation and treatment of their presentation. All the reports of any imaging studies that were ordered by myself were reviewed by myself. SEPSIS Sepsis Screen Physician Orders Associate Chemist (02/02/25 ) Chest Portable (02/02/25 15:11) Electrocardigram (02/02/25 15:11) Head Without Contrast (02/02/25 15:11) Stroke Assessment (02/02/25 16:03) Vital Signs .PER UNIT PROTOCOL (02/02/25 16:03) Associate Chemist (02/02/25 16:03) Accurate Weight In Kg (02/02/25 16:03) Accucheck (02/02/25 16:03) * Neurology Consult (02/02/25 16:03) 2 Large Bore Ivs (20mg Or Larg (02/02/25 16:03) Nursing Dysphagia Screen (02/02/25 16:03) Neuro Checks Per Unit Protocol (02/02/25 16:03) Carotid Duplx W Color Dop (02/02/25 17:01) Brain Head Wo Contrast (02/03/25 16:59) Mra Angio Head Brain (02/03/25 16:59) Vital Signs Date Time Temp Pulse Resp B/P (MAP) Pulse Ox O2 Delivery O2 Flow Rate FiO2 02/02/25 18:00 127 14 148/62 (90) 99 02/02/25 16:35 Nasal Cannula* 2 28 02/02/25 16:00 126 02/02/25 15:45 97.3 120 14 106/55 (72) 98 97.3 02/02/25 15:06 98.6 103 18 118/52 94 98.6 02/02/25 15:03 113 Laboratory Tests Test 02/02/25 16:00 Lactic Acid Level 2.1 mmol/L (0.4-2.0) *H White Blood Count 24.3 10^3/uL (4.4-10.8) H Departure 1 Departure Time of Disposition: 15:32 Impression: Primary Impression: Altered mental status Additional Impressions: Acute stroke due to ischemia UTI (urinary tract infection) Acute renal failure Disposition: ADMITTED INPATIENT Admit to: Tele Condition: Guarded Discharged With: Self Critical Care Note Critical Care Time?: Yes (1 hr-critical care time only) Heart Score Heart Score: Heart Score Response (Comments) Value History N/A 0 EKG N/A 0 Age N/A 0 Risk Factors N/A 0 Troponin N/A 0 Total 0 I personally scribed for JOSHUA CARDENAS DO ([email or web address]) on 02/02/25 at 15:16. Electronically submitted by Shaun Roe ([email or web address]). I personally scribed for JOSHUA CARDENAS DO ([email or web address]) on 02/02/25 at 16:51. Electronically submitted by Shaun Roe ([email or web address]). JOSHUA CARDENAS DO Feb 02, 2025 15:16
--- NOTE | 2025-02-02 15:59 | DVH ---
EXAM: CT HEAD WITHOUT CONTRAST HISTORY: ALOC COMPARISON: CT HEAD WITHOUT CONTRAST on DOS: 11/10/24 TECHNIQUE: Noncontrast axial CT images of the head were performed. Sagittal and coronal reformatted i mages were obtained. This CT exam was performed using 1 or more of the following dose reduction techn iques: Automated exposure control, adjustment of the mA and/or kv according to patient size, or the u se of iterative reconstruction techniques. Radiation Dose: CTDI volume is 52.19 mGy. Dose-length product is 961.71 mGy*cm FINDINGS: There is edema within the right frontal, temporal, and parietal lobes, with decreased attenuation and partial sulcal effacement. There is an old infarct of the right posterior parietal lobe. There is a n old infarct of the left occipital lobe. There is an old lacunar infarct of the right cerebellum. Th ere are old lacunar infarcts and/or prominent perivascular spaces along the caudal margins of the jose ateral basal ganglia. Positive right dense MCA sign (image 29, series 2). No intracranial hemorrhage, mass, midline shift, or hydrocephalus. The sella is likely partially empty. There is mild mucosal th ickening of the right maxillary sinus. The bilateral mastoid air cells and middle ear spaces are brock r. No cranial fracture or scalp edema. 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 All o f the maxillary teeth are absent. IMPRESSION: 1. Acute to subacute appearing large right MCA distribution infarct. 2. Old infarcts of the right posterior parietal lobe, left occipital lobe, and right cerebellum. The re are also old lacunar infarcts and/or prominent perivascular spaces along the caudal margins of the bilateral basal ganglia. Critical findings Critical Result: Stroke Alert - acute to subacute right MCA distribution infarct. Findings called to nurse Zohaib Stanley at 02/02/2025 05:42 PM CDT, and acknowledged receipt and understa nding of the findings.
--- NOTE | 2025-02-02 16:20 | DVH ---
EXAM: XY CHEST PORTABLE HISTORY: ALOC TECHNIQUE: 1 view of the chest COMPARISON: XY CHEST PORTABLE on DOS: 11/10/24 FINDINGS/IMPRESSION: LUNGS: No pleural effusion, consolidation, or pneumothorax. Along MEDIASTINUM: Unremarkable BONES: No acute osseous abnormality OTHER: Right anterior chest Port-A-Cath
[2025-02-02 16:27] LABS: Hemoglobin 8.4 g/dL (12.2-16.2); Nucleated Red Blood Cells % 0.0 %
[2025-02-02 16:28] LABS: Hematocrit 26.9 % (36.0-46.0); Mean Corpuscular Hemoglobin 28.7 pg (28.0-32.0); Mean Corpuscular Volume 92.5 fL (80.0-100.0)
[2025-02-02] MEDS: SODIUM CHLORIDE 0.9% 1,000 ML IV ONE ×2 (16:30→18:34)
[2025-02-02 16:37] LABS: Albumin 3.6 g/dL (3.2-4.8); Alkaline Phosphatase 63 U/L (46-116); Anion Gap 14 (5-15); BUN/Creatinine Ratio 24.5 (10.0-20.0); Bilirubin, Total 0.3 mg/dL (0.2-1.0); Calcium 9.5 mg/dL (8.7-10.4); Magnesium 2.1 mg/dL (1.6-2.6); Sodium 138 mmol/L (136-145); Total Protein 7.5 g/dL (5.7-8.2)
[2025-02-02 16:38] LABS: Alanine Aminotransferase < 9 U/L (7-40); Blood Urea Nitrogen 70 mg/dL (9-23); Carbon Dioxide 15 mmol/L (20-31); Chloride 109 mmol/L (98-107); Glucose 265 mg/dL (74-106); Potassium 5.2 mmol/L (3.5-5.1)
[2025-02-02 16:52] LABS: Urine Protein, UAD 2+ (Negative); Urine WBC Clumps PRESENT /hpf (None Seen)
[2025-02-02 16:53] LABS: Cannabinoid Screen, Urine Pos (NEGATIVE); Opiate Scree,Urine Neg (NEGATIVE)
[2025-02-02 16:56] LABS: Amphetamine Screen, Urine Neg (NEGATIVE); Barbiturate Scree,Urine Neg (NEGATIVE); Benzodiazephine Screen, Urine Neg (NEGATIVE); Cocaine Screen, Urine Neg (NEGATIVE); Phencyclidine Screen, Urine Neg (NEGATIVE)
--- NOTE | 2025-02-02 16:57 | BSKYNEURO ---
[facility] Note # Demographics Consult Type: Acute Stroke Level 2 (4.5-24 hrs) Patient Location: Emergency Room First Name: Karly Last Name: Seda Date of : 1950 Age: 74 Gender: Female Facility: [facility] Time of Initial Page (): 02/02/2025 16:08 First Contact with Site (): 02/02/2025 16:09 # HPI History: 74 y/o F with Hx of metastatic bladder cancer presents with AMS with LNK yesterday. She is taking THC for pain control. Labs show MARITZA and leukocytosis. # Scores Time of exam and NIHSS (): 02/02/2025 16:26 Level of Consciousness 1a: [1] = Not alert; but arousable by minor stim LOC Questions 1b: [2] = Answers neither correctly LOC Commands 1c: [2] = Performs neither correctly Best Gaze 2: [2] = Forced deviation Visual 3: [2] = Complete hemianopia Facial Palsy 4: [1] = Minor paralysis Motor Arm Left 5a: [4] = No movement Motor Arm Right 5b: [0] = No drift Motor Leg Left 6a: [4] = No movement Motor Leg Right 6b: [0] = No drift Limb Ataxia 7: [0] = Absent Sensory 8: [2] = Severe to total sensory loss Best Language 9: [3] = Mute Dysarthria 10: [0] = Normal Extinction and Inattention 11: [1] = Visual, tactile, auditory, spatial, or personal inattention NIHSS Total: 24 # Data Creatinine: - elevated 2.8 Other Labs: WBC 24K Time Head CT personally read by me (): 02/02/2025 16:[address]: - subacute ischemic stroke Rt [id number] # Assessment Impression: - Ischemic Stroke (Subacute) # Plan Thrombolytic/Intervention: NOT IV Thrombolysis or IA Intervention candidate Thrombolytic Exclusion: > 4.5 hours Intraarterial Exclusion: - unfavorable imaging/hypodensity Target Blood Pressure: - SBP < 220 - DBP < 120 Labs: - lipid panel Imaging: (urgency: routine): - MRI Brain without contrast - MR Angiogram Head without contrast - US carotid Diagnostic Test: - echo without bubble study Therapy/Evaluation: - PT/OT evaluation - speech/swallow consultation Medication: - aspirin 81 mg daily consider therapeutic anticoagulation with eliquis after 7 days DVT Prophylaxis: - enoxaprin (Lovenox) 40 mg subcutaneously daily Other: - If patient has any neurological deterioration please call me back immediately - LDL < 70 - telemetry monitoring permissive HTN 48hrs Additional Recommendations: palliative care # Logistics Attestation of consult completion: The patient is located at: [facility]. Facility staff participated in the visit. I performed this telemedicine visit from my offsite office utilizing interactive 2 way audio and visual telecommunication technology at the request of the onsite emergency room provider. Total time spent in telemedicine encounter: I spent 35 minutes reviewing clinical data and/or imaging, obtaining history, examining the patient, communicating with the onsite care team, and in preparation of this report. # Demographics First Name: Karly Last Name: Seda Facility: [facility] Electronically signed at 02/02/2025 16:56 ([place] Time) by DO Evi Riley ELIZABETH A DO Feb 02, 2025 16:57
[2025-02-02 17:03] LABS: Lactic Acid w/Reflex 2.1 mmol/L (0.4-2.0)
[2025-02-02 17:13] LABS: INR 1.2 (0.9-1.15); Partial Thromboplastin Time 27.1 SEC (24.5-34.5); Prothrombin Time 12.5 sec (9.3-11.8)
--- NOTE | 2025-02-02 17:53 | DVH ---
Indication: acute mca stroke r/o stenosis Technique: Real-time ultrasound images of the neck vessels with leon-scale, color and wave Doppler we re obtained. Comparison: CT head from today Findings: Mild atherosclerotic plaque. The following peak systolic velocities were recorded in cm/sec: Right internal carotid: 109 Right common carotid: 65 Right external carotid: 143 Right internal/common carotid ratio: 1.7 Left internal carotid: 97 Left common carotid: 85 Left external carotid: 99 Left internal/common carotid ratio: 1.1 Right vertebral artery: Patent with normal antegrade direction of flow. Left vertebral artery: Patent with normal antegrade direction of flow. Impression: No hemodynamically significant stenosis by velocity criteria of the internal carotid arteries. Elevated right ECA velocity may represent hemodynamically significant stenosis
[2025-02-02] MEDS ORDERED: HYDROmorphone HCL 2 MG/ML VL/or syr IV PRN (18:15)
[2025-02-02] MEDS ORDERED: ACETAMINOPHEN 325 MG TAB PO PRN (18:15)
[2025-02-02] MEDS ORDERED: HYDROcodone-ACET 5/325MG TAB PO PRN (18:15)
[2025-02-02] MEDS ORDERED: ONDANSETRON HCL 4 MG/2 ML VIAL IV PRN (18:15)
[2025-02-02] MEDS ORDERED: DOCUSATE SOD 100 MG CAP PO PRN (18:15)
[2025-02-02] MEDS ORDERED: DEXTROSE (50%) 50ML SYRG IV PRN (18:15)
--- NOTE | 2025-02-02 18:17 | DVHHP2 ---
Admitting Diagnosis: ALOC History of Present Illness 74-year-old female brought in by ambulance from home for evaluation of altered level of consciousness. Patient has history of bladder cancer with metastasis. Has missed her most recent chemotherapy session yesterday. Patient takes [place] for pain control at home. Patient tried THC not prescribed according to EMS for pain control for the 1st time and then these symptoms developed. Pre-hospital course vital signs were tachycardia stable blood pressure stable pulse ox afebrile blood sugar was in the 300s. No family present on initial evaluation. REVIEW OF SYSTEMS: CONSTITUTIONAL: Denies acute: fever, diaphoresis, chills, HEAD: Denies acute: headache, photophobia Eyes: Denies acute: Double vision, vision loss, eye pain, eye discharge. EARS: Denies acute: tinnitus, hearing loss, ear discharge, ear pain, THROAT: Denies acute: sore throat, swelling, difficulty swallowing , pain with swallowing, change in voice. NECK: Denies acute: neck pain, neck swelling, stiff neck. HEART: Denies acute : chest pain, palpitations, LUNGS: Denies acute: SOB, wheezing, cough, hemoptysis ABDOMEN: Denies acute: abdominal pain, Nausea, Vomiting, diarrhea, melena , hematemesis, hematochezia SKIN: Denies acute: rash, redness, lesions, itchiness. EXTREMITIES: Denies acute: calf pain, numbness, tingling, weakness, denies pain in extremity. Denies acute: Low back pain. Neuro: Denies acute: focal neurological deficit, motor or sensory focal neurological deficit, tremors, seizure like activity, , loss of bowel or bladder function, cauda equina like symptoms. : Denies acute: dysuria, hematuria, flank pain, increase in urinary frequency. PSYCH: Denies acute: hallucination, suicidal ideation, homicidal ideation. FEMALE: Denies acute: abnormal vaginal bleeding, foul odor, unusual discharge. PHYSICAL EXAM: General: -----no---acute distress, awake and alert. Head: normocephalic, atraumatic. Neck: supple, trachea is midline, no swelling. Eyes:, no erythema, no purulent discharge, no proptosis, no icterus. Heart: regular tachycardia, no significant murmur appreciated. Lungs: no apparent respiratory distress, No wheezing, no rhonchi, no crackles. No stridors Clear to auscultation bilaterally. Abdomen: non tender to palpation, non distended, soft, no guarding, no rebound, + bowel sounds. Wearing a diaper Neuro: Awake, obtunded Skin: no petechia, no purpura, no cyanosis, non-pale, not jaundice. Lower extremities: --no - Pitting edema no deformity, no focal swelling, no calf TTP. Makes eye contact. Able to reach with the right arm and grabbed my hand when I do a sternal rub. Face: no apparent facial droop. Pupils are nondilated. Non pinpoint. Reactive to light. Makes eye contact occasionally. No nuchal rigidity, Kernig's sign, Brudzinski's sign, no meningeal signs. ED COURSE: DISCLAIMER: This medical document was created using an electronic medical record system with voice recognition software and computerized dictation system. Although this document has been carefully reviewed, there might still be some phonetic and typographical errors. Occasional wrong-word or "sound-alike" substitutions may have occurred due to the inherent limitations of voice recognition software. These areas are purely typographical due to imperfections of the software programs and do not reflect any compromise in the patient's medical care. Please read the chart carefully and recognize, using context, where these substitutions have occurred. PAST MEDICAL HISTORY: Arthritis, Cancer, DM, High Lipids, HTN, UTI'S Surgical History: BTL, CABG, Cholecystectomy, Tubal Ligation FINANCIAL ADMINISTRATION OFFICER History: No Pertinent FINANCIAL ADMINISTRATION OFFICER History Family History: Reviewed,noncontributory to illness, Unknown Social History Smoker: Non-Smoker Alcohol: Denies ETOH Use Drugs: Denies Drug Use Lives In: Home Patient Family History: Arthritis G8 MOTHER Cerebrovascular accident (CVA) G8 FATHER Diabetes mellitus Hypertension G8 FATHER Allergies: Coded Allergies: Codeine (Verified Allergy, Intermediate, HALLUCINATIONS, 12/11/24) Home Meds Reported Medications Insulin Glargine (Basaglar Kwikpen) 100 Unit/Ml Inj, 8 UNIT SC HS for DIABETES 12/11/24 Metformin Hydrochloride (Metformin Hcl) 500 Mg Tab, 1 TAB PO QAM for DIABETES 12/11/24 Lisinopril (Lisinopril) 2.5 Mg Tab, 1 MG PO DAILY for HYPERTENSION 12/11/24 Gabapentin (Once-Daily) (Gabapentin) 300 Mg Tab, 2 TAB PO BID for NERVE PAIN 12/11/24 Famotidine (Famotidine) 20 Mg Tab, 1 TAB PO QAM for GERD 12/11/24 Ciprofloxacin Hcl (Ciprofloxacin Hcl) 500 Mg Tab, 1 TAB PO Q12HR for UTI for 10 Days 12/11/24 Atorvastatin Calcium (Lipitor) 20 Mg Tab, 1 TAB PO QPM for HIGH CHOLESTEROL 12/11/24 Vital Signs Vital Signs Date Time Temp Pulse Resp B/P (MAP) Pulse Ox O2 Delivery O2 Flow Rate FiO2 02/02/25 16:35 Nasal Cannula* 2 28 02/02/25 15:45 97.3 120 14 106/55 (72) 98 97.3 Physical Exam Gen 74 y.o. woman, lying in bed. NAD. HEENT: AT/NC Heart: RRR Lung: CTA b/l Abd: soft, soft, nontender, non-distended Msk: no edema or no cyanosis Neuro: lethargic, non-verbal, not responsive, eyes closed. moves spontaneously. SEPSIS Sepsis Screen Date sepsis recognized/suspect: Feb 02, 2025 Time Sepsis recognized/suspect: 1520 Recent Procedure: No On Antibiotic Therapy: No Respiratory Rate >20: No Heart Rate >90: Yes Temp<36 C (96.8 F) or >38.3 C: No SBP <90 or MAP <65 mmHG: No New Acute Mental Status Change: Yes Is the patient on CPAP, BIPAP,: No Physician Orders Catalogue Maker (02/02/25 ) Chest Portable (02/02/25 15:11) Electrocardigram (02/02/25 15:11) Head Without Contrast (02/02/25 15:11) Troponin-I Hs (02/02/25 18:11) Stroke Assessment (02/02/25 16:03) Vital Signs .PER UNIT PROTOCOL (02/02/25 16:03) Catalogue Maker (02/02/25 16:03) Accurate Weight In Kg (02/02/25 16:03) Accucheck (02/02/25 16:03) * Neurology Consult (02/02/25 16:03) 2 Large Bore Ivs (20mg Or Larg (02/02/25 16:03) Nursing Dysphagia Screen (02/02/25 16:03) Neuro Checks Per Unit Protocol (02/02/25 16:03) Brain Head Wo Contrast (02/02/25 16:59) Mra Angio Of Neck (02/02/25 16:59) Mra Angio Head Brain (02/02/25 16:59) Carotid Duplx W Color Dop (02/02/25 17:01) Admit (02/02/25 18:06) Code Status (02/02/25 18:06) Review Orders With Adm.Md (02/02/25 18:06) Encourage Activity As Tolerate (02/02/25 18:06) Npo (Nothing By Mouth) Diet (02/02/25 Dinner) Sodium Chloride Lock (Saline Lock Ns) (02/02/25 22:00) Docusate Sodium Capsule (Colace Capsule) (02/02/25 18:15) Acetaminophen Tablet (Tylenol Tablet) (02/02/25 18:15) Notify Md Of Changes From Base (02/02/25 18:06) Advance Directive (02/02/25 18:06) Patient Condition (02/02/25 18:06) Allergies (02/02/25 18:06) Hydrocodone-Acet 5/325mg Tab ([place] 5/32 (02/02/25 18:15) Hydromorphone Injection (Dilaudid Inject (02/02/25 18:15) Ondansetron Hcl (Zofran) (02/02/25 18:15) Complete Blood Count (02/03/25 05:00) Complete Blood Count (02/04/25 05:00) Complete Blood Count (02/05/25 05:00) Complete Blood Count (02/06/25 05:00) Complete Blood Count (02/07/25 05:00) Comprehensive Metabolic Panel (02/03/25 05:00) Comprehensive Metabolic Panel (02/04/25 05:00) Comprehensive Metabolic Panel (02/05/25 05:00) Comprehensive Metabolic Panel (02/06/25 05:00) Comprehensive Metabolic Panel (02/07/25 05:00) Famotidine Tablet (Pepcid Tablet) (02/03/25 07:00) (Nf) Gabapentin (Once-Daily) (Gabapentin (02/02/25 22:00) Glucose Blood (Accu-Chek Comfort Curve T (02/02/25 22:00) Mild Sliding Scale (02/02/25 22:00) Dextrose 50% Syringe (02/02/25 18:15) Ceftriaxone Ivpb Rocephin (02/03/25 09:00) Urine Bacterial Culture (02/02/25 18:08) *[facility] (02/02/25 18:08) Npo Except For Medications (02/02/25 18:08) St Eval Swallow Funct 45min (02/02/25 18:08) NS (02/02/25 18:15) Lactic Acid W/ Reflex Order (02/02/25 18:08) Lactic Acid W/ Reflex Order (02/03/25 00:08) Vital Signs Date Time Temp Pulse Resp B/P (MAP) Pulse Ox O2 Delivery O2 Flow Rate FiO2 02/02/25 16:35 Nasal Cannula* 2 28 02/02/25 15:45 97.3 120 14 106/55 (72) 98 97.3 02/02/25 15:06 98.6 103 18 118/52 94 98.6 02/02/25 15:03 113 Laboratory Tests Test 02/02/25 16:00 Lactic Acid Level 2.1 mmol/L (0.4-2.0) *H White Blood Count 24.3 10^3/uL (4.4-10.8) H Medications Medications Dose Ordered Sig/Raciel Route Start Time Stop Time Status Last Admin Dose Admin Sodium Chloride 1,000 ml @ 1,000 mls/hr Q1H ONCE IV 02/02/25 15:15 02/02/25 16:14 DC 02/02/25 16:30 Results Labs Test 02/02/25 16:58 02/02/25 16:00 02/02/25 03:48 Range/Units Troponin I High Sensitivity 7 </=34 ng/L White Blood Count 24.3 H 4.4-10.8 10^3/uL Red Blood Count 2.91 L 4.0-5.20 10^6/uL Hemoglobin 8.4 L 12.2-16.2 g/dL Hematocrit 26.9 L 36.0-46.0 % Mean Corpuscular Volume 92.5 80.0-100.0 fL Mean Corpuscular Hemoglobin 28.7 28.0-32.0 pg Mean Corpuscular Hemoglobin Concent 31.1 L 32.0-36.0 g/dL Red Cell Distribution Width 18.0 H 11.8-14.3 % Platelet Count 468 H 140-450 10^3/uL Mean Platelet Volume 8.6 6.9-10.8 fL Neutrophils (%) (Auto) 82.7 H 37.0-80.0 % Lymphocytes (%) (Auto) 9.3 L 10.0-50.0 % Monocytes (%) (Auto) 7.5 0.0-12.0 % Eosinophils (%) (Auto) 0.2 0.0-7.0 % Basophils (%) (Auto) 0.3 0.0-2.0 % Neutrophils # (Auto) 20.1 H 1.6-8.6 10 ^3/uL Lymphocytes # (Auto) 2.3 0.4-5.4 10 ^3/uL Monocytes # (Auto) 1.8 H 0-1.3 10 ^3/uL Eosinophils # (Auto) 0 0-0.8 10 ^3/uL Basophils # (Auto) 0.1 0-0.2 10 ^3/uL Nucleated Red Blood Cells 0.0 % Prothrombin Time 12.5 H 9.3-11.8 sec Prothrombin Time INR 1.20 H 0.9-1.15 Activated Partial Thromboplast Time 27.1 24.5-34.5 SEC Sodium Level 138 136-145 mmol/L Potassium Level 5.2 H 3.5-5.1 mmol/L Chloride Level 109 H 98-107 mmol/L Carbon Dioxide Level 15 L 20-31 mmol/L Anion Gap 14 5-15 Blood Urea Nitrogen 70 H 9-23 mg/dL Creatinine 2.86 H 0.550-1.02 mg/dL Glomerular Filtration Rate Calc 17 >90 mL/min BUN/Creatinine Ratio 24.5 H 10.0-20.0 Serum Glucose 265 H 74-106 mg/dL Lactic Acid Level 2.1 *H 0.4-2.0 mmol/L Calcium Level 9.5 8.7-10.4 mg/dL Magnesium Level 2.1 1.6-2.6 mg/dL Total Bilirubin 0.3 0.2-1.0 mg/dL Aspartate Amino Transferase (AST) 17 13-40 U/L Alanine Aminotransferase (ALT) < 9 7-40 U/L Alkaline Phosphatase 63 46-116 U/L B-Type Natriuretic Peptide 69.63 0-100 pg/mL Total Protein 7.5 5.7-8.2 g/dL Albumin 3.6 3.2-4.8 g/dL Plasma/Serum Blood Alcohol < 3.0 <10 mg/dL Urine Color Brown H Yellow Urine Clarity Ex.turbid Clear Urine pH 5.0 5.0-9.0 Urine Specific [place] 1.011 1.001-1.035 Urine Protein 2+ H Negative Urine Ketones Negative Negative Urine Blood 3+ H Negative /uL Urine Nitrite Negative Negative Urine Bilirubin Negative Negative Urine Urobilinogen Normal Negative mg/dL Urine Leukocyte Esterase 3+ Negative /uL Urine RBC 38 0 - 4 /hpf Urine WBC Clumps Present None Seen /hpf Urine Microscopic WBC 1263 H 0-5 /HPF Urine Squamous Epithelial Cells None seen <5 /hpf Urine Bacteria Many H None Seen /hpf Urine Glucose 1+ H Normal mg/dL Urine Opiates Screen Neg NEGATIVE Urine Fentanyl Screen Neg NEGATIVE Urine Barbiturates Screen Neg NEGATIVE Urine Phencyclidine Screen Neg NEGATIVE Urine Amphetamines Screen Neg NEGATIVE Urine Benzodiazepines Screen Neg NEGATIVE Urine Cocaine Screen Neg NEGATIVE Urine Cannabinoids Screen Pos NEGATIVE Primary Diagnosis Altered mental status Large MCA infarct Acute urinary tract infection MARITZA on CKD Bladder mass Plan Start ceftriaxone 1 g q.day for urinary tract infection. Follow up with the urine culture Lactic acidosis. Trend lactic Q [address] shows large acute to subacute infarct swallow eval asa 81mg qd lipitor 80mg qd check lipid and a1c NS at 74 Nephrology consult Renal ultrasound Urology consult for urine stand for family Check MRI brain, MRI head and neck, carotid Doppler , echocardiogram neuro check full code npo Plan discussed with: Patient Problems List: (1) Acute stroke due to ischemia Status: Acute Date of Service: Feb 02, 2025 Billing Provider: GUY CARPENTER MD Common Visit Codes: [id number] INP/OBS CARE (HIGH) GUY CARPENTER MD Feb 02, 2025 18:16
[2025-02-02 19:40] VITALS: PULSE 118; RESP 18; O2SAT 99
[2025-02-02] MEDS: SODIUM CHLOR 0.9% PF (SALINE LOCK) 10ML VIAL/SYR IV SCH (22:17)
[2025-02-02] MEDS: ACCU-CHEK COMFORT CURVE STRIP VI SCH (23:12)
--- NOTE | 2025-02-02 23:23 | ECG ---
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
[2025-02-03] MEDS: InsuLIN REG 1unit/0.01ml Soln (100units/ml) SC SCH (00:23)
[2025-02-03] MEDS: HEPARIN SODIUM (PORCINE) 5000 UNITS/ML 1ML VIAL SC SCH (01:15)
[2025-02-03 04:55] LABS: Albumin 3.3 g/dL (3.2-4.8); Alkaline Phosphatase 53 U/L (46-116); Anion Gap 12 (5-15); BUN/Creatinine Ratio 20.3 (10.0-20.0); Potassium 5.1 mmol/L (3.5-5.1); Sodium 141 mmol/L (136-145); Total Protein 6.7 g/dL (5.7-8.2)
[2025-02-03 05:00] LABS: Alanine Aminotransferase < 9 U/L (7-40); Bilirubin, Total 0.2 mg/dL (0.2-1.0); Blood Urea Nitrogen 56 mg/dL (9-23); Calcium 8.6 mg/dL (8.7-10.4); Carbon Dioxide 15 mmol/L (20-31); Chloride 114 mmol/L (98-107); Glucose 210 mg/dL (74-106)
[2025-02-03 06:28] LABS: Hemoglobin 7.6 g/dL (12.2-16.2); Nucleated Red Blood Cells % 0.1 %
[2025-02-03 06:30] LABS: Hematocrit 25.0 % (36.0-46.0); Mean Corpuscular Hemoglobin 29.3 pg (28.0-32.0); Mean Corpuscular Volume 96.7 fL (80.0-100.0)
[2025-02-03 08:15] VITALS: PULSE 110; RESP 15; O2SAT 99
[2025-02-03] MEDS: FAMOTIDINE 20 MG TAB PO SCH (08:36)
--- NOTE | 2025-02-03 08:39 | DVH ---
MRI BRAIN HEAD WO CONTRAST INDICATION: assess for acute cva EXAM DATE: 02/03/2025 07:27 AM COMPARISON: CT HEAD WITHOUT CONTRAST on DOS: 02/02/25, CT HEAD WITHOUT CONTRAST on DOS: 11/10/24, MRCP M RI on DOS: 02/07/20 PROCEDURE: Using a 1.5 Shalini scanner, multisequence multiplanar imaging of the brain was obtained. FINDINGS: Diffusion restriction and T2 lengthening of the right MCA distribution, consistent with a r ight MCA infarct. The brain otherwise shows normal morphology. No obvious abnormal susceptibility hy pointensity is present. The ventricles are normal in size. The midline structures are intact. The elizabeth or intracranial flow voids are present. The aerated spaces are normal. The orbital contents and extra cranial soft tissues appear normal. IMPRESSION: Diffusion restriction and T2 lengthening of the right MCA distribution, consistent with an evolving a cute right MCA infarct. Critical Result: Infarct Findings discussed with karen fabian at 02/03/2025 08:32 AM and acknowledged receipt and understanding of the findings.
--- NOTE | 2025-02-03 09:08 | DVH ---
PROCEDURE: MRI MRA ANGIO HEAD BRAIN INDICATION: large acute to subacute mca infarct 02/03/2025 07:44 AM COMPARISON: MRI BRAIN HEAD WO CONTRAST on DOS: 02/03/25, CT HEAD WITHOUT CONTRAST on DOS: 02/02/25, CT HEAD WITHOUT CONTRAST on DOS: 11/10/24 TECHNIQUE: MRA head without intravenous contrast. 3D image postprocessing was performed on a dedicated workstation and images were used for interpretat ion and reporting. FINDINGS: MRA head: There is severe attenuation of the right middle cerebral artery consistent with thrombosis. Distal br anches of the right MCA are occluded. Findings consistent with the prior MRI study which demonstrated a large infarct in the distribution of the right middle cerebral artery. Normal vertebral basilar sy stem. Left middle cerebral artery is intact. IMPRESSION: 1. Severe diminution in the right middle cerebral artery M1 and M2 branches consistent with thrombosi s. Distal branches of the right MCA are not visualized.
[2025-02-03] MEDS: GABAPENTIN 300 MG CAP PO SCH (10:00)
--- NOTE | 2025-02-03 15:51 | DVHSR ---
APPROVED REPORT EXAM: Two-dimensional and M-mode echocardiogram with Doppler, color Doppler and Bubble Study. Blood Pressure: 157/61 mmHg INDICATION Large stroke RISK FACTORS Height: 5'7", Weight: 120 DIMENSIONS LVDd4.3 (3.8-5.7cm)LA (2D)2.8 (1.9-4.0cm)Aortic Root3.0 (2.0-3.7cm) LVDs3.1 (2.5-4.0cm)LA (MM) (1.9-4.0cm)Aortic Cusp Exc1.9 (1.5-2.0cm) EF (%) 60.0 (55-70%)Rt. Atrium2.9 (1.9-4.0cm)Asc. Aorta cm IVSd1.0 (0.7-1.1cm)RV (D) (1.8-2.4cm) PWd0.7 (0.7-1.1cm) Mitral Valve MitralMitral Stenosis E/A ratio0.02D MVAcm2 Aortic Valve Aortic ValveAortic Stenosis V11.04m/Ania Mean GR.3mmHg V21.27m/Ania Peak GR.6mmHg LVOT Diameter2.1 (1.8-2.4cm)Doppler AVA2.83cm2 ATRIA Injection of bubbles documented an interatrial shunt. Other Information Quality : Rhythm : Tachycardia Technically limited study due to body habitus, patient sitting up. Conclusion Technically good study sinus rhythm. Left atrial enlargement. Valves are normal. Mild dilation of the sinuses of Valsalva. Left ventricular systolic function is preserved however there is anterior hypokinesis. EF is approxi mately 50%. Normal RV function. Mild TR. No pericardial effusion masses or vegetations.
[2025-02-03] MEDS: SODIUM BICARB 50mEq/50ml Vial 150 ML in D5W 5% 1,000 ML IV SCH (16:15)
--- NOTE | 2025-02-03 16:16 | DVHINCON2 ---
Date of service: Feb 03, 2025 Reason for Consultation matteo History of Present Illness 74 years old female with past medical history of diabetes, hypertension, CVA, Chronic kidney disease three, bladder cancer with metastasis undergoing presented with chief complaints of altered mental status since past Wednesday HPI obtained from the chart as patient historian Past Medical History As per HPI Past Surgical History As per HPI unknown exactly Allergies: Coded Allergies: Codeine (Verified Allergy, Intermediate, HALLUCINATIONS, 12/11/24) Home Meds Reported Medications Insulin Glargine (Basaglar Kwikpen) 100 Unit/Ml Inj, 8 UNIT SC HS for DIABETES 12/11/24 Metformin Hydrochloride (Metformin Hcl) 500 Mg Tab, 1 TAB PO QAM for DIABETES 12/11/24 Lisinopril (Lisinopril) 2.5 Mg Tab, 1 MG PO DAILY for HYPERTENSION 12/11/24 Gabapentin (Once-Daily) (Gabapentin) 300 Mg Tab, 2 TAB PO BID for NERVE PAIN 12/11/24 Famotidine (Famotidine) 20 Mg Tab, 1 TAB PO QAM for GERD 12/11/24 Ciprofloxacin Hcl (Ciprofloxacin Hcl) 500 Mg Tab, 1 TAB PO Q12HR for UTI for 10 Days 12/11/24 Atorvastatin Calcium (Lipitor) 20 Mg Tab, 1 TAB PO QPM for HIGH CHOLESTEROL 12/11/24 Current Medications Current Medications Medications (Trade) Dose Ordered Sig/Raciel Route PRN Reason Start Time Stop Time Status Last Admin Sodium Chloride (Saline Lock Ns) 10 ml Q8HR IV 02/02/25 22:00 02/03/25 14:07 Docusate Sodium (Colace Capsule) 100 mg BIDPRN PRN PO FOR CONSTIPATION 02/02/25 18:15 02/03/25 10:08 DC Acetaminophen (Tylenol Tablet) 650 mg Q6HP PRN PO PAIN SCALE 1-3 OR TEMP>100.4 02/02/25 18:15 Acetaminophen/ Hydrocodone Bitart ([place] 5/325MG Tab) 1 tab Q4HP PRN PO MODERATE PAIN (4-6 PAIN SCALE) 02/02/25 18:15 02/03/25 10:08 DC Hydromorphone HCl (Dilaudid Injection) 0.5 mg Q4HP PRN IV SEVERE PAIN (7-10 PAIN SCALE) 02/02/25 18:15 02/03/25 10:08 DC Ondansetron HCl (Zofran) 4 mg Q4HP PRN IV NAUSEA / VOMITING 02/02/25 18:15 02/03/25 10:08 DC Famotidine (Pepcid Tablet) 20 mg Q48H PO 02/03/25 07:00 Gabapentin (Neurontin Capsule) 300 mg DAILY PO 02/03/25 10:00 Diagnostic Test (Pha) (Accu-Chek Comfort Curve T) 1 strip ACHS 02/02/25 22:00 02/03/25 12:05 Insulin Human Regular (InsuLIN R) ACHS SC 02/02/25 22:00 02/03/25 12:09 Dextrose 50 ml UD PRN IV Blood Sugar LESS THAN 60 02/02/25 18:15 Ceftriaxone Sodium 50 ml @ 100 mls/hr DAILY@09 IV 02/02/25 18:14 02/03/25 09:46 Heparin Sodium (Porcine) 5,000 units Q12HR SC 02/02/25 22:00 02/03/25 10:08 DC 02/03/25 01:15 Aspirin 81 mg DAILY PO 02/03/25 10:00 Atorvastatin Calcium (Lipitor) 80 mg HS PO 02/03/25 22:00 Family History: Arthritis G8 MOTHER Cerebrovascular accident (CVA) G8 FATHER Diabetes mellitus Hypertension G8 FATHER Review of Systems Unknown H&P Exam Vital Signs/I&O Vital Sign Date Time Temp Pulse Resp B/P (MAP) Pulse Ox O2 Delivery O2 Flow Rate FiO2 02/03/25 16:00 104 19 168/70 (102) 99 02/03/25 10:00 98.9 98.9 02/03/25 08:15 Nasal Cannula* 2 28 Intake and Output 02/02/25 02/03/25 19:00 07:00 Intake Total 1000 ml Balance 1000 ml Intake IV Total 1000 ml Physical Exam Altered elderly female Air entry fair bilateral No edema Labs/Diagnostic Data Labs/Diagnostic Data Laboratory Tests Test 02/03/25 12:04 02/03/25 08:25 02/03/25 06:10 02/03/25 03:32 Range/Units POC Glucose 220 H 231 H 70-106 mg/dl White Blood Count 25.3 H 4.4-10.8 10^3/uL Red Blood Count 2.58 L 4.0-5.20 10^6/uL Hemoglobin 7.6 L 12.2-16.2 g/dL Hematocrit 25.0 L 36.0-46.0 % Mean Corpuscular Volume 96.7 # 80.0-100.0 fL Mean Corpuscular Hemoglobin 29.3 28.0-32.0 pg Mean Corpuscular Hemoglobin Concent 30.3 L 32.0-36.0 g/dL Red Cell Distribution Width 17.5 H 11.8-14.3 % Platelet Count 196 140-450 10^3/uL Mean Platelet Volume 8.8 6.9-10.8 fL Neutrophils (%) (Auto) 80.2 H 37.0-80.0 % Lymphocytes (%) (Auto) 10.0 10.0-50.0 % Monocytes (%) (Auto) 9.3 0.0-12.0 % Eosinophils (%) (Auto) 0.2 0.0-7.0 % Basophils (%) (Auto) 0.3 0.0-2.0 % Neutrophils # (Auto) 20.3 H 1.6-8.6 10 ^3/uL Lymphocytes # (Auto) 2.5 0.4-5.4 10 ^3/uL Monocytes # (Auto) 2.3 H 0-1.3 10 ^3/uL Eosinophils # (Auto) 0 0-0.8 10 ^3/uL Basophils # (Auto) 0.1 0-0.2 10 ^3/uL Nucleated Red Blood Cells 0.1 % Sodium Level 141 136-145 mmol/L Potassium Level 5.1 3.5-5.1 mmol/L Chloride Level 114 H 98-107 mmol/L Carbon Dioxide Level 15 L 20-31 mmol/L Anion Gap 12 5-15 Blood Urea Nitrogen 56 #H 9-23 mg/dL Creatinine 2.76 H 0.550-1.02 mg/dL Glomerular Filtration Rate Calc 17 >90 mL/min BUN/Creatinine Ratio 20.3 H 10.0-20.0 Serum Glucose 210 H 74-106 mg/dL Calcium Level 8.6 L 8.7-10.4 mg/dL Total Bilirubin 0.2 0.2-1.0 mg/dL Aspartate Amino Transferase (AST) 16 13-40 U/L Alanine Aminotransferase (ALT) < 9 7-40 U/L Alkaline Phosphatase 53 46-116 U/L Total Protein 6.7 5.7-8.2 g/dL Albumin 3.3 3.2-4.8 g/dL Test 02/03/25 00:22 02/02/25 23:09 02/02/25 18:51 02/02/25 16:58 Range/Units Lactic Acid Level 1.0 1.7 0.4-2.0 mmol/L POC Glucose 264 H 70-106 mg/dl Troponin I High Sensitivity 8 7 </=34 ng/L Test 02/02/25 16:00 02/02/25 03:48 Range/Units White Blood Count 24.3 H 4.4-10.8 10^3/uL Red Blood Count 2.91 L 4.0-5.20 10^6/uL Hemoglobin 8.4 L 12.2-16.2 g/dL Hematocrit 26.9 L 36.0-46.0 % Mean Corpuscular Volume 92.5 80.0-100.0 fL Mean Corpuscular Hemoglobin 28.7 28.0-32.0 pg Mean Corpuscular Hemoglobin Concent 31.1 L 32.0-36.0 g/dL Red Cell Distribution Width 18.0 H 11.8-14.3 % Platelet Count 468 H 140-450 10^3/uL Mean Platelet Volume 8.6 6.9-10.8 fL Neutrophils (%) (Auto) 82.7 H 37.0-80.0 % Lymphocytes (%) (Auto) 9.3 L 10.0-50.0 % Monocytes (%) (Auto) 7.5 0.0-12.0 % Eosinophils (%) (Auto) 0.2 0.0-7.0 % Basophils (%) (Auto) 0.3 0.0-2.0 % Neutrophils # (Auto) 20.1 H 1.6-8.6 10 ^3/uL Lymphocytes # (Auto) 2.3 0.4-5.4 10 ^3/uL Monocytes # (Auto) 1.8 H 0-1.3 10 ^3/uL Eosinophils # (Auto) 0 0-0.8 10 ^3/uL Basophils # (Auto) 0.1 0-0.2 10 ^3/uL Nucleated Red Blood Cells 0.0 % Prothrombin Time 12.5 H 9.3-11.8 sec Prothrombin Time INR 1.20 H 0.9-1.15 Activated Partial Thromboplast Time 27.1 24.5-34.5 SEC Sodium Level 138 136-145 mmol/L Potassium Level 5.2 H 3.5-5.1 mmol/L Chloride Level 109 H 98-107 mmol/L Carbon Dioxide Level 15 L 20-31 mmol/L Anion Gap 14 5-15 Blood Urea Nitrogen 70 H 9-23 mg/dL Creatinine 2.86 H 0.550-1.02 mg/dL Glomerular Filtration Rate Calc 17 >90 mL/min BUN/Creatinine Ratio 24.5 H 10.0-20.0 Serum Glucose 265 H 74-106 mg/dL Lactic Acid Level 2.1 *H 0.4-2.0 mmol/L Calcium Level 9.5 8.7-10.4 mg/dL Magnesium Level 2.1 1.6-2.6 mg/dL Total Bilirubin 0.3 0.2-1.0 mg/dL Aspartate Amino Transferase (AST) 17 13-40 U/L Alanine Aminotransferase (ALT) < 9 7-40 U/L Alkaline Phosphatase 63 46-116 U/L Troponin I High Sensitivity 8 </=34 ng/L B-Type Natriuretic Peptide 69.63 0-100 pg/mL Total Protein 7.5 5.7-8.2 g/dL Albumin 3.6 3.2-4.8 g/dL Plasma/Serum Blood Alcohol < 3.0 <10 mg/dL Urine Color Brown H Yellow Urine Clarity Ex.turbid Clear Urine pH 5.0 5.0-9.0 Urine Specific [place] 1.011 1.001-1.035 Urine Protein 2+ H Negative Urine Ketones Negative Negative Urine Blood 3+ H Negative /uL Urine Nitrite Negative Negative Urine Bilirubin Negative Negative Urine Urobilinogen Normal Negative mg/dL Urine Leukocyte Esterase 3+ Negative /uL Urine RBC 38 0 - 4 /hpf Urine WBC Clumps Present None Seen /hpf Urine Microscopic WBC 1263 H 0-5 /HPF Urine Squamous Epithelial Cells None seen <5 /hpf Urine Bacteria Many H None Seen /hpf Urine Glucose 1+ H Normal mg/dL Urine Opiates Screen Neg NEGATIVE Urine Fentanyl Screen Neg NEGATIVE Urine Barbiturates Screen Neg NEGATIVE Urine Phencyclidine Screen Neg NEGATIVE Urine Amphetamines Screen Neg NEGATIVE Urine Benzodiazepines Screen Neg NEGATIVE Urine Cocaine Screen Neg NEGATIVE Urine Cannabinoids Screen Pos NEGATIVE Assessment Acute kidney injury hemodynamic mediated etiology in the setting of acute CVA Encephalopathy secondary to cva Metabolic acidosis Hypertension Diabetes Recommendations Bicarb based IV fluids Kidney ultrasound Monitor Renal function We will follow closely Plan discussed with: TAL Rivas MD Feb 03, 2025 16:16
[2025-02-03 16:30] VITALS: BP 164/70; PULSE 107; RESP 20; TEMP 100.5; O2SAT 100
[2025-02-03 17:47] VITALS: BP 142/90; PULSE 69; PULSE 89; RESP 18; TEMP 98.2; O2SAT 96
--- NOTE | 2025-02-03 18:06 | DVH ---
INDICATION: Acute kidney injury TECHNIQUE: Multiple real-time sonographic images of the kidneys and bladder were obtained. COMPARISON: NM NM MAG3 RENAL SCAN on DOS: 07/05/24, US KIDNEY on DOS: 07/03/24 FINDINGS: Examination is difficult as the patient is unable to turn or follow commands. The right kidney measures 8.4 cm in length, which is normal in size. There is increased echogenicity of the right kidney. No hydronephrosis. The left kidney measures 9.4 cm in length, which is normal in size. There is increased echogenicity o f the left kidney. There is mild hydronephrosis. There is a Coyne catheter balloon within the urinary bladder. The bladder volume at the time of exam ination is estimated at 109 cc. IMPRESSION: Increased echogenicity of both kidneys consistent with medical renal disease. Mild left hydronephrosis.
--- NOTE | 2025-02-03 18:12 | DVHPN2 ---
Assessment/Plan Assessment/Plan Subjective History of Present Illness Karly Stack is a 74-year-old female with a history of metastatic bladder cancer who recently had a chemotherapy port placed. She presented to the ED on Wednesday morning with left-sided weakness and altered mental status after last being known to be well on night before sleep. Upon arrival at the ED, a stroke code was called. CT head showed a massive MCA stroke, and the patient's initial NIHSS was 24. She was found to be outside the window for acute intervention. MRI and MRA revealed an acute occlusion of the right MCA. The patient is currently unable to follow commands or communicate due to her altered mental status, limiting further assessment of symptoms. The patient's family was present at bedside for goals of care discussion. They are currently considering full code status despite being informed of the poor prognosis and ineligibility for hemicraniectomy or other stroke interventions due to the time elapsed since symptom onset. Objective Vital Signs - Heart Rate: Irregular rhythm, tachycardia permissive HTN Physical Examination General: Not following commands, altered mental status. Respiratory: Dry chest. Cardiovascular: Irregular rhythm, tachycardia. Abdomen: Soft, non-tender. Musculoskeletal: Normal fractional for extremities. Neurological: Not following commands, protecting airway, deliberate sounds. Laboratory, Imaging, and Diagnostic Test Results - CT Head: Massive MCA stroke - MRI: Acute occlusion of right MCA, diffusion restriction and T2 lengthening of the right MCA distribution consistent with evolving acute right MCA infarct - MRA: Severe diminution in the right middle cerebral artery M1 and M2 branches consistent with thrombosis - Labs: - Creatinine: 2.7 - WBC: 24 (elevated) - Hemoglobin: 7 g/dL - Platelets: 25 - Glucose: Elevated - INR: 1.2 - Urinalysis: Significant WBC and leukocyte esterase - Echocardiogram: - Intra-atrial shunt - EF: 50% - Normal RV function - Chest X-ray: Right anterior chest [id number] Assessment & Plan Assessment - Acute right middle cerebral artery (MCA) infarct - Metastatic bladder cancer - Urinary tract infection - Anemia - Leukocytosis - Hyperglycemia - Intra-atrial shunt - Altered mental status Plan - Continue secondary prevention with aspirin and Lipitor - Treat UTI with cephalexin - Replace electrolytes - Keep patient NPO - Continue goals of care discussion with family - Hold DVT prophylaxis due to risk of hemorrhagic conversion - Monitor clinical course - neurochecks - SCD - asa lipitor when able - neuro consult - ceft - iss - permisive HTN aspiration precaution low treshold for intubation Diet: NPO DVT PPX: DVT prophylaxis halted due to risk of hemorrhagic inversion GI PPX: Not indicated. Code Status: Full Code critical care time spent 90 minutes GOC discussion 15 minutes and ongoing Plan discussed with: Spouse, Daughter My Orders Orders - CHAO ARAUJO MD Procedure Category Date Status Time * Neurology Consult CONS 02/03/25 Transmitted 16:49 Basic Metabolic Panel LAB 02/04/25 Verified 04:00 Complete Blood Count LAB 02/04/25 Verified 04:00 Date of Service: Feb 03, 2025 Billing Provider: CHAO ARAUJO MD Common Visit Codes: 84687-[id number] CARE 30-74 MIN, 10041-[id number] CARE-EACH +30MIN CHAO ARAUJO MD Feb 03, 2025 18:12
[2025-02-03 20:00] VITALS: PULSE 108; RESP 18; O2SAT 98
[2025-02-03 21:21] VITALS: BP 163/72; PULSE 109; RESP 19; TEMP 98.1; O2SAT 99
[2025-02-03] MEDS: ATORVASTATIN 20 MG TAB PO SCH ×2 (21:56→23:30)
--- NOTE | 2025-02-03 22:22 | DVHINCON2 ---
Date of service: Feb 03, 2025 Referring Physician Anthony Reason for Consultation Stroke out of window, massive MCA, poor prognosis History of Present Illness Ms. Stack is a 74 years old female with a history of hypertension, diabetes, dyslipidemia, coronary artery disease, advanced bladder cancer, she was admitted to the [facility] on 02/02/25 with a chief complaint of altered mental status. At this time, she is awake, but she is nonresponsive to verbal stimuli. The history is obtained from his daughter, chart review On 02/02/25, the patient has developed mental status change, in that she did not talk, did not eat or drink, family reports she was able to move the feet. In the hospital, the patient was found to have mass right MCA territory stroke She has bladder cancer with bone metastatic disease, and she is on radiation therapy, she is going to have chemotherapy and debulking surgery I have also discussed with her daughter about the likely poor prognosis, I especially discussed about the mass stroke, and a possibility of decompression on her if the stroke involves, I have also discussed with her about the potential surgery related risk on the patient. She is to discuss with her family and will let me know about the patient code status [phone] UDS, 02/02/2025: Cannabinoids Plasma alcohol, 02/02/2025: <3 WBC/HB/PLT/MCV, 02/03/2025: 25.3/726/196/96.7 BUN/CR, 02/03/2025: 56/2.76 GFR, 02/03/2025: 17 HCO3, 02/02/25: 15, 02/03/2025: 15 Anion gap, 02/02/25: 14, 02/03/2025: 12 Glucose, 02/02/2025: 265 Liver function tests, 02/03/25: Unremarkable TG/HDL/LDL/HDL, 10/05/24: 211/122/54/30 Echocardiogram, 02/03/2025: Technically good study sinus rhythm. Left atrial enlargement. Valves are normal. Mild dilation of the sinuses of Valsalva. Left ventricular systolic function is preserved however there is anterior hypokinesis. EF is approximately 50%. Normal RV function. Mild TR. No pericardial effusion masses or vegetations. Carotid Doppler, 02/02/2025: No hemodynamically significant stenosis by velocity criteria of the internal carotid arteries. Elevated right ECA velocity may represent hemodynamically significant stenosis CT head, 02/03/2025: 1. Acute to subacute appearing large right MCA distribution infarct. 2. Old infarcts of the right posterior parietal lobe, left occipital lobe, and right cerebellum. There are also old lacunar infarcts and/or prominent perivascular spaces along the caudal margins of the bilateral basal ganglia. MRI brain, 02/03/2025: Diffusion restriction and T2 lengthening of the right MCA distribution, consistent with an evolving acute right MCA infarct. MRA brain, 02/03/2025: Severe diminution in the right middle cerebral artery M1 and M2 branches consistent with thrombosis. Distal branches of the right MCA are not visualized. Past Medical History Hypertension, diabetes, dyslipidemia, arthritis, bladder cancer Past Surgical History Cholecystectomy, bilateral tubal ligation, CABG Family History: Arthritis G8 MOTHER Cerebrovascular accident (CVA) G8 FATHER Diabetes mellitus Hypertension G8 FATHER Family History Hypertension, diabetes, stroke, arthritis He has no history of tobacco smoke, drug/alcohol abuse As above, the other systems are negative Social History He has no history of tobacco smoke, drug/alcohol abuse Allergies: Coded Allergies: Codeine (Verified Allergy, Intermediate, HALLUCINATIONS, 12/11/24) Home Meds Reported Medications Insulin Glargine (Basaglar Kwikpen) 100 Unit/Ml Inj, 8 UNIT SC HS for DIABETES 12/11/24 Metformin Hydrochloride (Metformin Hcl) 500 Mg Tab, 1 TAB PO QAM for DIABETES 12/11/24 Lisinopril (Lisinopril) 2.5 Mg Tab, 1 MG PO DAILY for HYPERTENSION 12/11/24 Gabapentin (Once-Daily) (Gabapentin) 300 Mg Tab, 2 TAB PO BID for NERVE PAIN 12/11/24 Famotidine (Famotidine) 20 Mg Tab, 1 TAB PO QAM for GERD 12/11/24 Ciprofloxacin Hcl (Ciprofloxacin Hcl) 500 Mg Tab, 1 TAB PO Q12HR for UTI for 10 Days 12/11/24 Atorvastatin Calcium (Lipitor) 20 Mg Tab, 1 TAB PO QPM for HIGH CHOLESTEROL 12/11/24 Current Medications Current Medications Medications (Trade) Dose Ordered Sig/Raciel Route PRN Reason Start Time Stop Time Status Last Admin Famotidine (Pepcid Tablet) 20 mg Q48H PO 02/03/25 07:00 Gabapentin (Neurontin Capsule) 300 mg DAILY PO 02/03/25 10:00 Aspirin 81 mg DAILY PO 02/03/25 10:00 Atorvastatin Calcium (Lipitor) 80 mg HS PO 02/03/25 22:00 Sodium Bicarbonate 150 ml/Dextrose 1,150 ml @ 75 mls/hr [id number] IV 02/03/25 16:15 02/03/25 16:15 Review of Systems As above, the other systems are negative Vital Signs Vital Signs Date Time Temp Pulse Resp B/P (MAP) Pulse Ox O2 Delivery O2 Flow Rate FiO2 02/03/25 21:21 98.1 109 19 163/72 (102) 99 98.1 02/03/25 17:47 Nasal Cannula* 2 28 Physical Exam GENERAL EXAM: General: the patient is well developed and nourished. No acute distress. HEENT: Normocephalic, neck is supple, no carotid bruits. No mass. RESPIRATORY: Normal respiratory effort with symmetrical lung expansion. Lungs clear to auscultation. CARDIOVASCULAR: Regular rate and rhythm with no murmurs. S1, S2. ABDOMEN: Soft, nontender, normal bowel sound Bilateral hammertoes NEUROLOGICAL: MENTAL STATUS: HPI SPEECH, LANGUAGE, HIGHER CORTICAL FUNCTION: She does not vocalize CRANIAL NERVES: #2: She may have left homonymous hemianopsia #3,4,6: Pupils are equal, round and reactive. EOMs full and conjugate but the eyes tend to deviated to the right side. No nystagmus, #5: Facial sensation okay in all three divisions bilaterally. Mandibular strength intact. #7: Facial muscles symmetrical and strength intact (inadequate physical examination) #8: Hearing grossly normal to voice. #9,10: Deferred #11: Deferred #12: Deferred SENSATION: Sensation to touch and pinprick is okay MOTOR: Normal tone in the upper and lower extremity. Normal muscle bulk. No fasciculations. No abnormal movements or posturing. Muscle strength of the major groups in the right arm: 4/5, she moves the right leg a little bit. She does not move the right arm than leg REFLEXES: Deep tendon reflexes normal and symmetrical. Pathologic reflexes in the left foot CEREBELLAR/COORDINATION: Deferred GAIT/STATION: deferred. Labs/Diagnostic Data Labs Test 02/03/25 21:42 02/03/25 06:10 02/03/25 03:02/03/25 00:22 Range/Units POC Glucose 222 H 70-106 mg/dl White Blood Count 25.3 H 4.4-10.8 10^3/uL Red Blood Count 2.58 L 4.0-5.20 10^6/uL Hemoglobin 7.6 L 12.2-16.2 g/dL Hematocrit 25.0 L 36.0-46.0 % Mean Corpuscular Volume 96.7 # 80.0-100.0 fL Mean Corpuscular Hemoglobin 29.3 28.0-32.0 pg Mean Corpuscular Hemoglobin Concent 30.3 L 32.0-36.0 g/dL Red Cell Distribution Width 17.5 H 11.8-14.3 % Platelet Count 196 140-450 10^3/uL Mean Platelet Volume 8.8 6.9-10.8 fL Neutrophils (%) (Auto) 80.2 H 37.0-80.0 % Lymphocytes (%) (Auto) 10.0 10.0-50.0 % Monocytes (%) (Auto) 9.3 0.0-12.0 % Eosinophils (%) (Auto) 0.2 0.0-7.0 % Basophils (%) (Auto) 0.3 0.0-2.0 % Neutrophils # (Auto) 20.3 H 1.6-8.6 10 ^3/uL Lymphocytes # (Auto) 2.5 0.4-5.4 10 ^3/uL Monocytes # (Auto) 2.3 H 0-1.3 10 ^3/uL Eosinophils # (Auto) 0 0-0.8 10 ^3/uL Basophils # (Auto) 0.1 0-0.2 10 ^3/uL Nucleated Red Blood Cells 0.1 % Sodium Level 141 136-145 mmol/L Potassium Level 5.1 3.5-5.1 mmol/L Chloride Level 114 H 98-107 mmol/L Carbon Dioxide Level 15 L 20-31 mmol/L Anion Gap 12 5-15 Blood Urea Nitrogen 56 #H 9-23 mg/dL Creatinine 2.76 H 0.550-1.02 mg/dL Glomerular Filtration Rate Calc 17 >90 mL/min BUN/Creatinine Ratio 20.3 H 10.0-20.0 Serum Glucose 210 H 74-106 mg/dL Calcium Level 8.6 L 8.7-10.4 mg/dL Total Bilirubin 0.2 0.2-1.0 mg/dL Aspartate Amino Transferase (AST) 16 13-40 U/L Alanine Aminotransferase (ALT) < 9 7-40 U/L Alkaline Phosphatase 53 46-116 U/L Total Protein 6.7 5.7-8.2 g/dL Albumin 3.3 3.2-4.8 g/dL Lactic Acid Level 1.0 0.4-2.0 mmol/L Test 02/02/25 18:51 02/02/25 16:00 02/02/25 03:48 Range/Units Troponin I High Sensitivity 8 </=34 ng/L Prothrombin Time 12.5 H 9.3-11.8 sec Prothrombin Time INR 1.20 H 0.9-1.15 Activated Partial Thromboplast Time 27.1 24.5-34.5 SEC Magnesium Level 2.1 1.6-2.6 mg/dL B-Type Natriuretic Peptide 69.63 0-100 pg/mL Plasma/Serum Blood Alcohol < 3.0 <10 mg/dL Urine Color Brown H Yellow Urine Clarity Ex.turbid Clear Urine pH 5.0 5.0-9.0 Urine Specific [place] 1.011 1.001-1.035 Urine Protein 2+ H Negative Urine Ketones Negative Negative Urine Blood 3+ H Negative /uL Urine Nitrite Negative Negative Urine Bilirubin Negative Negative Urine Urobilinogen Normal Negative mg/dL Urine Leukocyte Esterase 3+ Negative /uL Urine RBC 38 0 - 4 /hpf Urine WBC Clumps Present None Seen /hpf Urine Microscopic WBC 1263 H 0-5 /HPF Urine Squamous Epithelial Cells None seen <5 /hpf Urine Bacteria Many H None Seen /hpf Urine Glucose 1+ H Normal mg/dL Urine Opiates Screen Neg NEGATIVE Urine Fentanyl Screen Neg NEGATIVE Urine Barbiturates Screen Neg NEGATIVE Urine Phencyclidine Screen Neg NEGATIVE Urine Amphetamines Screen Neg NEGATIVE Urine Benzodiazepines Screen Neg NEGATIVE Urine Cocaine Screen Neg NEGATIVE Urine Cannabinoids Screen Pos NEGATIVE Assessment Mass right MCA territory strokes Left homonymous hemianopsia Left hemiplegia Altered mental status Secondary to mass stroke Metabolic encephalopathy Bladder cancer with bone metastatic disease Plan/Recommendation Monitoring Supportive treatment Transferred to ICU Transfer higher level care Re: Mass stroke, the need decompression Aspirin 81 mg daily Lipitor 20 mg daily (home med) Famotidine 20 mg every other day, I recommend considering conservative treatment. Family is to discuss about her code status Progress: Poor Critical care time spent is 45 minutes This medical document was created using an electronic medical record system with [employer] dictation system. Although this document has been carefully reviewed, there may still be some phonetic and typographical errors. These areas are purely typographical due to imperfections of the software programs, and do not reflect any compromise in the patient's medical care. Plan discussed with: Daughter, Other RICHI MARTINI MD Feb 03, 2025 22:22
[2025-02-04] VITALS (9 sets, daily range): BP systolic 139–177; BP diastolic 63–92; PULSE 101–122; RESP 18–24; TEMP 98.2–101.4; O2SAT 99–100
[2025-02-04 07:04] LABS: Hemoglobin 7.2 g/dL (12.2-16.2); Nucleated Red Blood Cells % 0.0 %
[2025-02-04 07:09] LABS: Hematocrit 23.5 % (36.0-46.0); Mean Corpuscular Hemoglobin 29.1 pg (28.0-32.0); Mean Corpuscular Volume 94.6 fL (80.0-100.0)
[2025-02-04 07:18] LABS: Albumin 3.4 g/dL (3.2-4.8); Alkaline Phosphatase 60 U/L (46-116); Anion Gap 15 (5-15); BUN/Creatinine Ratio 19.7 (10.0-20.0); Calcium 9.0 mg/dL (8.7-10.4); Potassium 4.2 mmol/L (3.5-5.1); Sodium 142 mmol/L (136-145); Total Protein 7.3 g/dL (5.7-8.2)
[2025-02-04 07:32] LABS: Alanine Aminotransferase < 9 U/L (7-40); Bilirubin, Total 0.2 mg/dL (0.2-1.0); Blood Urea Nitrogen 43 mg/dL (9-23); Carbon Dioxide 16 mmol/L (20-31); Chloride 111 mmol/L (98-107); Glucose 315 mg/dL (74-106)
--- NOTE | 2025-02-04 08:28 | DVHPN2 ---
Progress Note Date Seen: Feb 04, 2025 Medical Necessity Reason Pt with a Central, PICC or Fol: Yes Subjective Patient reports: Other Review of Systems: NEURO:Abnormal Objective vital signs Vital Sign Date Time Temp Pulse Resp B/P (MAP) Pulse Ox O2 Delivery O2 Flow Rate FiO2 02/04/25 05:45 99.0 122 19 152/63 (92) 100 99.0 02/03/25 20:00 Nasal Cannula* 2 28 Total Intake and Output 02/03/25 02/03/25 02/04/25 14:59 22:59 06:59 Intake Total 0 ml Output Total 1300 ml 500 ml Balance -1300 ml -500 ml medications Current Medications Medications Dose Ordered Sig/Raciel Route Start Time Stop Time Status Last Admin Dose Admin Sodium Chloride 10 ml Q8HR IV 02/02/25 22:00 02/04/25 05:58 10 ML Acetaminophen 650 mg Q6HP PRN PO 02/02/25 18:15 Famotidine 20 mg Q48H PO 02/03/25 07:00 Gabapentin 300 mg DAILY PO 02/03/25 10:00 Diagnostic Test (Pha) 1 strip ACHS 02/02/25 22:00 02/04/25 05:45 1 STRIP Insulin Human Regular ACHS SC 02/02/25 22:00 02/04/25 05:57 6 UNITS Dextrose 50 ml UD PRN IV 02/02/25 18:15 Ceftriaxone Sodium 50 ml @ 100 mls/hr DAILY@09 IV 02/02/25 18:14 02/03/25 09:46 100 MLS/HR Aspirin 81 mg DAILY PO 02/03/25 10:00 Sodium Bicarbonate 150 ml/Dextrose 1,150 ml @ 75 mls/hr [id number] IV 02/03/25 16:15 02/03/25 16:15 75 MLS/HR Atorvastatin Calcium 20 mg HS PO 02/03/25 23:30 Examination: GENERAL:Abnormal, LUNGS:Abnormal, MSK:Abnormal, NEURO:Abnormal laboratory and microbiology Laboratory Tests 02/04/25 05:32 Test 02/04/25 05:32 Range/Units Serum Glucose 315 H 74-106 mg/dL Problem List/Assessment/Plan Problem List/Assessment/Plan Acute kidney injury hemodynamic mediated etiology in the setting of acute CVA Encephalopathy secondary to cva Metabolic acidosis Hypertension Diabetes Recommendations Bicarb based IV fluids Kidney ultrasound noted Monitor Renal function We will follow closely Plan discussed with: Other My Orders My Orders Orders - TAL OWUSU MD Procedure Category Date Status Time D5w 5% (Dextrose 5%) PHA 02/03/25 In Process W/Sodium Bicarb 50m 16:15 Kidney US 02/03/25 Resulted 16:17 TAL OWUSU MD Feb 04, 2025 08:28
--- NOTE | 2025-02-04 10:24 | DVH ---
EXAM: CT STROKE CTH INDICATION: TECHNIQUE: CT of the head without intravenous contrast. Coronal and sagittal reformatted images are s ubmitted. Radiation Dose : 1. Head: CT Dose: CTDI volume is 49.4 mGy. Dose-length product is 790.5 mGy*cm The dose indicators for CT are the volume Computed Tomography (CT) Dose Index (CTDIvol) and the Dose Length Product (DLP), and are measured in units of mGy and mGy-cm, respectively. These indicators are not patient dose, but values generated from the CT scanner acquisition factors. The report includes radiation exposure data for exposures received during this examination. All CT scans at this medical facility are performed using dose modulation techniques as appropriate to a performed exam including the following: Automated exposure control was utilized; adjustment of the MA and/or KV according to patient size; and use of iterative reconstruction technique. COMPARISON: MRI BRAIN HEAD WO CONTRAST on DOS: 02/03/25, US CAROTID DUPLX W COLOR DOP on DOS: 02/02/25 FINDINGS: Hypodensity in the right frontal, temporal and parietal lobes consistent with right MCA evolving infa rct as seen on recent brain MRI from 02/03/2025. Additional focal infarct in the posterior watershed r egion which was also seen on previous brain MRI. No evidence of acute intracranial hemorrhage. There is 4 mm right to left shift of midline No hydrocephalus. There is right sulcal effacement. Basal cisterns are patent. The leon-white differentiation is intact. The visualized paranasal sinuses and mastoid air cells are clear. No depressed calvarial fracture. The surrounding soft tissues are unremarkable. IMPRESSION: 1. Continued evolution of acute right MCA infarct, similar in appearance to prior brain MRI from 01/07 when accounting for differences in technique. 4 mm right to left shift of midline. Right poste rior watershed infarct is also unchanged. 2. No acute intracranial hemorrhage.
[2025-02-04] MEDS: ACETAMINOPHEN 650 MG RECT SUPP PR PRN (10:33)
--- NOTE | 2025-02-04 11:33 | DVHPN2 ---
Progress Note - Dictate Date Seen: Feb 04, 2025 Medical Necessity Reason Pt with a Central, PICC or Fol: Yes Subjective Ms. Stack is a 74 years old female with a history of hypertension, diabetes, dyslipidemia, coronary artery disease, advanced bladder cancer, she was admitted to the [facility] on 02/02/25 with a chief complaint of altered mental status. I have seen and examined the patient, I have talked to her nurse. She is awake, she is more interactive with her thrombus, she follows verbal commands, she can not look to her left-sided, and she likely has a left homonymous hemianopsia I have reviewed follow up CT head on 02/04/2025, there is midline shift T-max: 101.3 According to the family, her doctor is using radiation to the bones, and is going to use low dosage of chemotherapy to make her comfortable I has spent time discussing with her and daughter, giving her history of advanced bladder cancer, likely permanent left hemiplegia or severe left hemiparesis, I do not recommend palliative care, such as craniotomy for secondary intracranial hemorrhage or mass effects. I have discussed about CPR, the family is to discuss [id number] UDS, 02/02/2025: Cannabinoids Plasma alcohol, 02/02/2025: <3 WBC/HB/PLT/MCV, 02/03/2025: 25.3/726/196/96.7 BUN/CR, 02/03/2025: 56/2.76 GFR, 02/03/2025: 17 HCO3, 02/02/25: 15, 02/03/2025: 15 Anion gap, 02/02/25: 14, 02/03/2025: 12 Glucose, 02/02/2025: 265 Liver function tests, 02/03/25: Unremarkable TG/HDL/LDL/HDL, 10/05/24: 211/122/54/30 Echocardiogram, 02/03/2025: Technically good study sinus rhythm. Left atrial enlargement. Valves are normal. Mild dilation of the sinuses of Valsalva. Left ventricular systolic function is preserved however there is anterior hypokinesis. EF is approximately 50%. Normal RV function. Mild TR. No pericardial effusion masses or vegetations. Carotid Doppler, 02/02/2025: No hemodynamically significant stenosis by velocity criteria of the internal carotid arteries. Elevated right ECA velocity may represent hemodynamically significant stenosis (There is 4 mm right to left shift of midline ) CT head, 02/03/2025: 1. Acute to subacute appearing large right MCA distribution infarct. 2. Old infarcts of the right posterior parietal lobe, left occipital lobe, and right cerebellum. There are also old lacunar infarcts and/or prominent perivascular spaces along the caudal margins of the bilateral basal ganglia. CT head, 02/04/2025: 1. Continued evolution of acute right MCA infarct, similar in appearance to prior brain MRI from 02/03/2025 when accounting for differences in technique. 4 mm right to left shift of midline. Right posterior watershed infarct is also unchanged. 2. No acute intracranial hemorrhage. MRI brain, 02/03/2025: Diffusion restriction and T2 lengthening of the right MCA distribution, consistent with an evolving acute right MCA infarct. MRA brain, 02/03/2025: Severe diminution in the right middle cerebral artery M1 and M2 branches consistent with thrombosis. Distal branches of the right MCA are not visualized. vital signs Vital Sign Date Time Temp Pulse Resp B/P (MAP) Pulse Ox O2 Delivery O2 Flow Rate FiO2 02/04/25 10:33 101.3 02/04/25 09:00 115 24 139/70 (93) 99 02/03/25 20:00 Nasal Cannula* 2 28 Total Intake and Output 02/03/25 02/03/25 02/04/25 15:00 23:00 07:00 Intake Total 0 ml Output Total 1300 ml 500 ml Balance -1300 ml -500 ml medications Current Medications Medications Dose Ordered Sig/Raciel Route Start Time Stop Time Status Last Admin Dose Admin Sodium Chloride 10 ml Q8HR IV 02/02/25 22:00 02/04/25 05:58 10 ML Famotidine 20 mg Q48H PO 02/03/25 07:00 Gabapentin 300 mg DAILY PO 02/03/25 10:00 Diagnostic Test (Pha) 1 strip ACHS 02/02/25 22:00 02/04/25 05:45 1 STRIP Insulin Human Regular ACHS SC 02/02/25 22:00 02/04/25 05:57 6 UNITS Dextrose 50 ml UD PRN IV 02/02/25 18:15 Ceftriaxone Sodium 50 ml @ 100 mls/hr DAILY@09 IV 02/02/25 18:14 02/04/25 10:32 100 MLS/HR Aspirin 81 mg DAILY PO 02/03/25 10:00 Sodium Bicarbonate 150 ml/Dextrose 1,150 ml @ 75 mls/hr [id number] IV 02/03/25 16:15 02/04/25 10:33 75 MLS/HR Atorvastatin Calcium 20 mg HS PO 02/03/25 23:30 Acetaminophen 650 mg Q6HP PRN MO 02/04/25 09:30 02/04/25 10:33 650 MG objective General: the patient is well developed and nourished. No acute distress. MENTAL STATUS: Subjective SPEECH, LANGUAGE, HIGHER CORTICAL FUNCTION: She does not vocalize CRANIAL NERVES: She may have left homonymous hemianopsia. Pupils are equal, round and reactive. Eyes can not move to the left side. No nystagmus, Facial sensation okay in all three divisions bilaterally. Mandibular strength intact. Facial muscles symmetrical and strength intact (inadequate physical examination) SENSATION: Sensation to touch and pinprick is okay MOTOR: Normal tone in the upper and lower extremity. Normal muscle bulk. No fasciculations. No abnormal movements or posturing. Muscle strength of the major groups in the right arm: 4/5, she moves the right leg a little bit. She does not move the right arm than leg REFLEXES: Deep tendon reflexes normal and symmetrical. Pathologic reflexes in the left foot CEREBELLAR/COORDINATION: Deferred GAIT/STATION: deferred. laboratory and microbiology Laboratory Tests 02/04/25 05:32 Test 02/04/25 05:32 Range/Units Serum Glucose 315 H 74-106 mg/dL Problem List Mass right MCA territory strokes Left homonymous hemianopsia Left hemiplegia Left gaze palsy Altered mental status Secondary to mass stroke Metabolic encephalopathy Bladder cancer with bone metastatic disease Assessment/Plan Monitoring Supportive treatment Transferred to ICU Transfer higher level care Re: Mass stroke, the need decompression Aspirin 81 mg daily Lipitor 20 mg daily (home med) Famotidine 20 mg every other day, I recommend considering conservative treatment/palliative care. Family is to discuss about her code status This medical document was created using an electronic medical record system with [employer] system. Although this document has been carefully reviewed, there may still be some phonetic and typographical errors. These areas are purely typographical due to imperfections of the software programs, and do not reflect any compromise in the patient's medical care. Prognosis Critical Plan discussed with: Spouse, Daughter, Other Critical Care Time(min): 40 RICHI MARTINI MD Feb 04, 2025 11:33
--- NOTE | 2025-02-04 17:17 | DVHPN2 ---
Assessment/Plan Assessment/Plan Subjective History of Present Illness Karly Stack is a 74-year-old female with a history of metastatic bladder cancer who recently had a chemotherapy port placed. She presented to the ED on Wednesday morning with left-sided weakness and altered mental status after last being known to be well on night before sleep. Upon arrival at the ED, a stroke code was called. CT head showed a massive MCA stroke, and the patient's initial NIHSS was 24. She was found to be outside the window for acute intervention. MRI and MRA revealed an acute occlusion of the right MCA. The patient is currently unable to follow commands or communicate due to her altered mental status, limiting further assessment of symptoms. The patient's family was present at bedside for goals of care discussion. They are currently considering full code status despite being informed of the poor prognosis and ineligibility for hemicraniectomy or other stroke interventions due to the time elapsed since symptom onset. seen today. had another family discussion. family expresses wanting to get do conservative management, also updated code status to DNR DNI. HLOC transfer cancelled. 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 Respiratory: Dry chest. Cardiovascular: Irregular rhythm, tachycardia. Abdomen: Soft, non-tender. Musculoskeletal: Normal fractional for extremities. Neurological: Not following commands, protecting airway, deliberate sounds. Laboratory, Imaging, and Diagnostic Test Results - CT Head: Massive MCA stroke - MRI: Acute occlusion of right MCA, diffusion restriction and T2 lengthening of the right MCA distribution consistent with evolving acute right MCA infarct - MRA: Severe diminution in the right middle cerebral artery M1 and M2 branches consistent with thrombosis - Labs: - Creatinine: 2.7 - WBC: 24 (elevated) - Hemoglobin: 7 g/dL - Platelets: 25 - Glucose: Elevated - INR: 1.2 - Urinalysis: Significant WBC and leukocyte esterase - Echocardiogram: - Intra-atrial shunt - EF: 50% - Normal RV function - Chest X-ray: Right anterior chest [id number] Assessment & Plan Assessment - Acute right middle cerebral artery (MCA) infarct - Metastatic bladder cancer - Urinary tract infection - Anemia - Leukocytosis - Hyperglycemia - Intra-atrial shunt - Altered mental status Plan - Continue secondary prevention with aspirin and Lipitor - Treat UTI with cephalexin - Replace electrolytes - Keep patient NPO - Continue goals of care discussion with family - Hold DVT prophylaxis due to risk of hemorrhagic conversion - Monitor clinical course - neurochecks - SCD - asa lipitor when able - neuro consult - ceft - iss - permisive HTN aspiration precaution low treshold for intubation Diet: NPO DVT PPX: DVT prophylaxis halted due to risk of hemorrhagic inversion GI PPX: Not indicated. Code Status: dnr dni critical care time spent 90 minutes GOC discussion 15 minutes and ongoing Plan discussed with: Spouse, Daughter My Orders Orders - CHAO ARAUJO MD Procedure Category Date Status Time Acetaminophen PHA 02/04/25 In Process Suppository (Tylenol 09:[address] 02/04/25 Resulted 09:34 * Dietary Consult CONS 02/04/25 Transmitted 10:53 Cover Wound With Foam SHIRIN 02/04/25 In Process Dressing 10:42 Foam Cradle To ORDERS 02/04/25 Transmitted Bilateral Feet 10:54 Code Status CODE 02/04/25 Transmitted 16:18 Date of Service: Feb 04, 2025 Billing Provider: CHAO ARAUJO MD Common Visit Codes: [id number] INP/OBS CARE(HIGH) CHAO ARAUJO MD Feb 04, 2025 17:17
[2025-02-05] VITALS (10 sets, daily range): BP systolic 104–169; BP diastolic 43–89; PULSE 101–114; RESP 18–20; TEMP 98–99.9; O2SAT 63–100
[2025-02-05] MEDS: LABETALOL HCL 20 MG/4 ML VL IV ONE (01:06)
[2025-02-05 07:06] LABS: Alanine Aminotransferase 10 U/L (7-40); Albumin 3.7 g/dL (3.2-4.8); Alkaline Phosphatase 67 U/L (46-116); Anion Gap 15 (5-15); BUN/Creatinine Ratio 23.0 (10.0-20.0); Calcium 8.9 mg/dL (8.7-10.4); Carbon Dioxide 24 mmol/L (20-31); Chloride 107 mmol/L (98-107); Potassium 3.7 mmol/L (3.5-5.1); Total Protein 7.6 g/dL (5.7-8.2)
[2025-02-05 07:11] LABS: Hematocrit 24.6 % (36.0-46.0); Hemoglobin 7.9 g/dL (12.2-16.2); Mean Corpuscular Hemoglobin 29.2 pg (28.0-32.0); Mean Corpuscular Volume 90.5 fL (80.0-100.0); Nucleated Red Blood Cells % 0.0 %
[2025-02-05 07:49] LABS: Bilirubin, Total 0.2 mg/dL (0.2-1.0); Blood Urea Nitrogen 45 mg/dL (9-23); Glucose 351 mg/dL (74-106); Sodium 146 mmol/L (136-145)
--- NOTE | 2025-02-05 08:23 | DVHPN2 ---
Progress Note Date Seen: Feb 05, 2025 Medical Necessity Reason Pt with a Central, PICC or Fol: Yes Subjective Patient reports: Other Review of Systems: Deferred Objective vital signs Vital Sign Date Time Temp Pulse Resp B/P (MAP) Pulse Ox O2 Delivery O2 Flow Rate FiO2 02/05/25 05:00 98.1 104 18 144/54 (84) 99 98.1 02/04/25 20:00 Nasal Cannula* 2 28 Total Intake and Output 02/04/25 02/04/25 02/05/25 15:00 23:00 07:00 Intake Total 1200 ml 0 ml 0 ml Output Total 650 ml 650 ml Balance 1200 ml -650 ml -650 ml medications Current Medications Medications Dose Ordered Sig/Raciel Route Start Time Stop Time Status Last Admin Dose Admin Sodium Chloride 10 ml Q8HR IV 02/02/25 22:00 02/05/25 05:29 10 ML Famotidine 20 mg Q48H PO 02/03/25 07:00 Gabapentin 300 mg DAILY PO 02/03/25 10:00 Diagnostic Test (Pha) 1 strip ACHS 02/02/25 22:00 02/05/25 05:29 1 STRIP Insulin Human Regular ACHS SC 02/02/25 22:00 02/05/25 05:33 8 UNITS Dextrose 50 ml UD PRN IV 02/02/25 18:15 Ceftriaxone Sodium 50 ml @ 100 mls/hr DAILY@09 IV 02/02/25 18:14 02/04/25 10:32 100 MLS/HR Aspirin 81 mg DAILY PO 02/03/25 10:00 Atorvastatin Calcium 20 mg HS PO 02/03/25 23:30 Acetaminophen 650 mg Q6HP PRN MS 02/04/25 09:30 02/04/25 10:33 650 MG Examination: GENERAL:Abnormal, NEURO:Abnormal laboratory and microbiology Laboratory Tests 02/05/25 05:10 Test 02/05/25 05:10 Range/Units Serum Glucose 351 H 74-106 mg/dL Microbiology Date/Time Source Procedure Growth Status 02/02/25 03:48 Voided Urine Urine Culture - Preliminary Resulted Problem List/Assessment/Plan Problem List/Assessment/Plan Acute kidney injury hemodynamic mediated etiology in the setting of acute CVA Encephalopathy secondary to cva Metabolic acidosis Hypertension Diabetes Recommendations stop Bicarb based IV fluids Kidney ultrasound noted Monitor Renal function We will follow closely repeat UA Plan discussed with: Other Dietary Evaluation Review Comments: 1) Initiate Pro-Stat @ 30 mL qd 2) If patient remains NPO > 7 days, consider EN/TPN to meet at least 75% of estimated daily needs 3) Advance to 60g CCHO diet when medically feasible, pending ST approval 4) Follow-up with oncology and cardiology 5) Continue to monitor I&O, labs, and skin integrity Expected Outcomes/Goals: 1) patient to receive nutritional support within 7 days of NPO status 2) labs and wounds to improve 3) diet to advance 4) f/u in 3-5 days TAL OWUSU MD Feb 05, 2025 08:23
--- NOTE | 2025-02-05 14:51 | DVHPNRES ---
Progress Note Date Seen: Feb 05, 2025 Resident Creating Document: SARA GUTIERREZ Medical Necessity Reason Pt with a Central, PICC or Fol: Yes The following are medically ne: Coyne Catheter Medical Necessity Reason Acute/subacute stroke causing severe physical deconditioning of the patient due to nonresponsiveness; suspected coma status Subjective Review of Systems The patient was seen and examined at bedside today. Overnight events were reviewed. The patient is nonverbal; and nonresponsive to painful stimuli; no concerns reported by nursing staff. The patient continues to be DNR and DNI status as per patient's family. The patient's family wants to place the patient on hospice in SNF; social worker onboard. Objective vital signs Vital Sign Date Time Temp Pulse Resp B/P (MAP) Pulse Ox O2 Delivery O2 Flow Rate FiO2 02/05/25 12:49 99.9 104 18 121/43 (69) 99 99.9 02/05/25 08:00 Nasal Cannula* 2 28 Total Intake and Output 02/04/25 02/04/25 02/05/25 15:00 23:00 07:00 Intake Total 1200 ml 0 ml 0 ml Output Total 650 ml 650 ml Balance 1200 ml -650 ml -650 ml medications Current Medications Medications Dose Ordered Sig/Raciel Route Start Time Stop Time Status Last Admin Dose Admin Sodium Chloride 10 ml Q8HR IV 02/02/25 22:00 02/05/25 05:29 10 ML Famotidine 20 mg Q48H PO 02/03/25 07:00 Gabapentin 300 mg DAILY PO 02/03/25 10:00 Diagnostic Test (Pha) 1 strip ACHS 02/02/25 22:00 02/05/25 11:30 1 STRIP Insulin Human Regular ACHS SC 02/02/25 22:00 02/05/25 05:33 8 UNITS Dextrose 50 ml UD PRN IV 02/02/25 18:15 Ceftriaxone Sodium 50 ml @ 100 mls/hr DAILY@09 IV 02/02/25 18:14 02/05/25 10:44 100 MLS/HR Aspirin 81 mg DAILY PO 02/03/25 10:00 Atorvastatin Calcium 20 mg HS PO 02/03/25 23:30 Acetaminophen 650 mg Q6HP PRN [place] 02/04/25 09:30 02/04/25 10:33 650 MG Examination Pt is lying on bed General Appearance: Nonverbal, unresponsive HEENT: Atraumatic, Mucous membranes moist/pink, eyes deviated to the right side Respiratory: Clear to auscultation, Normal air movement, No added sounds Cardiovascular: Regular rate, Normal S1, Normal S2, No murmurs; Port-A-Cath in place with no signs of infection/bleeding Abdominal/ : Active bowel sounds, Soft, no distention, no tenderness; Coyne's in place Extremities: No edema, Normal pulses, No tenderness/swelling Skin: No Significant rash, except past surgical scars Neuro: Nonverbal; does not move left side upper and lower extremity indicating weakness/paralysis Psych/Mental Status: Nonverbal Nurse was there as master pilot during examination laboratory and microbiology Laboratory Tests 02/05/25 05:10 Test 02/05/25 05:10 Range/Units Serum Glucose 351 H 74-106 mg/dL Microbiology Date/Time Source Procedure Growth Status 02/02/25 03:48 Voided Urine Urine Culture - Final Complete Labs and/or images reviewed: Labs reviewed by me, Image(s) reviewed by me Problem List/Assessment/Plan Problem List/Assessment/Plan Acute Encephalopathy secondary to cerebrovascular ischemic infarct/stroke; now nonverbal and nonresponsive with left-sided weakness/paralysis Acute to subacute Large ischemic MCA infarct/stroke causing suspected coma and aphasia One-to-one sitter to ensure safety Holding oral medications including aspirin and statin for now as the patient is nonresponsive and swallowing can not be evaluated CT shows large acute to subacute infarct Neuro onboard Neuro recommendations: Continue supportive treatment Injection Press Operator team is arranging hospice at [facility] Sepsis with leukocytosis and lactic acidosis in the setting of complicated UTI Complicated UTI MARITZA on CKD; most likely vasomotor nephropathy in the setting of sepsis Chronic anemia in the setting of CKD Bladder mass Avoid nephrotoxic agents Renal ultrasound reviewed No signs/symptoms of bleeding Continue IV ceftriaxone 1 g q.day for urinary tract infection. Reviewed urine culture Type 2 diabetes mellitus Insulin sliding scale GI prophylaxis: To keep holding oral famotidine as explained above DVT prophylaxis: SCDs in the setting of large acute/subacute ischemic stroke Diet: NPO Goals of care discussed with the patient's daughter for 22 minutes: Continues to be DNI/DNR; pending discharge on hospice at [facility] Case discussed with Dr. Henley, patient's daughter and RN Plan discussed with: Daughter, Other (RN) Dietary Evaluation Review Comments: 1) Initiate Pro-Stat @ 30 mL qd 2) If patient remains NPO > 7 days, consider EN/TPN to meet at least 75% of estimated daily needs 3) Advance to 60g CCHO diet when medically feasible, pending ST approval 4) Follow-up with oncology and cardiology 5) Continue to monitor I&O, labs, and skin integrity Expected Outcomes/Goals: 1) patient to receive nutritional support within 7 days of NPO status 2) labs and wounds to improve 3) diet to advance 4) f/u in 3-5 days Addendum Addendum Addendum I was physically present for the mckinney portions of the service provided to patient by THE RESIDENT. I have reviewed the documentation, discussed the case with resident and agree with the resident's documentation except as noted. Also the patient's clinical case was discussed with the patient's nurse. This medical document was created using an electronic medical record system with computerized dictation system. Although this document has been carefully reviewed, there might still be some phonetic and typographical errors. These areas are purely typographical due to imperfections of the software programs, and do not reflect any compromise in the patient's medical care. Late signature. Date of Service: Feb 05, 2025 Billing Provider: ROYER HENLEY MD Common Visit Codes: [id number] INP/OBS CARE(HIGH) Secondary Visit Codes: [id number] CARE PLAN 30 MINUTES (22 minutes) SARA GUTIERREZ Feb 05, 2025 14:51 ROYER HENLEY MD Feb 06, 2025 08:50
--- NOTE | 2025-02-05 21:48 | DVHPN2 ---
Progress Note - Dictate Date Seen: Feb 05, 2025 Medical Necessity Reason Pt with a Central, PICC or Fol: Yes Subjective Ms. Stack is a 74 years old female with a history of hypertension, diabetes, dyslipidemia, coronary artery disease, advanced bladder cancer, she was admitted to the [facility] on 02/02/25 with a chief complaint of altered mental status. I have seen and examined the patient, I have talked to her nurse. She is awake, she does not vocalize, but follows verbal commands, she does not look to her left-sided, she likely has a left homonymous hemianopsia I agree considering hospice care T-max: 101.4 UDS, 02/02/2025: Cannabinoids Plasma alcohol, 02/02/2025: <3 WBC/HB/PLT/MCV, 02/03/2025: 25.3/726/196/96.7 BUN/CR, 02/03/2025: 56/2.76 GFR, 02/03/2025: 17 HCO3, 02/02/25: 15, 02/03/2025: 15 Anion gap, 02/02/25: 14, 02/03/2025: 12 Glucose, 02/02/2025: 265 Liver function tests, 02/03/25: Unremarkable TG/HDL/LDL/HDL, 10/05/24: 211/122/54/30 Echocardiogram, 02/03/2025: Technically good study sinus rhythm. Left atrial enlargement. Valves are normal. Mild dilation of the sinuses of Valsalva. Left ventricular systolic function is preserved however there is anterior hypokinesis. EF is approximately 50%. Normal RV function. Mild TR. No pericardial effusion masses or vegetations. Carotid Doppler, 02/02/2025: No hemodynamically significant stenosis by velocity criteria of the internal carotid arteries. Elevated right ECA velocity may represent hemodynamically significant stenosis (There is 4 mm right to left shift of midline ) CT head, 02/03/2025: 1. Acute to subacute appearing large right MCA distribution infarct. 2. Old infarcts of the right posterior parietal lobe, left occipital lobe, and right cerebellum. There are also old lacunar infarcts and/or prominent perivascular spaces along the caudal margins of the bilateral basal ganglia. CT head, 02/04/2025: 1. Continued evolution of acute right MCA infarct, similar in appearance to prior brain MRI from 02/03/2025 when accounting for differences in technique. 4 mm right to left shift of midline. Right posterior watershed infarct is also unchanged. 2. No acute intracranial hemorrhage. MRI brain, 02/03/2025: Diffusion restriction and T2 lengthening of the right MCA distribution, consistent with an evolving acute right MCA infarct. MRA brain, 02/03/2025: Severe diminution in the right middle cerebral artery M1 and M2 branches consistent with thrombosis. Distal branches of the right MCA are not visualized. vital signs Vital Sign Date Time Temp Pulse Resp B/P (MAP) Pulse Ox O2 Delivery O2 Flow Rate FiO2 02/05/25 16:54 98.1 114 18 120/61 (80) 99 98.1 02/05/25 08:00 Nasal Cannula* 2 28 Total Intake and Output 02/04/25 02/04/25 02/05/25 15:00 23:00 07:00 Intake Total 1200 ml 0 ml 0 ml Output Total 650 ml 650 ml Balance 1200 ml -650 ml -650 ml medications Current Medications Medications Dose Ordered Sig/Raciel Route Start Time Stop Time Status Last Admin Dose Admin Sodium Chloride 10 ml Q8HR IV 02/02/25 22:00 02/05/25 14:00 10 ML Famotidine 20 mg Q48H PO 02/03/25 07:00 Hold Gabapentin 300 mg DAILY PO 02/03/25 10:00 Hold Diagnostic Test (Pha) 1 strip ACHS 02/02/25 22:00 02/05/25 17:17 1 STRIP Insulin Human Regular ACHS SC 02/02/25 22:00 02/05/25 17:18 8 UNITS Dextrose 50 ml UD PRN IV 02/02/25 18:15 Ceftriaxone Sodium 50 ml @ 100 mls/hr DAILY@09 IV 02/02/25 18:14 02/05/25 10:44 100 MLS/HR Aspirin 81 mg DAILY PO 02/03/25 10:00 Hold Atorvastatin Calcium 20 mg HS PO 02/03/25 23:30 Hold objective General: the patient is well developed and nourished. No acute distress. MENTAL STATUS: Subjective SPEECH, LANGUAGE, HIGHER CORTICAL FUNCTION: She does not vocalize CRANIAL NERVES: She may have left homonymous hemianopsia. Pupils are equal, round and reactive. Eyes can not move to the left side. No nystagmus, Facial sensation okay in all three divisions bilaterally. Mandibular strength intact. Facial muscles symmetrical and strength intact (inadequate physical examination) SENSATION: Sensation to touch and pinprick is okay MOTOR: Normal tone in the upper and lower extremity. Normal muscle bulk. No fasciculations. No abnormal movements or posturing. Muscle strength of the major groups in the right arm: 4/5, she moves the right leg a little bit. She does not move the right arm than leg REFLEXES: Deep tendon reflexes normal and symmetrical. Pathologic reflexes in the left foot CEREBELLAR/COORDINATION: Deferred GAIT/STATION: deferred. laboratory and microbiology Laboratory Tests 02/05/25 05:10 Test 02/05/25 05:10 Range/Units Serum Glucose 351 H 74-106 mg/dL Problem List Mass right MCA territory strokes Left homonymous hemianopsia Left hemiplegia Left gaze palsy Altered mental status Secondary to mass stroke Metabolic encephalopathy Bladder cancer with bone metastatic disease Assessment/Plan Monitoring Supportive treatment ICU care Follow-up CT head Transfer higher level care Re: Mass stroke, the need decompression Aspirin 81 mg daily Lipitor 20 mg daily (home med) Famotidine 20 mg every other day I recommend considering conservative treatment/palliative care. Family is to discuss about her code status This medical document was created using an electronic medical record system with [employer] dictation system. Although this document has been carefully reviewed, there may still be some phonetic and typographical errors. These areas are purely typographical due to imperfections of the software programs, and do not reflect any compromise in the patient's medical care. Prognosis poor Dietary Evaluation Review Comments: 1) Initiate Pro-Stat @ 30 mL qd 2) If patient remains NPO > 7 days, consider EN/TPN to meet at least 75% of estimated daily needs 3) Advance to 60g CCHO diet when medically feasible, pending ST approval 4) Follow-up with oncology and cardiology 5) Continue to monitor I&O, labs, and skin integrity Expected Outcomes/Goals: 1) patient to receive nutritional support within 7 days of NPO status 2) labs and wounds to improve 3) diet to advance 4) f/u in 3-5 days Plan discussed with: RICHI Sarmiento MD Feb 05, 2025 21:48
[2025-02-06] VITALS (10 sets, daily range): BP systolic 100–188; BP diastolic 57–88; PULSE 110–205; RESP 20–22; TEMP 97.3–98.8; O2SAT 94–100
[2025-02-06] MEDS: hydrALAZINE HCL 20 MG/ML VL IV ONE (05:58)
--- NOTE | 2025-02-06 09:06 | DVHPN2 ---
Progress Note Date Seen: Feb 06, 2025 Medical Necessity Reason Pt with a Central, PICC or Fol: Yes The following are medically ne: Coyne Catheter Subjective Changes from previous H/P or p: No Changes Objective vital signs Vital Sign Date Time Temp Pulse Resp B/P (MAP) Pulse Ox O2 Delivery O2 Flow Rate FiO2 02/06/25 08:10 Nasal Cannula* 2 28 02/06/25 05:58 188/88 02/06/25 05:00 98.0 119 20 94 98.0 Total Intake and Output 02/05/25 02/05/25 02/06/25 15:00 23:00 07:00 Intake Total 50 ml 0 ml 0 ml Output Total 400 ml 350 ml Balance 50 ml -400 ml -350 ml medications Current Medications Medications Dose Ordered Sig/Raciel Route Start Time Stop Time Status Last Admin Dose Admin Sodium Chloride 10 ml Q8HR IV 02/02/25 22:00 02/06/25 05:59 10 ML Famotidine 20 mg Q48H PO 02/03/25 07:00 Hold Gabapentin 300 mg DAILY PO 02/03/25 10:00 Hold Diagnostic Test (Pha) 1 strip ACHS 02/02/25 22:00 02/06/25 05:58 1 STRIP Insulin Human Regular ACHS SC 02/02/25 22:00 02/06/25 06:59 8 UNITS Dextrose 50 ml UD PRN IV 02/02/25 18:15 Ceftriaxone Sodium 50 ml @ 100 mls/hr DAILY@09 IV 02/02/25 18:14 02/05/25 10:44 100 MLS/HR Aspirin 81 mg DAILY PO 02/03/25 10:00 Hold Atorvastatin Calcium 20 mg HS PO 02/03/25 23:30 Hold Examination: GENERAL:Normal laboratory and microbiology Laboratory Tests 02/05/25 05:10 Test 02/05/25 05:10 Range/Units Serum Glucose 351 H 74-106 mg/dL Microbiology Date/Time Source Procedure Growth Status 02/02/25 03:48 Voided Urine Urine Culture - Final Complete Problem List/Assessment/Plan Problem List/Assessment/Plan Acute kidney injury hemodynamic mediated etiology in the setting of acute CVA Encephalopathy secondary to cva Large MCA infarct Hypertension Diabetes sepsis to UTI Recommendations MARITZA resolving, labs today pending persistent leukocytosis, rec broaden infectious w/u and coverage repeat UA Neurology Kidney ultrasound noted Plan discussed with: Patient My Orders My Orders Orders - KEM GALICIA MD Procedure Category Date Status Time Basic Metabolic Panel LAB 02/06/25 Transmitted 08:59 Basic Metabolic Panel LAB 02/07/25 Verified 04:00 Dietary Evaluation Review Comments: 1) Initiate Pro-Stat @ 30 mL qd 2) If patient remains NPO > 7 days, consider EN/TPN to meet at least 75% of estimated daily needs 3) Advance to 60g CCHO diet when medically feasible, pending ST approval 4) Follow-up with oncology and cardiology 5) Continue to monitor I&O, labs, and skin integrity Expected Outcomes/Goals: 1) patient to receive nutritional support within 7 days of NPO status 2) labs and wounds to improve 3) diet to advance 4) f/u in 3-5 days Total Time (mins): 26 KEM GALICIA MD Feb 06, 2025 09:06
--- NOTE | 2025-02-06 09:15 | DVH ---
CLINICAL INFORMATION: CVA. TECHNIQUE: Axial imaging was obtained through the brain without contrast. Coronal and sagittal reform atted images were obtained, reviewed, and stored. Images were reviewed in brain and bone windows. Al l CT scans at this medical facility are performed using dose modulation techniques as appropriate to a performed exam including the following: Automated exposure control was utilized; adjustment of the MA and/or KV according to patient size; and use of iterative reconstruction technique. CTDIvol = 52.0 4 mGy DLP = 1025.66 mGy-cm COMPARISON: CT STROKE CTH on DOS: 02/04/25, MRI MRA ANGIO HEAD BRAIN on DOS: 02/03/25, MRI BRAIN HEAD W O CONTRAST on DOS: 02/03/25 FINDINGS: No acute intracranial hemorrhage. Large area of hypoattenuation in the right MCA territory consistent with previously seen large infarct, with evolving changes. No new areas of hypodensity are seen to suggest new infarcts. Stable chronic appearing right cerebellar hemisphere lacunar infarct. Stable mild partial effacement of the right lateral ventricle due to mass effect. The ventricles are stable in size. Basal cisterns are patent. 4 mm midline shift to the left has not significantly missael nged compared to the prior CT. No other significant interval change is seen. IMPRESSION: 1. Large right MCA territory infarct with evolving changes. 2. Mass effect and midline shift to the left appears stable. 3. No acute intracranial hemorrhage. No other significant interval change.
[2025-02-06 09:51] LABS: Urine Protein, UAD 2+ (Negative); Urine WBC Clumps PRESENT /hpf (None Seen)
--- NOTE | 2025-02-06 10:20 | DVHPN2 ---
Progress Note - Dictate Date Seen: Feb 06, 2025 Medical Necessity Reason Pt with a Central, PICC or Fol: Yes The following are medically ne: Coyne Catheter Subjective Ms. Stack is a 74 years old female with a history of hypertension, diabetes, dyslipidemia, coronary artery disease, advanced bladder cancer, she was admitted to the [facility] on 02/02/25 with a chief complaint of altered mental status. I have seen and examined the patient, I have talked to her nurse. She is awake, she does not vocalize, but follows some verbal commands, she does not look to her left-sided, she likely has a left homonymous hemianopsia, only moves the right arm T-max: 99.9 UDS, 02/02/2025: Cannabinoids Plasma alcohol, 02/02/2025: <3 WBC/HB/PLT/MCV, 02/03/2025: 25.3/726/196/96.7 02/06/2025: 36.2/5/408/90.9 BUN/CR, 02/03/2025: 56/2.76 GFR, 02/03/2025: 17 HCO3, 02/02/25: 15, 02/03/2025: 15 Anion gap, 02/02/25: 14, 02/03/2025: 12 Glucose, 02/02/2025: 265 Liver function tests, 02/03/25: Unremarkable TG/HDL/LDL/HDL, 10/05/24: 211/122/54/30 Echocardiogram, 02/03/2025: Technically good study sinus rhythm. Left atrial enlargement. Valves are normal. Mild dilation of the sinuses of Valsalva. Left ventricular systolic function is preserved however there is anterior hypokinesis. EF is approximately 50%. Normal RV function. Mild TR. No pericardial effusion masses or vegetations. Carotid Doppler, 02/02/2025: No hemodynamically significant stenosis by velocity criteria of the internal carotid arteries. Elevated right ECA velocity may represent hemodynamically significant stenosis (There is 4 mm right to left shift of midline ) CT head, 02/03/2025: 1. Acute to subacute appearing large right MCA distribution infarct. 2. Old infarcts of the right posterior parietal lobe, left occipital lobe, and right cerebellum. There are also old lacunar infarcts and/or prominent perivascular spaces along the caudal margins of the bilateral basal ganglia. CT head, 02/04/2025: 1. Continued evolution of acute right MCA infarct, similar in appearance to prior brain MRI from 02/03/2025 when accounting for differences in technique. 4 mm right to left shift of midline. Right posterior watershed infarct is also unchanged. 2. No acute intracranial hemorrhage. CT head, 02/06/2025: 1. Large right MCA territory infarct with evolving changes. 2. Mass effect and midline shift to the left appears stable. 3. No acute intracranial hemorrhage. No other significant interval change MRI brain, 02/03/2025: Diffusion restriction and T2 lengthening of the right MCA distribution, consistent with an evolving acute right MCA infarct. MRA brain, 02/03/2025: Severe diminution in the right middle cerebral artery M1 and M2 branches consistent with thrombosis. Distal branches of the right MCA are not visualized. vital signs Vital Sign Date Time Temp Pulse Resp B/P (MAP) Pulse Ox O2 Delivery O2 Flow Rate FiO2 02/06/25 08:58 98.2 113 21 154/75 (101) 100 98.2 02/06/25 08:10 Nasal Cannula* 2 28 Total Intake and Output 02/05/25 02/05/25 02/06/25 15:00 23:00 07:00 Intake Total 50 ml 0 ml 0 ml Output Total 400 ml 350 ml Balance 50 ml -400 ml -350 ml medications Current Medications Medications Dose Ordered Sig/Raciel Route Start Time Stop Time Status Last Admin Dose Admin Sodium Chloride 10 ml Q8HR IV 02/02/25 22:00 02/06/25 05:59 10 ML Famotidine 20 mg Q48H PO 02/03/25 07:00 Hold Gabapentin 300 mg DAILY PO 02/03/25 10:00 Hold Diagnostic Test (Pha) 1 strip ACHS 02/02/25 22:00 02/06/25 05:58 1 STRIP Insulin Human Regular ACHS SC 02/02/25 22:00 02/06/25 06:59 8 UNITS Dextrose 50 ml UD PRN IV 02/02/25 18:15 Ceftriaxone Sodium 50 ml @ 100 mls/hr DAILY@09 IV 02/02/25 18:14 02/06/25 09:02 100 MLS/HR Aspirin 81 mg DAILY PO 02/03/25 10:00 Hold Atorvastatin Calcium 20 mg HS PO 02/03/25 23:30 Hold objective General: the patient is well developed and nourished. No acute distress. MENTAL STATUS: Subjective SPEECH, LANGUAGE, HIGHER CORTICAL FUNCTION: She does not vocalize CRANIAL NERVES: She may have left homonymous hemianopsia. Pupils are equal, round and reactive. Eyes can not move to the left side. No nystagmus, Facial sensation okay in all three divisions bilaterally. Mandibular strength intact. Facial muscles symmetrical and strength intact (inadequate physical examination) SENSATION: Sensation to touch and pinprick is okay MOTOR: Normal tone in the upper and lower extremity. Normal muscle bulk. No fasciculations. No abnormal movements or posturing. Muscle strength of the major groups in the right arm: 4/5, she moves the right leg a little bit. She does not move the right arm than leg REFLEXES: Deep tendon reflexes normal and symmetrical. Pathologic reflexes in the left foot CEREBELLAR/COORDINATION: Deferred GAIT/STATION: deferred. laboratory and microbiology Laboratory Tests 02/05/25 05:10 Test 02/05/25 05:10 Range/Units Serum Glucose 351 H 74-106 mg/dL Problem List Mass right MCA territory strokes Left homonymous hemianopsia Left hemiplegia Left gaze palsy Altered mental status Secondary to mass stroke Metabolic encephalopathy Bladder cancer with bone metastatic disease Assessment/Plan Monitoring Supportive treatment Transfer to telemetry She does not need to be transferred to higher level care IV antibiotics Aspirin 81 mg daily/aspirin 300 mg VT daily Lipitor 20 mg daily (home med) Famotidine 20 mg every other day I agree hospice care This medical document was created using an electronic medical record system with [employer] dictation system. Although this document has been carefully reviewed, there may still be some phonetic and typographical errors. These areas are purely typographical due to imperfections of the software programs, and do not reflect any compromise in the patient's medical care. Prognosis poor Dietary Evaluation Review Comments: 1) Initiate Pro-Stat @ 30 mL qd 2) If patient remains NPO > 7 days, consider EN/TPN to meet at least 75% of estimated daily needs 3) Advance to 60g CCHO diet when medically feasible, pending ST approval 4) Follow-up with oncology and cardiology 5) Continue to monitor I&O, labs, and skin integrity Expected Outcomes/Goals: 1) patient to receive nutritional support within 7 days of NPO status 2) labs and wounds to improve 3) diet to advance 4) f/u in 3-5 days Plan discussed with: Other RICHI MARTINI MD Feb 06, 2025 10:20
[2025-02-06 10:59] LABS: Hemoglobin 8.5 g/dL (12.2-16.2)
[2025-02-06 11:00] LABS: Hematocrit 27.9 % (36.0-46.0); Mean Corpuscular Hemoglobin 27.8 pg (28.0-32.0); Mean Corpuscular Volume 90.9 fL (80.0-100.0)
[2025-02-06 11:07] LABS: Carbon Dioxide 22 mmol/L (20-31)
[2025-02-06 11:08] LABS: Anion Gap 20 (5-15)
[2025-02-06 11:09] LABS: Calcium 9.0 mg/dL (8.7-10.4)
[2025-02-06 11:11] LABS: Chloride 110 mmol/L (98-107); Potassium 3.4 mmol/L (3.5-5.1); Sodium 152 mmol/L (136-145)
[2025-02-06 11:14] LABS: BUN/Creatinine Ratio 29.8 (10.0-20.0); Blood Urea Nitrogen 56 mg/dL (9-23); Glucose 350 mg/dL (74-106)
[2025-02-06 12:24] LABS: Total Cells Counted 100.0 (100)
--- NOTE | 2025-02-06 18:07 | DVHPN2 ---
Assessment/Plan Assessment/Plan Subjective History of Present Illness Karly Stack is a 74-year-old female with a history of metastatic bladder cancer who recently had a chemotherapy port placed. She presented to the ED on Wednesday morning with left-sided weakness and altered mental status after last being known to be well on night before sleep. Upon arrival at the ED, a stroke code was called. CT head showed a massive MCA stroke, and the patient's initial NIHSS was 24. She was found to be outside the window for acute intervention. MRI and MRA revealed an acute occlusion of the right MCA. The patient is currently unable to follow commands or communicate due to her altered mental status, limiting further assessment of symptoms. The patient's family was present at bedside for goals of care discussion. They are currently considering full code status despite being informed of the poor prognosis and ineligibility for hemicraniectomy or other stroke interventions due to the time elapsed since symptom onset. had another family discussion. family expresses wanting to get do conservative management, also updated code status to DNR DNI. HLOC transfer cancelled. failed GEOGRAPHIC INFORMATION SYSTEM SURVEYOR seen today. follows commands, nonverbal, unable to swallow. hospice care per family, ongoing discussion on nutritional status. Objective Vital Signs - Heart Rate: Irregular rhythm, tachycardia permissive HTN Physical Examination General: Not following commands, altered mental status. Respiratory: Dry chest. Cardiovascular: Irregular rhythm, tachycardia. Abdomen: Soft, non-tender. Musculoskeletal: Normal fractional for extremities. Neurological: Not following commands, protecting airway, deliberate sounds. Laboratory, Imaging, and Diagnostic Test Results - CT Head: Massive MCA stroke - MRI: Acute occlusion of right MCA, diffusion restriction and T2 lengthening of the right MCA distribution consistent with evolving acute right MCA infarct - MRA: Severe diminution in the right middle cerebral artery M1 and M2 branches consistent with thrombosis - Labs: - Creatinine: 2.7 - WBC: 24 (elevated) - Hemoglobin: 7 g/dL - Platelets: 25 - Glucose: Elevated - INR: 1.2 - Urinalysis: Significant WBC and leukocyte esterase - Echocardiogram: - Intra-atrial shunt - EF: 50% - Normal RV function - Chest X-ray: Right anterior chest [id number] Assessment & Plan Assessment - Acute right middle cerebral artery (MCA) infarct - Metastatic bladder cancer - Urinary tract infection - Anemia - Leukocytosis - Hyperglycemia - Intra-atrial shunt - Altered mental status Plan - Continue secondary prevention with aspirin and Lipitor - Treat UTI with cephalexin - Replace electrolytes - Keep patient NPO - Continue goals of care discussion with family - Hold DVT prophylaxis due to risk of hemorrhagic conversion - Monitor clinical course - neurochecks - SCD - asa lipitor when able - neuro consult - ceft - iss - permisive HTN aspiration precaution low treshold for intubation Diet: NPO DVT PPX: DVT prophylaxis halted due to risk of hemorrhagic inversion GI PPX: Not indicated. Code Status: dnr dni critical care time spent 90 minutes GOC discussion 15 minutes and ongoing Plan discussed with: Spouse, Daughter Date of Service: Feb 06, 2025 Billing Provider: CHAO ARAUJO MD Common Visit Codes: [id number] INP/OBS CARE(HIGH) CHAO ARAUJO MD Feb 06, 2025 18:07
[2025-02-07 01:00] VITALS: BP_SYST 107; BP_SYST 96; BP_DIAS 50; BP_DIAS 54; PULSE 124; PULSE 129; RESP 17; RESP 20; TEMP 97.1; TEMP 97.9; O2SAT 90; O2SAT 98
[2025-02-07 05:00] VITALS: BP 90/53; PULSE 128; RESP 20; TEMP 97.3; O2SAT 97
[2025-02-07 05:55] LABS: Mean Corpuscular Volume 92.6 fL (80.0-100.0)
[2025-02-07 05:59] LABS: Hematocrit 27.1 % (36.0-46.0); Hemoglobin 8.6 g/dL (12.2-16.2); Mean Corpuscular Hemoglobin 29.4 pg (28.0-32.0)
[2025-02-07 06:18] LABS: Anion Gap 18 (5-15); Calcium 9.5 mg/dL (8.7-10.4); Carbon Dioxide 23 mmol/L (20-31)
[2025-02-07 07:29] LABS: Chloride 113 mmol/L (98-107); Glucose 286 mg/dL (74-106); Potassium 3.5 mmol/L (3.5-5.1); Sodium 154 mmol/L (136-145)
[2025-02-07 07:39] LABS: BUN/Creatinine Ratio 29.1 (10.0-20.0)
[2025-02-07 07:55] LABS: Blood Urea Nitrogen 66 mg/dL (9-23)
[2025-02-07 08:00] VITALS: PULSE 113; PULSE 144
[2025-02-07 08:31] LABS: Anisocytosis Slight; Total Cells Counted 100.0 (100)
[2025-02-07 08:32] LABS: Stomatocytes Few
--- NOTE | 2025-02-07 08:44 | DVHPN2 ---
Progress Note Date Seen: Feb 07, 2025 Medical Necessity Reason Pt with a Central, PICC or Fol: Yes The following are medically ne: Coyne Catheter Subjective Patient reports: Feels worse Changes from previous H/P or p: Changes Review of Systems: Deferred Objective vital signs Vital Sign Date Time Temp Pulse Resp B/P (MAP) Pulse Ox O2 Delivery O2 Flow Rate FiO2 02/07/25 05:00 97.3 128 20 90/53 (65) 97 97.3 02/06/25 20:16 Nasal Cannula* 2 28 Total Intake and Output 02/06/25 02/06/25 02/07/25 14:59 22:59 06:59 Intake Total 50 ml 0 ml 0 ml Output Total 400 ml 100 ml Balance 50 ml -400 ml -100 ml medications Current Medications Medications Dose Ordered Sig/Raciel Route Start Time Stop Time Status Last Admin Dose Admin Sodium Chloride 10 ml Q8HR IV 02/02/25 22:00 02/07/25 05:56 10 ML Famotidine 20 mg Q48H PO 02/03/25 07:00 Hold Gabapentin 300 mg DAILY PO 02/03/25 10:00 Hold Diagnostic Test (Pha) 1 strip ACHS 02/02/25 22:00 02/07/25 06:07 1 STRIP Insulin Human Regular ACHS SC 02/02/25 22:00 02/07/25 06:15 6 UNITS Dextrose 50 ml UD PRN IV 02/02/25 18:15 Ceftriaxone Sodium 50 ml @ 100 mls/hr DAILY@09 IV 02/02/25 18:14 02/06/25 09:02 100 MLS/HR Atorvastatin Calcium 20 mg HS PO 02/03/25 23:30 Hold Aspirin 300 mg DAILY HI 02/07/25 10:00 Examination: GENERAL:Abnormal, CVS:Abnormal, NEURO:Abnormal laboratory and microbiology Laboratory Tests 02/07/25 05:18 Test 02/07/25 05:18 Range/Units Serum Glucose 286 H 74-106 mg/dL Microbiology Date/Time Source Procedure Growth Status 02/02/25 03:48 Voided Urine Urine Culture - Final Complete Problem List/Assessment/Plan Problem List/Assessment/Plan Acute kidney injury hemodynamic mediated etiology in the setting of acute CVA Encephalopathy secondary to cva Large MCA infarct Hypertension Diabetes sepsis due to UTI hypernatremia overnight hypotension and sinus tachycardia HR 140s. cr increase likely in setting of hypotension WBC worsening supports sepsis Na edison will start 1/2 NS for now Neurology Kidney ultrasound noted given overall plan for possible hospice will defer to primary team about level of involvement and treatment plan Plan discussed with: Other Dietary Evaluation Review Comments: 1) Initiate Pro-Stat @ 30 mL qd 2) If patient remains NPO > 7 days, consider EN/TPN to meet at least 75% of estimated daily needs 3) Advance to 60g CCHO diet when medically feasible, pending ST approval 4) Follow-up with oncology and cardiology 5) Continue to monitor I&O, labs, and skin integrity Expected Outcomes/Goals: 1) patient to receive nutritional support within 7 days of NPO status 2) labs and wounds to improve 3) diet to advance 4) f/u in 3-5 days Total Time (mins): 33 KEM GALICIA MD Feb 07, 2025 08:44
[2025-02-07 08:58] VITALS: BP 102/50; PULSE 139; RESP 16; TEMP 101.3; O2SAT 95
[2025-02-07] MEDS: SOD CHL 0.45% 1,000 ML IV SCH (10:50)
[2025-02-07 13:00] VITALS: BP 96/54; PULSE 129; RESP 16; TEMP 97.9; O2SAT 90
[2025-02-07] MEDS ORDERED: LORazepam 2MG/ML-1ML VIAL IV PRN (13:30)
[2025-02-07] MEDS ORDERED: MORPHINE SULFATE INJ 2 MG/ml SYRG IV PRN (13:30)
[2025-02-07] MEDS ORDERED: GLYCOPYRROLATE 0.2 MG/ML 1ML VIAL IM PRN ×2 (13:30→16:30)
--- NOTE | 2025-02-07 15:56 | DVHDS2 ---
Discharge Summary Date of Admission Feb 02, 2025 at 18:06 Date of Discharge: Feb 07, 2025 Labs/Diagnostic Data: Laboratory Results Test 02/07/25 11:13 02/07/25 05:18 02/06/25 09:30 02/05/25 05:10 POC Glucose 282 mg/dl (70-106) White Blood Count 34.1 10^3/uL (4.4-10.8) Red Blood Count 2.93 10^6/uL (4.0-5.20) Hemoglobin 8.6 g/dL (12.2-16.2) Hematocrit 27.1 % (36.0-46.0) Mean Corpuscular Volume 92.6 fL (80.0-100.0) Mean Corpuscular Hemoglobin 29.4 pg (28.0-32.0) Mean Corpuscular Hemoglobin Concent 31.7 g/dL (32.0-36.0) Red Cell Distribution Width 17.3 % (11.8-14.3) Platelet Count 413 10^3/uL (140-450) Mean Platelet Volume 9.8 fL (6.9-10.8) Neutrophils (%) (Auto) % (37.0-80.0) Lymphocytes (%) (Auto) % (10.0-50.0) Monocytes (%) (Auto) % (0.0-12.0) Basophils (%) (Auto) % (0.0-2.0) Neutrophils # (Auto) 10 ^3/uL (1.6-8.6) Lymphocytes # (Auto) 10 ^3/uL (0.4-5.4) Monocytes # (Auto) 10 ^3/uL (0-1.3) Differential Total Cells Counted 100.0 (100) Neutrophils % (Manual) 85 (37.0-80.0) Band Neutrophils % (Manual) 0 Lymphocytes % (Manual) 6 (10.0-50.0) Monocytes % (Manual) 9 (0-12) Eosinophils % (Manual) 0 (0-7) Basophils % (Manual) 0 (0.0-2.0) Metamyelocytes % (manual) 0 Myelocytes % (Manual) 0 Promyelocytes % (Manual) 0 Blast Cells % (Manual) 0 Reactive Lymphocytes 0 Platelet Estimate Adequate Anisocytosis (manual) Slight Stomatocytes Few Schistocytes Few Sodium Level 154 mmol/L (136-145) Potassium Level 3.5 mmol/L (3.5-5.1) Chloride Level 113 mmol/L (98-107) Carbon Dioxide Level 23 mmol/L (20-31) Anion Gap 18 (5-15) Blood Urea Nitrogen 66 mg/dL (9-23) Creatinine 2.27 mg/dL (0.550-1.02) Glomerular Filtration Rate Calc 22 mL/min (>90) BUN/Creatinine Ratio 29.1 (10.0-20.0) Serum Glucose 286 mg/dL (74-106) Calcium Level 9.5 mg/dL (8.7-10.4) Urine Color Colorless (Yellow) Urine Clarity Ex.turbid (Clear) Urine pH 6.0 (5.0-9.0) Urine Specific [place] 1.016 (1.001-1.035) Urine Protein 2+ (Negative) Urine Ketones 1+ (Negative) Urine Blood 3+ /uL (Negative) Urine Nitrite Negative (Negative) Urine Bilirubin Negative (Negative) Urine Urobilinogen Normal mg/dL (Negative) Urine Leukocyte Esterase 3+ /uL (Negative) Urine RBC 97 /hpf (0 - 4) Urine WBC Clumps Present /hpf (None Seen) Urine Microscopic WBC 1645 /HPF (0-5) Urine Squamous Epithelial Cells Few /hpf (<5) Urine Bacteria Many /hpf (None Seen) Urine Mucus Few (None Seen) Urine Glucose 4+ mg/dL (Normal) Eosinophils (%) (Auto) 0.1 % (0.0-7.0) Eosinophils # (Auto) 0 10 ^3/uL (0-0.8) Basophils # (Auto) 0 10 ^3/uL (0-0.2) Nucleated Red Blood Cells 0.0 % Total Bilirubin 0.2 mg/dL (0.2-1.0) Aspartate Amino Transferase (AST) 24 U/L (13-40) Alanine Aminotransferase (ALT) 10 U/L (7-40) Alkaline Phosphatase 67 U/L (46-116) Total Protein 7.6 g/dL (5.7-8.2) Albumin 3.7 g/dL (3.2-4.8) Test 02/03/25 00:22 02/02/25 18:51 02/02/25 16:00 02/02/25 03:48 Lactic Acid Level 1.0 mmol/L (0.4-2.0) Troponin I High Sensitivity 8 ng/L (</=34) Prothrombin Time 12.5 sec (9.3-11.8) Prothrombin Time INR 1.20 (0.9-1.15) Activated Partial Thromboplast Time 27.1 SEC (24.5-34.5) Magnesium Level 2.1 mg/dL (1.6-2.6) B-Type Natriuretic Peptide 69.63 pg/mL (0-100) Plasma/Serum Blood Alcohol < 3.0 mg/dL (<10) Urine Opiates Screen Neg (NEGATIVE) Urine Fentanyl Screen Neg (NEGATIVE) Urine Barbiturates Screen Neg (NEGATIVE) Urine Phencyclidine Screen Neg (NEGATIVE) Urine Amphetamines Screen Neg (NEGATIVE) Urine Benzodiazepines Screen Neg (NEGATIVE) Urine Cocaine Screen Neg (NEGATIVE) Urine Cannabinoids Screen Pos (NEGATIVE) Other Laboratory Tests 02/07/25 05:18 Brief Hx & Hospital Course: Karly Stack is a 74-year-old female with a history of metastatic bladder cancer who recently had a chemotherapy port placed. She presented to the ED on Wednesday morning with left-sided weakness and altered mental status after last being known to be well on night before sleep. Upon arrival at the ED, a stroke code was called. CT head showed a massive MCA stroke, and the patient's initial NIHSS was 24. She was found to be outside the window for acute intervention. MRI and MRA revealed an acute occlusion of the right MCA. The patient is currently unable to follow commands or communicate due to her altered mental status, limiting further assessment of symptoms. The patient's family was present at bedside for goals of care discussion. They are currently considering full code status despite being informed of the poor prognosis and ineligibility for hemicraniectomy or other stroke interventions due to the time elapsed since symptom onset. had another family discussion. family expresses wanting to get do conservative management, also updated code status to DNR DNI. [facility]LOC transfer cancelled. failed TRANSCRIPTION TYPIST. have family discussion today, going with comfort care. had a fever likely aspiration. will add tylenol, robinul, ativan and morphine. 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 - Metastatic bladder cancer - Urinary tract infection - Anemia - Leukocytosis - Hyperglycemia - Intra-atrial shunt - Altered mental status Discharge Disposition: Nursing Home Facility Discharge Instruct/Medications Diet: See Comment Activity: No Restrictions, As Tolerated Scheduled Atorvastatin Calcium (Lipitor), 1 TAB PO QPM, (Reported) Ciprofloxacin Hcl (Ciprofloxacin Hcl), 1 TAB PO Q12HR, (Reported) Famotidine (Famotidine), 1 TAB PO QAM, (Reported) Gabapentin (Once-Daily) (Gabapentin), 2 TAB PO BID, (Reported) Insulin Glargine (Basaglar Kwikpen), 8 UNIT SC HS, (Reported) Lisinopril (Lisinopril), 1 MG PO DAILY, (Reported) Metformin Hydrochloride (Metformin Hcl), 1 TAB PO QAM, (Reported) Discharge Statement: "Patient was advised to return to the ER or call 911 if any headaches, dizziness, shortness of breath, chest pain, abdominal pain, bleeding, fevers, or worsening of medical condition. Patient was counseled about treatment plan, medications, possible side effects, patientverbalized understanding. All questions were answered to the best of my ability. This discharge took greater then 30 minutes in planning, reviewing documentation, counseling the patient, and discussing with other team members." ASSESSMENT ASSESSMENT Assessment massive MCA stroke Date of Service: Feb 07, 2025 Billing Provider: CHAO ARAUJO MD Common Visit Codes: 39221-UYY/OBS DISCH DAY >30min CHAO ARAUJO MD Feb 07, 2025 15:56
[2025-02-07] MEDS ORDERED: ACETAMINOPHEN IV 1000 MG/100ML (10MG/ML) IV PRN (16:00)
[2025-02-07 17:00] VITALS: BP 119/81; PULSE 128; RESP 18; TEMP 98.9; O2SAT 95
== END 2025-02-07 18:40 | disposition hospice, home (50) | DRG 64 ==
LOC: EDUNIT# 15:03 → EDBD 15:03 → ER 15:03 → OVERFLOW 18:06 → TELE-EAST 02-03 16:08
PROVIDERS: ADMIT Student in an Organized Health Care Education/Training Program; ATTEND Student in an Organized Health Care Education/Training Program
DX: I63.9 Cerebral infarction, unspecified (principal); A41.9 Sepsis, unspecified organism; G93.41 Metabolic encephalopathy; J69.0 Pneumonitis due to inhalation of food and vomit; J15.69 Pneumonia due to other Gram-negative bacteria; J15.9 Unspecified bacterial pneumonia; J96.01 Acute respiratory failure with hypoxia; C79.51 Secondary malignant neoplasm of bone; E87.20 Acidosis, unspecified; N17.9 Acute kidney failure, unspecified; E87.0 Hyperosmolality and hypernatremia; G81.94 Hemiplegia, unspecified affecting left nondominant side; G93.49 Other encephalopathy; G93.1 Anoxic brain damage, not elsewhere classified; Z51.5 Encounter for palliative care; E11.65 Type 2 diabetes mellitus with hyperglycemia; H53.462 Homonymous bilateral field defects, left side; R29.724 NIHSS score 24; Z66 Do not resuscitate; N18.30 Chronic kidney disease, stage 3 unspecified; E11.22 Type 2 diabetes mellitus with diabetic chronic kidney disease; I12.9 Hypertensive chronic kidney disease with stage 1 through stage 4 chronic kidney disease, or unspecified chronic kidney disease; E78.5 Hyperlipidemia, unspecified; I25.10 Atherosclerotic heart disease of native coronary artery without angina pectoris; Z90.49 Acquired absence of other specified parts of digestive tract; Z98.51 Tubal ligation status; Z95.1 Presence of aortocoronary bypass graft; Z85.51 Personal history of malignant neoplasm of bladder; Z79.899 Other long term (current) drug therapy; Z82.49 Family history of ischemic heart disease and other diseases of the circulatory system; Z82.3 Family history of stroke; Z83.3 Family history of diabetes mellitus; Z88.5 Allergy status to narcotic agent; Z79.4 Long term (current) use of insulin; Z79.2 Long term (current) use of antibiotics; D63.8 Anemia in other chronic diseases classified elsewhere; N30.90 Cystitis, unspecified without hematuria
CPT/HCPCS: 36415; 70450; 70545; 70551; 71045; 76775; 80048; 80053; 80307; 80320; 81001; 82962; 83605; 83735; 83880; 84484; 85007; 85025; 85027; 85610; 85730; 87086; 92610; 93005; 93306; 93886; 96361; 96365; G0378; J0131; J1815